=== PATIENT | male | born 1950 | race Caucasian/White ===

== ENCOUNTER 2016-12-22 03:40 | Emergency (ER) | payer MEDICARE ==
[2016-12-22] MEDS ORDERED: Ondansetron TAB* 4 MG PO ONE (03:50)
--- NOTE | 2016-12-22 04:01 | ED ---
Abdominal Pain/Male - HPI Summary HPI Summary: Patient presents for delayed evaluation of nausea after eating lunch. Last seconds at a time, so he called the PCP personal service representative who directed him to the ED if he felt he needed evaluation. Denies systemic symptoms, vomiting, sick contacts , abd pain. No allev factors attempted. Also felt that his blood pressure was high. - History of Current Complaint Chief Complaint: EDGeneral Stated Complaint: ELEVATED BLOOD PRESSURE Time Seen by Provider: 12/22/16 03:50 Hx Obtained From: Patient, EMS Onset/Duration: Gradual Onset Timing: Intermittent, Lasting Seconds Severity Initially: Mild Severity Currently: Mild Pain Intensity: 0 - Allergies/Home Medications Allergies/Adverse Reactions: Allergies Allergy/AdvReac Type Severity Reaction Status Date / Time Morphine Allergy Vomiting Verified 08/30/16 11:45 Penicillins Allergy Rash Verified 08/30/16 11:45 PMH/Surg Hx/FS Hx/Imm Hx Endocrine/Hematology History: Denies: Hx Diabetes, Hx Thyroid Disease Cardiovascular History: Reports: Hx Hypercholesterolemia, Hx Hypertension Denies: Hx Pacemaker/ICD Respiratory History: Denies: Hx Asthma, Hx Chronic Obstructive Pulmonary Disease (COPD) GI History: Denies: Hx Ulcer History: Denies: Hx Renal Disease Sensory History: Reports: Hx Contacts or Glasses Denies: Hx Hearing Aid Opthamlomology History: Reports: Hx Contacts or Glasses Psychiatric History: Reports: Hx Panic Disorder, Hx Inpatient Treatment, Hx Community Mental Health Tx Denies: Hx of Violent Episodes Against Others - Cancer History Cancer Type, Location and Year: PROSTATE - Surgical History Surgery Procedure, Year, and Place: 2001 REMOVED PROSTATE, PIGEON CHEST AT YOUNG AGE - Immunization History Date of Tetanus Vaccine: unk Date of Influenza Vaccine: fall 2015 Infectious Disease History: No Infectious Disease History: Denies: Hx Hepatitis, Hx Human Immunodeficiency Virus (HIV), Traveled Outside the [place] in Last 30 Days - Family History Known Family History: Positive: Diabetes, Other - CVA - Social History Alcohol Use: None Substance Use Type: Reports: None Smoking Status (MU): Former Smoker Have You Smoked in the Last Year: No Review of Systems Positive: Nausea All Other Systems Reviewed And Are Negative: Yes Physical Exam Triage Information Reviewed: Yes Vital Signs On Initial Exam: Initial Vitals Temp Pulse Resp BP Pulse Ox 97.2 F 72 16 132/75 97 12/22/16 03:42 12/22/16 03:42 12/22/16 03:42 12/22/16 03:42 12/22/16 03:42 Vital Signs Reviewed: Yes Appearance: Positive: Well-Appearing, No Pain Distress, Well-Nourished Skin: Positive: Warm, Skin Color Reflects Adequate Perfusion, Dry ENT: Positive: Normal ENT inspection, Hearing grossly normal Respiratory/Lung Sounds: Positive: Clear to Auscultation, Breath Sounds Present Cardiovascular: Positive: Normal, RRR, Pulses are Symmetrical in both Upper and Lower Extremities Abdomen Description: Positive: Nontender, No Organomegaly, Soft Musculoskeletal: Positive: Normal, Strength/ROM Intact Neurological: Positive: Normal, Sensory/Motor Intact, Alert, Oriented to Person Place, Time, CN Intact II-III, Reflexes Intact - Arnie Coma Scale Coma Scale Total: 15 Diagnostics - Vital Signs Vital Signs Temp Pulse Resp BP Pulse Ox 12/22/16 03:42 97.2 F 72 16 132/75 97 - Laboratory Result Diagrams: 12/22/16 04:20 12/22/16 04:20 Lab Statement: Any lab studies that have been ordered have been reviewed, and results considered in the medical decision making process. Abdominal Pain Fem Course/Dx - Diagnoses Differential Diagnosis/HQI/PQRI: Gall Bladder Disease, Peptic Ulcer Disease, Other - Primary concern for biliary colic. Small mobile gall stones on bedside US, but no murphys signs, wall thickening, or pericholecystic fluid. Supportive care, lab evaluation, and PCP and GI FU. Provider Diagnoses: Cholelithiasis Discharge - Discharge Plan Condition: Stable Disposition: HOME Patient Education Materials: Acute Nausea and Vomiting (ED) Referrals: Paramjit Grullon MD [Primary Care Provider] - Edilberto Fuller MD [Medical Doctor] -
[2016-12-22 04:37] LABS: Hematocrit 41 % (42-52); Mean Corpuscular HGB Conc 34 g/dl (31-36); Mean Corpuscular Hemoglobin 32 pg (27-31); Mean Corpuscular Volume 94 fL (80-94); Mean Platelet Volume 10 um3 (7.4-10.4); Red Blood Count 4.31 10^6/ul (4.0-5.4); Red Cell Distribution Width 14 % (10.5-15); White Blood Count 6.4 10^3/ul (3.5-10.8)
[2016-12-22 04:48] LABS: Albumin 3.6 g/dL (3.2-5.2); BUN/Creatinine Ratio 16.7 (8-20); Calcium 8.7 mg/dL (8.6-10.3); EGFR African American 140.5 (>60); EGFR Non-African American 109.2 (>60); Globulin 2.7 g/dL (2-4); Potassium 3.9 mmol/L (3.5-5.0); Total Bilirubin 0.6 mg/dL (0.2-1.0); Total Protein 6.3 g/dL (6.4-8.9)
[2016-12-22 06:00] VITALS: BP 130/81
== END 2016-12-22 05:59 | disposition home or self-care (01) ==
LOC: ED 03:40
DX: K80.20 Calculus of gallbladder without cholecystitis without obstruction (principal); R11.0 Nausea
CPT/HCPCS: 36415; 80053; 83690; 85027; 99282; A9270-GY

== ENCOUNTER 2017-03-13 13:05 | Day surgery (SDC) | payer MEDICARE ==
--- NOTE | 2017-01-31 15:11 | HP ---
ADMISSION HISTORY AND PHYSICAL: DATE OF ADMISSION: 02/20/17 CHIEF COMPLAINT: Symptomatic cholelithiasis. HISTORY OF PRESENT ILLNESS: This is a 66-year-old male to female transgender individual who first reports abdominal pain for which she presented to the ED in mid December. She reports symptoms of mid epigastric abdominal pain associated with nausea, but no vomiting. She denies fever or chills. She reports the pain was moderately severe, but actually resolved spontaneously. Workup in the ED at that time revealed mild elevation of transaminases. The white blood cell count was normal. She was subsequently seen by Dr. Alejandro on and was referred for ultrasound. Ultrasound of the gallbladder was done on 01/21/17 showing multiple gallstones, but no gallbladder wall thickening or pericholecystic fluid. Common bile duct was normal. Patient met back with Dr. Alejandro again on 01/28/17 and it was felt that her symptoms were likely related to symptomatic cholelithiasis. She since had another attack of right upper quadrant pain on 01/29/17 that was similar in most regards other than a slightly different location. That also resolved spontaneously. At no point has she noticed darkening of her urine or change in the color of her stool. There is no known family history of gallbladder disease. Dr. Alejandro has discussed with her the indications for surgery, the risks, benefits and alternatives and I reviewed with her the expected perioperative course. She would like to proceed as scheduled with laparoscopic cholecystectomy. PAST MEDICAL HISTORY: Hyperlipidemia, hypertension, insomnia, anxiety, depression, prostate cancer without evidence of recurrence. Patient is in the process of gender transformation (male to female). 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 No reported surgical or anesthesia problems. CURRENT MEDICATIONS: 1. Simvastatin 10 mg q.p.m. 2. Effexor XR 150 mg 2 tablets daily. 3. Seroquel XR 200 mg q.h.s. 4. Aspirin 81 mg daily (instructed to hold for 1 week preoperatively). 5. Flutamide 125 mg daily. 6. Progesterone micronized 200 mg daily. 7. Mirtazapine 15 mg daily. 8. Estradiol 2 mg 2 tablets q.a.m., 1 tablet q.p.m. 9. Spironolactone 25 mg daily. 10. Clonazepam 2 mg q.h.s. 11. Vitamin D3, 5000 units daily. 12. Acetaminophen p.r.n. 13. Ondansetron 4 mg ODT p.r.n. DRUG ALLERGIES: MORPHINE (vomiting), PENICILLIN (rash and joint pain). FAMILY HISTORY: Negative for anesthesia problems, bleeding or clotting disorders. SOCIAL HISTORY: Patient lives alone in an apartment. She is a former smoker who quit in 1977. She admits to substance use disorder regarding alcohol but has been abstinent for many years. She denies other drug use. REVIEW OF SYSTEMS: General: No recent constitutional symptoms or acute illnesses. Cardiovascular: History of hypertension. No recent chest pain, palpitations or lightheadedness. Respiratory: No history of asthma, chronic cough or shortness of breath. GI: As above per HPI. No lower GI symptoms. Colonoscopy done approximately 4 years ago with removal of benign polyps and repeat exam to be scheduled in 1 year. : Prostate cancer history as noted without evidence of recurrence. Endocrine: No diabetes or thyroid dysfunction. He is going through a gender transformation process. Neuro/Psych : As above. She is followed by Dr. Stephenie Bonilla. No other additions. Musculoskeletal: She does have some chronic lower back pain. PHYSICAL EXAM: GENERAL: Well-nourished obese male in no acute distress. VITAL SIGNS: Height 5 feet 8 inches, weight 195 pounds by history. Other vital signs per nursing. HEENT: Pupils equal and round, reactive. EOMs intact. No conjunctival pallor. Oropharynx: Teeth in good repair. No intraoral lesions. NECK: No lymphadenopathy, thyromegaly or masses. LUNGS: Clear to auscultation. No rales or wheezes. HEART: Regular rate and rhythm. No murmur noted. BREASTS: He does have some gynecomastia, but breast exam not performed. ABDOMEN: Well-healed lower midline incision. Abdomen is soft, nontender without palpable masses or organomegaly. GENITALIA/RECTAL: Not done. BACK: No spinous process or CVA tenderness. EXTREMITIES: No edema. NEUROLOGIC: Grossly intact. SKIN: Warm and ray. No suspicious rashes or lesions noted. IMPRESSION: Symptomatic cholelithiasis. PLAN: Laparoscopic cholecystectomy. RENAE LOPEZ CC: Dr. Elizabeth Romero* [id number]/[facility] #: [id number] MARYD
[~2017-03-13 13:05] MED LIST: Buffered Lidocaine 1% SYRIN* 3 ML/SYR SYRINGE INTRADERM ONE; Bupivacaine 0.25% EPI 200,000* 30 ML SDV ONE; Famotidine IV* 10 MG/ML 2 ML (20 mg) IV ONE; Levalbuterol 0.63MG/3ML NEB INH ONE; Midazolam* 1 MG/ML 2 ML VIAL (2 MG) IV ONE; ceFAZolin 2 GM PREMIX(*) 2 GM/50 ML BAG IVPB ONE
[2017-03-13] MEDS ORDERED: fentaNYL* 50 MCG/ML 2 ML VIAL (100 MCG VIAL) ONE ×3 (14:26→16:33)
[2017-03-13] MEDS ORDERED: Midazolam* 1 MG/ML 2 ML VIAL (2 MG) ONE (14:26)
[2017-03-13] MEDS ORDERED: Bupivacaine 0.25% EPI 200,000* 30 ML SDV ONE (15:21)
[2017-03-13] MEDS ORDERED: Propofol* 10 MG/ML 20 ML BTL IV PUSH ONE (15:57)
[2017-03-13] MEDS ORDERED: Ondansetron INJ* 2 MG/ML VIAL ONE (15:57)
[2017-03-13] MEDS ORDERED: Dexamethasone IV* 4 MG/ML 1 ML (4 MG) ONE (15:57)
[2017-03-13] MEDS ORDERED: Lidocaine 2% PF * 5 ML VIAL ONE (15:57)
[2017-03-13] MEDS ORDERED: Succinylcholine* 20 MG/ML 10 ML VIAL ONE (15:57)
[2017-03-13] MEDS ORDERED: Metoclopramide IV* 5 MG/ML 2 ML VIAL IV PRN (16:15)
[2017-03-13] MEDS ORDERED: fentaNYL* 50 MCG/ML 2 ML VIAL (100 MCG VIAL) IV PRN (16:15)
[2017-03-13] MEDS ORDERED: Scopolamine 1.5 mg* PATCH TRANSDERM PRN (16:15)
[2017-03-13] MEDS ORDERED: PROCHLORPERAZINE INJ 5 MG/ML 2 ML VIAL IV PRN (16:15)
[2017-03-13] MEDS ORDERED: Sevoflurane* 1 BTL ONE (16:30)
--- NOTE | 2017-03-13 16:48 | SURGPN ---
Brief Operative Note - Surgery Procedures: Procedures Pre-OP Diagnoses: cholecystitis Post-op Diagnosis: same Procedure: Laparoscopic cholecystectomy Surgeon: Flavia Asst: Swapnil Umañatheitzel: CHIRAG Chaney EBL: 50cc IVF: 1600ccLR Specimen: gallbladder Drains: none
[2017-03-13] MEDS ORDERED: HYDROmorphone* 1 MG/ML 1 ML SYR ONE (17:44)
[2017-03-13] MEDS: HYDROmorphone* 1 MG/ML 1 ML SYR IV PRN ×3 (17:47→18:16)
[2017-03-13 18:49] VITALS: BP 108/79
--- NOTE | 2017-03-13 23:05 | OP ---
DATE OF OPERATION: 03/13/17 [facility] DATE OF : 50 SURGEON: Jamison Alejandro MD BUSINESS PROCESS ARCHITECT: RENAE Laurent ANESTHESIOLOGIST: Dr. Chaney. ANESTHESIA: General. PRE-OP DIAGNOSIS: Cholecystitis. POST-OP DIAGNOSIS: Cholecystitis. OPERATIVE PROCEDURE: Laparoscopic cholecystectomy. BLOOD LOSS: 50 cc. FLUIDS: Crystalloid, 1600 cc. SPECIMEN: Gallbladder. COUNTS: Lap pad count and instrument count correct at the end of the procedure. DESCRIPTION OF PROCEDURE: The patient was identified in the preoperative area, consent signed. He was marked and brought to the operating room, placed on the operating table in a supine position. Preoperative antibiotics were given. Sequential devices were placed on bilateral lower extremities. General anesthesia was induced. The patient's abdomen was prepped and draped in a standard surgical fashion and time-out was performed. Folds of the umbilicus were elevated anteriorly and a Veress needle was inserted into the abdominal cavity, which was then allowed to insufflate to a pressure of 15 mmHg. The patient tolerated the insufflation well. A supraumbilical incision was made and a 5 mm trocar was inserted through this just at the right side of the midline. Laparoscope was inserted. There was no evidence of injury from the trocar insertion or from the Veress needle, which was then removed. Additional trocars were then placed in the following position: A 12 mm in the subxiphoid area and two 5 mm along the right costal margin. The table was repositioned and the gallbladder was identified, it was invested with significant amount of fat, what appeared to be node of Calot was identified below this and we excised the peritoneum over this area. We looked for the common bile duct and we could not find it given the body habitus. The electrocautery was used to take the peritoneum down off the medial aspect of the gallbladder along with its multiple layers of edematous fatty covering. This was taken right up the medial aspect to the fundus. Similarly, we were able to do this on the lateral side. The cystic duct was identified, it was tortuous and we released peritoneal attachments to allow this to be elongated and see it better. Once it was identified, it was triply clipped and ligated. The cystic artery was clipped and the gallbladder was removed from the liver bed. We did enter the gallbladder at one point. Some cholesterol stones were identified. These were suctioned off later. Gallbladder was removed from the liver bed and placement of endoscopic retrieval bag and removed through the subxiphoid port. We then suctioned out any of the cholesterol stones and then irrigated until the effluent was clear. Cystic duct stump, cystic artery stump appeared intact. They were within a fold of fat and showed no bleeding or bile. The gallbladder fossa showed no bleeding as well. The review of the abdomen did see some greater omental oozing and this was clipped to gain hemostasis. Table was repositioned back to neutral. The abdomen was allowed to collapse. Trocar was removed under direct vision and all 4 skin incisions were re- approximated with 4-0 Monocryl subcuticular sutures followed by Steri-Strips and sterile dressing. The patient tolerated the procedure well and was transferred to the PACU. CC: Dr. Elizabeth Romero; [facility] * [id number]/[facility] #: [id number] MTDD
== END 2017-03-13 18:51 | disposition home or self-care (01) ==
LOC: OR 13:05
PROVIDERS: ATTEND Surgery
DX: K80.10 Calculus of gallbladder with chronic cholecystitis without obstruction (principal); Z87.891 Personal history of nicotine dependence; Z85.46 Personal history of malignant neoplasm of prostate; I10 Essential (primary) hypertension; E78.5 Hyperlipidemia, unspecified; F41.8 Other specified anxiety disorders
CPT/HCPCS: 88304; A9270-GY; J0330; J0690; J1100; J1170; J2250; J2405; J2704; J3010

== ENCOUNTER 2018-05-07 10:44 | Day surgery (SDC) | payer BC, OTHER ==
[~2018-05-07 10:44] MED LIST changes: +Acetaminophen TAB* 325 MG PO PRN; +Buffered Lidocaine 0.9% SYRIN* 5 ML/SYR SYRINGE INTRADERM ONE; -Buffered Lidocaine 1% SYRIN* 3 ML/SYR SYRINGE INTRADERM ONE; -Bupivacaine 0.25% EPI 200,000* 30 ML SDV ONE; -Famotidine IV* 10 MG/ML 2 ML (20 mg) IV ONE; -Levalbuterol 0.63MG/3ML NEB INH ONE; -Midazolam* 1 MG/ML 2 ML VIAL (2 MG) IV ONE; -ceFAZolin 2 GM PREMIX(*) 2 GM/50 ML BAG IVPB ONE
[2018-05-07] MEDS ORDERED: fentaNYL* 50 MCG/ML 2 ML VIAL (100 MCG VIAL) ONE (12:39)
[2018-05-07] MEDS ORDERED: Midazolam* 1 MG/ML 2 ML VIAL (2 MG) ONE (12:39)
[2018-05-07 13:44] VITALS: BP 116/69
[2018-05-07] MEDS ORDERED: Ketorolac 0.5% OPHTH (NF) 0.5 % 5 ML BTL ONE (13:50)
[2018-05-07] MEDS ORDERED: Phenylephrine 2.5% OPTH.SOL* 2 ML BTL ONE (13:50)
[2018-05-07] MEDS ORDERED: Lidocaine 1%* 5 ML VIAL ONE (13:50)
[2018-05-07] MEDS ORDERED: acetaZOLAMIDE TAB* 250 MG ONE (13:50)
[2018-05-07] MEDS ORDERED: Lidocaine 2% EPI 1:200000 MPF*10-20 ML VIAL ONE (13:50)
[2018-05-07] MEDS ORDERED: Povidone Iodine 5% OPTH* 30 ML BTL ONE (13:50)
[2018-05-07] MEDS ORDERED: Neomycin/Polymy/Dex OPTH.SUSP* MAXITROL 0.1% 5 ML ONE (13:50)
[2018-05-07] MEDS ORDERED: Cyclopentolate 1% OPTH.SOL* 2 ML BTL ONE (13:50)
[2018-05-07] MEDS ORDERED: Proparacaine 0.5% OPHTH.SOL* 15 ML BTL ONE (13:50)
--- NOTE | 2018-05-07 15:40 | OP ---
DATE OF OPERATION: 05/07/2018. DATE OF : 1950. SURGEON: Paramjit Linares M.D. PREOPERATIVE DIAGNOSIS: Cataract right eye. POSTOPERATIVE DIAGNOSIS: Cataract right eye. OPERATIVE PROCEDURE: Extracapsular cataract extraction with intraocular lens implant right eye. PROCEDURE: The patient was brought to the operating room after being given 1/2% Alcaine with epineph rine drops in the preoperative area. The eye was prepped and draped in the usual sterile fashion. S terile drape and eyelid speculum were placed. Again, topical 1/2% Alcaine with epinephrine was given . A paracentesis incision was made at the 9 o'clock position with the No.75 blade. Clear cornea inc ision 2.2 x 2.2-mm was created at the 12 o'clock position starting at the anterior limbus using the 2 .2-mm keratome. The anterior chamber was irrigated with 0.4 mL of 1% non-preservative intracameral l idocaine and filled with DisCoVisc. A capsulorrhexis was completed using the cystotome and the Utrat a forceps. Hydrodissection was performed with balanced salt solution. The lens nucleus was removed w ith the Phacoemulsification handpiece without incident. Cortex was removed with the irrigation-aspir ation handpiece. The capsular bag was re-inflated using DisCoVisc and an [id number] implant was inser mahendra with the shooter. The irrigation-aspiration handpiece was used to remove all residual DisCoVisc. The eye was refilled with balanced salt solution and the wound checked and found to be watertight. Topical Maxitrol drops were given. [id number]/[facility] #: [id number]
== END 2018-05-07 13:52 | disposition home or self-care (01) ==
LOC: OREAST 10:44
PROVIDERS: ATTEND Specialist
DX: H25.811 Combined forms of age-related cataract, right eye (principal); H43.813 Vitreous degeneration, bilateral; Z87.891 Personal history of nicotine dependence; Z85.46 Personal history of malignant neoplasm of prostate; I10 Essential (primary) hypertension; E78.00 Pure hypercholesterolemia, unspecified; F41.8 Other specified anxiety disorders; M19.90 Unspecified osteoarthritis, unspecified site; E78.5 Hyperlipidemia, unspecified
CPT/HCPCS: A9270-GY; J2250; J3010; V2632

== ENCOUNTER 2018-05-21 13:34 | Day surgery (SDC) | payer BC, OTHER ==
[~2018-05-21 13:34] MED LIST changes: +Midazolam* 1 MG/ML 2 ML VIAL (2 MG) ONE
[2018-05-21] MEDS ORDERED: Proparacaine 0.5% OPHTH.SOL* 15 ML BTL ONE (15:09)
[2018-05-21] MEDS ORDERED: Neomycin/Polymy/Dex OPTH.SUSP* MAXITROL 0.1% 5 ML ONE (15:09)
[2018-05-21] MEDS ORDERED: Povidone Iodine 5% OPTH* 30 ML BTL ONE (15:09)
[2018-05-21] MEDS ORDERED: acetaZOLAMIDE TAB* 250 MG ONE (15:09)
[2018-05-21] MEDS ORDERED: Phenylephrine 2.5% OPTH.SOL* 2 ML BTL ONE (15:09)
[2018-05-21] MEDS ORDERED: Ketorolac 0.5% OPHTH (NF) 0.5 % 5 ML BTL ONE (15:09)
[2018-05-21] MEDS ORDERED: Lidocaine 1%* 5 ML VIAL ONE (15:09)
[2018-05-21] MEDS ORDERED: Cyclopentolate 1% OPTH.SOL* 2 ML BTL ONE (15:09)
[2018-05-21] MEDS ORDERED: Lidocaine 2% EPI 1:200000 MPF*10-20 ML VIAL ONE (15:09)
[2018-05-21] MEDS ORDERED: Midazolam* 1 MG/ML 2 ML VIAL (2 MG) ONE (16:21)
[2018-05-21 16:47] VITALS: BP 124/71
--- NOTE | 2018-05-22 09:25 | OP ---
DATE OF OPERATION: 05/21/18 [facility] DATE OF : 50 SURGEON: Paramjit Linares MD PREOPERATIVE DIAGNOSIS: Cataract, left eye. POSTOPERATIVE DIAGNOSIS: Cataract, left eye. OPERATIVE PROCEDURE: Extracapsular cataract extraction with intraocular lens implant left eye. DESCRIPTION OF PROCEDURE: The patient was brought to the operating room after being given 1/2% Alcaine with epinephrine drops in the preoperative area. The eye was prepped and draped in the usual sterile fashion. Sterile drape and eyelid speculum were placed. Again, topical 1/2% Alcaine with epinephrine was given. A paracentesis incision was made at the 3 o'clock position with the No.75 blade. Clear cornea incision 2.2 x 2.2-mm was created at the 6 o'clock position starting at the anterior limbus using the 2.2-mm keratome. The anterior chamber was irrigated with 0.4 mL of 1% non-preservative intracameral lidocaine and filled with DisCoVisc. A capsulorrhexis was completed using the cystotome and the Utrata forceps. Hydrodissection was performed with balanced salt solution. The lens nucleus was removed with the Phacoemulsification handpiece without incident. Cortex was removed with the irrigation-aspiration handpiece. The capsular bag was re-inflated using DisCoVisc and an [id number] implant was inserted with the shooter. The irrigation-aspiration handpiece was used to remove all residual DisCoVisc. The eye was refilled with balanced salt solution and the wound checked and found to be watertight. Topical Maxitrol drops were given. [id number]/[facility] #: [id number] [facility]
== END 2018-05-21 16:48 | disposition home or self-care (01) ==
LOC: OREAST 13:34
PROVIDERS: ATTEND Specialist
DX: H25.812 Combined forms of age-related cataract, left eye (principal); H43.813 Vitreous degeneration, bilateral; I10 Essential (primary) hypertension; F64.9 Gender identity disorder, unspecified; R73.01 Impaired fasting glucose; E78.5 Hyperlipidemia, unspecified; Z87.891 Personal history of nicotine dependence; F41.8 Other specified anxiety disorders; M19.90 Unspecified osteoarthritis, unspecified site; Z85.46 Personal history of malignant neoplasm of prostate; R32 Unspecified urinary incontinence
CPT/HCPCS: A9270-GY; J2250; V2632

== ENCOUNTER 2019-06-10 16:20 | Emergency (ER) | payer MEDICARE ==
--- NOTE | 2019-06-10 17:02 | ED ---
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 He states that after having a bowel movement he found bright red blood after wiping his stool. He states that he has some rectal pain and rates its severity a 3/10. He denies abd pain, dizziness, weakness, or lightheadedness. Hx of hemorrhoids. - History of Current Complaint Chief Complaint: EDGIBleed Time Seen by Provider: 06/10/19 16:54 Stated Complaint: BLOOD IN BM, SENT BY DR PER PT Hx Obtained From: Patient Onset/Duration: Started Hours Ago Timing: Intermittent Severity: Mild Current Severity: Mild Pain Intensity: 3 Location of Pain: Rectal Associated Signs and Symptoms: Positive: Rectal Pain, Bright Red Blood w/Stool. Negative: Dizziness, Weakness, Lightheadedness, Abdominal Pain, Chest Pain Aggravating Factor(s): Nothing Alleviating Factor(s): Nothing - Additional Pertinent History Primary Care Physician: WILLIAM - Allergy/Home Medications Allergies/Adverse Reactions: Allergies Allergy/AdvReac Type Severity Reaction Status Date / Time Penicillins Allergy Severe Rash Verified 06/10/19 16:26 morphine Allergy Intermediate Vomiting Verified 06/10/19 16:26 Home Medications: Home Medications ARIPiprazole TAB* [Abilify TAB*] 10 mg PO DAILY 06/10/19 [History Confirmed ] Acetaminop/Codeine 30 MG TAB* [Tylenol/Codeine 30 MG TAB*] 1 tab PO DAILY PRN [History Confirmed 06/10/19] Aspirin EC TAB* [Ecotrin EC Low Dose 81 MG*] 81 mg PO DAILY 06/10/19 [History Confirmed 06/10/19] Diclofenac Sodium EC TAB* [Voltaren EC TAB*] 75 mg PO BID 06/10/19 [History Confirmed 06/10/19] Estradiol [Estrace] 2 mg PO TID 06/10/19 [History Confirmed 06/10/19] Flutamide CAP* [Eulexin CAP*] 125 mg PO DAILY 06/10/19 [History Confirmed ] Metaxalone TAB* [Skelaxin TAB*] 800 mg PO TID 06/10/19 [History Confirmed ] Mirtazapine TAB* [Remeron TAB*] 30 mg PO BEDTIME 06/10/19 [History Confirmed ] Simvastatin TAB(NF) [Zocor(NF)] 10 mg PO DAILY 06/10/19 [History Confirmed 06/10] Venlafaxine ER (NF) [Effexor ER (NF)] 300 mg PO DAILY 06/10/19 [History Confirmed 06/10/19] PMH/Surg Hx/FS Hx/Imm Hx Endocrine/Hematology History: Denies: Hx Diabetes, Hx Thyroid Disease Cardiovascular History: Reports: Hx Hypercholesterolemia, Hx Hypertension - ON MEDICATION FOR, Other Cardiovascular Problems/Disorders - Elevated cholesterol Denies: Hx Pacemaker/ICD Respiratory History: Reports: Other Respiratory Problems/Disorders - Pneumonia, history of Denies: Hx Asthma, Hx Chronic Obstructive Pulmonary Disease (COPD) GI History: Reports: Other GI Disorders - GALLSTONES Denies: Hx Ulcer History: Reports: Other Problems/Disorders - HX OF PROSTATE CANCER- SURGERY FOR Denies: Hx Renal Disease Musculoskeletal History: Reports: Hx Arthritis - LEFT KNEE AND LEFT LOWER BACK Denies: Other Musculoskeletal History Sensory History: Reports: Hx Cataracts - BILATERAL, Hx Contacts or Glasses - glasses, Hx Hearing Aid - left ear hearing aide on Denies: Hx Glaucoma Opthamlomology History: Reports: Hx Cataracts - BILATERAL, Hx Contacts or Glasses - glasses Denies: Hx Glaucoma Neurological History: Denies: Other Neuro Impairments/Disorders Psychiatric History: Reports: Hx Anxiety, Hx Depression, Hx Panic Disorder, Hx Inpatient Treatment, Hx Community Mental Health Tx Denies: Hx of Violent Episodes Against Others - Cancer History Cancer Type, Location and Year: PROSTATE Hx Chemotherapy: No Hx Radiation Therapy: No - Surgical History Surgery Procedure, Year, and Place: 2001 REMOVED PROSTATE, 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 tonsillectomy as a child Hx Anesthesia Reactions: No - Immunization History Date of Tetanus Vaccine: unk Date of Influenza Vaccine: fall 2015 Infectious Disease History: No Infectious Disease History: Denies: Hx Hepatitis, Hx Human Immunodeficiency Virus (HIV), Traveled Outside the [place] in Last 30 Days - Family History Known Family History: Positive: Diabetes, Other - CVA - Social History Alcohol Use: None Alcohol Amount: NONE SINCE 1986 AND 2002- STATES WAS AN ALCOHOLIC Hx Substance Use: No Substance Use Type: Reports: None Hx Tobacco Use: Yes Smoking Status (MU): Former Smoker Amount Used/How Often: 1 ppd 10 years Have You Smoked in the Last Year: No Review of Systems Negative: Chest Pain Positive: Other - positive - blood w/stool, rectal pain. Negative: Abdominal Pain Neurological: Other - negative - dizziness, lightheadedness Negative: Weakness All Other Systems Reviewed And Are Negative: Yes Physical Exam - Summary Physical Exam Summary: Appearance: Well-appearing, Well-nourished, lying in bed comfortably Skin: Warm, dry, no obvious rash Eyes: sclera anicteric, no conjunctival pallor ENT: mucous membranes moist, pharynx appears normal Neck: Supple, nontender Respiratory: Clear to auscultation, no signs of respiratory distress Cardiovascular: Normal S1, S2. No murmurs. Normal distal pulses in tibial and radial bilaterally. Abdomen: Soft, nontender, normal active bowel sounds present, Rectal Exam: only notable for small amount of blood in rectal vault, no hemorrhoids. Musculoskeletal: Normal, Strength/ROM Intact Neurological: A&Ox3, awake and alert, mentation is normal, speech is fluent and appropriate Psychiatric: affect is normal, does not appear anxious or depressed Triage Information Reviewed: Yes Vital Signs On Initial Exam: Initial Vitals Temp Pulse Resp BP Pulse Ox 96.9 F 90 14 135/82 94 06/10/19 16:22 06/10/19 16:22 06/10/19 16:22 06/10/19 16:22 06/10/19 16:22 Vital Signs Reviewed: Yes Diagnostics - Vital Signs Vital Signs Temp Pulse Resp BP Pulse Ox 06/10/19 16:22 96.9 F 90 14 135/82 94 - Laboratory Result Diagrams: 06/10/19 17:51 06/10/19 17:51 Lab Statement: Any lab studies that have been ordered have been reviewed, and results considered in the medical decision making process. - EKG 1713 Cardiac Rate: NL EKG Rhythm: Sinus Rhythm Summary of EKG Findings: NSR at 78 BPM, P waves, QRS complex, and T waves are within normal limits, T waves and intervals are normal, no ischemic changes. This is a normal EKG. Re-Evaluation - Re-Evaluation First Eval Re-Evaluation Time: 18:40 Comment: I spoke with the patient concerning discharge. 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 He states that after having a bowel movement he found bright red blood after wiping his stool. He states that he has some rectal pain and rates its severity a 3/10. He denies dizziness, weakness, or lightheadedness. Hx of hemorrhoids. Physical exam was only notable for small amount of blood in rectal vault, no hemorrhoids. Test results are normal except for RBC @ 4.09, Hgb @ 13.2, MCV @ 96, MCH @ 32, BUN/Creatinine @ 28.0, Calcium @ 7.9, and Total Protein @ 5.6. Stool Occult positive for blood. An EKG reveals: NSR at 78 BPM, P waves, QRS complex, and T waves are within normal limits, T waves and intervals are normal, no ischemic changes. This is a normal EKG. In the ED course the pt was given 1000 mls fluids IV. The pt was diagnosed with rectal bleed, discharged home, and instructed to follow up with PCP within 3 days. The pt is stable and agreeable with this plan. - Diagnoses Provider Diagnoses: Rectal bleed Discharge - Sign-Out/Discharge Documenting (check all that apply): Patient Departure - discharge Patient Received Moderate/Deep Sedation with Procedure: No - Discharge Plan Condition: Good Disposition: HOME Patient Education Materials: Rectal Bleeding (ED) Referrals: Elizabeth Romero MD [Primary Care Provider] - 3 Days Additional Instructions: Your bleeding appears to have stopped and your hemoglobin looks good. I think it is safe for you to be discharged for now, but you will need followup with a mitigation supervisor. Also if your bleeding starts again we would need to see you back here right away. - Billing Disposition and Condition Condition: GOOD Disposition: Home - Attestation Statements Document Initiated by Alize: Yes Documenting Scribe: Ethan Cardozo Provider For Whom Alize is Documenting (Include Credential): Yayo Morris MD Scribe Attestation: IEthan, scribed for Yayo Morris MD on 06/12/19 at 0446. Scribe Documentation Reviewed: Yes Provider Attestation: The documentation as recorded by the Ethan mari accurately reflects the service I personally performed and the decisions made by me, Yayo Morris MD Status of Scribe Document: Viewed
[2019-06-10] MEDS ORDERED: NS 0.9% 1000 ML** 1,000 ML IV ONE (17:09)
[2019-06-10 18:13] LABS: ABS Eosinophils 0.2 10^3/ul (0-0.6); ABS Lymphocytes 1.4 10^3/ul (1.0-4.8); ABS Monocytes 0.6 10^3/ul (0-0.8); ABS Neutrophils 5.6 10^3/ul (1.5-7.7); Hematocrit 39 % (42-52); Hemoglobin 13.2 g/dL (14.0-18.0); Lymphocyte % 17.3 %; Mean Corpuscular HGB Conc 34 g/dL (31-36); Mean Corpuscular Hemoglobin 32 pg (27-31); Mean Corpuscular Volume 96 fL (80-94); Mean Platelet Volume 8.8 fL (7.4-10.4); Nucleated Red Blood Cells % 0.1; Platelet Count 190 10^3/uL (150-450); Red Blood Count 4.09 10^6 /uL (4.18-5.48); Red Cell Distribution Width 14 % (10-15); White Blood Count 7.9 10^3/uL (3.5-10.8)
[2019-06-10 18:22] LABS: Activated Partial Thrombo Time 32.4 seconds (26.0-38.0)
[2019-06-10 18:35] VITALS: BP 130/77
[2019-06-10 18:41] LABS: Albumin 3.4 g/dL (3.2-5.2); Albumin/Globulin Ratio 1.5 (1-3); Calcium 7.9 mg/dL (8.6-10.3); EGFR African American 112.7 (>60); EGFR Non-African American 93.2 (>60); Globulin 2.2 g/dL (2-4); Potassium 4.1 mmol/L (3.5-5.0); Total Bilirubin 0.4 mg/dL (0.2-1.0); Total Protein 5.6 g/dL (6.4-8.9)
--- OUTSIDE RECORDS SUMMARY | 2019-06-11 01:19 | XMS REPORT | Continuity of Care Document ---
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 Abel([facility]) WBC 7.8 x10^3/UL 3.6 -9.6 RBC 4.62 x10^6/UL 3.90-5.70 HGB 14.9 g/dL 12.1-17.2 HCT 44 % 36-50 MCV 96.0 fL 82.2-97.4 MCH 32.3 pg 27.6-33.3 MCHC 33.7 g/dL 33.0-35.5 RDW 14.5 % High 11.6-13.7 PLT 253 x10^3/UL 150-400 MPV 7.7 fL 7.4-10.4 Gran # 6.0 x10^3/UL 1.5-7.2 Lymph# 1.6 x10^3/UL 0.7-4.9 [place]# 0.2 x10^3/UL 0.1-0.9 Gran % 75.2 % 42.2-75.2 Lymph % 21.0 % 20.5-51.1 [place]% 3.8 % 1.7-9.3 Laboratory test 06/12/2017 [facility] Estradiol 1020.0 High 7.6-42.6 15, 16 finding [address] [facility] pg/[place] [address] (607)- - CBC No Diff 01/31/2017 [facility] White Blood 8.9 N 3.5-10.8 17 Count 10^3/uL Red Blood Count 4.33 10^6/uL N 4.0-5.4 Hemoglobin 13.8 g/dL Low 14.0-18.0 Hematocrit 41 % Low 42-52 Mean Corpuscular Volume 95 fL High 80-94 Mean Corpuscular Hemoglobin 32 pg High 27-31 Mean Corpuscular HGB Conc 34 g/dL N 31-36 Red Cell Distribution Width 14 % N 10.5-15 Platelet Count 187 10^3/uL N 150-450 Mean Platelet Volume 10 um3 N 7.4-10.4 Liver Function Panel 01/31/2017 [facility] Total Protein 6.1 g/dL Low 6.4-8.9 Albumin 3.8 g/dL N 3.2-5.2 Globulin 2.3 g/dL N 2-4 Albumin/Globulin Ratio 1.7 N 1-3 Total Bilirubin 0.70 mg/dL N 0.2-1.0 Direct Bilirubin 0.10 mg/dL N 0.03-0.18 Indirect Bilirubin 0.6 mg/dL N 0.3-1.0 Alkaline Phosphatase 68 U/L N 34-104 Alt 21 U/L N 7-52 Ast 19 U/L N 13-39 Laboratory test finding 12/22/2016 [facility] Lipase 19 U/L N 11.0-82.0 Comp Metabolic Panel 12/22/2016 [facility] Sodium 132 mmol/L Low 133-145 Potassium 3.9 mmol/L N 3.5-5.0 Chloride 100 mmol/L Low 101-111 Co2 Carbon Dioxide 26 mmol/L N 22-32 Anion Gap 6 mmol/L N 2-11 Glucose 118 mg/dL High 70-100 Blood Urea Nitrogen 12 mg/dL N 6-24 Creatinine 0.72 mg/dL N 0.67-1.17 BUN/Creatinine Ratio 16.7 N 8-20 Calcium 8.7 mg/dL N 8.6-10.3 Total Protein 6.3 g/dL Low 6.4-8.9 Albumin 3.6 g/dL N 3.2-5.2 Globulin 2.7 g/dL N 2-4 Albumin/Globulin Ratio 1.3 N 1-3 Total Bilirubin 0.60 mg/dL N 0.2-1.0 Alkaline Phosphatase 98 U/L N 34-104 Alt 76 U/L High 7-52 Ast 46 U/L High 13-39 Egfr Non- 109.2 N >60 Egfr 140.5 N >60 18 CBC No Diff 12/22/2016 [facility] White Blood Count 6.4 10^3/uL N 3.5-10.8 Red Blood Count 4.31 10^6/uL N 4.0-5.4 Hemoglobin 14.0 g/dL N 14.0-18.0 Hematocrit 41 % Low 42-52 Mean Corpuscular Volume 94 fL N 80-94 Mean Corpuscular Hemoglobin 32 pg High 27-31 Mean Corpuscular HGB Conc 34 g/dL N 31-36 Red Cell Distribution Width 14 % N 10.5-15 Platelet Count 127 10^3/uL Low 150-450 Mean Platelet Volume 10 um3 N 7.4-10.4 Influenza A&B-fma 12/18/2016 [facility] Influenza A neg (607)- - Influenza B neg Comprehensive Metabolic 09/04/2016 [facility] Page(a) Sodium 139 mEq/L 134-149 Prof Potassium 4.4 mEq/L 3.6-5.5 Chloride 98 mEq/L 94-112 Carbon Dioxide 24 mEq/L 21-32 Glucose 117 mg/dL High 70-105 19 BUN 15 mg/dL 6-26 Creatinine 0.8 mg/dL 0.6-1.4 BUN/Creat Ratio 18.8 CALC 8.0-36.0 Calcium 8.9 mg/dL 8.6-10.2 Total Protein 6.4 g/dL 6.4-8.3 Albumin 4.0 g/dL 3.8-5.5 Globulin 2.4 g/dL 2.0-4.8 A/G Ratio 1.7 CALC 0.6-2.3 Alk. Phosphatase 61 U/L 22-95 Alt (SGPT) 27 U/L 7-35 Ast (Sgot) 24 U/L 5-34 Total Bilirubin 0.5 mg/dL 0.2-1.3 GFR Non- >60 ml/min/1.73m^ >=60 GFR >60 ml/min/1.73m^ >=60 Lipid Profile 09/04/2016 Sebastian Abel(a) Cholesterol 164 mg/dL 120- 200 Triglycerides 102 mg/dL 30-200 HDL Cholesterol 61 mg/dL 30-70 LDL (Calculated) 83 CALC 0-129 VLDL Cholesterol 20 mg/dL 0-50 HDL Risk Factor 2.7 CALC 0.0-4.4 Complete Blood Count 09/04/2016 Sebastian Abel(a) WBC 9.9 x10^3/UL High 3.6-9.6 RBC 4.49 x10^6/UL 3.90-5.70 HGB 14.7 g/dL 12.1-17.2 HCT 43 % 36-50 MCV 96.0 fL 82.2-97.4 MCH 32.8 pg 27.6-33.3 MCHC 34.1 g/dL 33.0-35.5 RDW 15.0 % High 11.6-13.7 PLT 214 x10^3/UL 150-400 MPV 7.2 fL Low 7.4-10.4 Gran # 8.1 x10^3/UL High 1.5-7.2 Lymph# 1.6 x10^3/UL 0.7-4.9 [place]# 0.2 x10^3/UL 0.1-0.9 Gran % 80.9 % High 42.2-75.2 Lymph % 16.4 % Low 20.5-51.1 [place]% 2.7 % 1.7-9.3 Laboratory test 09/04/2016 Sebastian Abel(a) Free T4 0.80 ng/dL 0.75- 1.54 20 finding TSH 2.77 mIU/L 0.50-6.00 Lyme AB/Western 07/13/2016 [facility] Lyme IgG/IgM <0.91 ISR 0.00-0.90 21 Blot Reflex [address] [facility] [place] [address] (607)- - Lyme Disease Ab, Quant, IgM <0.80 index 0.00-0.79 22 Laboratory test 07/13/2016 [facility] PDF [id number] SEE IMAGE finding [address] [place] [address] (607)- - Complete Blood 07/13/2016 [facility](fma) WBC 7.8 3.6-9. Count x10^3/UL 6 RBC 4.14 x10^6/UL 3.90-5.70 HGB 14.1 g/dL 12.1-17.2 HCT 40 % 36-50 MCV 98.0 fL High 82.2-97.4 MCH 34.0 pg High 27.6-33.3 MCHC 34.8 g/dL 33.0-35.5 RDW 13.7 % 11.6-13.7 PLT 204 x10^3/UL 150-400 MPV 8.3 fL 7.4-10.4 Gran # 6.2 x10^3/UL 1.5-7.2 Lymph# 1.4 x10^3/UL 0.7-4.9 [place]# 0.2 x10^3/UL 0.1-0.9 Gran % 78.0 % High 42.2-75.2 Lymph % 18.2 % Low 20.5-51.1 [place]% 3.8 % 1.7-9.3 CBC Auto Diff 03/16/2016 [facility] White Blood Count 10.3 10^3/uL N 3.5-10.8 Red Blood Count 4.63 10^6/uL N 4.0-5.4 Hemoglobin 14.9 g/dL N 14.0-18.0 Hematocrit 44 % N 42-52 Mean Corpuscular Volume 96 fL High 80-94 Mean Corpuscular Hemoglobin 32 pg High 27-31 Mean Corpuscular HGB Conc 34 g/dL N 31-36 Red Cell Distribution Width 14 % N 10.5-15 Platelet Count 211 10^3/uL N 150-450 Mean Platelet Volume 9 um3 N 7.4-10.4 Abs Neutrophils 8.5 10^3/uL High 1.5-7.7 Abs Lymphocytes 1.0 10^3/uL N 1.0-4.8 Abs Monocytes 0.7 10^3/uL N 0-0.8 Abs Eosinophils 0 10^3/uL N 0-0.6 Abs Basophils 0 10^3/uL N 0-0.2 Abs Nucleated RBC 0 10^3/uL N Granulocyte % 82.9 % N 38-83 Lymphocyte % 9.6 % Low 25-47 Monocyte % 7.2 % N 1-9 Eosinophil % 0.2 % N 0-6 Basophil % 0.1 % N 0-2 Nucleated Red Blood Cells % 0 N Urinalysis Profile 03/16/2016 [facility] Urine Color Nohelia N Urine Appearance Clear N Urine Specific [place] 1.028 N 1.010-1.030 Urine pH 5.0 N 5-9 Urine Urobilinogen Negative N Negative Urine Ketones Trace Abnormal Negative Urine Protein Negative N Negative Urine Leukocytes Negative N Negative Urine Blood Negative N Negative Urine Nitrite Negative N Negative Urine Bilirubin Negative N Negative Urine Glucose Negative N Negative Urine Drug 03/16/2016 [facility] Amphetamine Ur Presumptive Posi Abnormal None Detect 23 SCR ED & Screen <SEE NOTE> Pain Clinic Barbiturates Urine Screen None Detected N None Detect Benzodiazepine Urine Screen None Detected N None Detect Urine Cannabinoids Screen None Detected N None Detect Urine Cocaine Screen None Detected N None Detect Urine Opiates Screen None Detected N None Detect Urine Phencyclidine Screen None Detected N None Detect 24 Comp Metabolic Panel 03/16/2016 [facility] Sodium 135 mmol/L N 133-145 Potassium 3.6 mmol/L N 3.5-5.0 Chloride 102 mmol/L N 101-111 Co2 Carbon Dioxide 25 mmol/L N 22-32 Anion Gap 8 mmol/L N 2-11 Glucose 103 mg/dL High 70-100 Blood Urea Nitrogen 25 mg/dL High 6-24 Creatinine 0.82 mg/dL N 0.67-1.17 BUN/Creatinine Ratio 30.5 High 8-20 Calcium 9.2 mg/dL N 8.6-10.3 Total Protein 6.9 g/dL N 6.4-8.9 Albumin 4.3 g/dL N 3.2-5.2 Globulin 2.6 g/dL N 2-4 Albumin/Globulin Ratio 1.7 N 1-3 Total Bilirubin 0.70 mg/dL N 0.2-1.0 Alkaline Phosphatase 57 U/L N 34-104 Alt 36 U/L N 7-52 Ast 21 U/L N 13-39 Egfr Non- 94.3 N >60 Egfr 121.3 N >60 25 Laboratory test finding 03/16/2016 [facility] Acetaminophen < 15 g/mL N 26 Alcohol < 10 mg/dL N <10 Salicylate < 2.50 mg/dL N <30 TSH (Thyroid Stim Horm) 1.58 ?IU/mL N 0.34-5.60 Laboratory test 01/09/2016 [facility] Hemoglobin A1c 5.6 % 4.1-5.7 finding (607)- - (Fma) Laboratory test 12/08/2015 [facility] PSA Diagnostic < 0.008 N 0-4.0 27 finding ng/mL Comp Metabolic 09/29/2015 [facility] Sodium 135 mmol/L N 133-145 Panel Potassium 4.3 mmol/L N 3.5-5.0 Chloride 102 mmol/L N 101-111 Co2 Carbon Dioxide 26 mmol/L N 22-32 Anion Gap 7 mmol/L N 2-11 Glucose 99 mg/dL N 70-100 Blood Urea Nitrogen 20 mg/dL N 6-24 Creatinine 0.79 mg/dL N 0.67-1.17 BUN/Creatinine Ratio 25.3 High 8-20 Calcium 9.1 mg/dL N 8.6-10.3 Total Protein 6.4 g/dL N 6.4-8.9 Albumin 4.0 g/dL N 3.2-5.2 Globulin 2.4 g/dL N 2-4 Albumin/Globulin Ratio 1.7 N 1-3 Total Bilirubin 0.50 mg/dL N 0.2-1.0 Alkaline Phosphatase 68 U/L N 34-104 Alt 25 U/L N 7-52 Ast 16 U/L N 13-39 Egfr Non- 98.4 N >60 Egfr 126.6 N >60 28 Laboratory test finding 09/16/2015 [facility] Testosterone Total 175.66 ng/dL Low 240-950 Estradiol 216 pg/mL High Less Than 50 Progesterone 6.9 ng/mL N Laboratory test finding 08/12/2015 [facility] Progesterone 7.2 ng/mL N Testosterone Total 179.22 ng/dL Low 240-950 Estradiol 91 pg/mL High Less Than 50 Laboratory test 06/13/2015 [facility] Hemoglobin A1c 5.3 % % 4.1- 5.7 finding (607)- - (Fma/CMC,CX) Laboratory test 06/13/2015 Sebastian Page([facility]) TSH 2.10 0.50-6.00 29 finding mIU/L Complete Blood 06/13/2015 Sebastian Page([facility]) WBC 5.9 3.6-9.6 Count x10^3/UL RBC 4.36 x10^6/UL 3.90-5.70 HGB 14.6 g/dL 12.1-17.2 HCT 42 % 36-50 MCV 96.0 fL 82.2-97.4 MCH 33.5 pg High 27.6-33.3 MCHC 34.8 g/dL 33.0-35.5 RDW 14.0 % High 11.6-13.7 PLT 157 x10^3/UL 150-400 MPV 8.0 fL 7.4-10.4 Gran # 4.3 x10^3/UL 1.5-7.2 Lymph# 1.4 x10^3/UL 0.7-4.9 [place]# 0.2 x10^3/UL 0.1-0.9 Gran % 70.6 % 42.2-75.2 Lymph % 24.7 % 20.5-51.1 [place]% 4.7 % 1.7-9.3 Lipid Profile 06/13/2015 Sebastian Abel([facility]) Cholesterol 150 mg/dL 120- 200 Triglycerides 113 mg/dL 30-200 HDL Cholesterol 54 mg/dL 30-70 LDL (Calculated) 73 CALC 0-129 VLDL Cholesterol 23 mg/dL 0-50 HDL Risk Factor 2.8 CALC 0.0-4.4 Comprehensive Metabolic 06/13/2015 Sebastian Abel([facility]) Sodium 135 mEq/L 134-149 Prof Potassium 4.1 mEq/L 3.6-5.5 Chloride 100 mEq/L 94-112 Carbon Dioxide 28 mEq/L 21-32 Glucose 98 mg/dL 70-105 BUN 26 mg/dL 6-26 Creatinine 0.9 mg/dL 0.6-1.4 BUN/Creat Ratio 28.9 CALC 8.0-36.0 Calcium 8.7 mg/dL 8.6-10.2 Total Protein 6.4 g/dL 6.4-8.3 30 Albumin 3.9 g/dL 3.8-5.5 Globulin 2.2 g/dL 2.0-4.8 A/G Ratio 1.6 CALC 0.6-2.3 Alk. Phosphatase 71 U/L 22-95 Alt (SGPT) 26 U/L 7-35 Ast (Sgot) 18 U/L 5-34 Total Bilirubin 0.6 mg/dL 0.2-1.3 1 RESULTS VERIFIED BY REPEAT ANALYSIS 2 RESULTS VERIFIED BY REPEAT ANALYSIS 3 RESULTS VERIFIED BY REPEAT ANALYSIS 4 RESULTS VERIFIED BY REPEAT ANALYSIS 5 1sst 6 [employer] ECLIA methodology 7 consistent w/ previous results 8 RESULTS VERIFIED BY REPEAT ANALYSIS 9 1SST 10 [employer] ECLIA methodology 11 1sst 12 [employer] ECLIA methodology 13 RESULTS VERIFIED BY REPEAT ANALYSIS 14 RESULTS VERIFIED BY REPEAT ANALYSIS 15 1 16 [employer] ECLIA methodology 17 SD 02/20/17 18 Because ethnic data is not always readily available, this report includes an eGFR for both -Americans and non- Americans. The National Kidney Disease Education Program (NKDEP) does not endorse the use of the MDRD equation for patients that are not between the ages of 18 and 70, are , have extremes of body size, muscle mass, or nutritional status, or are non- or non-. According to the National Kidney Foundation, irrespective of diagnosis, the stage of the disease is based on the level of kidney function: Stage Description GFR(mL/min/1.73 m(2)) 1 Kidney damage with normal or decreased GFR 90 2 Kidney damage with mild decrease in GFR 60-89 3 Moderate decrease in GFR 30-59 4 Severe decrease in GFR 15-29 5 Kidney failure <15 (or dialysis) 19 RESULTS VERIFIED BY REPEAT ANALYSIS 20 FASTING 21 Negative <0.91 Equivocal 0.91 - 1.09 Positive >1.09 22 Negative <0.80 Equivocal 0.80 - 1.19 Positive >1.19 IgM levels may peak at 3-6 weeks post infection, then gradually decline. 23 Presumptive Positive Presumptive positive results are unconfirmed. 24 The urine specimen was tested at the listed cutoffs: Drug class test level (ng/mL) Amphetamines 500 Barbiturates 200 Benzodiazepine metabolites 200 Cocaine metabolites 150 Cannabinoids 50 Opiates 300 Pcp 25 Specimen was received without chain of custody. Results should be used for medical purposes only. 25 Because ethnic data is not always readily available, this report includes an eGFR for both -Americans and non- Americans. The National Kidney Disease Education Program (NKDEP) does not endorse the use of the MDRD equation for patients that are not between the ages of 18 and 70, are , have extremes of body size, muscle mass, or nutritional status, or are non- or non-. According to the National Kidney Foundation, irrespective of diagnosis, the stage of the disease is based on the level of kidney function: Stage Description GFR(mL/min/1.73 m(2)) 1 Kidney damage with normal or decreased GFR 90 2 Kidney damage with mild decrease in GFR 60-89 3 Moderate decrease in GFR 30-59 4 Severe decrease in GFR 15-29 5 Kidney failure <15 (or dialysis) 26 Therapeutic concentration: <50 ug/mL Toxic concentration: >120 ug/mL 27 Serum levels of PSA measured using the PRX DXI Hybritech immunoassay should not be interpreted as absolute evidence of the presence or absence of disease. The PSA value should be used in conjunction with other pertinent clinical diagnostic procedures. A PSA value in the range of 0.1 to 0.6 ng/ml is indeterminate if being used as an indicator of recurrent or residual disease. The values obtained with different assay methods or kits cannot be used interchangeably. 28 Because ethnic data is not always readily available, this report includes an eGFR for both -Americans and non- Americans. The National Kidney Disease Education Program (NKDEP) does not endorse the use of the MDRD equation for patients that are not between the ages of 18 and 70, are , have extremes of body size, muscle mass, or nutritional status, or are non- or non-. According to the National Kidney Foundation, irrespective of diagnosis, the stage of the disease is based on the level of kidney function: Stage Description GFR(mL/min/1.73 m(2)) 1 Kidney damage with normal or decreased GFR 90 2 Kidney damage with mild decrease in GFR 60-89 3 Moderate decrease in GFR 30-59 4 Severe decrease in GFR 15-29 5 Kidney failure <15 (or dialysis) 29 FASTING 30 RESULTS VERIFIED BY REPEAT ANALYSIS Procedures Date Code Description Status 12/25/2017 [id number] Mammogram Completed 12/28/2016 [id number] Mammogram Completed 06/15/2016 [id number] Remove Impacted Cerumen Completed 01/09/2016 50160 Finger Or Heel Stick Completed Encounters Type Date Location Provider Dx Diagnosis Office Visit 03/09/2019 Main Office Elizabeth Romero M.D. I10 Essential ( primary) 2:20p hypertension R73.01 Impaired fasting glucose R53.83 Other fatigue R06.83 Snoring M16.0 Bilateral primary osteoarthritis of hip G47.62 Sleep related leg cramps E55.9 Vitamin D deficiency, unspecified Office Visit 02/03/2019 2:40p [facility] Elizabeth Romero G47.62 Sleep related M.D. leg cramps M16.0 Bilateral primary osteoarthritis of hip I10 Essential (primary) hypertension R73.01 Impaired fasting glucose L60.0 Ingrowing nail Office Visit 08/07/2018 3:10p Main Office Paramjit Babb M16.0 Bilateral primary MD Charleen osteoarthritis of hip Z23 Encounter for immunization Office Visit 06/04/2018 Main Office Paramjit Babb M25.551 Pain in right hip 4:00p MD Charleen Office Visit 04/29/2018 [facility] Elizabeth Romero, Z01.818 Encounter for 11:00a Office M.D. other preprocedural examination H25.813 Combined forms of age-related cataract, bilateral I10 Essential (primary) hypertension F64.9 Gender identity disorder, unspecified R73.01 Impaired fasting glucose Z12.11 Encounter for screening for malignant neoplasm of colon Office Visit 01/30/2018 9:00a Main Office Elizabeth Romero I10 Essential ( primary) M.D. hypertension R73.01 Impaired fasting glucose F64.9 Gender identity disorder, unspecified Office Visit 12/16/2017 3:00p Main Office Elizabeth Romero I10 Essential ( primary) M.D. hypertension F64.9 Gender identity disorder, unspecified R73.01 Impaired fasting glucose F33.1 Major depressive disorder, recurrent, moderate Office Visit 11/06/2017 8:30a [facility] Elizabeth Romero M79.671 Pain in right foot M.D. Office Visit 10/21/2017 9:00a Main Office Ely Brown, N39.3 Stress PIGMENT PROCESSOR incontinence (female) (male) Office Visit 10/02/2017 9:15a Main Office Ely Brown, R05 Cough PIGMENT PROCESSOR Office Visit 09/02/2017 9:45a Main Office Ely Brown, M25.551 Pain in right hip PIGMENT PROCESSOR Office Visit 07/29/2017 3:00p Main Office Elizabeth Romero, I10 Essential M.D. 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 disorder, unspecified I10 Essential (primary) hypertension M25.551 Pain in right hip N39.3 Stress incontinence (female) (male) Office Visit 06/11/2017 10:00a Main Office Mame Watt, N39.3 Stress incontinence Afnp-C (female) (male) R11.0 Nausea Office Visit 04/17/2017 1:40p [facility] Elizabeth Romero, R32 Unspecified urinary M.D. incontinence I10 Essential (primary) hypertension F33.1 Major depressive disorder, recurrent, moderate Z85.46 Personal history of malignant neoplasm of prostate F64.9 Gender identity disorder, unspecified Office Visit 01/15/2017 8:20a Main Office Elizabeth Romero, I10 Essential ( primary) M.D. 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 hypertension R60.0 Localized edema Office Visit 10/26/2016 9:50a [facility] Elizabeth Romero, M25.511 Pain in right M.D. shoulder Office Visit 09/11/2016 8:00a Main Office Elizabeth Romero, Z00.00 Encntr for M.D. 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 disorder, recurrent, moderate I10 Essential (primary) hypertension F64.1 Gender identity disorder in adolescence and adulthood Office Visit 07/13/2016 10:30a Main Office Melva Marrufo1 Rash and other PIGMENT PROCESSOR nonspecific skin eruption Office Visit 06/27/2016 3:45p Main Office Melva Marrufo1 Rash and other PIGMENT PROCESSOR nonspecific skin eruption Office Visit 06/15/2016 9:00a Main Office Ely Brown, H91.8x3 Other specified PIGMENT PROCESSOR hearing loss, bilateral H61.21 Impacted cerumen, right ear Office Visit 05/22/2016 3:30p Main Office Tara Hardy, M25.561 Pain in right Afnp-C knee Office Visit 03/30/2016 1:20p [facility] Paramjit Russo F33.1 Major depressive Jose Grullon disorder, recurrent, moderate Office Visit 03/14/2016 3:10p Main Office Paramjit Russo M21.331 Wrist dropMitchel M.D. right wrist Office Visit 03/12/2016 11:15a Main Office Mame M21.331 Wrist drop, Alysa, right wrist Afnp-C Office Visit 03/08/2016 2:40p Main Office Elizabeth Romero, F33.1 Major depressive MErinDErin disorder, recurrent, moderate I10 Essential (primary) hypertension R73.01 Impaired fasting glucose B35.1 Tinea unguium Office Visit 01/09/2016 12:15p Main Office Ely Kevin, PIGMENT PROCESSOR M54.5 Low back pain R73.01 Impaired fasting glucose Office Visit 12/07/2015 2:30p Main Office Ely Bernalrer, M54.5 Low back pain PIGMENT PROCESSOR Office Visit 10/03/2015 3:10p [facility] Office Elizabeth Romero, R55 Syncope and M.D. collapse I10 Essential (primary) hypertension Office Visit 09/06/2015 9:20a Main Office Elizabeth Romero, I10 Essential ( primary) M.D. hypertension E78.2 Mixed hyperlipidemia Z85.46 Personal history of malignant neoplasm of prostate F33.1 Major depressive disorder, recurrent, moderate Office Visit 05/31/2015 9:00a Main Office Elizabeth Romero, 401.1 Hypertension Benign M.D. 272.2 Hyperlipidemia Mixed V10.46 History Personal Malignant Neoplasm Prostate 296.32 Depressive Disorder Major Recurrent Moderate 790.21 Impaired Fasting Glucose 302.85 Gender Identity Disorder Of Adolescent Or Adult Life V06.1 Vanfbegpgq-Rgvtqvj-Meqbniov Combined (DTaP) V06.5 Tetanus Diphtheria (DT) V03.82 Streptococcus Pneumoniae Vaccination Spec Other Plan of Treatment Future Appointment(s):11/12/2019 8:15 am - Elizabeth Romero M.D. at Main [id number] 8:00 am - Elizabeth Romero M.D. at Main Splssx8006/04/2019 - Mague Minor, [id number] Insect bite (nonvenomous) of right forearm, initial encounteComments:Appear to be mosquito bites or similar. Try calamine lotion or a topical muscle rub to help with theitch. They should fade on their own.R10.84 Generalized abdominal painComments:You have mild pain over a not-very- concerning area, so I would continue to wait and monitor your symptoms. Call [facility] if condition changes/worsens in any wayAllComments:1. Patient has been queried about patient's goals/preferences and functional/lifestyle goals at relevant visits. If relevant, describe: Has been discussed, noted above2. Treatment goals as explainedto the patient: see above3. Are there barriers to meeting treatment goals? Yes If Yes, please describe: Barriers include possible insurance limits, disease process, and difficulty with lifestyle changes4. Self-Management goals as described to the patient: Yes, see above As always, we strongly encourage a healthy diet and making physical activity a part of your every day life. If you have questions about how or where to start, please contact the office.
--- OUTSIDE RECORDS SUMMARY | 2019-06-11 01:20 | XMS REPORT | Continuity of Care Document ---
:1950 External Reference #:[id number] Author Name Elizabeth Romero M.D. Address [address] [place] [address] Care Team Providers Name Role Phone Elizabeth Romero M.D. Care Team Information Sales Team Member Unavailable Elizabeth Romero M.D. Primary Care Physician Unavailable Payers Date Identification Numbers Payment Provider Subscriber Effective: Policy Number: [id number] Medicare Blue Ppo Violeta Denise 2017 PayID: [id number] [address] [address] [place] [address] Problems Active Problems Provider Date Gender dysphoria [...] Elizabeth Romero M.D. Onset: 05/25/2019 Inactive Problems Fhty-jv-nghhfr transsexual Elizabeth Romero M.D. Onset: 06/20/2016 Inactive: 04/30/2017 Family History Date Family Member(s) Observation Comments Father due to Stroke () Mother Diabetes Mellitus, II Mother due to Stroke () Siblings 3 sister Social History Type Date Description Comments Sex Unknown Lives With Alone Occupation Disabled [employer] [place] from [place] ankle injury Tobacco Use Start: [...] Medications Active Medications SIG Qnty Indications Ordering Date Provider Acetaminophen-Codeine 1 tab by mouth 30tabs M16.0 Elizabeth Romero, 05/25/2019 #3 bedtime as M.D. 300-30mg Tablets needed Acetaminophen Extra 2 tabs by mouth 90tabs M79.671 Elizabeth Romero, 2016 Strength three times a M.D. 500mg Tablets day Diclofenac Sodium take 1 tablet by 60tabs M25.551 Paramjit Babb 09/02/2017 75mg mouth twice MD Charleen Tablets DR daily as needed for joint pain Metaxalone 1 by mouth every 90tabs M25.551 Paramjit Babb 09/02/2017 800mg Tablets 8h as needed MD Charleen muscle spasm Depend Underwear For use as directed 90units N39.3 Elizabeth Romero, 2016 Men Large/Xlarge M.DErin Maximum Absorbency [facility] Z85.46 R32 Spironolactone Take One-Half 15tabs I10 [...] Terese Carpio, 40mg Tablets once daily as DRY CLEANER HAND needed for leg swelling Vitamin D 1 by mouth every Unknown 5000Units Tablets day Klonopin 1 PO qam Unknown 2mg Tablets Progesterone Micronized take 1 capsule by Unknown 200mg mouth at bedtime Capsules Aspirin Ec 1 by mouth every Unknown 81mg Tablets DR day Effexor XR 2 po qd Unknown 150mg Caps ER 24HR History Medications Estradiol apply one to skin Elizabeth 02/03/2019 - 0.1mg/24HR Patches Biweek weekly Jose Romero 02/03/2019 Physical Therapy evaluate and treat N39.3 Ely 10/21/2017 - urinary BRAXTON BrownP 04/29/2018 incontinence Note Due To Health Issues Please allow N39.3 Ely 10/21/2017 - Kaden's heat in ADRIENNE Brown 04/29/2018 his apartment to be set at 80 degrees Azithromycin take 2 tablets by 6tabs R05 Ely 10/02/2017 - 250mg Tablets mouth today then ADRIENNE Brown 11/05/2017 take 1 tablet daily for next 4 days Depends large/XL size; 300uni Elizabeth 07/03/2017 - change every 6 ts Jose Romero 07/03/2017 hours or sooner as needed Azithromycin take 2 tablets by 6tabs R05 Ely 01/01/2017 - 250mg Tablets mouth today then ADRIENNE Brown 01/15/2017 take 1 tablet daily for next 4 days Ondansetron 1-2 by mouth every 30tabs K80.80 Elizabeth 12/22/2016 - 4mg Tablets Dispers 4-6h as needed Jose Romero 11/05/2017 nausea Furosemide 1 tab by mouth 30tabs R60.0 Elizabeth 11/10/2016 - 40mg Tablets every day x 3 days Jose Romero 12/18/2016 and as needed for leg swelling Compression Stockings wear as often as 2units R60.0 Elizabeth 11/10/2016 - 14mm HG possible Jose Romero 06/10/2017 Doxycycline Hyclate 1 by mouth twice a 28tabs R21 Ely 06/27/2016 - 100mg Tablets day x 14d ADRIENNE Brown 07/13/2016 Note Due To Health Issues Kaden needs to R21 Ely 06/27/2016 - keep his air ADRIENNE Brown 07/13/2016 conditioner in his apartment until the end of July as he can't tolerate temp > 67 deg Physical Therapy treatment and M25.56 Tara 05/22/2016 - evaluation of 1 Hayley, 07/13/2016 right knee pain Afnp-C Note Please fill Paramjit Russo 03/28/2016 - medicine box Ayeshabrittanieliss, 07/13/2016 weekly for patient CecilioErin Richard take as directed 1pk Mame 03/12/2016 - 4mg TBPK with food and 6-8 [place], 03/19/2016 oz h20 Afnp-C Back Brace heavy duty back 1units M54.5 [facility] 01/09/2016 - support dx: m54.5 ADRIENNE Brown 09/11/2016 Diclofenac Sodium take 1 tablet by 30tabs M54.5 [facility] 12/07/2015 - 75mg Tablets DR mouth twice daily ADRIENNE Brown 02/04/2016 as needed for joint pain Metaxalone 1\\2 by mouth every 60tabs M54.5 [facility] 12/07/2015 - 800mg Tablets in the morning and Kevin DRY CLEANER HAND 02/04/2016 1 by mouth every night at [...] D3 1 by mouth every Unknown - [id number] Capsules week x8 wks 12/18/2016 Estradiol weekly [...] 30tabs Paramjit Russo - 50mg Tablets day Mitchel, 07/26/2016 Jose Agueroumetone 1 by mouth twice a 60tabs [facility] - 500mg Tablets day Jose Romero 12/07/2015 Tizanidine HCL 1-2 by mouth every 150tab [facility] - 2mg Tablets 8 hours as needed s Jose Romero 12/07/2015 Immunizations CPT Code Status Date Vaccine Lot # [id number] Given 08/07/2018 High-Dose, Influenza Virus Vacccine-fluzone 65 and [id number] older 52683 Given 07/29/2017 Influenza Vac, Quadrivalent, Slit Virus, Im [id number] 38522 Given 09/11/2016 Pneumococcal Conjugate Vacc-13 [id number] 80696 Given 05/31/2015 Pneumococcal Immunization [id number] 58489 Given 05/31/2015 Tdap Tetanus, W Pertussis [id number] Given 07/23/2014 Influenza vac quadrivalent preservative free 3yrs and up 90168 Given 07/23/2013 Influenza Vac, [place] [address] Given 07/18/2012 Zostivax 98295 Given 07/18/2012 Influenza Vac, [place] [address] Given 04/17/2010 Tdap Tetanus, W Pertussis Vital Signs Date Vital Result Comment 05/25/2019 12:08pm BP Systolic 114 mmHg BP [...] GFR >60 ml/min/1.73m^ >=60 Lipid Profile 05/12/2019 [facility]) Cholesterol 172 mg/dL 120- 200 Triglycerides 124 mg/dL 30-200 HDL Cholesterol 62 mg/dL 30-70 LDL (Calculated) 85 CALC 0-129 VLDL Cholesterol 25 mg/dL 0-50 HDL Risk Factor 2.8 CALC 0.0-4.4 Laboratory test 05/12/2019 [facility]) Free T4 1.07 ng/dL 0.75- 1.54 finding TSH 2.84 mIU/L 0.50-6.00 CBC Electronic a 05/12/2019 [facility]) WBC 9.8 x10^3/UL 4.0- 10.0 RBC 4.40 x10^6/UL 3.93-6.00 HGB 14.2 g/dL 12.0-17.0 HCT 43 % 35-50 MCV 97.0 fL High 80.0-95.0 MCH 32.3 pg High 25.6-32.2 MCHC 33.3 g/dL 32.2-36.0 RDW-CV 13.3 % 11.6-14.4 PLT 232 x10^3/UL 163-400 MPV 11.3 fL 9.4-12.4 Tricia# 6.48 x10^3/UL High 1.56-6.13 Lymph# 2.12 x10^3/UL 1.18-3.74 Ellis# 0.77 x10^3/UL 0.24-0.82 Eos # 0.3 x10^3/UL 0.0-0.5 Baso # 0.03 x10^3/UL 0.01-0.08 Tricia% 66.5 % 34.0-70.0 Lymph % 21.7 % 20.0-52.0 Ellis% 7.9 % 5.0-12.0 Eos% 3.5 % 0.7-7.0 Baso% 0.3 % 0.1-1.2 Laboratory test 05/12/2019 [facility] Hemoglobin A1c 5.5 % 4.1-5.7 finding (607)- - (a) Comprehensive 03/09/2019 [facility]) Sodium 139 mEq/L 134-149 Metabolic Prof Potassium [...] >60 ml/min/1.73m^ >=60 Laboratory test 03/09/2019 [facility]) Free T4 0.96 ng/dL 0.75- 1.54 finding TSH 4.10 mIU/L 0.50-6.00 Vitamin D25 75 30-100 Vitamin B-12 369 pg/mL 230-1050 Laboratory test 03/09/2019 [facility] Hemoglobin A1c 5.3% % 4.1- 5.7 finding (607)- - ([facility]) CBC Electronic ([facility] 03/09/2019 [facility] WBC 8.95 4.0-10.0 New) (607)- - RBC [...] 0.7-7.0 Basophil% 0.1 % 0-1.2 Laboratory 09/17/2018 [facility]) Testosterone 13.3 Low 262.0- 870.0 4 test finding ng/dL Laboratory 09/17/2018 [facility] Estradiol 270.9 High 7.6-42.6 5, 6 test finding [address] pg/[place] [address] (607)- - Laboratory 05/15/2018 [facility] Hemoglobin A1c 5.6 % 4.1-5.7 test finding [...] 5.70 x10^3/UL 1.56-6.13 Lymph# 1.57 x10^3/UL 1.18-3.74 Ellis# 0.62 x10^3/UL 0.24-0.82 Eos # 0.2 x10^3/UL 0.0-0.5 Baso # 0.02 x10^3/UL 0.01-0.08 Tricia% 70.6 % High 34.0-70.0 Lymph % 19.4 % Low 20.0-52.0 Ellis% 7.7 % 5.0-12.0 Eos% 2.0 % 0.7-7.0 Baso% 0.2 % 0.1-1.2 Laboratory test 05/15/2018 Sebastian Abel(a) Free T4 1.21 ng/dL 0.75- 1.54 finding TSH 3.51 mIU/L 0.50-6.00 Lipid Profile 05/15/2018 [facility]) Cholesterol 175 mg/dL 120- 200 Triglycerides 153 mg/dL 30-200 HDL Cholesterol 59 mg/dL 30-70 LDL (Calculated) 85 CALC 0-129 VLDL Cholesterol 31 mg/dL 0-50 HDL Risk Factor 3.0 CALC 0.0-4.4 Comprehensive Metabolic 05/15/2018 [facility]) Sodium 141 mEq/L 134-149 Prof Potassium [...] GFR >60 ml/min/1.73m^ >=60 Comprehensive Metabolic 01/22/2018 [facility]) Sodium 138 mEq/L 134-149 Prof Potassium [...] >60 ml/min/1.73m^ >=60 Lipid Profile 01/22/2018 Sebastian [facility]) Cholesterol 199 mg/dL 120- 200 Triglycerides 166 mg/dL 30-200 HDL Cholesterol 75 mg/dL High 30-70 LDL (Calculated) 91 CALC 0-129 VLDL Cholesterol 33 mg/dL 0-50 HDL Risk Factor 2.7 CALC 0.0-4.4 Laboratory test 01/22/2018 Sebastian Abel([facility]) Free T4 0.95 ng/dL 0.75- 1.54 finding TSH 4.23 mIU/L 0.50-6.00 Testosterone 14.5 ng/dL Low 262.0-870.0 8 CBC Electronic a 01/22/2018 Sebastian Abel([facility]) WBC 10.2 x10^3/UL High 4.0-10.0 RBC 4.64 x10^6/UL 3.93-6.00 HGB 14.7 g/dL 12.0-17.0 HCT 45 % 35-50 MCV 96.3 fL High 80.0-95.0 MCH 31.7 pg 25.6-32.2 MCHC 32.9 g/dL 32.2-36.0 RDW-CV 13.4 % 11.6-14.4 PLT 231 x10^3/UL 163-400 MPV 11.1 fL 9.4-12.4 Tricia# 7.16 x10^3/UL High 1.56-6.13 Lymph# 1.85 x10^3/UL 1.18-3.74 Ellis# 0.77 x10^3/UL 0.24-0.82 Eos # 0.4 x10^3/UL 0.0-0.5 Baso # 0.03 x10^3/UL 0.01-0.08 Tricia% 70.1 % High 34.0-70.0 Lymph % 18.1 % Low 20.0-52.0 Ellis% 7.5 % 5.0-12.0 Eos% 3.8 % 0.7-7.0 Baso% 0.3 % 0.1-1.2 Laboratory test 01/22/2018 [facility] Estradiol 232.5 High 7.6-42.6 9, 10 finding [address] [facility] pg/[place] [address] (607)- - Laboratory test 01/22/2018 [facility] Hemoglobin A1c 5.5 % % 4.1- 5.7 finding (607)- - ([facility]) Laboratory test 07/29/2017 [facility] Estradiol 495.0 High 7.6-42.6 11, 12 finding [address] [facility] pg/[place] [address] (607)- - Laboratory test 07/29/2017 [facility] Hemoglobin A1c 5.4 % % 4.1- 5.7 finding (607)- - ([facility]) Ua - Non Micro 06/24/2017 [facility] Appearance clear (a) (607)- - Color yellow Glucose, Urine ([facility]/CTX) neg Bilirubin neg Ketones neg SP Grav 1.020 Blood neg PH 5.5 Protein neg Urobil 0.2 Nitrite neg Leukocytes ([facility]rex) neg Laboratory test 06/12/2017 [facility]) PSA <0.1 ng/mL Low 0.0- 4.0 13 finding Lipid Profile 06/12/2017 [facility]) Cholesterol 175 mg/dL 120- 200 Triglycerides 166 mg/dL 30-200 HDL Cholesterol 63 mg/dL 30-70 LDL (Calculated) 79 CALC 0-129 VLDL Cholesterol 33 mg/dL 0-50 HDL Risk Factor 2.8 CALC 0.0-4.4 Laboratory test finding 06/12/2017 Sebastian [facility]) TSH 1.99 mIU/L 0.50-6.00 Free T4 0.89 ng/dL 0.75-1.54 Testosterone 10.6 ng/dL Low 262.0-870.0 14 Comprehensive Metabolic 06/12/2017 Sebastian [facility]) Sodium 137 mEq/L 134-149 Prof Potassium 4.3 [...] ml/min/1.73m^ >=60 Complete Blood Count 06/12/2017 Sebastian [facility]) WBC 7.8 x10^3/UL 3.6 -9.6 RBC 4.62 x10^6/UL 3.90-5.70 HGB 14.9 g/dL 12.1-17.2 HCT 44 % 36-50 MCV 96.0 fL 82.2-97.4 MCH 32.3 pg 27.6-33.3 MCHC 33.7 g/dL 33.0-35.5 RDW 14.5 % High 11.6-13.7 PLT 253 x10^3/UL 150-400 MPV 7.7 fL 7.4-10.4 Gran # 6.0 x10^3/UL 1.5-7.2 Lymph# 1.6 x10^3/UL 0.7-4.9 Ellis# 0.2 x10^3/UL 0.1-0.9 Gran % 75.2 % 42.2-75.2 Lymph % 21.0 % 20.5-51.1 Ellis% 3.8 % 1.7-9.3 Laboratory test 06/12/2017 [facility] Estradiol 1020.0 High 7.6-42.6 15, [address] pg/[place] [address] (607)- - CBC No Diff 01/31/2017 [facility] White Blood 8.9 N 3.5-10.8 17 Count [...] um3 N 7.4-10.4 Liver Function Panel 01/31/2017 [facility] Total Protein 6.1 g/dL Low 6.4-8.9 Albumin 3.8 g/dL N 3.2-5.2 Globulin 2.3 g/dL N 2-4 Albumin/Globulin Ratio 1.7 N 1-3 Total Bilirubin 0.70 mg/dL N 0.2-1.0 Direct Bilirubin 0.10 mg/dL N 0.03-0.18 Indirect Bilirubin 0.6 mg/dL N 0.3-1.0 Alkaline Phosphatase 68 U/L N 34-104 Alt 21 U/L N 7-52 Ast 19 U/L N 13-39 Laboratory test finding 12/22/2016 [facility] Lipase 19 U/L N 11.0-82.0 Comp Metabolic Panel 12/22/2016 [facility] Sodium 132 mmol/L Low 133-145 Potassium 3.9 [...] N >60 18 CBC No Diff 12/22/2016 [facility] White Blood Count 6.4 10^3/uL N 3.5-10.8 [...] 10 um3 N 7.4-10.4 Influenza A&B-fma 12/18/2016 [facility] Influenza A neg (607)- - Influenza B neg Comprehensive Metabolic 09/04/2016 [facility]) Sodium 139 mEq/L 134-149 Prof Potassium 4.4 [...] >60 ml/min/1.73m^ >=60 Lipid Profile 09/04/2016 Sebastian [facility]) Cholesterol 164 mg/dL 120- 200 Triglycerides 102 mg/dL 30-200 HDL Cholesterol 61 mg/dL 30-70 LDL (Calculated) 83 CALC 0-129 VLDL Cholesterol 20 mg/dL 0-50 HDL Risk Factor 2.7 CALC 0.0-4.4 Complete Blood Count 09/04/2016 Sebastian [facility]) WBC 9.9 x10^3/UL High 3.6-9.6 RBC 4.49 x10^6/UL 3.90-5.70 HGB 14.7 g/dL 12.1-17.2 HCT 43 % 36-50 MCV 96.0 fL 82.2-97.4 MCH 32.8 pg 27.6-33.3 MCHC 34.1 g/dL 33.0-35.5 RDW 15.0 % High 11.6-13.7 PLT 214 x10^3/UL 150-400 MPV 7.2 fL Low 7.4-10.4 Gran # 8.1 x10^3/UL High 1.5-7.2 Lymph# 1.6 x10^3/UL 0.7-4.9 Ellis# 0.2 x10^3/UL 0.1-0.9 Gran % 80.9 % High 42.2-75.2 Lymph % 16.4 % Low 20.5-51.1 Ellis% 2.7 % 1.7-9.3 Laboratory test 09/04/2016 Sebastian [facility]) Free T4 0.80 ng/dL 0.75- 1.54 20 finding TSH 2.77 mIU/L 0.50-6.00 Lyme AB/Western 07/13/2016 [facility] Lyme IgG/IgM <0.91 ISR 0.00-0.90 21 Blot Reflex [address] [place] [address] (607)- - Lyme Disease Ab, Quant, IgM <0.80 index 0.00-0.79 22 Laboratory test 07/13/2016 [facility] PDF [id number] SEE IMAGE finding [address] [place] [address] (607)- - Complete Blood 07/13/2016 [facility]) WBC 7.8 3.6-9. Count x10^3/UL 6 RBC 4.14 x10^6/UL 3.90-5.70 HGB 14.1 g/dL 12.1-17.2 HCT 40 % 36-50 MCV 98.0 fL High 82.2-97.4 MCH 34.0 pg High 27.6-33.3 MCHC 34.8 g/dL 33.0-35.5 RDW 13.7 % 11.6-13.7 PLT 204 x10^3/UL 150-400 MPV 8.3 fL 7.4-10.4 Gran # 6.2 x10^3/UL 1.5-7.2 Lymph# 1.4 x10^3/UL 0.7-4.9 Ellis# 0.2 x10^3/UL 0.1-0.9 Gran % 78.0 % High 42.2-75.2 Lymph % 18.2 % Low 20.5-51.1 Ellis% 3.8 % 1.7-9.3 CBC Auto Diff 03/16/2016 [facility] White Blood Count 10.3 10^3/uL N 3.5-10.8 [...] Cells % 0 N Urinalysis Profile 03/16/2016 [facility] Urine Color Nohelia N Urine Appearance Clear N Urine Specific Blount 1.028 N 1.010-1.030 Urine pH 5.0 N 5-9 Urine Urobilinogen Negative N Negative Urine Ketones Trace Abnormal Negative Urine Protein Negative N Negative Urine Leukocytes Negative N Negative Urine Blood Negative N Negative Urine Nitrite Negative N Negative Urine Bilirubin Negative N Negative Urine Glucose Negative N Negative Urine Drug 03/16/2016 [facility] Amphetamine Ur Presumptive Posi Abnormal None Detect [...] None Detect 24 Comp Metabolic Panel 03/16/2016 [facility] Sodium 135 mmol/L N 133-145 Potassium 3.6 [...] N >60 25 Laboratory test finding 03/16/2016 [facility] Acetaminophen < 15 g/mL N 26 Alcohol < 10 mg/dL N <10 Salicylate < 2.50 mg/dL N <30 TSH (Thyroid Stim Horm) 1.58 ?IU/mL N 0.34-5.60 Laboratory test 01/09/2016 [facility] Hemoglobin A1c 5.6 % 4.1-5.7 finding (607)- - ([facility]) Laboratory test 12/08/2015 [facility] PSA Diagnostic < 0.008 N 0-4.0 27 finding ng/mL Comp Metabolic 09/29/2015 [facility] Sodium 135 mmol/L N 133-145 Panel Potassium [...] N >60 28 Laboratory test finding 09/16/2015 [facility] Testosterone Total 175.66 ng/dL Low 240-950 Estradiol 216 pg/mL High Less Than 50 Progesterone 6.9 ng/mL N Laboratory test finding 08/12/2015 [facility] Progesterone 7.2 ng/mL N Testosterone Total 179.22 ng/dL Low 240-950 Estradiol 91 pg/mL High Less Than 50 Laboratory test 06/13/2015 [facility] Hemoglobin A1c 5.3 % % 4.1- 5.7 finding (607)- - ([facility],CX) Laboratory test 06/13/2015 [facility](a) TSH 2.10 0.50-6.00 29 finding mIU/L Complete Blood 06/13/2015 [facility]) WBC 5.9 3.6-9.6 Count x10^3/UL RBC 4.36 x10^6/UL 3.90-5.70 HGB 14.6 g/dL 12.1-17.2 HCT 42 % 36-50 MCV 96.0 fL 82.2-97.4 MCH 33.5 pg High 27.6-33.3 MCHC 34.8 g/dL 33.0-35.5 RDW 14.0 % High 11.6-13.7 PLT 157 x10^3/UL 150-400 MPV 8.0 fL 7.4-10.4 Gran # 4.3 x10^3/UL 1.5-7.2 Lymph# 1.4 x10^3/UL 0.7-4.9 Ellis# 0.2 x10^3/UL 0.1-0.9 Gran % 70.6 % 42.2-75.2 Lymph % 24.7 % 20.5-51.1 Ellis% 4.7 % 1.7-9.3 Lipid Profile 06/13/2015 [facility](a) Cholesterol 150 mg/dL 120- 200 Triglycerides 113 mg/dL 30-200 HDL Cholesterol 54 mg/dL 30-70 LDL (Calculated) 73 CALC 0-129 VLDL Cholesterol 23 mg/dL 0-50 HDL Risk Factor 2.8 CALC 0.0-4.4 Comprehensive Metabolic 06/13/2015 [facility]) Sodium 135 mEq/L 134-149 Prof Potassium 4.1 [...] RESULTS VERIFIED BY REPEAT ANALYSIS 15 1 sst 16 Dianelys ECLIA methodology 17 SD 02/20/17 [...] Serum levels of PSA measured using the [employer] DXI Hybritech immunoassay should not be interpreted [...] ANALYSIS Procedures Date Code Description Status 12/25/2017 26888204 Mammogram Completed 12/28/2016 [id number] Mammogram Completed 06/15/2016 72718 Remove Impacted Cerumen Completed 01/09/2016 67166 Finger Or Heel Stick Completed Encounters Type [...] hip 4:00p MD Charleen Office Visit 04/29/2018 [facility] Elizabeth Romero, Z01.818 Encounter for 11:00a Office [...] Office Visit 10/21/2017 9:00a Main Office Ely Brown N39.3 Stress DRY CLEANER HAND incontinence (female) (male) Office Visit 10/02/2017 9:15a Main Office Ely Brown R05 Cough DRY CLEANER HAND Office Visit 09/02/2017 9:45a Main Office Ely Brown M25.551 Pain in right hip DRY CLEANER HAND Office Visit 07/29/2017 3:00p Main Office Elizabeth Romero, I10 Essential M.D. (primary) hypertension F64.9 Gender identity disorder, unspecified R73.01 Impaired fasting glucose M25.551 Pain in right hip F33.1 Major depressive disorder, recurrent, moderate Z23 Encounter for immunization N39.3 Stress incontinence (female) (male) Z85.46 Personal history of malignant neoplasm of prostate F64.0 Transsexualism Office Visit 06/24/2017 3:20p Main Office Elizabeth Nick, F64.9 Gender identity M.D. disorder, unspecified I10 Essential (primary) hypertension M25.551 Pain in right hip N39.3 Stress incontinence (female) (male) Office Visit 06/11/2017 10:00a Main Office Mame Dodgenia, N39.3 Stress incontinence Afnp-C (female) (male) R11.0 [...] 11:00a Main Office Ely Brown, R05 Cough DRY CLEANER HAND Office Visit 12/22/2016 11:15a Main Office Ely Brown, K80.80 Other cholelithiasis DRY CLEANER HAND without obstruction Office Visit 12/18/2016 3:10p Main [...] Office Visit 11/10/2016 10:10a Main Office Elizabeth Romero, I10 Essential ( primary) M.D. hypertension R60.0 Localized edema Office Visit 10/26/2016 9:50a [facility] Office Elizaebth Romero, M25.511 Pain in right M.D. shoulder [...] adulthood Office Visit 07/13/2016 10:30a Main Office Ely Brown R21 Rash and other DRY CLEANER HAND nonspecific skin eruption Office Visit 06/27/2016 3:45p Main Office Melva Marrufo1 Rash and other DRY CLEANER HAND nonspecific skin eruption Office Visit 06/15/2016 9:00a Main Office Ely Brown, H91.8x3 Other specified DRY CLEANER HAND hearing loss, bilateral H61.21 Impacted cerumen, right ear Office Visit 05/22/2016 3:30p Main Office Tara Hardy M25.561 Pain in right Afnp-C knee Office Visit 03/30/2016 1:20p [facility] Office Paramjit Russo F33.1 Major depressive Jose Grullon disorder, recurrent, moderate Office Visit 03/14/2016 3:10p Main Office Paramjit Russo M21.331 Wrist dropMitchel M.D. right wrist Office Visit 03/12/2016 11:15a Main Office Mame M21.331 Wrist dropAlysa, right wrist Afnp-C Office Visit 03/08/2016 2:40p Main Office Elizabeth Romero, F33.1 Major depressive M.D. disorder, recurrent, moderate I10 Essential (primary) hypertension R73.01 Impaired fasting glucose B35.1 Tinea unguium Office Visit 01/09/2016 12:15p Main Office ADRIENNE Marrufo M54.5 Low back pain R73.01 Impaired fasting glucose Office Visit 12/07/2015 2:30p Main Office Ely Brown, M54.5 Low back pain DRY CLEANER HAND Office Visit 10/03/2015 3:10p [facility] Office Elizabeth Romero, R55 Syncope and M.D. collapse I10 Essential (primary) hypertension Office Visit 09/06/2015 9:20a Main Office Elizabeth Nick, I10 Essential ( primary) M.D. hypertension E78.2 [...] Disorder Of Adolescent Or Adult Life V06.1 Fmffwwdecd-Unrkucp-Xqvillvy Combined (DTaP) V06.5 Tetanus Diphtheria (DT) V03.82 Streptococcus Pneumoniae Vaccination Spec Other Plan of Treatment Future Appointment(s):11/12/2019 8:15 am - Elizabeth Romero M.D. at Main [id number] 8:00 am - Elizabeth Romero M.D. at Main [id number]/25/2019 - Elizabeth Romero M.D.Z00.01 Encounter for general adult medical examination with abnormaComments: Encourage an active and healthy lifestyle with proper eating habits including fruits, vegetables, 6-8 glasses of water a day and monitoring portion size. Recommend 30 minutes of daily physical activityincluding walking, aerobic exercise, sports, yoga or dance. Any activity is better than no activity.Recommend routine eye and dental exams. Next physical is due in 1-2 years. Recommend annual influenza epgeufvpejqF82.0 Bilateral primary osteoarthritis of hipNew Medication:Acetaminophen-Codeine #3 300-30 mg - 1 tab by mouth bedtime as neededComments:trial of acetaminophen codeine at bedtime only, max 4000mg acetaminophen a day Reviewed adverse sideeffects of medication. Advised to call the office if experiencing symptoms. Patient verbalized understanding. No alcohol or driving while on these medications. Controlled substances can cause physiologic dependence, withdrawal symptoms, be addictive and/or habit forming. discussed may worsen sleepiness, Reviewed warning signs and symptoms. Reasons to return to office or proceed to emergency room discussed including but not limited to no improvement or worsening of symptoms. Advised to call the office for any questions or concerns. Patient verbalized understanding.I10 Essential (primary) hypertensionNew Labs:[facility]-Lipid Profile ([facility]), Ordered: 05/25/19Comments:The patient will continue to monitor blood pressure and let me know the blood pressure results if there are readings persistently above 140/90. Goal blood pressure is less than 130/80. Recommend low salt/cardiac diet such as the Mediterranean diet and routine exercise at least 30 minutes a day.Follow up:6 months fasting labsR73.01 Impaired fasting glucoseNew Labs:[facility]-Comp Metabolic ([facility]) Male, Ordered: 05/25/19Hemoglobin A1c ( [facility]), Ordered: 05/25/19CBC Electronic ([facility]), Ordered: 05/25/19Comments: Counseled on heart healthy diet and exercise including limiting carbs and portion control and at least 30 minutes of physical activity daily. Consider Mediterranean diet as a guide for healthy eating. A1c> 6.5 is diagnostic of utyxiuryX77.9 Obesity, unspecifiedComments:Counseled on heart healthy diet such as Mediterranean diet. Eat protein and vegetables first then carbohydrates last. Get at least 150 minutes of moderate aerobic activity or 75 minutes of vigorous aerobic activity a week, or a combination of moderate and vigorous activity. General goal of 30 minutes of physical activity a day. discussed "hand method" for portion control Fist=carb serving (potato/rice/pasta/bread/ starch)Palm size and thickness=serving of proteinwhole hand=vegetablesOne knuckle=fats/butter/oil/dressing/cummings consider Mediterranean diet as a guide for healthy eating refer to hgapshvnzR73.9 Gender identity disorder, unspecifiedComments:[facility] ; [facility]->F discussed limiting sleep inducing ggzlsdeqhuE75.11 Encounter for screening for malignant neoplasm of colonComments:counseled on colon cancer screening;Z85.46 Personal history of malignant neoplasm of prostateNew Labs:PSA (ALL Lab Comp), Ordered: 05/25/19Comments:consider going back to urology if urinary symptoms worsen; Reviewed warning signs and symptoms. Advised to call the office for any questions or concerns. Patient verbalized understanding.AllComments:Medication Management Patient Understands medications he's taking? Yes No Are there Barriersto Adherence? Yes No Has the patient been asked about herbal supplements and therapies, and OTC meds? Yes No
== END 2019-06-10 19:04 | disposition home or self-care (01) ==
LOC: ED 16:20
DX: K62.5 Hemorrhage of anus and rectum (principal); R19.5 Other fecal abnormalities; E78.00 Pure hypercholesterolemia, unspecified; I10 Essential (primary) hypertension; F41.9 Anxiety disorder, unspecified; F32.9 Major depressive disorder, single episode, unspecified; Z79.82 Long term (current) use of aspirin; Z85.46 Personal history of malignant neoplasm of prostate; Z88.5 Allergy status to narcotic agent; Z88.0 Allergy status to penicillin; Z87.891 Personal history of nicotine dependence
CPT/HCPCS: 36415; 80053; 82270; 85025; 85610; 85730; 86850; 86900; 86901; 93005; 96360; 96361; 99283

== ENCOUNTER 2019-09-08 10:03 | Emergency (ER) | payer MEDICARE ==
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
--- OUTSIDE RECORDS SUMMARY | 2019-09-08 10:46 | XMS REPORT | Continuity of Care Document ---
:1950 External Reference #:[id number] Author Name Kathryn Duran PA-C Address [address] [place] [address] Care Team Providers Name Role Phone Elizabeth Romero MD Care Team Information Scientific Editor [phone] Problems Active Problems Provider Date Essential hypertension Kathryn Duran PA-C Onset: 07/09/2019 Family history of malignant neoplasm of Kathryn Duran PA-C Onset: gastrointestinal tract History of polyp of colon Kathryn Duran PA-C Onset: 07/09/2019 Constipation Kathryn Duran PA-C Onset: 07/09/2019 Hemorrhage of rectum and anus Kathryn Duran PA-C Onset: 07/09/2019 Social History Type Date Description Comments Sex Unknown Tobacco Use Start: Unknown End: Unknown Patient is a former smoker Smoking Status Reviewed: 07/09/19 Patient is a former smoker Allergies, Adverse Reactions, Alerts Active Allergies Reaction Severity Comments Date Morphine Liposomal nausea/vomiting 05/31/2015 Penicillin hives/rash 05/31/2015 Medications Active Medications SIG Qnty Indications Ordering Date Provider Peg 3350/Electrolytes use as directed 4000ml K62.5 [place] 07/09/2019 240gm MD Bong Solution Rec Colace 1 by mouth once 30caps K59.00 Evita Steward N 06/15/2019 100mg Capsules daily P Acetaminophen-Codeine 1 tab by mouth 30tabs M16.0 Elizabeth Avilez MD 05/25/2019 #3 bedtime as 300-30mg Tablets needed Acetaminophen Extra 2 tabs by mouth 90tabs M79.671 Elizabeth Avilez MD 11/06/2017 Strength three times a 500mg Tablets day Diclofenac Sodium take 1 tablet by 60tabs M25.551 Ely Brown NP 2016 75mg mouth twice Tablets DR daily as needed for joint pain Metaxalone 1 by mouth every 45tabs M25.551 Elizabeth Avilez MD 09/02/2017 800mg Tablets 8h as needed muscle spasm Spironolactone Take One-Half 15tabs I10 Elizabeth Romero MD 07/26/2016 50mg Tablets Tablet By Mouth Every Day Cetirizine HCL 1 by mouth every Unknown 10mg Tablets day Ondansetron 1-2 Tablets Unknown 4mg Tablets Every 4-6 Hours Dispers prn Nausea Aripiprazole take 1 tablet by Unknown 10mg Tablets mouth every night at bedtime Estradiol 1 Tablet tid Unknown 2mg Tablets Klonopin 1 PO qd Unknown 2mg Tablets Simvastatin Take One Tablet 90tabs E78.2 Elizabeth Avilez MD 10mg Tablets By Mouth Once Daily Estradiol 1 po tid Unknown 2mg Tablets Flutamide 1 by mouth every 30caps Elizabeth Romero MD 125mg Capsules day Mirtazapine take 1 tablet by Unknown 30mg Tablets mouth at bedtime Dispers Trazodone HCL 1-2 tablet at Unknown 50mg Tablets bedtime as needed for sleep Furosemide 1 tab by mouth 30tabs Shirin, 40mg Tablets once daily as NINA Gudino needed for leg swelling Progesterone Micronized take 1 capsule Unknown by mouth at 200mg Capsules bedtime Aspirin Ec 1 by mouth every Unknown 81mg Tablets DR day Effexor XR 2 po qd Unknown 150mg Caps ER 24HR Immunizations Description No Information Available Vital Signs Date Vital Result Comment 07/09/2019 12:08pm Height 65.25 inches 5'5.25" Weight 200.00 lb BP Systolic 136 mmHg BP Diastolic 93 mmHg Heart Rate 100 /min BMI (Body Mass Index) 33.0 kg/m2 Results Test Date Facility Test Result H/L Range Note CBC Auto Diff 06/10/2019 N2N/CCD Import White Blood 7.9 10^3/uL 3.5- 10.8 Count Red Blood Count 4.09 10^6/uL Low 4.18-5.48 Hemoglobin 13.2 g/dL Low 14-18 Hematocrit 39 % Low 42-52 Mean Corpuscular Volume 96 fL High 80-94 Mean Corpuscular Hemoglobin 32 pg High 27-31 Mean Corpuscular HGB Conc 34 g/dL 31-36 Red Cell Distribution Width 14 % 10-15 Platelet Count 190 10^3/uL 150-450 Mean Platelet Volume 8.8 fL 7.4-10.4 Abs Neutrophils 5.6 10^3/uL 1.5-7.7 Abs Lymphocytes 1.4 10^3/uL 1-4.8 Abs Monocytes 0.6 10^3/uL 0-0.8 Abs Eosinophils 0.2 10^3/uL 0-0.6 Abs Basophils 0.0 10^3/uL 0-0.2 Abs Nucleated RBC 0.0 10^3/uL Granulocyte % 71.3 % Lymphocyte % 17.3 % Monocyte % 8.1 % Eosinophil % 3.0 % Basophil % 0.3 % Nucleated Red Blood Cells % 0.1 1 Inr/Protime 06/10/2019 N2N/CCD Import Inr 1.00 1 0.82-1.09 1 Lab Results 06/10/2019 N2N/CCD Import Partial Thrombo 32.4 s 26-38 Time PTT Comp Metabolic 06/10/2019 N2N/CCD Import Sodium 138 mmol/L 135-145 Panel Potassium 4.1 mmol/L 3.5-5 Chloride 107 mmol/L 101-111 Co2 Carbon Dioxide 25 mmol/L 22-32 Anion Gap 6 mmol/L 2-11 Glucose 93 mg/dL 70-100 Blood Urea Nitrogen 23 mg/dL 6-24 Creatinine 0.82 mg/dL 0.67-1.17 BUN/Creatinine Ratio 28.0 1 High 8-20 Calcium 7.9 mg/dL Low 8.6-10.3 Total Protein 5.6 g/dL Low 6.4-8.9 Albumin 3.4 g/dL 3.2-5.2 Globulin 2.2 g/dL 2-4 Albumin/Globulin Ratio 1.5 1 1-3 Total Bilirubin 0.40 mg/dL 0.2-1 Alkaline Phosphatase 88 U/L 34-104 Alt 13 U/L 7-52 Ast 13 U/L 13-39 Egfr Non- 93.2 1 Egfr 112.7 1 2 Type & Screen 06/10/2019 N2N/CCD Import Patient Blood Type A Positive Antibody Screen Negative Stool Occult Blood, 06/10/2019 N2N/CCD Import Stool Occult See Result 3 Screen Blood, Screen Below Laboratory test 06/10/2019 [facility] Occult Blood #1 <pending> finding Screen CMP(!) 06/10/2019 [facility] Sodium(!) <pending> Potassium(!) <pending> Chloride Serum/Plasma(!) <pending> Carbon Dioxide Ser/Plasm(!) <pending> BUN - Urea Nitrogen(!) <pending> Calcium Ser/Plasma Mass/Vol(!) <pending> Creatinine Serum Mass/Vol(!) <pending> Glucose Serum(!) <pending> BUN/Creatinine Ratio(!) <pending> Albumin Serum/Plasma(!) <pending> Alkaline Phosphatase(!) <pending> Bilirubin Total Mass/Vol(!) <pending> Ast - Sgot <pending> Alt - SGPT <pending> Protein Total <pending> Laboratory test 06/10/2019 [facility] Inr(!) <pending> finding CBC W/Auto 06/10/2019 [facility] White Blood Count <pending> Differential(!) Ser Auto CNT RBC Red Blood Count <pending> Hemoglobin Blood <pending> Hematocrit <pending> MCV (Corpuscular Volume) <pending> MCH (Corpuscular Hemoglobin) <pending> MCHC (Corpuscular Hemog Conc) <pending> RDW <pending> Platelet Count Blood Auto CNT <pending> MPV <pending> Lymph% <pending> Tompkins% <pending> Neutrophil % <pending> Absolute Lymphocytes <pending> Absolute Monocytes <pending> Absolute Neutrophils <pending> 1 Standard intensity warfarin therapeutic range: 2.0-3.0 High intensity warfarin therapeutic range: 2.5-3.5 2 Because ethnic data is not always readily [...] 15-29 5 Kidney failure <15 (or dialysis) 3 SEE RESULT BELOW Name: KELSEY RAUSCH : [address]: Yayo Morris MD Acct: [id number] Unit: [id number] AGE: 69 Location: ED Re06/10/19 SEX: M Status: REG ER SPEC: [id number] CELESTINE: 06/10/19-[address] [facility] [address]: Yayo Morris MD REQ: [id number] RECD: 06/10/19 STATUS: ASIF THOMAS DR: Elizabeth Romero MD _ SOURCE: STOOL SPDESC: ORDERED: Occult Bl, Scn Procedure Result Reported Site Stool Occult Blood (1) Final 06/10/19- 1738 ML Stool Occult Blood Positive Collection Date (1) 06/10/19 * ML - Main Lab . END OF REPORT DEPARTMENT OF PATHOLOGY, [address] [place] [address] Bassam Beltre M.D. Director [facility] # [id number] Procedures Description No Information Available Medical Devices Description No Information Available Encounters Description No Information Available Assessments Date Code Description Provider 07/09/2019 K62.5 Hemorrhage of anus and rectum Kathryn Duran PA-C 07/09/2019 K59.00 Constipation, unspecified Kathryn Duran PA-C 07/09/2019 Z86.010 Personal history of colonic polyps Kathryn Duran PA-C 07/09/2019 Z80.0 Family history of malignant neoplasm of Kathryn Duran PA-C digestive organs Plan of Treatment Future Appointment(s):09/25/2019 11:30 am - Jose Ortega DO at [facility]07/09/2019 - KASSANDRA SanonCK62.5 Hemorrhage of anus and rectumNew Medication:Peg 3350/Electrolytes 240 gm - use as wzdikqxfV30.00 Constipation, essyjmjkajmN57.010 Personal history of colonic hkfizgV88.0 Family history of malignant neoplasm of digestive organs Functional Status Description No Information Available Mental Status Description No Information Available Referrals Description No Information Available
[2019-09-08] MEDS ORDERED: Ibuprofen TAB* 400 MG PO ONE (11:16)
[2019-09-08 14:20] VITALS: BP 119/74
== END 2019-09-08 14:05 | disposition home or self-care (01) ==
LOC: EDSEX → ED 10:03
DX: S09.90XA Unspecified injury of head, initial encounter (principal); W01.198A Fall on same level from slipping, tripping and stumbling with subsequent striking against other object, initial encounter; Y92.9 Unspecified place or not applicable; E78.00 Pure hypercholesterolemia, unspecified; I10 Essential (primary) hypertension; F41.9 Anxiety disorder, unspecified; F32.9 Major depressive disorder, single episode, unspecified; M06.9 Rheumatoid arthritis, unspecified; Z85.46 Personal history of malignant neoplasm of prostate; Z87.891 Personal history of nicotine dependence; Z79.82 Long term (current) use of aspirin; Z79.899 Other long term (current) drug therapy; Z88.0 Allergy status to penicillin; Z88.5 Allergy status to narcotic agent
CPT/HCPCS: 70450; 99283; A9270-GY

== ENCOUNTER 2019-11-28 10:56 | Inpatient (IN) | payer MEDICARE ==
--- NOTE | 2019-11-28 11:22 | ED ---
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 Patient states she started experiencing SI a couple weeks ago, but was the worst in severity yesterday. She states a Hx of SI with an attempt in 1998. She was admitted in 2016 for [address] Bonilla at [facility], with an upcoming appointment on Saturday this week. Patient states she saw a therapist at the clinic of Saturday. She states she had a plan to overdose on medication. States a Hx of anxiety, depression. She takes progesterone. States chronic left hip pain due to arthritis. - History Of Current Complaint Time Seen by Provider: 11/28/19 10:56 Hx Obtained From: Patient Onset/Duration: Lasting Weeks Character: Depressed - Allergies/Home Medications Allergies/Adverse Reactions: Allergies Allergy/AdvReac Type Severity Reaction Status Date / Time Penicillins Allergy Severe Rash Verified 11/28/19 11:11 morphine Allergy Intermediate Vomiting Verified 11/28/19 11:11 PMH/Surg Hx/FS Hx/Imm Hx Endocrine/Hematology History: Denies: Hx Diabetes, Hx Thyroid Disease Cardiovascular History: Reports: Hx Hypercholesterolemia, Hx Hypertension - ON MEDICATION FOR, Other Cardiovascular Problems/Disorders - Elevated cholesterol Denies: Hx Pacemaker/ICD Respiratory History: Reports: Other Respiratory Problems/Disorders - Pneumonia, history of Denies: Hx Asthma, Hx Chronic Obstructive Pulmonary Disease (COPD) GI History: Reports: Other GI Disorders - GALLSTONES Denies: Hx Ulcer History: Reports: Other Problems/Disorders - HX OF PROSTATE CANCER- SURGERY FOR Denies: Hx Renal Disease Musculoskeletal History: Reports: Hx Arthritis - LEFT KNEE AND LEFT LOWER BACK Denies: Other Musculoskeletal History Sensory History: Reports: Hx Cataracts - BILATERAL, Hx Contacts or Glasses - glasses, Hx Hearing Aid - left ear hearing aide on Denies: Hx Glaucoma Opthamlomology History: Reports: Hx Cataracts - BILATERAL, Hx Contacts or Glasses - glasses Denies: Hx Glaucoma Neurological History: Denies: Other Neuro Impairments/Disorders Psychiatric History: Reports: Hx Anxiety, Hx Depression, Hx Panic Disorder, Hx Inpatient Treatment, Hx Community Mental Health Tx Denies: Hx of Violent Episodes Against Others - Cancer History Cancer Type, Location and Year: PROSTATE Hx Chemotherapy: No Hx Radiation Therapy: No - Surgical History Surgery Procedure, Year, and Place: 2001 REMOVED PROSTATE, 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 tonsillectomy as a child Hx Anesthesia Reactions: No - Immunization History Date of Tetanus Vaccine: unk Date of Influenza Vaccine: fall 2015 Infectious Disease History: No Infectious Disease History: Denies: Hx Hepatitis, Hx Human Immunodeficiency Virus (HIV), Traveled Outside the US in Last 30 Days - Family History Known Family History: Positive: Diabetes, Other - CVA - Social History Alcohol Use: None Alcohol Amount: NONE SINCE 1986 AND 2002- STATES WAS AN ALCOHOLIC Hx Substance Use: No Substance Use Type: Reports: None Hx Tobacco Use: Yes Smoking Status (MU): Former Smoker Amount Used/How Often: 1 ppd 10 years Have You Smoked in the Last Year: No Review of Systems Positive: Other - Chronic hip pain Psychological: Other - SI All Other Systems Reviewed And Are Negative: Yes Physical Exam - Summary Physical Exam Summary: Constitutional: Well-developed, Well-nourished, Alert. (-) Distressed Skin: Warm, Dry. Mild erythema to the left upper inner arm that his reports is pruritic. HENT: Normocephalic; Atraumatic Eyes: Conjunctiva normal Neck: Musculoskeletal ROM normal neck. (-) JVD, (-) Stridor, (-) Nuchal rigidity Cardio: Rhythm regular, rate normal, Heart sounds normal; Intact distal pulses; Radial pulses are 2+ and symmetric. (-) Murmur Pulmonary/Chest wall: Effort normal. (-) Respiratory distress, (-) Wheezes, (-) Rales Abd: Soft, (-) tenderness, (-) Distension, (-) Guarding, (-) Rebound Musculoskeletal: (-) Edema Lymph: (-) Cervical adenopathy Neuro: Alert, Oriented x3 Psych: SI Triage Information Reviewed: Yes Vital Signs On Initial Exam: Initial Vitals Temp Pulse Resp BP Pulse Ox 97 F 100 16 114/79 96 11/28/19 11:04 11/28/19 11:04 11/28/19 11:04 11/28/19 11:04 11/28/19 11:04 Vital Signs Reviewed: Yes Procedures - Sedation Patient Received Moderate/Deep Sedation with Procedure: No Diagnostics - Vital Signs Vital Signs Temp Pulse Resp BP Pulse Ox 11/28/19 11:04 97 F 100 16 114/79 96 - Laboratory Result Diagrams: 11/28/19 11:21 11/28/19 11:21 Lab Statement: Any lab studies that have been ordered have been reviewed, and results considered in the medical decision making process. Course/Dx - Course Course Of Treatment: 69 y/o Male to Female transgender patient p/w SI. - mild itchy rash to upper L arm, given hydrocortisone (possible contact dermatitis, does not appear infected). - team to see - Differential Dx/Clinical Impression Provider Diagnosis: Depressive disorder, not elsewhere classified - Physician Notifications Discussed Care Of Patient With: Arthur Infante Time Discussed With Above Provider: 15:00 Instructed by Provider To: Admit As Inpatient - voluntary Discharge ED - Sign-Out/Discharge Documenting (check all that apply): Patient Departure - Discharge Plan Condition: Stable Disposition: PSYCHIATRIC FACILITY-[facility] Referrals: Elizabeth Romero MD [Primary Care Provider] - - Billing Disposition and Condition Condition: STABLE Disposition: Psychiatric Facility [facility] - Attestation Statements Document Initiated by Scribe: Yes Documenting Scribe: Adrian Stevenson Provider For Whom Alize is Documenting (Include Credential): Jonna Khoury MD Scribe Attestation: Adrian Velasco, scribed for Jonna Khoury MD on 11/28/19 at 1506. Scribe Documentation Reviewed: Yes Provider Attestation: The documentation as recorded by the Adrian mari accurately reflects the service I personally performed and the decisions made by Jonna catalan MD Status of Scribe Document: Ready
[2019-11-28 11:27] LABS: ABS Basophils 0.1 10^3/ul (0-0.2); ABS Eosinophils 0.2 10^3/ul (0-0.6); ABS Monocytes 0.5 10^3/ul (0-0.8); ABS Neutrophils 6.5 10^3/ul (1.5-7.7); Eosinophil % 2.2 %; Hematocrit 44 % (35-47); Hemoglobin 15.4 g/dL (12.0-16.0); Lymphocyte % 11.8 %; Mean Corpuscular HGB Conc 35 g/dL (31-36); Mean Corpuscular Hemoglobin 33 pg (27-31); Mean Corpuscular Volume 93 fL (80-97); Mean Platelet Volume 9.8 fL (7.4-10.4); Platelet Count 188 10^3/uL (150-450); Red Cell Distribution Width 13 % (10-15); White Blood Count 8.1 10^3/uL (3.5-10.8)
[2019-11-28 11:44] LABS: ALT 29 U/L (7-52); AST 23 U/L (13-39); Albumin 3.9 g/dL (3.2-5.2); Albumin/Globulin Ratio 1.5 (1-3); Alkaline Phosphatase 101 U/L (34-104); Anion Gap 8 mmol/L (2-11); Blood Urea Nitrogen 16 mg/dL (6-24); CO2 Carbon Dioxide 26 mmol/L (22-32); Calcium 9.6 mg/dL (8.6-10.3); Chloride 103 mmol/L (101-111); EGFR African American 81.3 (>60); EGFR Non-African American 67.2 (>60); Globulin 2.6 g/dL (2-4); Glucose 107 mg/dL (70-100); Sodium 137 mmol/L (135-145); Total Protein 6.5 g/dL (6.4-8.9)
[2019-11-28] MEDS ORDERED: Hydrocortisone 1% CREAM* 30 GM TUBE TOPICAL ONE (11:53)
[2019-11-28 12:01] LABS: Acetaminophen < 15 mcg/mL; Alcohol < 10 mg/dL (<10); Salicylate < 2.50 mg/dL (<30)
--- OUTSIDE RECORDS SUMMARY | 2019-11-28 12:08 | XMS REPORT ---
:1950 Author Organization [facility] Care Team Providers Name Role Phone Alexus Alcantar Primary Care Physician Unavailable Allergies, Adverse Reactions, Alerts Allergy Code CodeSystem Reaction Severity Criticality Status Start Substance Date Moderate Medications Medication Medication Medication Start Stop Route Dose Status Fill Code CodeSystem Date Date Instructions trazodone 671530 RxNorm oral 50 mg 1 active 1 tablet at 4-04 tablet bedtime for at 30 day(s) bedtime aripiprazole 114906 RxNorm 2018- oral 10 mg 1 active 1 tablet 02-12- tablet once a day once a for 30 day(s) day clonazepam 19741220 RxNorm 2018- oral 2 mg completed for 30 4 05-17 tablet day(s) clonazepam 19741220 RxNorm 2018- oral 2 mg 1 completed 1 tablet at -04 05-12 tablet bedtime for at 30 day(s) bedtime clonazepam 280734 RxNorm 2018- oral 2 mg 1 completed 1 tablet at 5-17 06-16 tablet bedtime for at 30 day(s) bedtime clonazepam 845119 RxNorm 2018- oral 2 mg 1 completed 1 tablet at 18 08-17 tablet bedtime for at 30 day(s) bedtime venlafaxine 455782 RxNorm 2018- oral 150 mg 2 active 2 capsule 02-12 capsule, once a day extended for 30 day(s) release 24hr once a day clonazepam 749309 RxNorm 2018- oral 2 mg completed for 30 6 07-18 tablet day(s) mirtazapine 005193 RxNorm 2018- oral 30 mg 1 active 1 tablet at 12-23- tablet bedtime for at 30 day(s) bedtime Problems Problem Name Code CodeSystem Alternate Alternate Start End Status Narrative Code CodeSystem Date Date Severe 89763167 SNOMED-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 Generalized 35779560 SNOMED-CT 2019- Active anxiety 0-15 disorder Severe 27919612 SNOMED-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 Severe 60831311 SNOMED-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 Relevant diagnostic tests/laboratory data Narrative No Information Procedures Procedure Code CodeSystem Target Date of Status Service Device Device Device Name Site Procedure Delivery Code Name UID Location SNOMED-CT () 2019-02-20 complete Mental [facility], [id number] SNOMED-CT () 2019-03-20 complete Mental d [facility], [id number] SNOMED-CT () 2019-03-05 complete Mental d [address], [id number] SNOMED-CT () 2019-04-17 complete Mental d [address], [id number] SNOMED-CT () 2019-04-03 complete Mental d Health[address], [id number] SNOMED-CT () 2019-09-22 complete Mental d [address], [id number] Psychotherap [id number] SNOMED-CT () 2019-09-29 complete Mental y, 45 04 d Health- minutes with [address], [id number] Psychotherap [id number] SNOMED-CT () 2019-10-06 complete Mental y, 45 04 d Health- minutes with [address], [id number] Psychotherap [id number] SNOMED-CT () 2019-10-13 complete Mental y, 45 04 d Health- minutes with [address], [id number] Psychotherap [id number] SNOMED-CT () 2019-10-20 complete Mental y, 45 04 d Health- minutes with [address], [id number] Psychotherap [id number] SNOMED-CT () 2019-10-27 complete Mental y, 45 04 d Health- minutes with [address], [id number] Psychotherap [id number] SNOMED-CT () 2019-06-30 complete Mental y, 45 04 d Health- minutes with [address], [id number] Psychotherap [id number] SNOMED-CT () 2019-06-12 complete Mental y, 45 04 d Health- minutes with [address], [id number] Psychotherap [id number] SNOMED-CT () 2019-07-28 complete Mental y, 45 04 d Health- minutes with [address], [id number] Psychotherap [id number] SNOMED-CT () 2019-08-12 complete Mental y, 45 04 d Health- minutes with [address], [id number] Psychotherap [id number] SNOMED-CT () 2019-08-18 complete Mental y, 45 04 d Health- minutes with [address], [id number] Psychotherap [id number] SNOMED-CT () 2019-08-25 complete Mental y, 45 04 d Health- minutes with [address], [id number] Psychotherap [id number] SNOMED-CT () 2019-09-01 complete Mental y, 45 04 d Health- minutes with [address], [id number] Psychotherap [id number] SNOMED-CT () 2019-09-08 complete Mental y, 45 04 d Health- minutes with [address], [id number] Psychotherap [id number] SNOMED-CT () 2019-09-15 complete Mental y, 45 04 d Health- minutes with [place] patient [address], [id number] [id number] Psychotherap [id number] SNOMED-CT () 2019-06-01 complete Mental y, 45 04 d Health- minutes with [place] patient [address], [id number] [phone] Psychotherap [id number] SNOMED-CT () 2019-05-05 complete Mental y, 45 04 d Health- minutes with [place] patient [address], [id number] [phone] Psychotherap [id number] SNOMED-CT () 2019-05-15 complete Mental y, 45 04 d Health- minutes with [place] patient [address], [id number] Group [id number] SNOMED-CT () 2019-03-12 complete Mental psychotherap 8 d Health- y (other [place] than of a [address]) [place], [place], [id number] Group [id number] SNOMED-CT () 2019-03-05 complete Mental psychotherap 8 d Health- y (other [place] than of a [address]) [place], [place], [id number] Group [id number] SNOMED-CT () 2019-03-26 complete Mental psychotherap 8 d Health- y (other [place] than of a [address]) [place], [place], [id number] Group [id number] SNOMED-CT () 2019-03-19 complete Mental psychotherap 8 d Health- y (other [place] than of a [address]) [place], [place], [id number] [id number] Group [id number] SNOMED-CT () 2019 complete Mental psychotherap 8 d Health- y (other [place] than of a [address]) [place], [id number] Group [id number] SNOMED-CT () 2019-04-09 complete Mental psychotherap 8 d Health- y (other [place] than of a [address]) [place], [place], [id number] Group [id number] SNOMED-CT () 2019-04-02 complete Mental psychotherap 8 d Health- y (other [place] than of a [address]) [place], [place], [id number] Group [id number] SNOMED-CT () 2019-07-16 complete Mental psychotherap 8 d Health- y (other [place] than of a [address]) [place], [place], [id number] Group [id number] SNOMED-CT () 2019-07-23 complete Mental psychotherap 8 d Health- y (other [place] than of a [address]) [place], [place], [id number] [id number] Group [id number] SNOMED-CT () 2019-07-30 complete Mental psychotherap 8 d Health- y (other [place] than of a [address]) [place], [place], [id number] [phone] Group [id number] SNOMED-CT () 2019-05-28 complete Mental psychotherap 8 d Health- y (other [place] than of a [address]) [place], [place], [id number] Group [id number] SNOMED-CT () 2019-08-13 complete Mental psychotherap 8 d Health- y (other [place] than of a [address]) [place], [place], [id number] [phone] Group [id number] SNOMED-CT () 2019-06-18 complete Mental psychotherap 8 d Health- y (other [place] than of a [address]) [place], [place], [id number] [id number] Preventive [id number] SNOMED-CT () 2019-05-29 complete Mental medicine 1 d Health- counseling [place] and/or risk [address], (s) [facility], to an [place], individual [id number] (separate [id number] procedure); approximatel y 30 minutes Office or [id number] SNOMED-CT () 2019-10-02 complete Mental other 7 d Health- outpatient [place] visit for [address], [facility], of an [place], established [id number] patient, [id number] which requires at least 2 of these 3 david components: An expanded problem focused history; An expanded problem focused examination; Medical decision making of low Office or [id number] SNOMED-CT () 2019-08-05 complete Mental other 7 d Health- outpatient [place] visit for [address], [facility], of an [place], established [id number] patient, [id number] which requires at least 2 of these 3 david components: An expanded problem focused history; An expanded problem focused examination; Medical decision making of low SNOMED-CT () 2019-07-20 complete Mental [place] Health- [place], [id number] SNOMED-CT () 2019-06-18 complete Mental d Health- [place], [id number] [phone] Office or [id number] SNOMED-CT () 2019-05-08 complete Mental other 6 d Health- outpatient [place] visit for [address], of [place], established [id number] patient, [id number] which requires at least 2 of these 3 david components: A problem focused history; A problem focused examination; Straightforw don medical decision making. Counselin Encounters/Encounter Diagnoses Encounter Name Encounter Diagnosis Diagnosis Diagnosis Date of Service Code Code Name CodeSystem Diagnosis Delivery Location [facility] - 93029 [id number] Generalized SNOMED-CT 2019-10-27 Behavioral Individual 30 anxiety Health min disorder Clinic [address] [place] [address], [id number] Vital Signs No Information Social History Element Description Description Start End Code CodeSystem AdditionalInfo Date Date SexAssignedAtBirth Female 1950-0 F AdministrativeGender 04-16 Hospital Discharge Instructions Reason For Referral Medical Equipment FDA Assessments
--- OUTSIDE RECORDS SUMMARY | 2019-11-28 12:08 | XMS REPORT | Continuity of Care Document ---
:1950 External Reference #:[id number] Author Name Elizabeth Romero M.D. Address [address] [facility] [place] [address] Care Team Providers Name Role Phone Other Specialty Care Team Information Gravel Wheeler Unavailable Denise Jorgensen - Family Medicine Care Team Information Gravel Wheeler [phone] [facility] & Care Team Information Gravel Wheeler [phone] lymphedema - Physical Therapist [facility] Physical Care Team Information Gravel Wheeler Therapy - Physical Therapy Ashley Parker - Pulmonary Disease Care Team Information Gravel Wheeler Problems Active Problems Provider Date Gender dysphoria [...] thigh Obesity Elizabeth Romero M.D. Onset: 05/25/2019 Recurrent major depressive episodes Elizabeth Romero M.D. Onset: 11/26/2019 Social History Type Date Description Comments Sex Unknown Tobacco Use Start: Unknown End: Former Cigarette Smoker 1 quit 1982 Unknown Pack Daily ETOH Use Denies alcohol use Recreational Drug Use Denies Drug Use Tobacco Use Start: Unknown End: Patient is a former smoker Unknown Smoking Status Reviewed: 10/02/19 Patient is a former smoker Allergies, Adverse Reactions, Alerts Active Allergies Reaction Severity Comments Date Morphine nausea/vomiting 05/31/2015 Penicillin hives/rash 05/31/2015 Medications Active Medications SIG Qnty Indications Ordering Provider Date Acetaminophen-Codein 1 tab by mouth 30tabs M16.0 Elizabeth Romero, 05/25/2019 e #3 bedtime as needed M.D. 300-30mg Tablets Diclofenac Sodium take 1 tablet by 60tabs M25.551 Sagar Castillo, 2016 mouth twice daily M.D. 75mg Tablets DR as needed for joint pain Metaxalone 1 by mouth every 90tabs M25.551 Paramjit Babb 09/02/2017 800mg 8h as needed MD Charleen Tablets muscle spasm Depend Underwear For use as directed 90units N39.3 Elizabeth Romero 2016 Men Large/Xlarge M.D. Maximum Absorbency Mis Z85.46 R32 Spironolactone take one-half 15tabs I10 Elizabeth Romero M.D. 07/26/2016 50mg Tablets tablet by mouth every day Effexor XR 1 po qd Unknown 150mg Caps ER 24HR Aspirin Ec 1 by mouth every Unknown 81mg Tablets DR day Progesterone Micronized take 1 capsule by Unknown 200mg mouth at bedtime Capsules Klonopin 1 PO qam Unknown 2mg Tablets Vitamin D 1 by mouth every Unknown 5000Units Tablets day Furosemide 1 tab by mouth 30tabs Terese Carpio, 40mg Tablets once daily as FUND RAISER needed for leg swelling Simvastatin Take One Tablet By 90tabs E78.2 Elizabeth Romero M.D. 10mg Tablets Mouth Once Daily Mirtazapine take 1 tablet by Unknown 30mg Tablets mouth at bedtime Dispers Flutamide take one capsule 30caps Paramjit Babb 125mg Capsules by mouth once MD Charelen daily Estradiol 1 po tid Unknown 2mg Tablets History Medications Colace 1 by mouth once 30caps K59.00 Evita Serena 06/15/2019 - 100mg daily NINA Steward 07/16/2019 Capsules Immunizations CPT Code Status Date Vaccine Lot # [id number] Given 09/14/2019 High-Dose, Influenza Virus Vacccine-fluzone 65 and [id number] older 59430 Given 08/07/2018 High-Dose, Influenza Virus Vacccine-fluzone 65 and [id number] older 17555 Given 07/29/2017 Influenza Vac, Quadrivalent, Slit Virus, Im [id number] 22990 Given 09/11/2016 Pneumococcal Conjugate Vacc-13 [id number] 27702 Given 05/31/2015 Pneumococcal Immunization [id number] 65896 Given 05/31/2015 Tdap Tetanus, W Pertussis [id number] 04761 Given 07/23/2014 Influenza vac quadrivalent preservative free 6 months and up 11493 Given 07/23/2013 Influenza Vac, [place], [place] [address] Given 07/18/2012 Zostivax 91258 Given 07/18/2012 Influenza Vac, [place], [place] [address] Given 04/17/2010 Tdap Tetanus, W Pertussis Vital Signs Date Vital Result Comment 11/26/2019 7:57am BP Systolic 110 mmHg BP Diastolic 64 mmHg Heart Rate 66 /min Body Temperature 97.9 F Respiratory Rate 16 /min Height 65.75 inches 5'5.75" Weight 179.00 lb BMI (Body Mass Index) 29.1 kg/m2 09/29/2019 1:58pm BP Systolic 110 mmHg BP Diastolic 72 mmHg Heart Rate 76 /min Body Temperature 96.6 F Respiratory Rate 17 /min Height 65.75 inches 5'5.75" Weight 192.00 lb BMI (Body Mass Index) 31.2 kg/m2 Results Test Acquired Date Facility Test Result H/L Range Note Laboratory test 11/12/2019 [facility] PSA <0.1 ng/mL Low 0.0- 4.0 1 finding Comprehensive 11/12/2019 [facility]) Sodium 139 mEq/L 134-149 Metabolic Prof Potassium 3.8 mEq/L 3.6-5.5 Chloride 98 mEq/L 94-112 Carbon Dioxide 25 mEq/L 21-32 Glucose 140 mg/dL High 70-105 2 BUN 13 mg/dL 6-26 Creatinine 0.9 mg/dL 0.6-1.4 BUN/Creat Ratio 14.4 CALC 8.0-36.0 Calcium 9.5 mg/dL 8.6-10.2 Total Protein 7.0 g/dL 6.4-8.3 Albumin 4.5 g/dL 3.8-5.5 Globulin 2.5 g/dL 2.0-4.8 A/G Ratio 1.8 CALC 0.6-2.3 Alk. Phosphatase 113 U/L High 22-95 3 Alt (SGPT) 22 U/L 7-35 Ast (Sgot) 20 U/L 5-34 Total Bilirubin 0.8 mg/dL 0.2-1.3 GFR Non- >60 ml/min/1.73m^ >=60 GFR >60 ml/min/1.73m^ >=60 Lipid Profile 11/12/2019 [facility]) Cholesterol 187 mg/dL 120- 200 Triglycerides 163 mg/dL 30-200 HDL Cholesterol 60 mg/dL 30-70 LDL (Calculated) 94 CALC 0-129 VLDL Cholesterol 33 mg/dL 0-50 HDL Risk Factor 3.1 CALC 0.0-4.4 CBC Electronic a 11/12/2019 [facility]) WBC 8.6 x10^3/UL 4.0- 10.0 RBC 4.94 x10^6/UL 3.93-6.00 HGB 15.7 g/dL 12.0-17.0 HCT 47 % 35-50 MCV 95.1 fL High 80.0-95.0 4 MCH 31.8 pg 25.6-32.2 MCHC 33.4 g/dL 32.2-36.0 RDW-CV 13.0 % 11.6-14.4 PLT 205 x10^3/UL 163-400 MPV 11.7 fL 9.4-12.4 Tricia# 6.01 x10^3/UL 1.56-6.13 Lymph# 1.65 x10^3/UL 1.18-3.74 Clark# 0.67 x10^3/UL 0.24-0.82 Eos # 0.3 x10^3/UL 0.0-0.5 Baso # 0.03 x10^3/UL 0.01-0.08 Tricia% 69.8 % 34.0-70.0 Lymph % 19.1 % Low 20.0-52.0 5 Clark% 7.8 % 5.0-12.0 Eos% 2.9 % 0.7-7.0 Baso% 0.3 % 0.1-1.2 Laboratory test 11/12/2019 [facility] Hemoglobin A1c 5.5% % 4.1- 5.7 finding (607)- - ([facility]) CBC Auto Diff 06[place]10/2019 [facility] [place] White Blood 7.9 Normal 3.5-10.8 Count 10^3/uL Red Blood Count 4.09 10^6/uL Low 4.18-5.48 Hemoglobin 13.2 g/dL Low 14.0-18.0 Hematocrit 39 % Low 42-52 Mean Corpuscular Volume 96 fL High 80-94 Mean Corpuscular Hemoglobin 32 pg High 27-31 Mean Corpuscular HGB Conc 34 g/dL Normal 31-36 Red Cell Distribution Width 14 % Normal 10-15 Platelet Count 190 10^3/uL Normal 150-450 Mean Platelet Volume 8.8 fL Normal 7.4-10.4 Abs Neutrophils 5.6 10^3/uL Normal 1.5-7.7 Abs Lymphocytes 1.4 10^3/uL Normal 1.0-4.8 Abs Monocytes 0.6 10^3/uL Normal 0-0.8 Abs Eosinophils 0.2 10^3/uL Normal 0-0.6 Abs Basophils 0.0 10^3/uL Normal 0-0.2 Abs Nucleated RBC 0.0 10^3/uL Granulocyte % 71.3 % Lymphocyte % 17.3 % Monocyte % 8.1 % Eosinophil % 3.0 % Basophil % 0.3 % Nucleated Red Blood Cells % 0.1 Inr/Protime 06/10/2019 [facility] [place] Inr 1.00 Normal 0.82-1.09 6 Laboratory test 06/10/2019 [facility] [place] Partial Thrombo 32.4 seconds Normal 26.0- 38.0 finding Time PTT Comp Metabolic Panel 06/10/2019 [facility] [place] Sodium 138 mmol/L Normal 135-145 Potassium 4.1 mmol/L Normal 3.5-5.0 Chloride 107 mmol/L Normal 101-111 Co2 Carbon Dioxide 25 mmol/L Normal 22-32 Anion Gap 6 mmol/L Normal 2-11 Glucose 93 mg/dL Normal 70-100 Blood Urea Nitrogen 23 mg/dL Normal 6-24 Creatinine 0.82 mg/dL Normal 0.67-1.17 BUN/Creatinine Ratio 28.0 High 8-20 Calcium 7.9 mg/dL Low 8.6-10.3 Total Protein 5.6 g/dL Low 6.4-8.9 Albumin 3.4 g/dL Normal 3.2-5.2 Globulin 2.2 g/dL Normal 2-4 Albumin/Globulin Ratio 1.5 Normal 1-3 Total Bilirubin 0.40 mg/dL Normal 0.2-1.0 Alkaline Phosphatase 88 U/L Normal 34-104 Alt 13 U/L Normal 7-52 Ast 13 U/L Normal 13-39 Egfr Non- 93.2 >60 Egfr 112.7 >60 7 Type & Screen 06/10/2019 [facility] [place] Blood Type A Positive Antibody Screen NEGATIVE Stool Occult Blood, 06/10/2019 [facility] [place] Stool Occult Blood, SEE RESULT BELOW 8 Screen Screen 1 consistent w/ previous results 2 consistent w/ previous results 3 consistent w/ previous results 4 RESULTS VERIFIED BY REPEAT ANALYSIS 5 RESULTS VERIFIED BY REPEAT ANALYSIS 6 Standard intensity warfarin therapeutic range: 2.0-3.0 High intensity warfarin therapeutic range: 2.5-3.5 7 Because ethnic data is not always readily [...] 15-29 5 Kidney failure <15 (or dialysis) 8 SEE RESULT BELOW Name: MIRACLEKELSEY : [address]: Yayo Morris MD Acct: [id number] Unit: [id number] AGE: 69 Location: ED Re06/10/19 SEX: M Status: REG ER SPEC: [id number] CELESTINE: 06/10/19-[address]: Yayo Morris MD REQ: [id number] RECD: 06/10/19-1723 STATUS: ASIF THOMAS DR: Elizabeth Romero MD _ SOURCE: STOOL SPDESC: ORDERED: Occult Bl, Scn Procedure Result Reported Site Stool Occult Blood (1) Final 06/10/19- 1738 ML Stool Occult Blood Positive Collection Date (1) 06/10/19 * - Main Lab . END OF REPORT DEPARTMENT OF PATHOLOGY, [address] [place] [address] Bassam Beltre M.D. Director [facility] # [id number] Procedures Date Code Description Status 12/25/2017 [id number] Mammogram Completed 12/28/2016 [id number] Mammogram Completed Medical Devices Description No Information Available Encounters Type Date Location Provider Dx Diagnosis Office Visit 09/29/2019 Main Office Evita Cardona R10.10 Upper abdominal pain , 2:00p NINA Steward unspecified Office Visit 09/15/2019 Main Office Evita Cardona R10.10 Upper abdominal pain , 7:15p NINA Steward unspecified R26.89 Other abnormalities of gait and mobility Office Visit 09/14/2019 9:00a Main Office Mame S09.90xA Unspecified injury Caroline Watt of head, initial encounter S09.90xD Unspecified injury of head, subsequent encounter S00.31xA Abrasion of nose, initial encounter Z23 Encounter for immunization W22.8xxA Striking against or struck by other objects, init encntr Office Visit 06/15/2019 6:15p Main Office Evita Steward NP K92.1 Melena Z86.010 Personal history of colonic polyps K59.00 Constipation, unspecified Office Visit 06/04/2019 9:00a Main Office Mague Stoner S50.861A Insect bite NINA Minor (nonvenomous) of right forearm, init encntr R10.84 Generalized abdominal pain W57.xxxA Bit/stung by nonvenom insect & oth nonvenom arthropods, init Assessments Date Code Description Provider 11/26/2019 F33.9 Major depressive disorder, recurrent, Elizabeth Romero M.D. unspecified 11/26/2019 R10.9 Unspecified abdominal pain Elizabeth Romero M.D. 11/26/2019 F64.9 Gender identity disorder, unspecified Elizabeth Romero M.D. 11/26/2019 R63.4 Abnormal weight loss Elizabeth Romero M.D. 11/26/2019 R45.851 Suicidal ideations Elizabeth Romero M.D. 11/12/2019 R73.01 Impaired fasting glucose Elizabeth Romero M.D. 11/12/2019 Z85.46 Personal history of malignant neoplasm Elizabeth Romero M.D. of prostate 11/12/2019 I10 Essential (primary) hypertension Elizabeth Romero M.D. 09/29/2019 R10.10 Upper abdominal pain, unspecified Evita Steward NP 09/15/2019 R10.10 Upper abdominal pain, unspecified Evita Steward NP 09/15/2019 R26.89 Other abnormalities of gait and mobility Evita Steward NP 09/14/2019 S09.90xA Unspecified injury of head, initial Mamekiesha Watt nina encounter 09/14/2019 S09.90xD Unspecified [facility] of head, [facility] S00.31xA Abrasion of nose, [facility]2019 Z23 Encounter for immunization [facility] 09/14/2019 W22.8xxA Striking against or struck by other [facility] objects, initial encounter 06/15/2019 K92.1 Melena Evita Steward NP 06/15/2019 Z86.010 Personal history of colonic polyps Evita Steward NP 06/15/2019 K59.00 Constipation, unspecified Evita Steward NP 06/04/2019 S50.861A Insect bite (nonvenomous) of right Mague Minor NP forearm, initial encounte 06/04/2019 R10.84 Generalized abdominal pain Mague Minor NP 06/04/2019 W57.xxxA Bitten or stung by nonvenomous insect Mague Minor NP and other nonvenomous arthropods, initial encounter Plan of Treatment Future Appointment(s):12/14/2019 8:00 am - Evita Steward NP at Main [id number]/26/2019 - Elizabeth Romero M.D.F33.9 Major depressive disorder, recurrent , unspecifiedComments:Call office right away if symptoms worsen including worsening mood/anxiety or suicidal ideation. Suicide prevention hot line/Crisis line: or 357-527-9578Fuobpmwuv 24 hours a day, 7 days a week . It is free and confidential. https://suicidepreventionlifeline.org/ Can be contributing toabdominal pain and weight losswill discuss with your therapist and psychiatrist a plan; If you are unsafe or feeling suicidal go to ER ASAPFollow up:2 eggafV87.9 Unspecified abdominal painComments:The patient was instructed to call if symptoms of abdominal pain worsen. colonoscopy in FEBF64.9 Gender identity disorder, ukjdyntklwoZ10.4 Abnormal weight lossR45.851 Suicidal ideationsAllComments:Medication Management Patient Understands medications she's taking? Yes No Are there Barriers to Adherence? Yes No Has the patient been asked about herbal supplements and therapies, and OTC meds? Yes No Functional Status Description No Information Available Mental Status Description No Information Available Referrals Refer to Reason for Referral Status Appt [facility] Physical PHYSICAL THERAPY evaluate and Scheduled Therapy treat gait and mobility--increase in falls. Order faxed. Pt will call to schedule his own appt. [address] [facility] [address] [place] [address] [phone] Kathryn Duran PA-C colonoscopy and melena jw Scheduled 07/09/[address] [place], [place] [id number] [phone]
--- OUTSIDE RECORDS SUMMARY | 2019-11-28 12:08 | XMS REPORT ---
:1950 Author Organization [facility] Care Team Providers Name Role Phone Alexus Alcantar Primary Care Physician Unavailable Allergies, Adverse Reactions, Alerts Allergy Code CodeSystem Reaction Severity Criticality Status Start Substance Date Moderate Medications Medication Medication Medication Start Stop Route Dose Status Fill Code CodeSystem Date Date Instructions venlafaxine 629572 RxNorm 2019- oral 150 mg 2 active 2 capsule 02-12 capsule, once a day extended for 30 day(s) release 24hr once a day trazodone 824850 RxNorm oral 50 mg 1 active 1 tablet at 4-04 tablet bedtime for at 30 day(s) bedtime aripiprazole 806577 RxNorm 2018- oral 10 mg 1 active 1 tablet 02-12 tablet once a day once a for 30 day(s) day clonazepam 19741220 RxNorm 2018- oral 2 mg completed for 30 6 07-18 tablet day(s) clonazepam 19741220 RxNorm 2018- oral 2 mg 1 completed 1 tablet at 4- 05-12 tablet bedtime for at 30 day(s) bedtime mirtazapine 440765 RxNorm 2018- oral 30 mg 1 active 1 tablet at 12-23- tablet bedtime for at 30 day(s) bedtime clonazepam 19741220 RxNorm 2018- oral 2 mg 1 completed 1 tablet at 5-17 06-16 tablet bedtime for at 30 day(s) bedtime clonazepam 19741220 RxNorm 2019- oral 2 mg 1 completed 1 tablet at 18 08-17 tablet bedtime for at 30 day(s) bedtime clonazepam 19741220 RxNorm 2018- oral 2 mg completed for 30 4- 05-17 tablet day(s) Problems Problem Name Code CodeSystem Alternate Alternate Start End Status Narrative Code CodeSystem Date Date 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 SNOMED-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 Generalized [id number] SNOMED-CT 2019- Active anxiety 0-15 disorder Severe [id number] SNOMED-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 Severe 84473208 SNOMED-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 Relevant diagnostic tests/laboratory data Narrative No Information Procedures Procedure Code CodeSystem Target Date of Status Service Device Device Device Name Site Procedure Delivery Code Name UID Location SNOMED-CT () 2019-02-20 complete Mental [facility], [id number] SNOMED-CT () 2019-03-20 complete Mental d [facility], [id number] SNOMED-CT () 2019-03-05 complete Mental d [address], [id number] SNOMED-CT () 2019-04-17 complete Mental d [address], [id number] SNOMED-CT () 2019-04-03 complete Mental d [facility], [id number] SNOMED-CT () 2019-09-22 complete Mental d [address], [id number] [id number] Psychotherap [id number] SNOMED-CT () 2019-09-29 complete Mental y, 45 04 d Health- minutes with [address], [id number] [phone] Psychotherap [id number] SNOMED-CT () 2019-10-06 complete Mental y, 45 04 d Health- minutes with [address], [id number] [id number] Psychotherap [id number] SNOMED-CT () 2019-10-13 complete Mental y, 45 04 d Health- minutes with [address], [id number] [id number] Psychotherap [id number] SNOMED-CT () 2019-06-30 complete Mental y, 45 04 d Health- minutes with [address], [id number] [id number] Psychotherap [id number] SNOMED-CT () 2019-06-12 complete Mental y, 45 04 d Health- minutes with [address], [id number] [id number] Psychotherap [id number] SNOMED-CT () 2019-07-28 complete Mental y, 45 04 d Health- minutes with [address], [id number] [id number] Psychotherap [id number] SNOMED-CT () 2019-08-12 complete Mental y, 45 04 d Health- minutes with [address], [id number] [id number] Psychotherap [id number] SNOMED-CT () 2019-08-18 complete Mental y, 45 04 d Health- minutes with [address], [id number] [id number] Psychotherap [id number] SNOMED-CT () 2019-08-25 complete Mental y, 45 04 d Health- minutes with [address], [id number] [id number] Psychotherap [id number] SNOMED-CT () 2019-09-01 complete Mental y, 45 04 d Health- minutes with [address], [id number] [phone] Psychotherap [id number] SNOMED-CT () 2019-09-08 complete Mental y, 45 04 d Health- minutes with [address], [id number] [phone] Psychotherap [id number] SNOMED-CT () 2019-09-15 complete Mental y, 45 04 d Health- minutes with [address], [id number] [phone] Psychotherap [id number] SNOMED-CT () 2019-06-01 complete Mental y, 45 04 d Health- minutes with [address], [id number] [phone] Psychotherap [id number] SNOMED-CT () 2019-05-05 complete Mental y, 45 04 d Health- minutes with [place] patient [address], [id number] [phone] Psychotherap [id number] SNOMED-CT () 2019-05-15 complete Mental y, 45 04 d Health- minutes with [place] patient [address], [id number] [phone] Group [id number] SNOMED-CT () 2019-03-12 complete Mental psychotherap 8 d Health- y (other [place] than of a [address] group) [place], [place], [id number] [phone] Group [id number] SNOMED-CT () 2019-03-05 complete Mental psychotherap 8 d Health- y (other [place] than of a [address] group) [place], [place], [id number] [id number] Group [id number] SNOMED-CT () 2019-03-26 complete Mental psychotherap 8 d Health- y (other [place] than of a [address] group) [place], [place], [id number] [phone] Group [id number] SNOMED-CT () 2019-03-19 complete Mental psychotherap 8 d Health- y (other [place] than of a [address] group) [place], [place], [id number] [id number] Group [id number] SNOMED-CT () 2019 complete Mental psychotherap 8 d Health- y (other [place] than of a [address] group) [place], [place], [id number] [phone] Group [id number] SNOMED-CT () 2019-04-09 complete Mental psychotherap 8 d Health- y (other [place] than of a [address] group) [place], [place], [id number] [phone] Group [id number] SNOMED-CT () 2019-04-02 complete Mental psychotherap 8 d Health- y (other [place] than of a [address] group) [place], [place], [id number] [phone] Group [id number] SNOMED-CT () 2019-07-16 complete Mental psychotherap 8 d Health- y (other [place] than of a [address] group) [place], [place], [id number] [phone] Group [id number] SNOMED-CT () 2019-07-23 complete Mental psychotherap 8 d Health- y (other [place] than of a [address] group) [place], [id number] [phone] Group [id number] SNOMED-CT () 2019-07-30 complete Mental psychotherap 8 d Health- y (other [place] than of a [address] group) [place], [place], [id number] [id number] Group [id number] SNOMED-CT () 2019-06-18 complete Mental psychotherap 8 d Health- y (other [place] than of a [address] group) [place], [place], [id number] [id number] Group [id number] SNOMED-CT () 2019-05-28 complete Mental psychotherap 8 d Health- y (other [place] than of a [address] group) [place], [place], [id number] [phone] Group [id number] SNOMED-CT () 2019-08-13 complete Mental psychotherap 8 d Health- y (other [place] than of a [address] group) [place], [place], [id number] [phone] Preventive [id number] SNOMED-CT () 2019-05-29 complete Mental medicine 1 d Health- counseling [place] and/or risk [address], (s) provided [place], to an [place], individual [phone] (separate [id number] procedure); approximatel y 30 minutes Office or [id number] SNOMED-CT () 2019-10-02 complete Mental other 7 d Health- outpatient [place] visit for [address], established [id number] patient, [id number] which requires at least 2 of these 3 david components: An expanded problem focused history; An expanded problem focused examination; Medical decision making of [facility] Office [place] [id number] SNOMED-CT () 2019-08-05 complete Mental other 7 d Health- outpatient [place] visit for [address], established [phone] patient, [id number] which requires at least 2 of these 3 david components: An expanded problem focused history; An expanded problem focused examination; Medical decision making of [facility] SNOMED-CT () 2019-07-20 complete Mental d Health- [address], [id number] [phone] SNOMED-CT () 2019-06-18 complete Mental d Health[address], [id number] [phone] Office or [id number] SNOMED-CT () 2019-05-08 complete Mental other 6 d Health- outpatient [place] visit for [address], established [id number] patient, [phone] which requires at least 2 of these 3 david components: A problem focused history; A problem focused examination; Straightforw don medical decision making. Counselin Encounters/Encounter Diagnoses Encounter Name Encounter Diagnosis Diagnosis Diagnosis Date of Service Code Code Name CodeSystem Diagnosis Delivery Location [facility] - [id number] Generalized SNOMED-CT 2019-10-20 Behavioral Individual 30 anxiety Health min disorder Clinic , , , Vital Signs No Information Social History Element Description Description Start End Code CodeSystem AdditionalInfo Date Date SexAssignedAtBirth Female 1950-0 F AdministrativeGender 04-16 Hospital Discharge Instructions Reason For Referral Medical Equipment FDA Assessments
--- OUTSIDE RECORDS SUMMARY | 2019-11-28 12:09 | XMS REPORT ---
:1950 Author Organization [facility] Care Team Providers Name Role Phone Unavailable Unavailable Unavailable Problems Condition Condition Condition Status Onset Resolution Last Treating Comments Name Details Category Date Date Treatment Clinician Date Essential Essential Diagnosis Active Lainey (primary) (primary) - Pablo hypertensio hypertensio [id number] n n Mental Mental Diagnosis Active Lainey disorder, disorder, 03-15 Pablo not not [id number] otherwise otherwise specified specified Major Major Diagnosis Active Lainey depressive depressive 5- Pablo disorder, disorder, [id number] recurrent, recurrent, unspecified unspecified Pure Pure Diagnosis Active Lainey hypercholes hypercholes - Pablo terolemia, terolemia, [id number] unspecified unspecified 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) (current) -05 Pablo use of use of [id number] aspirin aspirin Medication knowledge/s Meds Resolve 2017-12-04 Ayse kill d 5-10 10:08:00 Seager deficit: pt 15:30: [id number] 00 Pain knowledge/s Pain Mgmt Resolve 2017-12-04 Catrina pacheco d 6-05 10:08:00 Laratta deficit: pt 13:28: [id number] 00 Nutrition knowledge/s Nutrition Resolve 2017-11-06 Catrina kill d 6-05 11:45:00 Laratta deficit: pt 13:28: [id number] 00 Elimination urinary Eliminatio Resolve 2018-03-06 Catrina incontinenc n d 05-13 12:40:00 Laratta e 10:30: [id number] 00 Integument skin Integument Resolve 2016-112019-09-01 Amparo Cooper integrity d 0- 11:30:00 Shahram risk 11:30: [id number] 00 Elimination catheter Eliminatio Resolve 2016-112017-12-03 Amparo Cooper present n d 14:44:27 Shahram 11:30: [id number] 00 Medication injectable Meds Resolve 2016-112017-12-04 Amparo Cooper med d 10:08:00 Shahram assistance 11:30: [id number] required 00 Elimination diarrhea Eliminatio Resolve 2016-112018-03-06 Terese n d 12-09 12:40:00 Will 10:00: [id number] 00 Nutrition nutritional Nutrition Resolve 2016-112017-11-06 Terese restriction d 01-07 11:45:00 Will s 11:45: [id number] 00 Medication potential Meds Resolve 2017-12-04 Terese clinically d 12-04 10:08:00 Will significant 10:08: [id number] medication 00 issue Medication knowledge/s Meds Resolve 2018-08-06 Ayse kill d 12-11 14:15:00 [place]ager deficit: pt 15:26: [id number] 00 Safety risk for Safety Resolve 2018-03-06 Terese hospitaliza d 01-08 12:40:00 Will tion 10:00: [id number] 00 Cardio edema Cardiovasc Active Terese brandt 03-06 Will 12:40: [id number] 00 Safety fire risk Safety Resolve 2018-07-07 Ayse present d 03-12 09:47:00 Seager 15:06: [id number] 00 Neuro anxiety Neuro/Emot Active Azul present ion 04-04 Chad 12:15: [id number] 00 Neuro knowledge/s Neuro/Emot Resolve 2019-07-06 Azul kill ion d 04-04 13:32:00 Chad deficit: pt 12:15: [id number] 00 Respiratory lung sounds Respirator Resolve 2019-08-06 Terese deficit y d 06-02 09:38:00 Oliva 12:45: [id number] 00 Endo/Karsten anti-coagul Endo/Karsten Resolve 2018-08-06 Terese ation d 06-02 14:15:00 [place] therapy 12:45: [id number] 00 Medication knowledge/s Meds Resolve 2017-112019-09-01 Ayse kill d 0-10 11:30:00 [place] deficit: pt 15:29: [id number] 00 Safety fall risk Safety Active 2017-11 Terese factor 0-24 [place] present 12:30: [id number] 00 Medication potential Meds Resolve 2017-112019-09-01 Ayse clinically d 1-14 11:30:00 Seager significant 14:24: [id number] medication 00 issue Nutrition knowledge/s Nutrition Active Ayse kill 2-13 Seager deficit: pt 15:18: [id number] 00 Nutrition nutritional Nutrition Active Ayse restriction 2-13 Seager s 15:18: [id number] 00 Safety can be left Safety Active Lainey alone for 8- Pablo only short 13:32: [id number] periods 00 Medication knowledge/s Meds Active 2018-11 Ayse kill 0-30 Seager deficit: pt 08:59: [id number] 00 Allergies, Adverse Reactions, Alerts Allergy Name Allergy Status Severity Reaction(s) Onset Inactive Treating Comments Type Date Date Clinician Penicillins Allergen Active Unknown Rash Azul Group 5-25 Chad [id number] morphine Base Active Unknown Nausea and Azul Ingredient vomiting 5-25 Chad [id number] Medications Ordered Filled Start Stop Current Ordering Indication Dosage Frequency Signature Comments Components Medication Medication Date Date Medication? Clinician (SIG) Name Name Effexor XR Effexor XR 2018- Brethren 2 Unknown 150 mg 150 mg 03-15 Elizabeth REYES capsule capsule,ext capsule,ext s ended ended release release Aspir-Low Aspir-Low No Brethren 1 tab Unknown 81 mg 81 mg 5-05 Elizabeth REYES tablet,mira tablet,mira yed release yed release flutamide flutamide No [facility] 1 Unknown 125 mg 125 mg 5- Elizabeth REYES capsule capsule capsule Vitamin D3 Vitamin D3 No [facility] 1 Unknown 5,000 unit 5,000 unit 5-05 Elizabeth REYES capsule tablet tablet proGESTeron proGESTeron No [facility] 1 Unknown e e - Elizabeth REYES capsule micronized micronized 200 mg 200 mg capsule capsule simvastatin simvastatin 2018- [facility]thren 1 Unknown 10 mg 10 mg 5-05-04 ,Elizabeth Cao capsule tablet tablet SEROquel SEROquel [facility]thren 1 tab Unknown 200 mg 200 mg 03-15 ,Elizabeth Cao tablet tablet KlonoPIN 2 KlonoPIN 2 Brethren 1 tab Unknown mg tablet mg tablet 03-15 ,Elizabeth Cao mirtazapine mirtazapine [facility]thren 1 tab Unknown 15 mg 15 mg 03-15 ,Elizabeth Cao tablet tablet furosemide furosemide Brethren 1 tab Unknown 40 mg 40 mg 03-15 ,Elizabeth Cao tablet tablet estradiol 2 estradiol 2 Brethren 2 tabs Unknown mg tablet mg tablet 03-15 ,Elizabeth Cao estradiol 2 estradiol 2 Brethren 1 tab Unknown mg tablet mg tablet 03-15 ,Elizbaeth Cao traZODone traZODone Chad 1-2 Unknown 50 mg 50 mg 03-20 ,Stephenie tablets tablet tablet mirtazapine mirtazapine No Chad 1 tab Unknown 30 mg 30 mg 04-03 MD,Stephenie tablet tablet traZODone traZODone Chad 1-2 Unknown 50 mg 50 mg 04-17 ,Stephenie tablets tablet tablet spironolact spironolact No Nick 1/2 Unknown one 50 mg one 50 mg 03-15 MD,Elizabeth Cao tablet tablet tablet SEROquel SEROquel Chad half Unknown 200 mg 200 mg 05-29 ,Stephenie tablet tablet tablet ARIPiprazol ARIPiprazol Chad 1 Unknown e 5 mg e 5 mg 05-29 MD,Stephenie tablet tablet tablet estradiol 2 estradiol 2 Nick 1 Unknown mg tablet mg tablet 07-11 ,Elizabeth Cao tablet traZODone traZODone Chad 2 Unknown 50 mg 50 mg 07-31 MD,Stephenie tablets tablet tablet SEROquel SEROquel Chad half Unknown 100 mg 100 mg 07-31 MD,Stephenie tablet tablet tablet ARIPiprazol ARIPiprazol No Bonilla 1 Unknown e 10 mg e 10 mg 07-31 ,Stephenie tablet tablet tablet estradiol 1 estradiol 1 2017- No Joslyn 1 Unknown mg tablet mg tablet 08-08 ,Denise tablet ondansetron ondansetron 2016-11 No Brethren 1 to 2 Unknown 4 mg 4 mg 0 MD,Elizabeth Cao tablets disintegrat disintegrat ing tablet ing tablet diclofenac diclofenac 2016-11 No Brethren 1 Unknown sodium 75 sodium 75 0 MD,Elizabeth Cao tablet mg mg tablet,mira tablet,mira yed release yed release metaxalone metaxalone 2016-11- No Nick 1 Unknown 800 mg 800 mg 02-04 ,Elizabeth Cao tablet tablet tablet acetaminoph acetaminoph 2016-11- No Nikc 2 Unknown en 500 mg en 500 mg 01-07 ,Elizabeth Cao tablets tablet tablet estradiol 2 estradiol 2 2017- No Joslyn 1 Unknown mg tablet mg tablet 11-13 ,Denise tablet SEROquel SEROquel 2018- No Bonilla 100mg Unknown 100 mg 100 mg 12-04 ,Stephenie tablet tablet carboxymeth carboxymeth No Brethren 1 gtt Unknown ylcellulose ylcellulose 02-05 ,Elizabeth Cao sodium 1 % sodium 1 % eye liquid eye liquid gel drops gel drops traZODone traZODone 2018- No Chad 1 Unknown 50 mg 50 mg 03-05 ,Stephenie tablet tablet tablet Cipro 500 Cipro 500 Arleo Unknown Unknown mg tablet mg tablet 05-07 ,Paramjit ketorolac ketorolac 2017- [place]o Unknown Unknown 0.5 % eye 0.5 % eye 05-07 ,Paramjit drops drops ketorolac ketorolac [place] Unknown Unknown 0.5 % eye 0.5 % eye 05-13 ,Paramjit drops drops ketorolac ketorolac 2017- [place] Unknown Unknown 0.5 % eye 0.5 % eye 05-18 ,Paramjit drops drops Pred Forte Pred Forte Ar[place]o Unknown Unknown 1 % eye 1 % eye 05-07 ,Paramjit drops,suspe drops,suspe nsion nsion Pred Forte Pred Forte 2017- No Arleo Unknown Unknown 1 % eye 1 % eye 05-13 ,Paramjit drops,suspe drops,suspe nsion nsion Pred Forte Pred Forte 2017- No Arleo Unknown Unknown 1 % eye 1 % eye 05-18 ,Paramjit drops,suspe drops,suspe nsion nsion estradiol 2 estradiol 2 2017- No Joslyn Unknown Unknown mg tablet mg tablet 06-11 ,Denise estradiol 2 estradiol 2 No Joslyn Unknown Unknown mg tablet mg tablet 06-11 ,Denise SEROquel SEROquel No Bonilla Unknown Unknown 100 mg 100 mg 12-08 Stephenie REYES tablet tablet metaxalone metaxalone No Brethren Unknown Unknown 800 mg 800 mg 02-04 ,Elizabeth Cao tablet tablet cetirizine cetirizine No Brethren Unknown Unknown 10 mg 10 mg 03-27 ,Elizabeth Cao tablet tablet simvastatin simvastatin No Brethren Unknown Unknown 10 mg 10 mg 05-04 ,Elizabeth Cao tablet tablet KlonoPIN 2 KlonoPIN 2 No Bonilla Unknown Unknown mg tablet mg tablet 05-13 Stephenie REYES acetaminoph acetaminoph No Brethren Unknown Unknown en 500 mg en 500 mg 05-27 Elizabeth REYES tablet tablet Tylenol-Cod Tylenol-Cod No Brethren Unknown Unknown eine #3 300 eine #3 300 05-27 Elizabeth REYES mg-30 mg mg-30 mg tablet tablet Colace 100 Colace 100 No Brethren Unknown Unknown mg capsule mg capsule 06-17 Elizabeth REYES Effexor XR Effexor XR Yes Brethren Unknown Unknown 150 mg 150 mg 08-06 Elizabeth REYES capsule,ext capsule,ext ended ended release release Vital Signs Vital Name Observation Time Observation Value Comments SYSTOLIC mm[Hg] 2019-09-30 18:08:57 122 mm[Hg] mm[Hg] Method: Sit SYSTOLIC mm[Hg] 2018-03-06 17:59:24 122 mm[Hg] mm[Hg] Method: Stand DIASTOLIC mm[Hg] 2019-09-30 18:08:57 74 mm[Hg] mm[Hg] Method: Sit DIASTOLIC mm[Hg] 2018-03-06 17:59:24 79 mm[Hg] mm[Hg] Method: Stand PULSE 2019-09-30 18:08:57 90 /min /min RESP RATE 2019-09-30 18:08:57 18 /min /min TEMP 2019-09-30 18:08:57 98.1 [degF] Procedures This patient has no known procedures. Results This patient has no known results.
--- OUTSIDE RECORDS SUMMARY | 2019-11-28 12:09 | XMS REPORT ---
:1950 Author Organization [facility] Care Team Providers Name Role Phone Unavailable Unavailable Unavailable Problems Condition Condition Condition Status Onset Resolution Last Treating Comments Name Details Category Date Date Treatment Clinician Date Essential Essential Diagnosis Active Lainey (primary) (primary) - Pablo hypertensio hypertensio [id number] n n Mental Mental Diagnosis Active Lainey disorder, disorder, 03-15 Pablo not not [id number] otherwise otherwise specified specified Major Major Diagnosis Active Lainey depressive depressive 5- Pablo disorder, disorder, [id number] recurrent, recurrent, unspecified unspecified Pure Pure Diagnosis Active Lainey hypercholes hypercholes - Pablo terolemia, terolemia, [id number] unspecified unspecified [facility] 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 Lainey (current) (current) -05 Pablo use of use of [id number] aspirin aspirin Medication knowledge/s Meds Resolve 2017-12-04 Ayse kill d 5-10 10:08:00 Seager deficit: pt 15:30: [id number] 00 Pain knowledge/s Pain Mgmt Resolve 2017-12-04 Catrina pacheco d 6-05 10:08:00 Laratta deficit: pt 13:28: [id number] 00 Nutrition knowledge/s Nutrition Resolve 2017-11-06 Catrina kill d 6-05 11:45:00 [place] deficit: pt 13:28: [id number] 00 Elimination urinary Eliminatio Resolve 2018-03-06 Catrina incontinenc n d 05-13 12:40:00 [place] e 10:30: [id number] 00 Integument skin Integument Resolve 2016-112019-09-01 Amparo Cooper integrity d 0- 11:30:00 Shahram risk 11:30: [id number] 00 Elimination catheter Eliminatio Resolve 2016-112017-12-03 Amparo Cooper present n d 14:44:27 Shahram 11:30: [id number] 00 Medication injectable Meds Resolve 2016-112017-12-04 Amparo Cooper med d 10:08:00 Shahram assistance 11:30: [id number] required 00 Elimination diarrhea Eliminatio Resolve 2016-112018-03-06 Terese n d 12-09 12:40:00 Will 10:00: [id number] 00 Nutrition nutritional Nutrition Resolve 2016-112017-11-06 Terese restriction d 01-07 11:45:00 Will s 11:45: [id number] 00 Medication potential Meds Resolve 2017-12-04 Terese clinically d 12-04 10:08:00 Will significant 10:08: [id number] medication 00 issue Medication knowledge/s Meds Resolve 2018-08-06 Ayse kill d 12-11 14:15:00 [place] deficit: pt 15:26: [id number] 00 Safety risk for Safety Resolve 2018-03-06 Terese hospitaliza d 01-08 12:40:00 Will tion 10:00: [id number] 00 Cardio edema Cardiovasc Active Terese brandt 03-06 Will 12:40: [id number] 00 Safety fire risk Safety Resolve 2018-07-07 Ayse present d 03-12 09:47:00 Seager 15:06: [id number] 00 Neuro anxiety Neuro/Emot Active Azul present ion 04-04 Chad 12:15: [id number] 00 Neuro knowledge/s Neuro/Emot Resolve 2019-07-06 Azul kill ion d 04-04 13:32:00 Chad deficit: pt 12:15: [id number] 00 Respiratory lung sounds Respirator Resolve 2019-08-06 Terese deficit y d 06-02 09:38:00 Oliva 12:45: [id number] 00 Endo/Karsten anti-coagul Endo/Karsten Resolve 2018-08-06 Terese ation d 06-02 14:15:00 [place] therapy 12:45: [id number] 00 Medication knowledge/s Meds Resolve 2017-112019-09-01 Ayse kill d 0-10 11:30:00 Seager deficit: pt 15:29: [id number] 00 Safety fall risk Safety Active 2017-11 Terese factor 0-24 [place] present 12:30: [id number] 00 Medication potential Meds Resolve 2017-112019-09-01 Ayse clinically d 1-14 11:30:00 Seager significant 14:24: [id number] medication 00 issue Nutrition knowledge/s Nutrition Active Ayse kill 2-13 Seager deficit: pt 15:18: [id number] 00 Nutrition nutritional Nutrition Active Ayse restriction 2-13 Seager s 15:18: [id number] 00 Safety can be left Safety Active Lainey alone for 8- Pablo only short 13:32: [id number] periods 00 Medication knowledge/s Meds Active 2018-11 Ayse kill 0-30 Seager deficit: pt 08:59: [id number] 00 Allergies, Adverse Reactions, Alerts Allergy Name Allergy Status Severity Reaction(s) Onset Inactive Treating Comments Type Date Date Clinician Penicillins Allergen Active Unknown Rash Azul Group 5-25 Chad [id number] morphine Base Active Unknown Nausea and Azul Ingredient vomiting 5-25 Chad [id number] Medications Ordered Filled Start Stop Current Ordering Indication Dosage Frequency Signature Comments Components Medication Medication Date Date Medication? Clinician (SIG) Name Name Effexor XR Effexor XR 2018- Nick 2 Unknown 150 mg 150 mg 03-15 Elizabeth REYES capsule capsule,ext capsule,ext s ended ended release release Aspir-Low Aspir-Low 2018- Nick 1 tab Unknown 81 mg 81 mg 03-15 Elizabeth REYES tablet,mira tablet,mira yed release yed release flutamide flutamide 2018- Nick 1 Unknown 125 mg 125 mg 03-15 Elizabeth REYES capsule capsule capsule Vitamin D3 Vitamin D3 2018- Nick 1 Unknown 5,000 unit 5,000 unit 03-15 Elizabeth REYES capsule tablet tablet proGESTeron proGESTeron 2018- Nick 1 Unknown e e 03-15 Elizabeth REYES capsule micronized micronized 200 mg 200 mg capsule capsule simvastatin simvastatin [place] 1 Unknown 10 mg 10 mg 03-15 ,Elizabeth Cao capsule tablet tablet SEROquel SEROquel [place] 1 tab Unknown 200 mg 200 mg 03-15 MD,Elizabeth Cao tablet tablet KlonoPIN 2 KlonoPIN 2 [place] 1 tab Unknown mg tablet mg tablet 03-15 ,Elizabeth Cao mirtazapine mirtazapine [place] 1 tab Unknown 15 mg 15 mg 03-15 ,Elizabeth Cao tablet tablet furosemide furosemide [place] 1 tab Unknown 40 mg 40 mg 03-15 ,Elizabeth Cao tablet tablet estradiol 2 estradiol 2 [place] 2 tabs Unknown mg tablet mg tablet 03-15 ,Elizabeth Cao estradiol 2 estradiol 2 Nick 1 tab Unknown mg tablet mg tablet 03-15 ,Elizabeth Cao traZODone traZODone [place] 1-2 Unknown 50 mg 50 mg 03-20 MD,Stephenie tablets tablet tablet mirtazapine mirtazapine [place] 1 tab Unknown 30 mg 30 mg 04-03 MD,Stephenie tablet tablet traZODone traZODone Chad 1-2 Unknown 50 mg 50 mg 04-17 MD,Stephenie tablets tablet tablet spironolact spironolact Nick 1/2 Unknown one 50 mg one 50 mg 03-15 ,Elizabeth Cao tablet tablet tablet SEROquel SEROquel [place] half Unknown 200 mg 200 mg 05-29 MD,Stephenie tablet tablet tablet ARIPiprazol ARIPiprazol [place] 1 Unknown e 5 mg e 5 mg 05-29 MD,Stephenie tablet tablet tablet estradiol 2 estradiol 2 Nick 1 Unknown mg tablet mg tablet 07-11 MD,Elizabeth Cao tablet traZODone traZODone [place] 2 Unknown 50 mg 50 mg 07-31 MD,Stephenie tablets tablet tablet SEROquel SEROquel 2017- Chad half Unknown 100 mg 100 mg 07-31 ,Stephenie tablet tablet tablet ARIPiprazol ARIPiprazol 2018- Chad 1 Unknown e 10 mg e 10 mg 07-31 ,Stephenie tablet tablet tablet estradiol 1 estradiol 1 2017- Joslyn 1 Unknown mg tablet mg tablet 08-08 ,Denise tablet ondansetron ondansetron 2016-11- Nick 1 to 2 Unknown 4 mg 4 mg 09-30 ,Elizabeth Cao tablets disintegrat disintegrat ing tablet ing tablet diclofenac diclofenac 2016-11 Nick 1 Unknown sodium 75 sodium 75 09-30 ,Elizabeth Cao tablet mg mg tablet,mira tablet,mira yed release yed release metaxalone metaxalone 2016-11 Nick 1 Unknown 800 mg 800 mg 02-04 ,Elizabeth Cao tablet tablet tablet acetaminoph acetaminoph 2016-11 Nick 2 Unknown en 500 mg en 500 mg 01-07 ,Elizabeth Cao tablets tablet tablet estradiol 2 estradiol 2 2017- Joslyn 1 Unknown mg tablet mg tablet 11-13 ,Denise tablet SEROquel SEROquel 2018- Chad 100mg Unknown 100 mg 100 mg 12-04 ,Stephenie tablet tablet carboxymeth carboxymeth Nick 1 gtt Unknown ylcellulose ylcellulose 02-05 ,Elizabeth Cao sodium 1 % sodium 1 % eye liquid eye liquid gel drops gel drops traZODone traZODone Chad 1 Unknown 50 mg 50 mg 03-05 ,Stephenie tablet tablet tablet Cipro 500 Cipro 500 [place] Unknown Unknown mg tablet mg tablet 05-07 ,Paramjit ketorolac ketorolac [place] Unknown Unknown 0.5 % eye 0.5 % eye 05-07 ,Paramjit drops drops ketorolac ketorolac [place] Unknown Unknown 0.5 % eye 0.5 % eye 05-13 ,Paramjit drops drops ketorolac ketorolac [place] Unknown Unknown 0.5 % eye 0.5 % eye 05-18 ,Paramjit drops drops Pred Forte Pred Forte [place] Unknown Unknown 1 % eye 1 % eye 05-07 ,Paramjit drops,suspe drops,suspe nsion nsion Pred Forte Pred Forte [place] Unknown Unknown 1 % eye 1 % eye 05-13 ,Paramjit drops,suspe drops,suspe nsion nsion Pred Forte Pred Forte 2017- [place] Unknown Unknown 1 % eye 1 % eye 05-18 Paramjit REYES drops,suspe drops,suspe nsion nsion estradiol 2 estradiol 2 2017- Jos[place] Unknown Unknown mg tablet mg tablet 06-11 ,Denise estradiol 2 estradiol 2 [place] Unknown Unknown mg tablet mg tablet 06-11 ,Denise SEROquel SEROquel 2018- No [place] Unknown Unknown 100 mg 100 mg 12-08 Stephenie REYES tablet tablet metaxalone metaxalone 2018- No [place] Unknown Unknown 800 mg 800 mg 02-04 Elizabeth REYES tablet tablet cetirizine cetirizine 2018- No [place] Unknown Unknown 10 mg 10 mg 03-27 Elizabeth REYES tablet tablet simvastatin simvastatin 2018- No [place] Unknown Unknown 10 mg 10 mg 05-04 ,Elizabeth Cao tablet tablet KlonoPIN 2 KlonoPIN 2 2018- No [place] Unknown Unknown mg tablet mg tablet 05-13 Stephenie REYES acetaminoph acetaminoph 2018- No [place] Unknown Unknown en 500 mg en 500 mg 05-27 Elizabeth REYES tablet tablet Tylenol-Cod Tylenol-Cod 2018- [place] Unknown Unknown eine #3 300 eine #3 300 05-27 ,Elizabeth Cao mg-30 mg mg-30 mg tablet tablet Colace 100 Colace 100 2018- No [place] Unknown Unknown mg capsule mg capsule 06-17 ,Elizabeth Cao Effexor XR Effexor XR 2018- Yes [place] Unknown Unknown 150 mg 150 mg 08-06 ,Elizabeth Cao capsule,ext capsule,ext ended ended release release Vital [...]
--- OUTSIDE RECORDS SUMMARY | 2019-11-28 12:09 | XMS REPORT ---
:1950 Author Organization [facility] Care Team Providers Name Role Phone Alexus Alcantar Primary Care Physician Unavailable Allergies, Adverse Reactions, Alerts Allergy Code CodeSystem Reaction Severity Criticality Status Start Substance Date Moderate Medications Medication Medication Medication Start Stop Route Dose Status Fill Code CodeSystem Date Date Instructions mirtazapine 058732 RxNorm 2018- oral 30 mg 1 active 1 tablet at 2- tablet bedtime for at 30 day(s) bedtime clonazepam 19741220 RxNorm 2018- oral 2 mg completed for 30 04-28-18 tablet day(s) clonazepam 19741220 RxNorm 2018- oral 2 mg 1 completed 1 tablet at 02-12 05-12 tablet bedtime for at 30 day(s) bedtime venlafaxine 089250 RxNorm 2018- oral 150 mg 2 active 2 capsule 02-12 capsule, once a day extended for 30 day(s) release 24hr once a day clonazepam 19741220 RxNorm 2018- oral 2 mg 1 completed 1 tablet at 05-28 08-17 tablet bedtime for at 30 day(s) bedtime aripiprazole 191831 RxNorm 2018- oral 10 mg 1 active 1 tablet 02-12 tablet once a day once a for 30 day(s) day trazodone 071208 RxNorm oral 50 mg 1 active 1 tablet at 4-04 tablet bedtime for at 30 day(s) bedtime clonazepam 232144 RxNorm 2019- oral 2 mg completed for 30 4 05-17 tablet day(s) clonazepam 19741220 RxNorm 2019- oral 2 mg 1 completed 1 tablet at 03-27 06-16 tablet bedtime for at 30 day(s) bedtime Problems Problem Name Code CodeSystem Alternate Alternate Start End Status Narrative Code CodeSystem Date Date Severe [id number] SNOMED-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 Generalized [id number] SNOMED-CT 2019-1 Active anxiety 0-15 disorder Severe 21374251 SNOMED-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 Severe 66065110 SNOMED-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 Relevant diagnostic tests/laboratory data Narrative No Information Procedures Procedure Code CodeSystem Target Date of Status Service Device Device Device Name Site Procedure Delivery Code Name UID Location SNOMED-CT () 2019-02-20 complete Mental d Health- [address], [id number] SNOMED-CT () 2019-03-20 complete Mental d Health- [address], [id number] Group [id number] SNOMED-CT () 2019-03-05 complete Mental psychotherap 8 d Health- y (other [place] than of a [address], [id number] SNOMED-CT () 2019-03-05 complete Mental d Health- [address], [id number] Group [id number] SNOMED-CT () 2019-03-12 complete Mental psychotherap 8 d Health- y (other [place] than of a [address], [id number] SNOMED-CT () 2019-04-17 complete Mental d Health- [place], [id number] Psychotherap [id number] SNOMED-CT () 2019-05-05 complete Mental y, 45 04 d Health- minutes with [place] patient [address], [id number] Office [place] [id number] SNOMED-CT () 2019-05-08 complete Mental other 6 d Health- outpatient [place] visit for [address], of an [place], established [id number] patient, [id number] which requires at least 2 of these 3 david components: A problem focused history; A problem focused examination; Straightforw don medical decision making. Counselin Psychotherap [id number] SNOMED-CT () 2019-05-15 complete Mental y, 45 04 d Health- minutes with [place] patient [address], [id number] Preventive [id number] SNOMED-CT () 2019-05-29 complete Mental medicine 1 d Health- counseling [place] and/or risk [address], (s) provided [place], to an [place], individual [id number] (separate [id number] procedure); approximatel y 30 minutes Group [id number] SNOMED-CT () 2019-03-26 complete Mental psychotherap 8 d Health- y (other [place] than of a [address] group) [place], [place], [id number] Group [id number] SNOMED-CT () 2019-03-19 complete Mental psychotherap 8 d Health- y (other [place] than of a [address] group) [place], [place], [id number] Psychotherap [id number] SNOMED-CT () 2019-06-01 complete Mental y, 45 04 d Health- minutes with [place] patient [address], [id number] SNOMED-CT () 2019-06-18 complete Mental d Health- [place] [address], [id number] Group [id number] SNOMED-CT () 2019-06-18 complete Mental psychotherap 8 d Health- y (other [place] than of a [address] group) [place], [place], [id number] [id number] Psychotherap [id number] SNOMED-CT () 2019-06-30 complete Mental y, 45 04 d Health- minutes with [place] patient [address], [id number] [id number] Psychotherap [id number] SNOMED-CT () 2019-06-12 complete Mental y, 45 04 d Health- minutes with [place] patient [address], [id number] SNOMED-CT () 2019-04-03 complete Mental d Health- [place] [address], [id number] Group [id number] SNOMED-CT () 2019 complete Mental psychotherap 8 d Health- y (other [place] than of a [address] group) [place], [place], [id number] Group [id number] SNOMED-CT () 2019-04-09 complete Mental psychotherap 8 d Health- y (other [place] than of a [address] group) [place], [place], [id number] Group [id number] SNOMED-CT () 2019-04-02 complete Mental psychotherap 8 d Health- y (other [place] than of a [address] group) [place], [place], [id number] Group [id number] SNOMED-CT () 2019-07-16 complete Mental psychotherap 8 d Health- y (other [place] than of a [address] group) [place], [place], [id number] Group [id number] SNOMED-CT () 2019-07-23 complete Mental psychotherap 8 d Health- y (other [place] than of a [address] group) [place], [place], [id number] SNOMED-CT () 2019-07-20 complete Mental d Health- [place] [address], [id number] Psychotherap [id number] SNOMED-CT () 2019-07-28 complete Mental y, 45 04 d Health- minutes with [place] patient [address], [id number] [id number] Group [id number] SNOMED-CT () 2019-07-30 complete Mental psychotherap 8 d Health- y (other [place] than of a [address] group) [place], [place], [id number] [id number] Office or [id number] SNOMED-CT () 2019-08-05 complete Mental other 7 d Health- outpatient [place] visit for [address], of an [place], established [id number] patient, [id number] which requires at least 2 of these 3 david components: An expanded problem focused history; An expanded problem focused examination; Medical decision making of [facility] Group [id number] SNOMED-CT () 2019-05-28 complete Mental psychotherap 8 d Health- y (other [place] than of a [address]) [place], [place], [id number] Group [id number] SNOMED-CT () 2019-08-13 complete Mental psychotherap 8 d Health- y (other [place] than of a [address]) [place], [place], [id number] [id number] Psychotherap [id number] SNOMED-CT () 2019-08-12 complete Mental y, 45 04 d Health- minutes with [place] patient [address], [id number] [id number] Psychotherap [id number] SNOMED-CT () 2019-08-18 complete Mental y, 45 04 d Health- minutes with [place] patient [address], [id number] [id number] Psychotherap [id number] SNOMED-CT () 2019-08-25 complete Mental y, 45 04 d Health- minutes with [place] patient [address], [id number] [id number] Psychotherap [id number] SNOMED-CT () 2019-09-01 complete Mental y, 45 04 d Health- minutes with [place] patient [address], [id number] [id number] Psychotherap [id number] SNOMED-CT () 2019-09-08 complete Mental y, 45 04 d Health- minutes with [place] patient [address], [id number] [id number] Psychotherap [id number] SNOMED-CT () 2019-09-15 complete Mental y, 45 04 d Health- minutes with [place] patient [address], [id number] [id number] SNOMED-CT () 2019-09-22 complete Mental d Health- [address], [id number] Encounters/Encounter Diagnoses Encounter Name Encounter Diagnosis Diagnosis Diagnosis Date of Service Code Code Name CodeSystem Diagnosis Delivery Location Psychotherapy - [id number] Generalized SNOMED-CT 2019-10-06 Behavioral Individual 30 anxiety Health min disorder Clinic , , , Vital Signs No Information Social History Element Description Description Start End Code CodeSystem AdditionalInfo Date Date SexAssignedAtBirth Male 1950-0 M AdministrativeGender 6-06 Hospital Discharge Instructions Reason For Referral Medical Equipment FDA Assessments
--- OUTSIDE RECORDS SUMMARY | 2019-11-28 12:09 | XMS REPORT ---
:1950 Author Organization [facility] Care Team Providers Name Role Phone Unavailable Unavailable Unavailable Problems Condition Condition Condition Status Onset Resolution Last Treating Comments Name Details Category Date Date Treatment Clinician Date Essential Essential Diagnosis Active Lainey (primary) (primary) - Pablo hypertensio hypertensio [id number] n n Mental Mental Diagnosis Active Lainey disorder, disorder, 03-15 Pablo not not [id number] otherwise otherwise specified specified Major Major Diagnosis Active Lainey depressive depressive 5- Pablo disorder, disorder, [id number] recurrent, recurrent, unspecified unspecified Pure Pure Diagnosis Active Lainey hypercholes hypercholes - Pablo terolemia, terolemia, [id number] unspecified unspecified 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 Active Lianey (current) (current) -05 Pablo use of use of [id number] aspirin aspirin Medication knowledge/s Meds Resolve 2017-12-04 Ayse kill d 5-10 10:08:00 Seager deficit: pt 15:30: [id number] 00 Pain knowledge/s Pain Mgmt Resolve 2017-12-04 Catrina pacheco d 6-05 10:08:00 Laratta deficit: pt 13:28: [id number] 00 Nutrition knowledge/s Nutrition Resolve 2017-11-06 Catrina kill d 6-05 11:45:00 Laratta deficit: pt 13:28: [id number] 00 Elimination urinary Eliminatio Resolve 2018-03-06 Catrina incontinenc n d - 12:40:00 Laratta e 10:30: [id number] 00 Integument skin Integument Resolve 2016-112019-09-01 Amparo Cooper integrity d 0- 11:30:00 Shahram risk 11:30: [id number] 00 Elimination catheter Eliminatio Resolve 2016-112017-12-03 Amparo Cooper present n d 14:44:27 Shahram 11:30: [id number] 00 Medication injectable Meds Resolve 2016-112017-12-04 Amparo Cooper med d 10:08:00 Shahram assistance 11:30: [id number] required 00 Elimination diarrhea Eliminatio Resolve 2016-112018-03-06 Terese n d 12-09 12:40:00 Will 10:00: [id number] 00 Nutrition nutritional Nutrition Resolve 2016-112017-11-06 Terese restriction d 01-07 11:45:00 Will s 11:45: [id number] 00 Medication potential Meds Resolve 2017-12-04 Terese clinically d 12-04 10:08:00 Will significant 10:08: [id number] medication 00 issue Medication knowledge/s Meds Resolve 2018-08-06 Ayse kill d 12-11 14:15:00 Seager deficit: pt 15:26: [id number] 00 Safety risk for Safety Resolve 2018-03-06 Terese hospitaliza d 01-08 12:40:00 Will tion 10:00: [id number] 00 Cardio edema Cardiovasc Resolve 2019-09-30 Terese brandt d 03-06 13:25:00 Will 12:40: [id number] 00 Safety fire risk Safety Resolve 2018-07-07 Ayse present d 03-12 09:47:00 Seager 15:06: [id number] 00 Neuro anxiety Neuro/Emot Resolve 2019-09-30 Azul present ion d 04-04 13:25:00 Chad 12:15: [id number] 00 Neuro knowledge/s Neuro/Emot Resolve 2019-07-06 Azul kill ion d 04-04 13:32:00 Chad deficit: pt 12:15: [id number] 00 Respiratory lung sounds Respirator Resolve 2019-08-06 Terese deficit y d 06-02 09:38:00 [place] 12:45: [id number] 00 Endo/Karsten anti-coagul Endo/Karsten Resolve 2018-08-06 Terese ation d 7-23 14:15:00 Oliva therapy 12:45: [id number] 00 Medication knowledge/s Meds Resolve 2017-112019-09-01 Ayse kill d 0-10 11:30:00 Seager deficit: pt 15:29: [id number] 00 Safety fall risk Safety Resolve 2017-112019-09-30 Terese factor d 0-24 13:25:00 [place] present 12:30: [id number] 00 Medication potential Meds Resolve 2017-112019-09-01 Ayse clinically d 1-14 11:30:00 Seager significant 14:24: [id number] medication 00 issue Nutrition knowledge/s Nutrition Active Ayse kill 2-13 Seager deficit: pt 15:18: [id number] 00 Nutrition nutritional Nutrition Active Ayse restriction 2-13 Seager s 15:18: [id number] 00 Safety can be left Safety Resolve 2019-09-30 Lainey alone for d 8-26 13:25:00 Pablo only short 13:32: [id number] periods 00 Medication knowledge/s Meds Active 2018-11 Ayse kill 0-30 Seager deficit: pt 08:59: [id number] 00 Allergies, Adverse Reactions, Alerts Allergy Name Allergy Status Severity Reaction(s) Onset Inactive Treating Comments Type Date Date Clinician Penicillins Allergen Active Unknown Rash Azul Group 5-25 Chad [id number] morphine Base Active Unknown Nausea and Azul Ingredient vomiting -25 Chad [id number] Medications Ordered Filled Start Stop Current Ordering Indication Dosage Frequency Signature Comments Components Medication Medication Date Date Medication? Clinician (SIG) Name Name Effexor XR Effexor XR 2018- Satsuma 2 Unknown 150 mg 150 mg 03-15 Elizabeth REYES capsule capsule,ext capsule,ext s ended ended release release Aspir-Low Aspir-Low 2018- Satsuma 1 tab Unknown 81 mg 81 mg 03-15 Elizabeth REYES tablet,mira tablet,mira yed release yed release flutamide flutamide Satsuma 1 Unknown 125 mg 125 mg 03-15 Elizabeth REYES capsule capsule capsule Vitamin D3 Vitamin D3 Satsuma 1 Unknown 5,000 unit 5,000 unit 03-15 MDElizabeth Cao capsule tablet tablet proGESTeron proGESTeron Nick 1 Unknown e e 03-15 ,Elizabeth Cao capsule micronized micronized 200 mg 200 mg capsule capsule simvastatin simvastatin Satsuma 1 Unknown 10 mg 10 mg 03-15 MD,Elizabeth Cao capsule tablet tablet SEROquel SEROquel Satsuma 1 tab Unknown 200 mg 200 mg 03-15 ,Elizabeth Cao tablet tablet KlonoPIN 2 KlonoPIN 2 Satsuma 1 tab Unknown mg tablet mg tablet 03-15 ,Elizabeth Cao mirtazapine mirtazapine Satsuma 1 tab Unknown 15 mg 15 mg 03-15 ,Elizabeth Cao tablet tablet furosemide furosemide Satsuma 1 tab Unknown 40 mg 40 mg 03-15 ,Elizabeth Cao tablet tablet estradiol 2 estradiol 2 Satsuma 2 tabs Unknown mg tablet mg tablet 03-15 ,Elizabeth Cao estradiol 2 estradiol 2 Satsuma 1 tab Unknown mg tablet mg tablet [...] 2 Unknown 50 mg 50 mg 07-31 ,Stephenie tablets tablet tablet SEROquel SEROquel Chad half Unknown 100 mg 100 mg 07-31 ,Stephenie tablet tablet tablet ARIPiprazol ARIPiprazol Chad 1 Unknown e 10 mg e 10 mg 07-31 ,Stephenie tablet tablet tablet estradiol 1 estradiol 1 Joslyn 1 Unknown mg tablet mg tablet 08-08 ,Denise tablet ondansetron ondansetron 2016-11 Nick 1 to 2 Unknown 4 mg [...] tablets tablet tablet estradiol 2 estradiol 2 Joslyn 1 Unknown mg tablet mg tablet 11-13 ,Denise tablet SEROquel SEROquel Chad 100mg Unknown 100 mg 100 mg 12-04 ,Stephenie tablet tablet carboxymeth carboxymeth Nick 1 gtt Unknown ylcellulose ylcellulose 02-05 ,Elizabeth Cao sodium 1 % sodium 1 % eye liquid eye liquid gel drops gel drops traZODone traZODone Chad 1 Unknown 50 mg 50 mg 03-05 ,Stephenie tablet tablet tablet Cipro 500 Cipro 500 Arleo Unknown Unknown mg tablet mg tablet 05-07 Paramjit REYES ketorolac ketorolac [place] Unknown Unknown 0.5 % eye 0.5 % eye 05-07 Paramjit REYES drops drops ketorolac ketorolac 2017- No Arleo Unknown Unknown 0.5 % eye 0.5 % eye 05-13 ,Paramjit drops drops ketorolac ketorolac 2017- No Arleo Unknown Unknown 0.5 % eye 0.5 % eye 05-18 ,Paramjit drops drops Pred Forte Pred Forte 2017- Arleo Unknown [...] Unknown Unknown mg tablet mg tablet 06-11 Denise REYES estradiol 2 estradiol 2 2018- No Joslyn Unknown Unknown mg tablet mg tablet 06-11 ,Denise SEROquel SEROquel 2018- No Chad Unknown Unknown 100 mg 100 mg 12-08 Stephenie REYES tablet tablet metaxalone metaxalone 2018- No Satsuma Unknown Unknown 800 mg 800 mg 02-04 ,Elizabeth Cao tablet tablet cetirizine cetirizine 2018- No Satsuma Unknown Unknown 10 mg 10 mg 03-27 ,Elizabeth Cao tablet tablet simvastatin simvastatin 2018- No Satsuma Unknown Unknown 10 mg 10 mg 05-04 ,Elizabeth Cao tablet tablet KlonoPIN 2 KlonoPIN 2 2018- No Bonilla Unknown Unknown mg tablet mg tablet 05-13 ,Stephenie acetaminoph acetaminoph 2018- No Satsuma Unknown Unknown en 500 mg en 500 mg 05-27 ,Elizabeth Cao tablet tablet Tylenol-Cod Tylenol-Cod 2018- No Satsuma Unknown Unknown eine #3 300 eine #3 300 05-27 Elizabeth mg-30 mg mg-30 mg tablet tablet Colace 100 Colace 100 2018- No Satsuma Unknown Unknown mg capsule mg capsule 06-17 Elizabeth REEYS Effexor XR Effexor XR 2018- Yes Satsuma Unknown Unknown 150 mg 150 mg 08-06 [...]
[2019-11-28 12:15] LABS: TSH (Thyroid Stimulating Horm) 2.32 mcIU/mL (0.34-5.60)
[2019-11-28] MEDS ORDERED: Estradiol TAB(NF) 2 MG TAB PO ONE (15:35)
[2019-11-28] MEDS ORDERED: Estradiol TAB(NF) 1 MG TAB PO ONE (17:00)
[2019-11-28] MEDS ORDERED: Al Hydrox/Mg Hydrox/Simet LIQ* 30 ML UDC PO PRN (19:48)
[2019-11-28] MEDS ORDERED: Acetaminophen TAB* 325 MG PO PRN (19:48)
[2019-11-28] MEDS: Mirtazapine TAB* 15 MG PO SCH (21:45)
[2019-11-28] MEDS: Atorvastatin* 10 MG TAB PO SCH (21:46)
[2019-11-28] MEDS: CMC:Estradiol TAB(NF) 1 MG TAB PO SCH (21:48)
[2019-11-28] MEDS: PROGESTERONE PO SCH (21:48)
[2019-11-29 07:57] LABS: HDL Cholesterol 60.9 mg/dL
[2019-11-29] MEDS: CMC:Estradiol TAB(NF) 1 MG TAB PO SCH ×3 (09:06→20:43)
[2019-11-29] MEDS: Vitamin THERAPEUTIC TAB PO SCH (09:06)
[2019-11-29] MEDS ORDERED: Docusate CAP* 100 MG PO PRN (18:09)
--- NOTE | 2019-11-29 19:41 | HP ---
HISTORY AND PHYSICAL: DATE OF ADMISSION: 11/28/19 IDENTIFYING DATA: Violeta, who used to be known as Kaden in the past, came to the emergency room middle of the night complaining of suicidal ideation and a plan to overdose on all her medications and was eventually hospitalized. CHIEF COMPLAINT: "I did not see any reason to live like this alone by myself. No love in life." HISTORY OF PRESENT ILLNESS: This is possibly the third psychiatric hospitalization for this 69-year-old transgender [id number], who was diagnosed with major depressive disorder with multiple previous suicide gestures and at least 2 prior psychiatric hospitalizations on this unit, was fine until about a week ago. She then had a disappointment from a 58-year-old female who in a way rejected him for an offer of relationship and since then his mental health deteriorated to a point that he felt overwhelmed and suicidal. He reports that for the last 1 week he has been severely depressed with anhedonia, helplessness, hopelessness, loneliness, and ongoing suicidal ideations, which got worse prior to coming to the emergency department. He states that he does not have any social life and was hoping that this relationship will work, however, it did not. He denies any hallucinations, delusions or homicidal ideations. PAST PSYCHIATRIC HISTORY: Remarkable for a previous hospitalization in 1998 and then his last hospitalization here in March of 2016. He has been pretty stable on an outpatient basis seeing Dr. Bonilla at [facility]. He also likes his therapist, Safia, at the clinic. He actually has an appointment with Dr. Bonilla on 12/03/19. In the past, he was diagnosed with gender identity disorder, major depressive disorder, and has been stable on medications and therapy. PAST MEDICAL HISTORY: He has a history of prostate cancer, which is in remission, currently has both back and knee pain, and some issues with his wrist. SUBSTANCE ABUSE HISTORY: Unremarkable. FAMILY HISTORY: Per record, both his parents had issues with alcohol, but there is no family history of attempted or completed suicide. PERSONAL AND SOCIAL HISTORY: Violeta has never been , born in [facility], is currently a resident of [facility]. 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 He is a loner according to his own reporting. Denies being sexually active, also denies any active zoroastrianism affiliation. He has 3 siblings, but he is not in touch with any one of them. He reports that he enjoys watching TV and sleeping all day long. PHYSICAL EXAMINATION Physical exam was offered, but declined by the patient. He said he just had a physical done in the emergency room and he was not feeling well today. His vitals are all within normal limits. Labs were also unremarkable. He does not appear to be in any physical distress at the time of examination. MENTAL STATUS EXAMINATION: Appropriately dressed, fairly groomed, male, who appears to be of his stated age, 69. He is alert and oriented to time , place, and person. Speech is normal in all spheres, but appears to have orofacial tardive dyskinesia as evidenced by lip-smacking and tongue protrusion at times. Also, appears to have some tremors of his upper extremities. Describes his mood as depressed. Observed affect appears to be restricted. Makes good eye contact at this time. Denies any hallucinations or delusions. Intelligence appears to be average as evidenced by his vocabulary, educational background, work history, and fund of knowledge. Memory functions are intact in all spheres. Continues to be suicidal, but has no plan at this time. Denies homicidal ideation. His insight and judgment appear to be fair to good. SUMMARY: This 69-year-old, never , mentally disabled male, who identifies himself to be a female and is on multiple female hormones, came to the emergency room complaining of severe depression and suicidal ideation in the context of disappointment from a female, who declined his friendship and romantic relationship. DIAGNOSTIC IMPRESSION: 1. Adjustment disorder with depressed mood. 2. Major depressive disorder, recurrent, severe without psychotic features. PHYSICAL HEALTH DIAGNOSIS: None other than back pain. TREATMENT RECOMMENDATIONS: Violeta will remain hospitalized on behavioral science unit for safety and protection. His code status will remain full. Supportive milieu, individual, and group therapy will be initiated. I have decided to continue all her outpatient medications and further adjustment will be deferred to his assigned psychiatrist on the unit. [id number]/[facility]PS #: [id number] [facility] HOSPITALFrankie
[2019-11-29] MEDS: Atorvastatin* 10 MG TAB PO SCH (20:42)
[2019-11-29] MEDS: Mirtazapine TAB* 15 MG PO SCH (20:43)
[2019-11-29] MEDS: PROGESTERONE PO SCH (20:44)
[2019-11-30] MEDS ORDERED: Lorazepam PYXIS KEY ONE (02:36)
[2019-11-30] MEDS: Cholecalciferol TAB* 1000 UNITS PO SCH (09:18)
[2019-11-30] MEDS: clonazePAM TAB(*) 1 MG PO SCH (09:19)
[2019-11-30] MEDS: Spironolactone TAB* 25 MG PO SCH (09:19)
[2019-11-30] MEDS: Venlafaxine EXT RELEASE CAP* 75 MG PO SCH (09:20)
[2019-11-30] MEDS: Aspirin EC TAB* 81 MG TAB.EC PO SCH (09:20)
[2019-11-30] MEDS: Vitamin THERAPEUTIC TAB PO SCH (09:20)
[2019-11-30] MEDS: CMC:Estradiol TAB(NF) 1 MG TAB PO SCH ×3 (09:21→20:18)
[2019-11-30] MEDS: FLUTAMIDE 125 MG PO SCH (09:24)
--- NOTE | 2019-11-30 11:50 | PN ---
Subjective - Subjective Date of Service: 11/30/19 Service Type: 33858 Hosp care 25 min moderate complexity Subjective: Kelsey discusses that her anxiety has been increasing especially since Saturday. Kelsey talked to a nurse at [facility] who wanted to call 911 for her, but Kelsey declined until she decided herself to call. The situation didn't go according to what she wanted, but she did end up with the result she wanted: hospitalization here. Much of the stress comes from a friendship with Lidya Garcia, which happens to be Kelsey's only friendship. Kelsey enjoys the romantic company of women and says every night to Lidya "I love you" and by text "xoxox hugs". Sometimes Lidya returns the I love you and the texts, but sometimes it takes her a while to do that and it makes Kelsey worry. Kelsey used to go to [facility], but she threatened suicide and there was some misunderstanding and she either was not welcome back or she did not want to go back. In all, this seems like a social problem. Kelsey would benefit from further human interaction, but she has also demonstrated some inability to interact effectively with others. Objective - General Observations Appearance: Disheveled Appears Stated Age: Yes Stature: Overweight Posture: Slumped Eye Contact: Average Behavior/Activity: Slowed - Interaction Observations Attitude Towards Examiner: Cooperative, Anxious Stated Mood: Dysphoric Affect: Blunted Speech Pattern/Tone: Clear, Appropriate, Normal Volume Thought Process: Coherent, Goal Directed Perception: WNL Thought Content: Preoccupation/Ruminations, Obsessional Thought Process: Lethality: Passive Wish, Suicidal Planning Hallucination Type: None Delusion Type: None - Cognitive Function Orientation: A&O x 4 Level of Consciousness: Awake, Alert, Appropriate Cognition: Impaired Cognition, Impaired Fund of Knowledge Estimated Intelligence: Normal Insight: Difficulty Acknowledging Presence of Psyciatric Problems Judgment Within Normal Limits: No Ability to Make Reasonable Decisions: Moderately Impaired - Medication Compliance Cooperative with Inpatient Medication Regimen: Yes - Group Participation Participates in Group Activities: Partial Assessment - Assessment Merits Inpatient Hospitalization: For Immediate Safety, For Stabilization Inpatient DSM-V Dx: F33.1 Clinical Impression: Kelsey is a 69-year-old male to female transgendered person diagnosed with major depressive disorder who comes to the hospital with suicidal ideation regarding a relationship with a woman who is his only friend. Plan - Plan Treatment Plan: Name: KELSEY RAUSCH Birthdate: 1950 [id number] 11/30/19 Kelsey is encouraged to go to groups and make appropriate alliances with other patients. [facility]. Medications: Current Medications Acetaminophen (Tylenol Tab*) 650 mg PO Q4H PRN PRN Reason: PAIN or TEMP > 101 F Al Hydrox/Mg Hydrox/Simethicone (Maalox Plus*) 30 ml PO Q4H PRN PRN Reason: INDIGESTION Aspirin (Aspirin Ec Tab*) 81 mg PO QAM [facility] Last Admin: 11/30/19 09:20 Dose: 81 mg Atorvastatin Calcium (Lipitor*) 5 mg PO BEDTIME [facility] Last Admin: 11/29/19 20:42 Dose: 5 mg Cholecalciferol (Vitamin D Tab*) [facility] Admin: 11/30/19 09:18 Dose: 5,000 units Clonazepam (Klonopin Tab(*)) [facility] [place] [facility] Admin: 11/30/19 09:19 Dose: 2 mg Docusate Sodium (Colace Cap*) 100 mg PO DAILY PRN PRN Reason: CONSTIPATION Estradiol (Estradiol Tab(Nf)) 2 mg PO TID [facility] Last Admin: 11/30/19 09:21 Dose: 2 mg Flutamide (Eulexin Cap*) [facility] [place] [facility] Admin: 11/30/19 09:24 Dose: Not Given Mirtazapine (Remeron Tab*) 30 mg PO BEDTIME [facility] Last Admin: 11/29/19 20:43 Dose: 30 mg Multivitamins (Theragran Tab*) 1 tab PO DAILY [facility] Last Admin: 11/30/19 09:20 Dose: 1 tab Progesterone (Progesterone Micronized(Nf)) 200 mg PO BEDTIME [facility] Last Admin: 11/29/19 20:44 Dose: 200 mg Spironolactone (Aldactone Tab*) 25 mg PO QAM [facility] Last Admin: 11/30/19 09:19 Dose: 25 mg Venlafaxine HCl (Effexor Xr Cap*) 150 mg PO QAM [facility] Last Admin: 01/20/20 09:20 Dose: 150 mg - Discharge Plan Discharge Plan: Outpatient Follow Up Outpatient Program: Id[facility] Crowell [facility]
[2019-11-30] MEDS: PROGESTERONE PO SCH (20:17)
[2019-11-30] MEDS: Mirtazapine TAB* 15 MG PO SCH (20:17)
[2019-11-30] MEDS: Atorvastatin* 10 MG TAB PO SCH (20:17)
[2019-12-01 07:59] VITALS: BP 110/61
[2019-12-01] MEDS: Venlafaxine EXT RELEASE CAP* 75 MG PO SCH (08:31)
[2019-12-01] MEDS: CMC:Estradiol TAB(NF) 1 MG TAB PO SCH ×2 (08:31→13:59)
[2019-12-01] MEDS: clonazePAM TAB(*) 1 MG PO SCH (08:32)
[2019-12-01] MEDS: Cholecalciferol TAB* 1000 UNITS PO SCH (08:32)
[2019-12-01] MEDS: Spironolactone TAB* 25 MG PO SCH (08:33)
[2019-12-01] MEDS: Vitamin THERAPEUTIC TAB PO SCH (08:33)
[2019-12-01] MEDS: Aspirin EC TAB* 81 MG TAB.EC PO SCH (08:34)
[2019-12-01] MEDS: FLUTAMIDE 125 MG PO SCH (08:35)
--- NOTE | 2019-12-04 16:38 | DS ---
DISCHARGE SUMMARY: DATE OF ADMISSION: 11/28/19 DATE OF DISCHARGE: 12/01/19 PROVIDER: Mehnaz Bolaños NP in Psychiatry. SUPERVISING PHYSICIAN: Dr. Malcom Trevino.* (DICTATED BY MEHNAZ BOLAÑOS NP) DIAGNOSES: 1. Major depressive disorder. 2. Personality disorder, not otherwise specified. CONDITION AT THE TIME OF DISCHARGE: Improved, psychiatrically cleared, stable. Violeta participated in groups and was social with peers. She is agreeable to discharge. She has done well here psychiatrically. No new meds were started. She will be attending [facility]. MENTAL STATUS EXAM: At the time of discharge, Violeta is calm, cooperative, and makes good eye contact. She is alert and oriented x4. Her grooming is adequate. Her speech pace is slow. Thought processes are logical. She is not psychotic or delusional. She denies AH, VH, SI, and HI. Insight and judgment are fair. She is willing to follow up, and she is urged to see a therapist. DISCHARGE INSTRUCTIONS TO THE PATIENT: A. Medications: 1. Aspirin 81 mg daily. 2. Vitamin D 5000 units every morning. 3. Clonazepam 2 mg in the morning. 4. Colace 100 mg daily p.r.n. constipation. 5. Estradiol 2 mg t.i.d. 6. Eulexin 125 mg daily. 7. Skelaxin 800 mg q.8 hours p.r.n. muscle spasms. 8. Mirtazapine 30 mg at bedtime. 9. Progesterone 200 mg at bedtime. 10. Simvastatin 10 mg at bedtime. 11. Spironolactone 25 mg daily. 12. Effexor XR 150 mg daily. B. Diet is regular. C. Activities as tolerated. Violeta is currently a nonsmoker. There are no studies pending at the time of discharge. D. Followup appointments: She has appointments at [facility] on 12/02/19 at 5:30 with Safia. She has a medication followup appointment on 12/03/19 at 12:[address] Bonilla. E. Disposition: Violeta is being sent back home to her apartment in [facility]. F. Substance abuse followup is not indicated. HOSPITAL COURSE: Part A: Identifying data: Violeta, who used to be known as Kaden in the past, came to the emergency room in the middle of the night complaining of suicidal ideation and a plan to overdose on all her medications and was eventually hospitalized. Chief complaint: "I did not see any reason to live like this alone by myself. No love in life." This is the third psychiatric hospitalization for this 69-year-old transgender male to female person who was diagnosed with major depressive disorder with multiple previous suicide gestures and at least 2 prior psychiatric hospitalizations on this unit and was fine until about a week ago. She then had a disappointment from a 58- year-old female who in a way rejected his offer for a relationship and since then his mental health deteriorated to a point that he felt overwhelmed and suicidal. He reports that for the last 1 week he has been severely depressed with anhedonia, helplessness, hopelessness, loneliness, and ongoing suicidal ideations, which got worse prior to coming to the emergency department. He states that he does not have any social life and was hoping that this relationship would work; however, it did not. He denies any hallucinations, delusions, or homicidal ideations. Part B: Psychiatric treatment was rendered. Violeta was admitted to the adult behavioral unit and placed on 15-minute checks for safety. She was safe on all checks. She did well on the unit and went to groups. She interacted with peers appropriately. Violeta determined on her own that a stay of approximately a week would be helpful since that would keep her out of the way of this friend whose name is Lidya who rejected her offer to Lidya. Lidya is having a very difficult time according to Violeta and Violeta does not have any other friends. Due to this, Violeta was hoping to stay at the hospital until Lidya had the opportunity to move her belongings from one building to another and Violeta does not want to be in her way. The relationship between Violeta and Lidya is the focus of this hospitalization for Violeta; however, this makes her hospitalization quite difficult as Lidya is not willing to come into the hospital as she is overwhelmed by having to work at moving household from [address]. Violeta mentions that she did propose to Lidya and Lidya declined to her, and therefore, she determines that her life is not worth living. We did discuss other options that Violeta might have to making new friends including [employer] and the [facility]. Violeta was eager to start these and is eager to interact with others. Violeta has a very tenacious type of relationship style that makes it difficult for people to meet her needs enough that she feels satisfied. Nevertheless, this is not a solution that will be found in the hospital and it was in Violeta's interest to be discharged before she made relationships with unstable patients on the unit. Violeta was therefore discharged on 12/01/19, which was partially unsatisfactory to her, but was also greeted with the kind of desire to move forward that is reassuring. No consults were entered for Violeta. She is improved. Her mood is better. She is not thinking of suicide, and she is future oriented. MEHNAZ BOLAÑOS, NINA [id number]/[facility] #: [id number] MAGY
== END 2019-12-01 16:47 | disposition home or self-care (01) | DRG 885 ==
LOC: ED 10:56 → BSU 16:26
PROVIDERS: ADMIT Psychiatry & Neurology Psychiatry; ATTEND Psychiatry & Neurology Psychiatry
DX: F33.2 Major depressive disorder, recurrent severe without psychotic features (principal); R45.851 Suicidal ideations; F43.21 Adjustment disorder with depressed mood; F64.0 Transsexualism; G89.29 Other chronic pain; M16.9 Osteoarthritis of hip, unspecified; E78.00 Pure hypercholesterolemia, unspecified; I10 Essential (primary) hypertension; M17.12 Unilateral primary osteoarthritis, left knee; M47.9 Spondylosis, unspecified; F41.0 Panic disorder [episodic paroxysmal anxiety]; Z87.891 Personal history of nicotine dependence; Z88.0 Allergy status to penicillin; Z88.5 Allergy status to narcotic agent; Z85.46 Personal history of malignant neoplasm of prostate; Z28.21 Immunization not carried out because of patient refusal
CPT/HCPCS: 36415; 80053; 80061; 80320; 80329; 83036; 84443; 85025; 99232; 99238; 99285; A9270-GY; G0480

== ENCOUNTER 2019-12-10 16:07 | Emergency (ER) | payer MEDICARE ==
[2019-12-10 17:12] LABS: ABS Eosinophils 0.1 10^3/ul (0-0.6); ABS Lymphocytes 0.8 10^3/ul (1.0-4.8); ABS Monocytes 0.5 10^3/ul (0-0.8); ABS Neutrophils 7.1 10^3/ul (1.5-7.7); Eosinophil % 0.9 %; Hematocrit 42 % (35-47); Hemoglobin 14.3 g/dL (12.0-16.0); Lymphocyte % 9.4 %; Mean Corpuscular HGB Conc 34 g/dL (31-36); Mean Corpuscular Hemoglobin 32 pg (27-31); Mean Corpuscular Volume 94 fL (80-97); Mean Platelet Volume 9.4 fL (7.4-10.4); Platelet Count 178 10^3/uL (150-450); Red Blood Count 4.44 10^6 /uL (3.70-4.87); Red Cell Distribution Width 14 % (10-15); White Blood Count 8.5 10^3/uL (3.5-10.8)
[2019-12-10 17:36] LABS: Alcohol < 10 mg/dL (<10); Salicylate < 2.50 mg/dL (<30)
[2019-12-10 17:41] LABS: ALT 25 U/L (7-52); AST 19 U/L (13-39); Albumin 3.8 g/dL (3.2-5.2); Albumin/Globulin Ratio 1.5 (1-3); Alkaline Phosphatase 94 U/L (34-104); Anion Gap 8 mmol/L (2-11); BUN/Creatinine Ratio 19.5 (8-20); Blood Urea Nitrogen 17 mg/dL (6-24); CO2 Carbon Dioxide 24 mmol/L (22-32); Chloride 104 mmol/L (101-111); EGFR African American 78.1 (>60); EGFR Non-African American 64.6 (>60); Globulin 2.5 g/dL (2-4); Glucose 92 mg/dL (70-100); Sodium 136 mmol/L (135-145); Total Protein 6.3 g/dL (6.4-8.9)
--- OUTSIDE RECORDS SUMMARY | 2019-12-10 17:41 | XMS REPORT ---
:1950 Author Organization [facility] Care Team Providers Name Role Phone Alexus Alcantar Primary Care Physician Unavailable Allergies, Adverse Reactions, Alerts Allergy Code CodeSystem Reaction Severity Criticality Status Start Substance Date Moderate Medications Medication Medication Medication Start Stop Route Dose Status Fill Code CodeSystem Date Date Instructions clonazepam 19741220 RxNorm 2018- oral 2 mg completed for 30 6 07-18 tablet day(s) mirtazapine 165600 RxNorm 2018- oral 30 mg 1 active 1 tablet at 2- tablet bedtime for at 30 day(s) bedtime venlafaxine 626769 RxNorm 2018- oral 150 mg 2 active 2 capsule 02-12 capsule, once a day extended for 30 day(s) release 24hr once a day aripiprazole 843144 RxNorm 2018- oral 10 mg 1 active 1 tablet 02-12 tablet once a day once a for 30 day(s) day clonazepam 19741220 RxNorm 2018- oral 2 mg 1 completed 1 tablet at 4-04 05-12 tablet bedtime for at 30 day(s) bedtime trazodone 458614 RxNorm oral 50 mg 1 active 1 tablet at 4-04 tablet bedtime for at 30 day(s) bedtime clonazepam 19741220 RxNorm 2018- oral 2 mg completed for 30 412 05-17 tablet day(s) clonazepam 19741220 RxNorm 2018- oral 2 mg 1 completed 1 tablet at 7-18 08-17 tablet bedtime for at 30 day(s) bedtime clonazepam 19741220 RxNorm 2019- oral 2 mg 1 completed 1 tablet at 5-17 06-16 tablet bedtime for at 30 day(s) bedtime Problems Problem Name Code CodeSystem Alternate Alternate Start End Status Narrative Code CodeSystem Date Date Severe 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-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 Severe 19184274 SNOMED-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 Severe 17484385 SNOMED-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 Generalized [id number] SNOMED-CT 2019- Active anxiety 0-15 disorder Relevant diagnostic tests/laboratory data Narrative No Information Procedures Procedure Code CodeSystem Target Date of Status Service Device Device Device Name Site Procedure Delivery Code Name UID Location Psychotherap [id number] SNOMED-CT () 2019-06-01 complete Mental y, 45 04 d Health- minutes with [facility] patient [address], [id number] [id number] Psychotherap [id number] SNOMED-CT () 2019-05-05 complete Mental y, 45 04 d Health- minutes with [facility] patient [address], [id number] [id number] Psychotherap [id number] SNOMED-CT () 2019-05-15 complete Mental y, 45 04 d Health- minutes with [facility] patient [address], [id number] [id number] Psychotherap [id number] SNOMED-CT () 2019-06-30 complete Mental y, 45 04 d Health- minutes with [place] patient [address], [id number] [phone] Psychotherap [id number] SNOMED-CT () 2019-06-12 complete Mental y, 45 04 d Health- minutes with [place] patient [address], [id number] Psychotherap [id number] SNOMED-CT () 2019-07-28 complete Mental y, 45 04 d Health- minutes with [place] patient [address], [id number] Psychotherap [id number] SNOMED-CT () 2019-11-03 complete Mental y, 45 04 d Health- minutes with [facility] patient [address], [id number] Psychotherap [id number] SNOMED-CT () 2019-11-24 complete Mental y, 45 04 d Health- minutes with [place] [address], [place], [place], [id number] [phone] Psychotherap [id number] SNOMED-CT () 2019-11-16 complete Mental y, 45 04 d Health- minutes with [address], [id number] [id number] Psychotherap [id number] SNOMED-CT () 2019-09-29 complete Mental y, 45 04 d Health- minutes with [address], [id number] [id number] Psychotherap [id number] SNOMED-CT () 2019-10-06 complete Mental y, 45 04 d Health- minutes with [address], [id number] [id number] Psychotherap [id number] SNOMED-CT () 2019-10-13 complete Mental y, 45 04 d Health- minutes with [address], [id number] [id number] Psychotherap [id number] SNOMED-CT () 2019-10-20 complete Mental y, 45 04 d Health- minutes with [address], [id number] [id number] Psychotherap [id number] SNOMED-CT () 2019-10-27 complete Mental y, 45 04 d Health- minutes with [address], [id number] [id number] Psychotherap [id number] SNOMED-CT () 2019-11-10 complete Mental y, 45 04 d Health- minutes with [address], [id number] [id number] Psychotherap [id number] SNOMED-CT () 2019-08-12 complete Mental y, 45 04 d Health- minutes with [address], [id number] [id number] Psychotherap [id number] SNOMED-CT () 2019-08-18 complete Mental y, 45 04 d Health- minutes with [address], [id number] Psychotherap [id number] SNOMED-CT () 2019-08-25 complete Mental y, 45 04 d Health- minutes with [place] patient [address], [id number] [phone] Psychotherap [id number] SNOMED-CT () 2019-09-01 complete Mental y, 45 04 d Health- minutes with [facility] patient [address], [id number] [phone] Psychotherap 032681 SNOMED-CT () 2019-09-08 complete Mental y, 45 04 d Health- minutes with [place] patient [address], [id number] Psychotherap [id number] SNOMED-CT () 2019-09-15 complete Mental y, 45 04 d Health- minutes with [place] patient [address], [id number] Group [id number] SNOMED-CT () 2019-07-30 complete Mental psychotherap 8 d Health- y (other [facility] than of a [address] group) [place], [place], [id number] [phone] Group [id number] SNOMED-CT () 2019-03-12 complete Mental psychotherap 8 d Health- y (other [place] than of a [address] group) [place], [place], [id number] [phone] Group [id number] SNOMED-CT () 2019-03-05 complete Mental psychotherap 8 d Health- y (other [place] than of a [address] group) [place], [place], [id number] [id number] Group [id number] SNOMED-CT () 2019-03-26 complete Mental psychotherap 8 d Health- y (other [place] than of a [address] group) [place], [place], [id number] Group [id number] SNOMED-CT () 2019-03-19 complete Mental psychotherap 8 d Health- y (other [facility] than of a [address] group) [place], [place], [id number] [phone] Group [id number] SNOMED-CT () 2019 complete Mental psychotherap 8 d Health- y (other [facility] than of a [facility] multiple-fam [address] [place] [address] group) [place], [place], [id number] [phone] Group [id number] SNOMED-CT () 2019-06-18 complete Mental psychotherap 8 d Health- y (other [place] than of a [facility] multiple-fam [address] [facility] group) [place], [place], [id number] [id number] Group [id number] SNOMED-CT () 2019-04-09 complete Mental psychotherap 8 d Health- y (other [facility] than of a [facility] multiple-fam [address] [facility] group) [place], [place], [id number] [phone] Group [id number] SNOMED-CT () 2019-04-02 complete Mental psychotherap 8 d Health- y (other [place] than of a [facility] multiple-fam [address] [place] [address] group) [place], [place], [id number] [phone] Group [id number] SNOMED-CT () 2019-07-16 complete Mental psychotherap 8 d Health- y (other [place] than of a [facility] multiple-fam [address] [facility] group) [place], [place], [id number] [id number] Group [id number] SNOMED-CT () 2019-07-23 complete Mental psychotherap 8 d Health- y (other [facility] than of a [facility] multiple-fam [address] [place] [address] group) [place], [id number] [phone] Group [id number] SNOMED-CT () 2019-05-28 complete Mental psychotherap 8 d Health- y (other [place] than of a [facility] multiple-fam [address] [facility] group) [place], [place], [id number] [id number] Group [id number] SNOMED-CT () 2019-08-13 complete Mental psychotherap 8 d Health- y (other [facility] than of a [facility] multiple-fam [address] [facility] group) [place], [place], [id number] [phone] Preventive [id number] SNOMED-CT () 2019-05-29 complete Mental medicine 1 d Health- counseling [facility] and/or risk [place] [address], (s) provided [place], to an [place], individual [id number] (separate [id number] procedure); approximatel y 30 minutes Office or [id number] SNOMED-CT () 2019-08-05 complete Mental other 7 d Health- outpatient [facility] visit for [address] Mick, management [place], of an [place], established [id number] patient, [id number] which requires at least 2 of these 3 david components: An expanded problem focused history; An expanded problem focused examination; Medical decision making of low Office or [id number] SNOMED-CT () 2019-10-02 complete Mental other 7 d Health- outpatient [place] visit for [address], [facility], of an [place], established [id number] patient, [id number] which requires at least 2 of these 3 david components: An expanded problem focused history; An expanded problem focused examination; Medical decision making of low Office or [id number] SNOMED-CT () 2019-05-08 complete Mental other 6 d Health- outpatient [facility] visit for [address], [facility], of an [place], established [id number] patient, [id number] which requires at least 2 of these 3 david components: A problem focused history; A problem focused examination; Straightforw don medical decision making. Adithya SNOMED-CT () 2019-02-20 complete Mental d [address], [id number] [phone] SNOMED-CT () 2019-03-20 complete Mental d Health[address], [id number] SNOMED-CT () 2019-03-05 complete Mental d Health[address], [id number] SNOMED-CT () 2019-04-17 complete Mental d Health[address], [id number] SNOMED-CT () 2019-04-03 complete Mental d [address], [id number] SNOMED-CT () 2019-09-22 complete Mental d [address], [id number] [id number] SNOMED-CT () 2019-07-20 complete Mental d [address], [id number] [id number] SNOMED-CT () 2019-06-18 [facility] Mental d [address], [id number] [phone] Encounters/Encounter Diagnoses Encounter Name Encounter Diagnosis Diagnosis Diagnosis Date of Service Code Code Name CodeSystem Diagnosis Delivery Location Established [id number] [facility] SNOMED-CT 2019-12-03 Behavioral patient 15-29 anxiety Health minutes disorder Clinic , , , Vital Signs No Information Social History Element Description Description Start End Code CodeSystem AdditionalInfo Date Date SexAssignedAtBirth Female 1950-0 F AdministrativeGender 04-16 Hospital Discharge Instructions Reason For Referral Medical Equipment FDA Assessments
[2019-12-10 17:47] LABS: TSH (Thyroid Stimulating Horm) 1.67 mcIU/mL (0.34-5.60)
[2019-12-10 18:52] LABS: Acetaminophen < 15 mcg/mL
--- NOTE | 2019-12-10 19:00 | ED ---
Psychiatric Complaint - HPI Summary HPI Summary: Patient is a 69 y/o F presenting to [facility] with complaints of SI. She reports that she got into a disagreement with a friend today via text message. Patient saw some pills sitting in front of her on her desk and was thinking about taking them. She notes Hx of SI and suicide attempts as well. Last reported attempt was in 2016. Patient had reported her SI to her therapist, who called EMS to bring patient to ED for evaluation. Home medications and allergies are reviewed. - History Of Current Complaint Chief Complaint: EDSuicidal Time Seen by Provider: 12/10/19 16:26 Hx Obtained From: Patient Onset/Duration: Still Present Timing: Hours Character: Depressed Aggravating Factor(s): Recent Stress Has Suicidal: Reports: Thoughts, With A Plan, Has Prior Attempt(s) - Allergies/Home Medications Allergies/Adverse Reactions: Allergies Allergy/AdvReac Type Severity Reaction Status Date / Time Penicillins Allergy Severe Rash Verified 12/10/19 16:21 morphine Allergy Intermediate Vomiting Verified 12/10/19 16:21 PMH/Surg Hx/FS Hx/Imm Hx Endocrine/Hematology History: Denies: Hx Diabetes, Hx Thyroid Disease Cardiovascular History: Reports: Hx Hypercholesterolemia, Hx Hypertension - ON MEDICATION FOR, Other Cardiovascular Problems/Disorders - Elevated cholesterol Denies: Hx Pacemaker/ICD Respiratory History: Reports: Other Respiratory Problems/Disorders - Pneumonia, history of Denies: Hx Asthma, Hx Chronic Obstructive Pulmonary Disease (COPD) GI History: Reports: Other GI Disorders - GALLSTONES Denies: Hx Ulcer History: Reports: Other Problems/Disorders - HX OF PROSTATE CANCER- SURGERY FOR Denies: Hx Renal Disease Musculoskeletal History: Reports: Hx Arthritis - LEFT KNEE AND LEFT LOWER BACK Denies: Other Musculoskeletal History Sensory History: Reports: Hx Cataracts - BILATERAL, Hx Contacts or Glasses - glasses, Hx Hearing Aid - left ear hearing aide on Denies: Hx Glaucoma Opthamlomology History: Reports: Hx Cataracts - BILATERAL, Hx Contacts or Glasses - glasses Denies: Hx Glaucoma Neurological History: Denies: Other Neuro Impairments/Disorders Psychiatric History: Reports: Hx Anxiety, Hx Depression, Hx Panic Disorder, Hx Inpatient Treatment, Hx Community Mental Health Tx Denies: Hx Post Traumatic Stress Disorder, Hx Bipolar Disorder, Hx of Violent Episodes Against Others - Cancer History Cancer Type, Location and Year: PROSTATE Hx Chemotherapy: No Hx Radiation Therapy: No - Surgical History Surgery Procedure, Year, and Place: 2002 REMOVED PROSTATE, 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 tonsillectomy as a child Hx Anesthesia Reactions: No - Immunization History Date of Tetanus Vaccine: unk Date of Influenza Vaccine: fall 2015 Infectious Disease History: No Infectious Disease History: Denies: Hx Hepatitis, Hx Human Immunodeficiency Virus (HIV), Hx of Known/ Suspected MRSA, Traveled Outside the [place] in Last 30 Days - Family History Known Family History: Positive: Diabetes, Other - CVA - Social History Alcohol Use: None Alcohol Amount: NONE SINCE 1986 AND 2002- STATES WAS AN ALCOHOLIC Hx Substance Use: No Substance Use Type: Reports: Prescribed Substance Use Comment - Amount & Last Used: tylenol w/ codeine Hx Tobacco Use: Yes Smoking Status (MU): Former Smoker Amount Used/How Often: 1 ppd 10 years Have You Smoked in the Last Year: No Review of Systems Negative: Fever - on vitals, temp is 97.4 F Psychological: Other - positive - SI All Other Systems Reviewed And Are Negative: Yes Physical Exam - Summary Physical Exam Summary: VITAL SIGNS: Reviewed. GENERAL: Patient is a well-developed and nourished female who is lying comfortable in the stretcher. Patient is not in any acute respiratory distress. HEAD AND FACE: No signs of trauma. No ecchymosis, hematomas or skull depressions. No sinus tenderness. EYES: PERRLA, EOMI x 2, No injected conjunctiva, no nystagmus. EARS: Hearing grossly intact. Ear canals and tympanic membranes are within normal limits. MOUTH: Oropharynx within normal limits. NECK: Supple, trachea is midline, no adenopathy, no JVD, no carotid bruit, no c- spine tenderness, neck with full ROM. CHEST: Symmetric, no tenderness at palpation. LUNGS: Clear to auscultation bilaterally. No wheezing or crackles. CVS: Regular rate and rhythm, S1 and S2 present, no murmurs or gallops appreciated. ABDOMEN: Soft, non-tender. No signs of distention. No rebound, no guarding, and no masses palpated. Bowel sounds are normal. EXTREMITIES: FROM in all major joints, no edema, no cyanosis or clubbing. NEURO: Alert and oriented x 3. No acute neurological deficits. Speech is normal and follows commands. SKIN: Dry and warm. Triage Information Reviewed: Yes Vital Signs On Initial Exam: Initial Vitals Temp Pulse Resp BP Pulse Ox 97.4 F 84 16 131/65 94 12/10/19 16:12 12/10/19 16:12 12/10/19 16:12 12/10/19 16:12 12/10/19 16:12 Vital Signs Reviewed: Yes Procedures - Sedation Patient Received Moderate/Deep Sedation with Procedure: No Diagnostics - Vital Signs Vital Signs Temp Pulse Resp BP Pulse Ox 12/10/19 16:12 97.4 F 84 16 131/65 94 - Laboratory Lab Results: Lab Results 12/10/19 12/10/19 Range/Units 17:05 17:05 WBC 8.5 (3.5-10.8) 10^3/uL RBC 4.44 (3.70-4.87) 10^6 /uL Hgb 14.3 (12.0-16.0) g/dL Hct 42 (35-47) % MCV 94 (80-97) fL MCH 32 H (27-31) pg MCHC 34 (31-36) g/dL RDW 14 (10-15) % Plt Count 178 (150-450) 10^3/uL MPV 9.4 (7.4-10.4) fL Neut % (Auto) 83.4 % Lymph % (Auto) 9.4 % Bledsoe % (Auto) 6.1 % Eos % (Auto) 0.9 % Baso % (Auto) 0.2 % Absolute Neuts (auto) 7.1 (1.5-7.7) 10^3/ul Absolute Lymphs (auto) 0.8 L (1.0-4.8) 10^3/ul Absolute Monos (auto) 0.5 (0-0.8) 10^3/ul Absolute Eos (auto) 0.1 (0-0.6) 10^3/ul Absolute Basos (auto) 0.0 (0-0.2) 10^3/ul Absolute Nucleated RBC 0.0 10^3/ul Nucleated RBC % 0.0 Sodium 136 (135-145) mmol/L Potassium 4.0 (3.5-5.0) mmol/L Chloride 104 (101-111) mmol/L Carbon Dioxide 24 (22-32) mmol/L Anion Gap 8 (2-11) mmol/L BUN 17 (6-24) mg/dL Creatinine 0.87 (0.51-0.95) mg/dL Est GFR ( Amer) 78.1 (>60) Est GFR (Non-Af Amer) 64.6 (>60) BUN/Creatinine Ratio 19.5 (8-20) Glucose 92 (70-100) mg/dL Calcium 9.0 (8.6-10.3) mg/dL Total Bilirubin 0.70 (0.2-1.0) mg/dL AST 19 (13-39) U/L ALT 25 (7-52) U/L Alkaline Phosphatase 94 (34-104) U/L Total Protein 6.3 L (6.4-8.9) g/dL Albumin 3.8 (3.2-5.2) g/dL Globulin 2.5 (2-4) g/dL Albumin/Globulin Ratio 1.5 (1-3) TSH 1.67 (0.34-5.60) mcIU/mL Salicylates < 2.50 (<30) mg/dL Acetaminophen Pending Serum Alcohol < 10 (<10) mg/dL Result Diagrams: 12/10/19 17:05 12/10/19 17:05 Lab Statement: Any lab studies that have been ordered have been reviewed, and results considered in the medical decision making process. Course/Dx - Course Assessment/Plan: Patient is a 69 y/o F presenting to [facility] with complaints of SI. She reports that she got into a disagreement with a friend today via text message. Patient saw some pills sitting in front of her on her desk and was thinking about taking them. She notes Hx of SI and suicide attempts as well. Last reported attempt was in 2015. Patient had reported her SI to her therapist , who called EMS to bring patient to ED for evaluation. Home medications and allergies are reviewed. Blood work w/o a significant abnormality. He is medically cleared. He is awaiting a MHE. Patient is hemodynamically stable and A+O x 3. Patient was evaluated by Dr. Trevino. He recommends for the patient to be discharged home with follow with the primary care physician. Diagnosis is mood disorder NOS. - Differential Dx/Clinical Impression Differential Diagnosis/HQI/PQRI: Positive: Anxiety, Depression Provider Diagnosis: Mood disorder - Physician Notifications Discussed Care Of Patient With: Malcom Trevino Time Discussed With Above Provider: 20:26 Instructed by Provider To: Other - Patient's case was reviewed by Dr. Trevino, patient will be discharged to home. Discharge ED - Sign-Out/Discharge Documenting (check all that apply): Patient Departure - discharge - Discharge Plan Condition: Stable Disposition: HOME Patient Education Materials: Mood Disorders (ED) Referrals: Elizabeth Romero MD [Primary Care Provider] - Additional Instructions: Per completion of a mental health evaluation, you are cleared for release and do not require inpatient psychiatric hospitalization at this time. Please go to nearest emergency room or call 911 if safety concerns arise or condition worsens. Important Phone Numbers: [facility] ph:[phone] Suicide Prevention and Crisis Services ph:[phone] National Suicide Prevention Lifeline ph:[phone] VWYP (8511) [facility] ph:[phone] Alcoholics Anonymous ph:[phone] [facility] ph:[phone] [facility] Police ph:[phone] Follow up with [facility] tomorrow morning and take medications as prescribed. - Billing Disposition and Condition Condition: STABLE Disposition: Home - Attestation Statements Document Initiated by Alzie: Yes Documenting Scribe: JALEN POWELL Provider For Whom Alize is Documenting (Include Credential): HECTOR MCCOY MD Scribe Attestation: IJALEN, scribed for HECTOR MCCOY MD on 12/10/19 at 2149. Scribe Documentation Reviewed: Yes Provider Attestation: The documentation as recorded by the JALEN mari accurately reflects the service I personally performed and the decisions made by me, HECTOR MCCOY MD Status of Scribe Document: Viewed
[2019-12-10 21:07] VITALS: BP 128/74
== END 2019-12-10 20:50 | disposition home or self-care (01) ==
LOC: ED 16:07
DX: F39 Unspecified mood [affective] disorder (principal); Z88.0 Allergy status to penicillin; I10 Essential (primary) hypertension; E78.00 Pure hypercholesterolemia, unspecified; F41.9 Anxiety disorder, unspecified; F32.9 Major depressive disorder, single episode, unspecified; Z87.891 Personal history of nicotine dependence; Z79.899 Other long term (current) drug therapy
CPT/HCPCS: 36415; 80053; 80320; 80329; 84443; 85025; 99285; G0480

== ENCOUNTER 2019-12-14 09:02 | Inpatient (IN) | payer MEDICARE ==
--- NOTE | 2019-12-14 09:33 | ED ---
Psychiatric Complaint - HPI Summary HPI Summary: 69-year-old male to female transgender with a significant past medical history of anxiety and depression presents to emergency department today complaining of suicidal ideation. Patient states she has had thoughts of killing herself the last 2 months and desired help. Patient states she has a plan where she would "take a bunch of prescription medications". Patient states she has had attempted to commit suicide in the past where she jumped off a bridge. Patient denies homicidal ideation. Patient otherwise feels well and denies fever, physical pain, chest pain, abdominal pain, shortness of breath, rashes, pain with urination. Patient denies recent recreational drug use or alcohol use. Surgical history and family history is noncontributory. - History Of Current Complaint Time Seen by Provider: 12/14/19 09:18 Hx Obtained From: Patient Onset/Duration: Gradual Onset Timing: Constant Severity Initially: Moderate Severity Currently: Moderate Character: Depressed, Anxious Alleviating Factor(s): Nothing Associated Signs And Symptoms: Positive: Sleep Disturbance, Appetite Change, Social Withdrawal Related History: Positive For: Prior Psychiatric Issues Has Suicidal: Reports: Thoughts, With A Plan, Has Prior Attempt(s). Denies: Demonstrates Gesture Has Homicidal: Denies: Thoughts, With A Plan, Demonstrates Gesture - Allergies/Home Medications Allergies/Adverse Reactions: Allergies Allergy/AdvReac Type Severity Reaction Status Date / Time Penicillins Allergy Severe Rash Verified 12/10/19 16:21 morphine Allergy Intermediate Vomiting Verified 12/10/19 16:21 Home Medications: Home Medications Diclofenac Sodium 75 mg PO BID PRN 12/14/19 [History Confirmed 12/14/19] Furosemide TAB* [Lasix TAB*] 40 mg PO DAILY PRN 12/14/19 [History Confirmed 01/28] PMH/Surg Hx/FS Hx/Imm Hx Endocrine/Hematology History: Denies: Hx Diabetes, Hx Thyroid Disease Cardiovascular History: Reports: Hx Hypercholesterolemia, Hx Hypertension - ON MEDICATION FOR, Other Cardiovascular Problems/Disorders - Elevated cholesterol Denies: Hx Pacemaker/ICD Respiratory History: Reports: Other Respiratory Problems/Disorders - Pneumonia, history of Denies: Hx Asthma, Hx Chronic Obstructive Pulmonary Disease (COPD) GI History: Reports: Other GI Disorders - GALLSTONES Denies: Hx Ulcer History: Reports: Other Problems/Disorders - HX OF PROSTATE CANCER- SURGERY FOR Denies: Hx Renal Disease Musculoskeletal History: Reports: Hx Arthritis - LEFT KNEE AND LEFT LOWER BACK Denies: Other Musculoskeletal History Sensory History: Reports: Hx Cataracts - BILATERAL, Hx Contacts or Glasses - glasses, Hx Hearing Aid - left ear hearing aide on Denies: Hx Glaucoma Opthamlomology History: Reports: Hx Cataracts - BILATERAL, Hx Contacts or Glasses - glasses Denies: Hx Glaucoma Neurological History: Denies: Other Neuro Impairments/Disorders Psychiatric History: Reports: Hx Anxiety, Hx Depression, Hx Panic Disorder, Hx Inpatient Treatment, Hx Community Mental Health Tx Denies: Hx Eating Disorder, Hx Post Traumatic Stress Disorder, Hx Schizophrenia, Hx Bipolar Disorder, Hx Suicide Attempt - [facility] thougt about jumped of rock, 1998 thought about jumping, Hx of Violent Episodes Against Others - Cancer History Cancer Type, Location and Year: PROSTATE Hx Chemotherapy: No Hx Radiation Therapy: No - Surgical History Surgery Procedure, Year, and Place: 2001 REMOVED PROSTATE, 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 tonsillectomy as a child Hx Anesthesia Reactions: No - Immunization History Date of Tetanus Vaccine: unk Date of Influenza Vaccine: fall 2015 Infectious Disease History: Denies: Hx Hepatitis, Hx Human Immunodeficiency Virus (HIV), Hx of Known/ Suspected MRSA - Family History Known Family History: Positive: Diabetes, Other - CVA - Social History Alcohol Use: None Alcohol Amount: NONE SINCE 1986 AND 2002- STATES WAS AN ALCOHOLIC Hx Substance Use: No Substance Use Type: Reports: Prescribed Substance Use Comment - Amount & Last Used: tylenol w/ codeine Hx Tobacco Use: Yes Smoking Status (MU): Former Smoker Amount Used/How Often: 1 ppd 10 years Have You Smoked in the Last Year: No Review of Systems Constitutional: Negative Eyes: Negative ENT: Negative Cardiovascular: Negative Respiratory: Negative Gastrointestinal: Negative Genitourinary: Negative Musculoskeletal: Negative Skin: Negative Neurological: Negative Positive: Anxious, Depressed All Other Systems Reviewed And Are Negative: Yes Physical Exam Triage Information Reviewed: Yes Vital Signs Reviewed: Yes Appearance: Positive: Well-Appearing, No Pain Distress, Well-Nourished Skin: Positive: Warm, Skin Color Reflects Adequate Perfusion Eyes: Positive: EOMI, ALVARO ENT: Positive: Hearing grossly normal Respiratory/Lung Sounds: Positive: Clear to Auscultation, Breath Sounds Present Cardiovascular: Positive: RRR, S1, S2 Musculoskeletal: Positive: Strength/ROM Intact Neurological: Positive: Sensory/Motor Intact, Alert, Oriented to Person Place, Time, Normal Gait, Facial Symmetry, Speech Normal Psychiatric: Positive: Normal, Affect/Mood Appropriate AVPU Assessment: Alert Procedures - Sedation Patient Received Moderate/Deep Sedation with Procedure: No Diagnostics - Laboratory Result Diagrams: 12/14/19 09:30 12/14/19 09:30 Lab Statement: Any lab studies that have been ordered have been reviewed, and results considered in the medical decision making process. Course/Dx - Course Course Of Treatment: Patient was evaluated in the emergency department today for suicidal ideation. Patient was seen and examined their vital signs are stable and they were afebrile. Upon arrival to emergency department the patient was placed in a safe room, placed under observation and changed into hospital scrubs. Their belongings were collected and placed in a locked box. Laboratory studies were ordered for mental health clearance including urinalysis and toxicology. Labs returned showing no significant abnormalities. Patient was cleared for mental health evaluation and disposition by psychiatric services. PT admitted to [facility] psychiatric unit with a diagnosis of major depressive disorder by psychiatrist Dr. Trevino. - Differential Dx/Clinical Impression Differential Diagnosis/HQI/PQRI: Positive: Acute Psychosis, Anxiety, Depression , Suicidal Ideation, Suicidal Gesture Provider Diagnosis: Major depressive disorder - Physician Notifications Discussed Care Of Patient With: Malcom Trevino - to admit patient to behavioral health unit for evaluation. Instructed by Provider To: Admit As Inpatient Discharge ED - Sign-Out/Discharge Documenting (check all that apply): Patient Departure - Discharge Plan Condition: Stable Disposition: PSYCHIATRIC FACILITY-[facility] - Billing Disposition and Condition Condition: STABLE Disposition: Psychiatric Facility [facility] - Attestation Statements Provider Attestation: I agree w JOJO documentation as above, briefly this is a 69 y/o F p/w SI in setting of MDD. TBA to psychJonna MD
[2019-12-14 09:39] LABS: ABS Basophils 0.1 10^3/ul (0-0.2); ABS Eosinophils 0.2 10^3/ul (0-0.6); ABS Lymphocytes 0.8 10^3/ul (1.0-4.8); ABS Monocytes 0.5 10^3/ul (0-0.8); ABS Neutrophils 6.1 10^3/ul (1.5-7.7); Eosinophil % 2.5 %; Hematocrit 42 % (35-47); Hemoglobin 14.1 g/dL (12.0-16.0); Lymphocyte % 9.9 %; Mean Corpuscular HGB Conc 34 g/dL (31-36); Mean Corpuscular Hemoglobin 32 pg (27-31); Mean Corpuscular Volume 94 fL (80-97); Mean Platelet Volume 9.5 fL (7.4-10.4); Platelet Count 159 10^3/uL (150-450); Red Blood Count 4.48 10^6 /uL (3.70-4.87); Red Cell Distribution Width 14 % (10-15); White Blood Count 7.6 10^3/uL (3.5-10.8)
--- OUTSIDE RECORDS SUMMARY | 2019-12-14 10:04 | XMS REPORT ---
:1950 Author Organization [facility] Care Team Providers Name Role Phone Alexus Alcantar Primary Care Physician Unavailable Allergies, Adverse Reactions, Alerts Allergy Code CodeSystem Reaction Severity Criticality Status Start Substance Date Moderate Medications Medication Medication Medication Start Stop Route Dose Status Fill Code CodeSystem Date Date Instructions venlafaxine 653450 RxNorm 2018- oral 150 mg 2 active 2 capsule 02-12 capsule, once a day extended for 30 day(s) release 24hr once a day clonazepam 19741220 RxNorm 2018- oral 2 mg completed for 30 4 05-17 tablet day(s) clonazepam 19741220 RxNorm 2018- oral 2 mg 1 completed 1 tablet at 18 08-17 tablet bedtime for at 30 day(s) bedtime trazodone 596914 RxNorm oral 50 mg 1 active 1 tablet at 4-04 tablet bedtime for at 30 day(s) bedtime clonazepam 19741220 RxNorm 2018- oral 2 mg 1 completed 1 tablet at 5-17 06-16 tablet bedtime for at 30 day(s) bedtime clonazepam 19741220 RxNorm 2018- oral 2 mg 1 completed 1 tablet at -04 05-12 tablet bedtime for at 30 day(s) bedtime aripiprazole 961620 RxNorm 2019- oral 10 mg 1 active 1 tablet 02-12 tablet once a day once a for 30 day(s) day mirtazapine 888347 RxNorm 2019- oral 30 mg 1 active 1 tablet at 12-23- tablet bedtime for at 30 day(s) bedtime clonazepam 19741220 RxNorm 2019- oral 2 mg completed for 30 6 07-18 tablet day(s) Problems Problem Name Code CodeSystem Alternate Alternate Start End Status Narrative Code CodeSystem Date Date Severe 95507766 SNOMED-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 Severe 53055911 SNOMED-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 Severe 29867567 SNOMED-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 Generalized 57452040 SNOMED-CT 2019- Active anxiety 0-15 disorder Relevant diagnostic tests/laboratory data Narrative No Information Procedures Procedure Code CodeSystem Target Date of Status Service Device Device Device Name Site Procedure Delivery Code Name UID Location SNOMED-CT () 2019-02-20 complete Mental d [facility], [id number] SNOMED-CT () 2019-03-20 complete Mental d Health[address], [id number] SNOMED-CT () 2019-03-05 complete Mental d [address], [id number] SNOMED-CT () 2019-04-17 complete Mental d [address], [id number] SNOMED-CT () 2019-04-03 complete Mental d Health[address], [id number] SNOMED-CT () 2019-09-22 complete Mental d [address], [id number] SNOMED-CT () 2019-12-02 complete Mental d Health[address], [id number] Psychotherap [id number] SNOMED-CT () 2019-06-01 complete Mental y, 45 04 d Health- minutes with [address], [id number] [id number] Psychotherap [id number] SNOMED-CT () 2019-05-05 complete Mental y, 45 04 d Health- minutes with [address], [id number] Psychotherap [id number] SNOMED-CT () 2019-05-15 complete Mental y, 45 04 d Health- minutes with [address], [id number] [id number] Psychotherap [id number] SNOMED-CT () 2019-06-30 complete Mental y, 45 04 d Health- minutes with [address], [id number] [phone] Psychotherap [id number] SNOMED-CT () 2019-06-12 complete Mental y, 45 04 d Health- minutes with [address], [id number] Psychotherap [id number] SNOMED-CT () 2019-07-28 complete Mental y, 45 04 d Health- minutes with [address], [id number] [id number] Psychotherap [id number] SNOMED-CT () 2019-08-12 complete Mental y, 45 04 d Health- minutes with [address], [id number] [id number] Psychotherap [id number] SNOMED-CT () 2019-08-18 complete Mental y, 45 04 d Health- minutes with [address], [id number] Psychotherap [id number] SNOMED-CT () 2019-08-25 complete Mental y, 45 04 d Health- minutes with [address], [id number] Psychotherap [id number] SNOMED-CT () 2019-09-01 complete Mental y, 45 04 d Health- minutes with [address], [id number] [phone] Psychotherap [id number] SNOMED-CT () 2019-09-08 complete Mental y, 45 04 d Health- minutes with [address], [id number] [id number] Psychotherap [id number] SNOMED-CT () 2019-09-15 complete Mental y, 45 04 d Health- minutes with [address], [id number] Psychotherap [id number] SNOMED-CT () 2019-09-29 complete Mental y, 45 04 d Health- minutes with [place] patient [address], [id number] [phone] Psychotherap [id number] SNOMED-CT () 2019-10-06 complete Mental y, 45 04 d Health- minutes with [address], [id number] [phone] Psychotherap [id number] SNOMED-CT () 2019-10-13 complete Mental y, 45 04 d Health- minutes with [place] patient [address], [id number] [id number] Psychotherap [id number] SNOMED-CT () 2019-10-20 complete Mental y, 45 04 d Health- minutes with [address], [id number] [id number] Psychotherap [id number] SNOMED-CT () 2019-10-27 complete Mental y, 45 04 d Health- minutes with [place], [id number] [phone] Psychotherap [id number] SNOMED-CT () 2019-11-10 complete Mental y, 45 04 d Health- minutes with [address], [id number] [phone] Psychotherap [id number] SNOMED-CT () 2019-11-03 complete Mental y, 45 04 d Health- minutes with [address], [id number] [phone] Psychotherap [id number] SNOMED-CT () 2019-11-24 complete Mental y, 45 04 d Health- minutes with [place] patient [address], [id number] [phone] Psychotherap [id number] SNOMED-CT () 2019-11-16 complete Mental y, 45 04 d Health- minutes with [place] patient [address], [id number] [phone] Group [id number] SNOMED-CT () 2019-07-30 complete Mental psychotherap 8 d Health- y (other [place] than of a [address], [place], [place], [id number] [phone] Group [id number] SNOMED-CT () 2019-03-12 complete Mental psychotherap 8 d Health- y (other [place] than of a [address] group) [place], [place], [id number] [phone] Group [id number] SNOMED-CT () 2019-03-05 complete Mental psychotherap 8 d Health- y (other [place] than of a [address] group) [place], [id number] [phone] Group [id number] SNOMED-CT () 2019-03-26 complete Mental psychotherap 8 d Health- y (other [place] than of a [address] group) [place], [place], [id number] [phone] Group [id number] SNOMED-CT () 2019-03-19 complete Mental psychotherap 8 d Health- y (other [place] than of a [address] group) [place], [id number] [phone] Group [id number] SNOMED-CT () 2019 complete Mental psychotherap 8 d Health- y (other [place] than of a [address] group) [place], [id number] [id number] Group [id number] SNOMED-CT () 2019-04-09 complete Mental psychotherap 8 d Health- y (other [place] than of a [address] group) [place], [id number] [id number] Group [id number] SNOMED-CT () 2019-04-02 complete Mental psychotherap 8 d Health- y (other [place] than of a [address] group) [place], [id number] [id number] Group [id number] SNOMED-CT () 2019-07-16 complete Mental psychotherap 8 d Health- y (other [place] than of a [address] group) [place], [id number] [phone] Group [id number] SNOMED-CT () 2019-07-23 complete Mental psychotherap 8 d Health- y (other [place] than of a [address] group) [place], [phone] Group [id number] SNOMED-CT () 2019-06-18 complete Mental psychotherap 8 d Health- y (other [place] than of a [address] group) [place], [place], [id number] [phone] Group [id number] SNOMED-CT () 2019-05-28 complete Mental psychotherap 8 d Health- y (other [place] than of a [address] group) [place], [id number] [id number] Group [id number] SNOMED-CT () 2019-08-13 complete Mental psychotherap 8 d Health- y (other [place] than of a [address] group) [place], [place], [id number] [phone] Preventive [id number] SNOMED-CT () 2019-05-29 complete Mental medicine 1 d Health- counseling [place] and/or risk [address], (s) [facility], to an [place], individual [id number] (separate [id number] procedure); approximatel y 30 minutes Office or [id number] SNOMED-CT () 2019-08-05 complete Mental other 7 d Health- outpatient [place] visit for [address] [facility] [id number] patient, [phone] which requires at least 2 of these 3 david components: An expanded problem focused history; An expanded problem focused examination; Medical decision making of low Office or [id number] SNOMED-CT () 2019-12-03 complete Mental other 7 d Health- outpatient [place] visit for [address] [facility], [facility], [facility] established [id number] patient, [phone] which requires at least 2 of these 3 david components: An expanded problem focused history; An expanded problem focused examination; Medical decision making of low Office or [id number] SNOMED-CT () 2019-10-02 complete Mental other 7 d Health- outpatient [place] visit for [address], [facility], [facility], established [id number] patient, [phone] which requires at least 2 of these 3 david components: An expanded problem focused history; An expanded problem focused examination; Medical decision making of low SNOMED-CT () 2019-07-20 complete Mental d Health[address], [id number] SNOMED-CT () 2019-06-18 complete Mental d Health[address], [id number] [phone] Office or [id number] SNOMED-CT () 2019-05-08 complete Mental other 6 d Health- outpatient [place] visit for [address] [id number] patient, [phone] which requires at least 2 of these 3 david components: A problem focused history; A problem focused examination; Straightforw don medical decision making. Counselin Encounters/Encounter Diagnoses Encounter Encounter Diagnosis Diagnosis Name Diagnosis Date of Service Name Code Code CodeSystem Diagnosis Delivery Location Non-Billable 23736 [id number] Generalized SNOMED-CT 2019-12-11 [facility] , , , Vital Signs No Information Social History Element Description Description Start End Code CodeSystem AdditionalInfo Date Date SexAssignedAtBirth Female 1950-0 F AdministrativeGender 04-16 Hospital Discharge Instructions Reason For Referral Medical Equipment FDA Assessments
[2019-12-14 10:38] LABS: TSH (Thyroid Stimulating Horm) 1.57 mcIU/mL (0.34-5.60)
[2019-12-14 10:47] LABS: Albumin 3.6 g/dL (3.2-5.2); Anion Gap 9 mmol/L (2-11); CO2 Carbon Dioxide 24 mmol/L (22-32); Calcium 8.8 mg/dL (8.6-10.3); Chloride 105 mmol/L (101-111); Potassium 3.8 mmol/L (3.5-5.0); Sodium 138 mmol/L (135-145)
[2019-12-14 10:53] LABS: ALT 20 U/L (7-52); AST 17 U/L (13-39); Albumin/Globulin Ratio 1.5 (1-3); Alkaline Phosphatase 96 U/L (34-104); BUN/Creatinine Ratio 11.8 (8-20); Blood Urea Nitrogen 11 mg/dL (6-24); EGFR African American 72.3 (>60); EGFR Non-African American 59.8 (>60); Globulin 2.4 g/dL (2-4); Glucose 130 mg/dL (70-100)
[2019-12-14 11:31] LABS: Acetaminophen < 15 mcg/mL; Alcohol < 10 mg/dL (<10); Salicylate < 2.50 mg/dL (<30)
[2019-12-14] MEDS ORDERED: Al Hydrox/Mg Hydrox/Simet LIQ* 30 ML UDC PO PRN (14:41)
[2019-12-14] MEDS ORDERED: Diclofenac Sodium EC TAB* 25 MG PO PRN (14:42)
[2019-12-14] MEDS ORDERED: hydrOXYzine HCL TAB* 50 MG PO PRN (14:44)
[2019-12-14] MEDS: PROGESTERONE PO SCH (20:14)
[2019-12-14] MEDS: CMCS: Estradiol TAB(NF) 1 MG TAB PO SCH (20:15)
[2019-12-14] MEDS: Mirtazapine TAB* 15 MG PO SCH (20:16)
[2019-12-15] MEDS: Cholecalciferol TAB* 1000 UNITS PO SCH (08:16)
[2019-12-15] MEDS: Aspirin EC TAB* 81 MG TAB.EC PO SCH (08:16)
[2019-12-15] MEDS: Spironolactone TAB* 25 MG PO SCH (08:16)
[2019-12-15] MEDS: Atorvastatin* 10 MG TAB PO SCH (08:17)
[2019-12-15] MEDS: CMCS: Estradiol TAB(NF) 1 MG TAB PO SCH ×3 (08:18→20:07)
[2019-12-15] MEDS: FLUTAMIDE 125 MG PO SCH (08:19)
[2019-12-15 08:23] LABS: HDL Cholesterol 56.5 mg/dL
[2019-12-15] MEDS ORDERED: Venlafaxine EXT RELEASE CAP* 75 MG PO SCH (09:00)
[2019-12-15] MEDS: Acetaminophen TAB* 325 MG PO PRN (12:58)
--- NOTE | 2019-12-15 13:41 | HP ---
HISTORY AND PHYSICAL: DATE OF ADMISSION: 12/14/19 PROVIDER: Mehnaz Bolaños NP, Psychiatry. SUPERVISING PHYSICIAN: Malcom Trevino MD.* (DICTATED BY MEHNAZ BOLAÑOS NP) JUSTIFICATION FOR ADMISSION: The patient is in need of 24-hour supervision and care secondary to suicidal ideation. CHIEF COMPLAINT: "It went to hell in a hand basket on Saturday." "I could in my apartment and they would not know except for the smell." HISTORY OF PRESENT ILLNESS: The patient is a 69-year-old white male to female transgender person with a history of mood disorder, who arrives brought in by ambulance and is here on a voluntary status following the breakup of a friendship that she had relied on as her lone social support. Violeta has a friend named Lidya who recently "dumped" Violeta as a friend. Lidya did this by text and apparently the problems had been going on for about 5 months. Violeta did not know that there were any problems and wishes that Lidya had told her about them sooner. Lidya called Violeta a stalker because she was constantly texting, calling, and checking the widows to see if Lidya was awake yet, as when the shades were up, she was awake and when the shades were down, she was not. As Lidya lived on the 10th floor, Violeta could look from the ground floor up and see if she was awake and if it was okay to call her. This behavior was told to Lidya who became distressed. It is not clear what exactly the precipitating event was for Lidya to call Violeta a stalker on Saturday. Nevertheless, their friendship is over and Violeta can no longer call or text or states she will not go in her apartment building except to go to the store in the summer. For the past 6 months, Violeta has lost about 40 pounds. In the past 6 weeks , she has lost 25 pounds. She states she stays in bed all day sleeping on and off. She is not eating when she is at home because cooking is a struggle for her. Violeta was in the ED recently on and was sent there by Alexus Alcantar, her therapist. The current hospitalization, she was sent here by her nurse practitioner at her general practitioner's office. Violeta has been seeing Alexus Alcantar, her therapist, at [facility] every week for quite some time. She saw Dr. Bonilla last week who started Seroquel, but Violeta said that it is not helpful. Violeta says that things that are helpful are leaving the lights on while she is sleeping at the hospital, having meals provided for her such as at the hospital, and having people to socialize with such as at the hospital. It is a more pleasant environment for Violeta to be here. Violeta's sleep has been altered: at home she sleeps a little bit during the day and a little bit at night. Her interests are reduced. She feels guilt about her relationship with Lidya. Energy is incredibly low. Her appetite is very little. She has suicidal ideation. PAST PSYCHIATRIC HISTORY: Remarkable for her previous hospitalization in 1998, one in March 2016 and one in November 2019. She has generally been stable in the outpatient setting seeing Dr. Bonilla at [facility] and her therapist Alexus at the clinic. In the past, she has been diagnosed with unspecified gender dysphoria, major depressive disorder, dependent personality disorder, and has been stable on medications and in therapy. PAST MEDICAL HISTORY: Violeta has a history of prostate cancer which is in remission. Her prostate has been removed. She currently has both back and knee pain and some issues with her wrist. SUBSTANCE ABUSE HISTORY: Unremarkable. FAMILY HISTORY: Both parents had problems with alcohol, but there is no family history of attempted or completed suicide. PERSONAL AND SOCIAL HISTORY: Violeta has never been . She was born in [facility] and is currently a resident of [facility]. 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 She is alone much of the time, although she does crave friendships. She denies being sexually active and denies any active religion affiliation. She has 3 siblings, but is not in touch with any of them. She reports she enjoys watching TV and currently is struggling with sleeping and eating. PHYSICAL EXAMINATION GENERAL APPEARANCE: Well appearing, no pain or distress, well nourished. VITAL SIGNS: On 12/15/19 at 0800, temperature is 97.9, pulse 71, respirations 14, O2 sat on room air 98, blood pressure 133/79. SKIN: Warm. Skin color reflects adequate perfusion. HEENT: Eyes: EOMI, PERRL. ENT: Hearing grossly normal. RESPIRATORY: Lung sounds clear to auscultation. Breath sounds present. CARDIOVASCULAR: RRR. S1, S2 present. MUSCULOSKELETAL: Strength; range of motion intact. NEUROLOGIC: Sensory and motor intact. Alert and oriented to person, place, time, and situation. Normal gait. Facial symmetry. Speech normal. Odd tongue movements noted. LABORATORY DATA: Most lab values are within normal limits. Exceptions include MCH high at 32, absolute lymphocytes low at 0.8, glucose high at 130, total protein low at 6.0, triglycerides 122, cholesterol 165, LDL cholesterol 84 , HDL cholesterol 56.5. Also note TSH is 1.57. No urine sample was ordered. MENTAL STATUS EXAM: Violeta is a 5-foot 5-inch, 170-pound male to female transgender person with short steward hair, a sanchez, wearing hospital scrub top and blue jeans. She is calm and cooperative. She sits appropriately while we interview her. Her speech is within normal rate, tone, and volume. She appears to be dysthymic. She has a full range of affect. Thought processes appear to be of normal rate and are sequential. Thought content is free of delusions. She is not homicidal. She is suicidal. She is not experiencing hallucinations. Her insight is fair. Her judgement is poor. She is alert and oriented x4. DIAGNOSES: Major depressive disorder, not otherwise specified; gender dysphoria ; dependent personality disorder. IMPRESSION: Violeta is a 69-year-old male to female transgender person, who comes to the hospital after a friendship with a woman named Lidya ortiz and she called Violeta a stalker, which was upsetting and left Violeta without any social supports. PLAN: The patient is admitted to the adult behavioral health unit and placed on 15- minute checks for her own safety. The patient is encouraged to participate in supportive milieu, individual and group therapies. Estimated length of stay is 5 to 7 days. We will titrate medications efficacy including increasing Effexor from 150 to 225 mg. We will explore motivating Violeta for changes in habits in the community. We will monitor for mood and thought content. Discharge planning will include outpatient providers. MEHNAZ BOLAÑOS, TRUCK BODY BUILDER APPRENTICE [id number]/[facility] #: [id number] [facility]NING HOSPITALFrankie
[2019-12-15] MEDS: Mirtazapine TAB* 15 MG PO SCH (20:06)
[2019-12-15] MEDS: PROGESTERONE PO SCH (20:07)
[2019-12-16] MEDS: CMCS: Estradiol TAB(NF) 1 MG TAB PO SCH ×3 (08:22→20:00)
[2019-12-16] MEDS: Cholecalciferol TAB* 1000 UNITS PO SCH (08:23)
[2019-12-16] MEDS: Aspirin EC TAB* 81 MG TAB.EC PO SCH (08:24)
[2019-12-16] MEDS: Venlafaxine EXT RELEASE CAP* 75 MG PO SCH (08:24)
[2019-12-16] MEDS: Spironolactone TAB* 25 MG PO SCH (08:25)
[2019-12-16] MEDS: Atorvastatin* 10 MG TAB PO SCH (08:26)
[2019-12-16] MEDS: FLUTAMIDE 125 MG PO SCH ×2 (08:26→14:31)
--- NOTE | 2019-12-16 16:06 | PN ---
Subjective - Subjective Date of Service: 12/16/19 Service Type: [id number] Hosp care 15 min low complexity Subjective: Met with the patient in the milieu where she had been seated at a table with several patients who were engaged in conversation. She reports feeling concerned about how she will "get over things with Lidya". Discussed increasing social engagement and community resources for this. She is agreeable to these but often returns the conversation to Lidya. She denies suicidal ideation and reports interest in discharge early on Saturday so that she can make appointments at the [facility] and [facility]. Objective - General Observations Appearance: Neat Appears Stated Age: Yes Stature: WNL Posture: Slumped Eye Contact: Intermittent Behavior/Activity: WNL - Interaction Observations Attitude Towards Examiner: Cooperative Stated Mood: Dysphoric Affect: Flat Speech Pattern/Tone: Normal Volume, Perseverating Thought Process: Circumstantial Thought Content: Preoccupation/Ruminations Hallucination Type: None Delusion Type: None - Cognitive Function Orientation: A&O x 4 Level of Consciousness: Awake, Alert, Appropriate Cognition: WNL Estimated Intelligence: Normal Insight: Mostly Blames Others for Problems Judgment Within Normal Limits: No Ability to Make Reasonable Decisions: Serverely Impaired - Medication Compliance Cooperative with Inpatient Medication Regimen: Yes - Group Participation Participates in Group Activities: Yes Assessment - Assessment Merits Inpatient Hospitalization: For Immediate Safety Inpatient DSM-V Dx: F33.1 Clinical Impression: Violeta is a 69-year-old male to female transgendered person diagnosed with major depressive disorder who comes to the hospital in the wake of a friendship break up with a woman named Lidya which led Violeta to consider suicide. Plan - Plan Treatment Plan: Name: VIOLETA RAUSCH Birthdate: 1950 [id number] Continued Medication Management: Continue Outpt Medication Medications: Current Medications Acetaminophen (Tylenol Tab*) 650 mg PO Q4H PRN PRN Reason: for pain; or Temp >101 F Last Admin: 12/15/19 12:58 Dose: 650 mg Al Hydrox/Mg Hydrox/Simethicone (Maalox Plus*) 30 ml PO Q4H PRN PRN Reason: INDIGESTION Aspirin (Aspirin Ec Tab*) 81 mg PO DAILY [facility] Last Admin: 12/16/19 08:24 Dose: 81 mg Atorvastatin Calcium (Lipitor*) 5 mg PO DAILY [facility] Last Admin: 12/16/19 08:26 Dose: 5 mg Cholecalciferol (Vitamin D Tab*) 5,000 units PO DAILY [facility] Last Admin: 12/16/19 08:23 Dose: 5,000 units Diclofenac Sodium (Voltaren Ec Tab*) 75 mg PO BID PRN PRN Reason: PAIN - MODERATE Last Admin: 12/15/19 16:24 Dose: 75 mg Estradiol (Estradiol Tab(Nf)) 2 mg PO TID [facility] Last Admin: 12/16/19 13:47 Dose: 2 mg Flutamide (Eulexin Cap*) 125 mg PO DAILY [facility] Last Admin: 12/16/19 14:31 Dose: 125 mg Hydroxyzine HCl (Atarax Tab*) 50 mg PO Q6H PRN PRN Reason: anxiety Mirtazapine (Remeron Tab*) 30 mg PO BEDTIME [facility] Last Admin: 12/15/19 20:06 Dose: 30 mg Progesterone (Progesterone Micronized(Nf)) 200 mg PO BEDTIME [facility]; Protocol Last Admin: 12/15/19 20:07 Dose: 200 mg Spironolactone (Aldactone Tab*) 25 mg PO DAILY [facility] Last Admin: 12/16/19 08:25 Dose: 25 mg Venlafaxine HCl (Effexor Xr Cap*) 225 mg PO DAILY [facility] Last Admin: 12/16/19 08:24 Dose: 225 mg - Discharge Plan Discharge Plan: Outpatient Follow Up Outpatient Program: [facility]
[2019-12-16] MEDS: Mirtazapine TAB* 15 MG PO SCH (19:59)
[2019-12-16] MEDS: PROGESTERONE PO SCH (20:00)
[2019-12-17] MEDS: Atorvastatin* 10 MG TAB PO SCH (08:32)
[2019-12-17] MEDS: Aspirin EC TAB* 81 MG TAB.EC PO SCH (08:32)
[2019-12-17] MEDS: CMCS: Estradiol TAB(NF) 1 MG TAB PO SCH ×3 (08:33→20:03)
[2019-12-17] MEDS: Cholecalciferol TAB* 1000 UNITS PO SCH (08:33)
[2019-12-17] MEDS: Venlafaxine EXT RELEASE CAP* 75 MG PO SCH (08:35)
[2019-12-17] MEDS: Spironolactone TAB* 25 MG PO SCH (08:35)
[2019-12-17] MEDS: FLUTAMIDE 125 MG PO SCH (09:32)
--- NOTE | 2019-12-17 11:26 | PN ---
Subjective - Subjective Date of Service: 12/17/19 Subjective: Violeta reports improved since admission. She denies any thoughts of suicide at this time. she reports stable appetite. She reports sleeping well. Violeta has been attending groups and taking meds as prescribed. No medication changes required at this time. Violeta has been encouraged to write a letter to herself stating what she wants and needs as she continues to grieve the loss of her friendship with Lidya. Discussed attending group at the [facility] which Violeta is open to. Violeta remains safe on the unit. Objective - General Observations Appearance: Disheveled Appears Stated Age: Yes Stature: WNL Posture: Slumped Eye Contact: Average Behavior/Activity: WNL - Interaction Observations Attitude Towards Examiner: Cooperative Stated Mood: Euthymic Affect: Blunted Speech Pattern/Tone: Clear, Appropriate, Normal Volume Thought Process: Coherent Perception: WNL Thought Content: WNL Hallucination Type: None Delusion Type: None - Cognitive Function Orientation: A&O x 4 Level of Consciousness: Alert Cognition: WNL Estimated Intelligence: Normal Insight: Mostly Blames Others for Problems Judgment Within Normal Limits: No Ability to Make Reasonable Decisions: Mildly Impaired - Medication Compliance Cooperative with Inpatient Medication Regimen: Yes - Group Participation Participates in Group Activities: Yes Assessment - Assessment Merits Inpatient Hospitalization: For Immediate Safety, For Stabilization, For Discharge Planning Inpatient DSM-V Dx: F33.1 Clinical Impression: Violeta is a 69-year-old male to female transgendered person diagnosed with major depressive disorder who comes to the hospital in the wake of a friendship break up with a woman named Lidya which led Violeta to consider suicide. Plan - Plan Treatment Plan: Name: VIOLETA RAUSCH Birthdate: 1950 [id number] 12.17.2019 Plan to discharge tomorrow with information for bus routes, [facility], and [facility]. Medications: Current Medications Acetaminophen (Tylenol Tab*) 650 mg PO Q4H PRN PRN Reason: for pain; or Temp >101 F Last Admin: 12/15/19 12:58 Dose: 650 mg Al Hydrox/Mg Hydrox/Simethicone (Maalox Plus*) 30 ml PO Q4H PRN PRN Reason: INDIGESTION Aspirin (Aspirin Ec Tab*) 81 mg PO DAILY [facility] Last Admin: 12/17/19 08:32 Dose: 81 mg Atorvastatin Calcium (Lipitor*) 5 mg PO DAILY [facility] Last Admin: 12/17/19 08:32 Dose: 5 mg Cholecalciferol (Vitamin D Tab*) 5,000 units PO DAILY [facility] Last Admin: 12/17/19 08:33 Dose: 5,000 units Diclofenac Sodium (Voltaren Ec Tab*) 75 mg PO BID PRN PRN Reason: PAIN - MODERATE Last Admin: 12/15/19 16:24 Dose: 75 mg Estradiol (Estradiol Tab(Nf)) 2 mg PO TID [facility] Last Admin: 12/17/19 08:33 Dose: 2 mg Flutamide (Eulexin Cap*) 125 mg PO DAILY [facility] Last Admin: 12/17/19 09:32 Dose: 125 mg Hydroxyzine HCl (Atarax Tab*) 50 mg PO Q6H PRN PRN Reason: anxiety Mirtazapine (Remeron Tab*) 30 mg PO BEDTIME [facility] Last Admin: 12/16/19 19:59 Dose: 30 mg Progesterone (Progesterone Micronized(Nf)) 200 mg PO BEDTIME [facility]; Protocol Last Admin: 12/16/19 20:00 Dose: 200 mg Spironolactone (Aldactone Tab*) 25 mg PO DAILY [facility] Last Admin: 12/17/19 08:35 Dose: 25 mg Venlafaxine HCl (Effexor Xr Cap*) 225 mg PO DAILY [facility] Last Admin: 12/17/19 08:35 Dose: 225 mg
[2019-12-17] MEDS: Mirtazapine TAB* 15 MG PO SCH (20:03)
[2019-12-17] MEDS: PROGESTERONE PO SCH (20:04)
[2019-12-17] MEDS: Acetaminophen TAB* 325 MG PO PRN (20:06)
[2019-12-18] MEDS: Cholecalciferol TAB* 1000 UNITS PO SCH (08:23)
[2019-12-18] MEDS: Aspirin EC TAB* 81 MG TAB.EC PO SCH (08:23)
[2019-12-18] MEDS: Spironolactone TAB* 25 MG PO SCH (08:24)
[2019-12-18] MEDS: Venlafaxine EXT RELEASE CAP* 75 MG PO SCH (08:24)
[2019-12-18] MEDS: CMCS: Estradiol TAB(NF) 1 MG TAB PO SCH ×2 (08:25→13:19)
[2019-12-18] MEDS: Atorvastatin* 10 MG TAB PO SCH (08:25)
[2019-12-18] MEDS: FLUTAMIDE 125 MG PO SCH (08:26)
[2019-12-18 09:29] VITALS: BP 137/70
--- NOTE | 2019-12-22 21:55 | DS ---
DISCHARGE SUMMARY: DATE OF ADMISSION: 12/14/19. DATE OF DISCHARGE: 12/18/19. PROVIDER: Mehnaz Bolaños NP, in Psychiatry. SUPERVISING PHYSICIAN: Dr. Malcom Trevino.* (DICTATED BY MEHNAZ BOLAÑOS NP) DIAGNOSES: Major depressive disorder, recurrent, moderate, dependent personality disorder, gender dysphoria. CONDITION AT THE TIME OF DISCHARGE: Violeta is improved, psychiatrically cleared and stable. She participated in groups and was social with select peers. She is agreeable to discharge. She has done well here psychiatrically. She tolerated the addition of 75 mg of Effexor XR. She will be attending [facility]. MENTAL STATUS EXAMINATION: At the time of discharge, Violeta is calm, cooperative, and makes good eye contact. She is alert and oriented x4. Her grooming is adequate. Her speech pace is normal. Her thought processes are logical. She is not psychotic or delusional. She denies AH, VH, SI, and HI. Insight and judgment are fair to good. She is willing to follow up and she is urged to see her therapist. DISCHARGE INSTRUCTIONS TO THE PATIENT: A. Medications: 1. Klonopin 2 mg in the morning. 2. Progesterone 200 mg at bedtime. 3. Spironolactone 25 mg daily 4. Aspirin AC tablets 81 mg daily. 5. Simvastatin 10 mg daily. 6. Mirtazapine 30 mg at bedtime. 7. Venlafaxine ER 225 mg daily. 8. Tylenol with Codeine 30 one tab p.o. at bedtime p.r.n. pain. 9. Estradiol 2 mg t.i.d. 10. Skelaxin 800 mg tabs p.o. q.8 hours p.r.n. pain. 11. Eulexin 125 mg p.o. daily. 12. Vitamin D tablet 5000 units daily. 13. Furosemide 40 mg p.o. daily. 14. Diclofenac 75 mg b.i.d. p.r.n. pain. 15. Hydroxyzine 50 mg q.6 hours p.r.n. anxiety. 16. Venlafaxine 225 mg daily. B. Diet is regular. C. Activities as tolerated. Violeta is a nonsmoker. There are no studies pending at the time of discharge. D. Followup care: She is referred to [facility] where she has an appointment with Alexus Alcantar on 12/22/19 at 10:45 in the morning. She has an appointment with Dr. Bonilla on 12/31/19 at 2 p.m., she has an appointment with Evita Steward on 12/21/19 at 3:30 p.m. She is going to be receiving a phone call from home health outreach coordinator Braden Owens either on 12/18/19 or 12/21/19. E. Disposition: Violeta is going back to her apartment in [facility] [address]. F. Substance abuse followup is not indicated. HOSPITAL COURSE: Part A: Chief complaint: "It went to hel in a hand basket on Saturday... I could in my apartment and they would not know except for the smell." The patient is a 69-year-old white male to female transgender person with a history of mood disorder, who arrives brought in by ambulance and is here on a voluntary status following the breakup of a friendship that she had relied on as her lone social support. Violeta has a friend named Lidya who recently "dumped" Violeta as a friend. Lidya did this by text and apparently the problems had been going on for about 5 months. Violeta did not know that there were any problems and wishes that Lidya had told her about them sooner. Lidya called Violeta a stalker because she was constantly texting, calling, and checking the widows to see if Lidya was awake yet, as when the shades were up, she was awake and when the shades were down, she was not. As Lidya lives on the 10th floor, Violeta could look from the ground floor up and see if she was awake and if it was okay to call her. This behavior was told to Lidya who became distressed. It is not clear exactly what the precipitating event was for Lidya to call Violeta a stalker on Saturday. Nevertheless, their friendship is over and Violeta can no longer or text and she states she will not go into Lidya's apartment building expect to go into the store in the summer. For the past 6 months, Violeta has lost 40 pounds. In the past 6 weeks, she has lost 25 pounds. She states she stays in bed all day sleeping on and off. She is not eating when she is at home because cooking is a struggle for her. Violeta was in the ED recently on and was sent there by Alexus Alcantar, her therapist. At the current hospitalization, she was sent here by her nurse practitioner at her general practitioner's office. Violeta has been seeing Alexus Alcantar, her therapist, at [facility] every week for quite some time. She saw Dr. Bonilla who started Seroquel, but Violeta said that is not helpful. Violeta says that things that are helpful are leaving the lights on while she is sleeping at the hospital, having meals provided for her such as at the hospital, and having people to socialize with such as at the hospital. It is a more pleasant environment for Violeta to be here. Dominicks sleep has been altered at home. She sleeps a little bit during the day and a little bit at night. Her interests are reduced. She feels guilt about her relationship with Lidya. Energy is incredibly low. Her appetite is very little. She has suicidal ideation. Part B: Psychiatric treatment was rendered. Violeta was admitted to the adult behavioral unit and placed on 15-minute checks for safety. She did advance to 30 minutes checks and staff pass privileges. She did well on the unit and went to groups. She interacted with peers well. She tolerated the addition of 75 mg of venlafaxine ER to bring her venlafaxine ER total to 225 mg per day. We discontinued Seroquel as she already has tardive dyskinesia and believed that Seroquel could make it worse. Violeta by 12/17/19 improved since admission. Denied thoughts of suicide, reports a stable appetite, reports sleeping well. Violeta has been attending groups and taking medications as prescribed. No medications were required changing on 12/17/19. Violeta has been encouraged to write a letter to herself stating what she wants and needs as she continues to grieve the loss of her friendship with Lidya. We discuss attending groups at the [facility] which Vioelta is open to. Violeta remains safe on the unit. We planned to discharge Violeta on 12/18/19 and in fact did. We gave her information on bus routes, how to get to the [facility] and how to get to [facility] which we also provided information about. We did not meet with family because Violeta is estranged from her 3 siblings. There were no consults called. She is improved. She is no longer suicidal. She has a smile on her face by the end of the trip. She was motivated to go to [facility] and to [facility]. She was curious about how to most effectively make those decisions work and was motivated to use the [employer] and the bus system to accomplish what she needed to. MEHNAZ BOLAÑOS, NINA [id number]/[facility] #: [id number] [facility]
== END 2019-12-18 15:50 | disposition home or self-care (01) | DRG 885 ==
LOC: ED 09:02 → BSU 14:41
PROVIDERS: ADMIT Psychiatry & Neurology Psychiatry; ATTEND Psychiatry & Neurology Psychiatry
DX: F33.1 Major depressive disorder, recurrent, moderate (principal); R45.851 Suicidal ideations; F64.9 Gender identity disorder, unspecified; F60.7 Dependent personality disorder; E78.00 Pure hypercholesterolemia, unspecified; I10 Essential (primary) hypertension; M17.12 Unilateral primary osteoarthritis, left knee; M47.9 Spondylosis, unspecified; F41.0 Panic disorder [episodic paroxysmal anxiety]; H26.9 Unspecified cataract; Z28.21 Immunization not carried out because of patient refusal; Z87.891 Personal history of nicotine dependence; Z88.0 Allergy status to penicillin; Z88.5 Allergy status to narcotic agent
CPT/HCPCS: 36415; 80053; 80061; 80320; 80329; 83036; 84443; 85025; 99222; 99231; 99238; 99284; A9270-GY; G0480

== ENCOUNTER 2020-01-10 14:11 | Emergency (ER) | payer MEDICARE ==
--- NOTE | 2020-01-10 14:22 | ED ---
Psychiatric Complaint - HPI Summary HPI Summary: 69 y/o female [facility] after an attempt at suicide yesterday, . 2 days ago the pt was texted by a girl for whom she had feelings. This girl accused the pt of following her, which the pt claims she was not. When the pt responded that she was not following this girl, the girl responded with a long text telling the pt to leave her alone. Yesterday, pt planned to take 8 50mg hydroxyzine pills to kill herself, but stopped after 6 pills. Pt currently has not thoughts of hurting herself or others. She is also not seeing or hearing any hallucinations. She was cooperative in the ED and is in no apparent pain. Pt notes a previous attempt to kill herself in 1998. She is being treated at [facility] for depression and gender dysphoria. At 1500 pt was cleared for MHE by Dr. Osman. Medications reviewed. Allergies noted. Home Medications Medication Instructions Recorded Confirmed Type clonazePAM TAB(*) [Klonopin TAB(*)] 2 mg PO QAM 02/18/13 12/14/19 History Progesterone CAP (NF) [Prometrium 200 mg PO BEDTIME #0 03/17/16 12/14/19 History (NF)] Spironolactone TAB* [Aldactone TAB 25 mg PO DAILY 01/31/17 12/14/19 History 25 MG*] Acetaminop/Codeine 30 MG TAB* 1 tab PO BEDTIME PRN 06/10/19 12/14/19 History [Tylenol/Codeine 30 MG TAB*] Aspirin EC TAB* [Ecotrin EC Low 81 mg PO DAILY 06/10/19 12/14/19 History Dose 81 MG*] Estradiol [Estrace] 2 mg PO TID 06/10/19 12/14/19 History Flutamide CAP* [Eulexin CAP*] 125 mg PO DAILY 06/10/19 12/14/19 History Metaxalone TAB* [Skelaxin TAB*] 800 mg PO Q8HR PRN 06/10/19 12/14/19 History Mirtazapine TAB* [Remeron TAB*] 30 mg PO BEDTIME 06/10/19 12/14/19 History Simvastatin TAB(NF) [Zocor 10 MG 10 mg PO DAILY 06/10/19 12/14/19 History (NF)] Cholecalciferol TAB* [Vitamin D 5,000 units PO DAILY 09/08/19 12/14/19 History TAB*] Diclofenac Sodium 75 mg PO BID PRN 12/14/19 12/14/19 History Furosemide TAB* [Lasix TAB*] 40 mg PO DAILY PRN 12/14/19 12/14/19 History Venlafaxine ER (NF) [Effexor ER 150 mg PO DAILY #30 cap.er 12/18/19 Rx (NF)] Venlafaxine EXT RELEASE CAP* 225 mg PO DAILY #30 cap.sr 12/18/19 Rx [Effexor Xr CAP*] hydrOXYzine HCL TAB* [Atarax TAB 50 mg PO Q6H PRN tab 12/18/19 Rx 50 MG *] - History Of Current Complaint Time Seen by Provider: 01/10/20 14:12 Hx Obtained From: Patient Onset/Duration: Resolved - suicidal thoughts Severity Currently: None Character: Depressed Aggravating Factor(s): Recent Stress Alleviating Factor(s): Nothing Associated Signs And Symptoms: Negative: Hallucinating Has Suicidal: Denies: Thoughts Has Homicidal: Denies: Thoughts Ingestion History: Type/Name Of Drug - hydroxyzine, Amount Ingested - 300mg - Allergies/Home Medications Allergies/Adverse Reactions: Allergies Allergy/AdvReac Type Severity Reaction Status Date / Time Penicillins Allergy Severe Rash Verified 12/10/19 16:21 morphine Allergy Intermediate Vomiting Verified 12/10/19 16:21 Home Medications: Home Medications clonazePAM TAB(*) [Klonopin TAB(*)] 2 mg PO QAM 02/18/13 [History Confirmed 01/28] Progesterone CAP (NF) [Prometrium (NF)] 200 mg PO BEDTIME #0 03/17/16 [History Confirmed 12/14/19] Spironolactone TAB* [Aldactone TAB 25 MG*] 25 mg PO DAILY 01/31/17 [History Confirmed 12/14/19] Acetaminop/Codeine 30 MG TAB* [Tylenol/Codeine 30 MG TAB*] 1 tab PO BEDTIME PRN 06/10/19 [History Confirmed 12/14/19] Aspirin EC TAB* [Ecotrin EC Low Dose 81 MG*] 81 mg PO DAILY 06/10/19 [History Confirmed 12/14/19] Estradiol [Estrace] 2 mg PO TID 06/10/19 [History Confirmed 12/14/19] Flutamide CAP* [Eulexin CAP*] 125 mg PO DAILY 06/10/19 [History Confirmed ] Metaxalone TAB* [Skelaxin TAB*] 800 mg PO Q8HR PRN 06/10/19 [History Confirmed 12/14/19] Mirtazapine TAB* [Remeron TAB*] 30 mg PO BEDTIME 06/10/19 [History Confirmed 01/28] Simvastatin TAB(NF) [Zocor 10 MG (NF)] 10 mg PO DAILY 06/10/19 [History Confirmed 12/14/19] Cholecalciferol TAB* [Vitamin D TAB*] 5,000 units PO DAILY 09/08/19 [History Confirmed 12/14/19] Diclofenac Sodium 75 mg PO BID PRN 12/14/19 [History Confirmed 12/14/19] Furosemide TAB* [Lasix TAB*] 40 mg PO DAILY PRN 12/14/19 [History Confirmed 01/28] Venlafaxine ER (NF) [Effexor ER (NF)] 150 mg PO DAILY #30 cap.er 12/18/19 [Rx] Venlafaxine EXT RELEASE CAP* [Effexor Xr CAP*] 225 mg PO DAILY #30 cap.sr [Rx] hydrOXYzine HCL TAB* [Atarax TAB 50 MG *] 50 mg PO Q6H PRN tab 12/18/19 [Rx] PMH/Surg Hx/FS Hx/Imm Hx Endocrine/Hematology History: Denies: Hx Diabetes, Hx Thyroid Disease Cardiovascular History: Reports: Hx Hypercholesterolemia, Hx Hypertension - ON MEDICATION FOR, Other Cardiovascular Problems/Disorders - Elevated cholesterol Denies: Hx Pacemaker/ICD Respiratory History: Reports: Other Respiratory Problems/Disorders - Pneumonia, history of Denies: Hx Asthma, Hx Chronic Obstructive Pulmonary Disease (COPD) GI History: Reports: Other GI Disorders - GALLSTONES Denies: Hx Ulcer History: Reports: Other Problems/Disorders - HX OF PROSTATE CANCER- SURGERY FOR Denies: Hx Renal Disease Musculoskeletal History: Reports: Hx Arthritis - LEFT KNEE AND LEFT LOWER BACK Denies: Other Musculoskeletal History Sensory History: Reports: Hx Cataracts - BILATERAL, Hx Contacts or Glasses - glasses, Hx Hearing Aid - left ear hearing aide on Denies: Hx Glaucoma Opthamlomology History: Reports: Hx Cataracts - BILATERAL, Hx Contacts or Glasses - glasses Denies: Hx Glaucoma Neurological History: Denies: Other Neuro Impairments/Disorders Psychiatric History: Reports: Hx Anxiety, Hx Depression, Hx Panic Disorder, Hx Inpatient Treatment, Hx Community Mental Health Tx Denies: Hx Eating Disorder, Hx Post Traumatic Stress Disorder, Hx Schizophrenia, Hx Bipolar Disorder, Hx Suicide Attempt - [facility] about jumped of rock, 1998 thought about jumping, Hx of Violent Episodes Against Others, Hx Substance Abuse - Cancer History Cancer Type, Location and Year: PROSTATE Hx Chemotherapy: No Hx Radiation Therapy: No - Surgical History Surgery Procedure, Year, and Place: 2001 REMOVED PROSTATE, 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 tonsillectomy as a child Hx Anesthesia Reactions: No - Immunization History Date of Tetanus Vaccine: unk Date of Influenza Vaccine: fall 2015 Infectious Disease History: Denies: Hx Hepatitis, Hx Human Immunodeficiency Virus (HIV), Hx of Known/ Suspected MRSA - Family History Known Family History: Positive: Diabetes, Other - CVA - Social History Alcohol Use: None Alcohol Amount: NONE SINCE 1986 AND 2002- STATES WAS AN ALCOHOLIC Hx Substance Use: No Substance Use Type: Reports: Prescribed Substance Use Comment - Amount & Last Used: tylenol w/ codeine Hx Tobacco Use: Yes Smoking Status (MU): Former Smoker Amount Used/How Often: 1 ppd 10 years Have You Smoked in the Last Year: No Review of Systems Negative: Myalgia Positive: Depressed All Other Systems Reviewed And Are Negative: Yes Physical Exam - Summary Physical Exam Summary: Constitutional: Well-developed, Well-nourished, Alert. (-) Distressed Skin: Warm, Dry HENT: Normocephalic; Atraumatic Eyes: Conjunctiva normal Neck: Musculoskeletal ROM normal neck. (-) JVD, (-) Stridor, (-) Tracheal deviation Cardio: Rhythm regular, rate normal, Heart sounds normal; Intact distal pulses; Radial pulses are 2+ and symmetric. (-) Murmur Pulmonary/Chest wall: Effort normal. (-) Respiratory distress, (-) Wheezes, (-) Rales Abd: Soft, (-) tenderness, (-) Distension, (-) Guarding, (-) Rebound Musculoskeletal: (-) Edema, Good pulses bilaterally in radius, No calf tenderness, No venous cords, No pain with dorsiflexion of foot. Lymph: (-) Cervical adenopathy Neuro: Alert, Oriented x3 Psych: Mood and affect Normal Triage Information Reviewed: Yes Vital Signs Reviewed: Yes Procedures - Sedation Patient Received Moderate/Deep Sedation with Procedure: No Diagnostics - Laboratory Result Diagrams: 01/10/20 14:31 01/10/20 14:31 Lab Statement: Any lab studies that have been ordered have been reviewed, and results considered in the medical decision making process. Course/Dx - Course Course Of Treatment: Patient is seen here with suicidal gesture that occurred yesterday. Patient currently denies any suicidal ideation. Patient was medically cleared by myself. Patient was evaluated by the mental health team and they deemed her appropriate for outpatient treatment. - Differential Dx/Clinical Impression Provider Diagnosis: Major depression - Physician Notifications Discussed Care Of Patient With: Timoteo Singh Time Discussed With Above Provider: 16:29 Instructed by Provider To: Other - After MHE of pt, Dr. Gongora diagnosed the pt with major depression and discharged the pt. Discharge ED - Sign-Out/Discharge Documenting (check all that apply): Patient Departure - dc - Discharge Plan Condition: Stable Disposition: HOME Referrals: [facility] [Outside] - As Soon As Possible (Keepp your Saturday and appointment ) Elizabeth Romero MD [Primary Care Provider] - - Billing Disposition and Condition Condition: STABLE Disposition: Home - Attestation Statements Document Initiated by Scribe: Yes Documenting Scribe: Tank Sales Provider For Whom Alize is Documenting (Include Credential): Hussain Osman MD Scribe Attestation: Tank Velasco, scribed for Hussain Osman MD on 01/10/20 at 1750. Scribe Documentation Reviewed: Yes Provider Attestation: The documentation as recorded by the Tank mari accurately reflects the service I personally performed and the decisions made by me, Hussain Osman MD Status of Scribe Document: Viewed
[2020-01-10 14:43] LABS: ABS Monocytes 0.4 10^3/ul (0-0.8); ABS Neutrophils 7.6 10^3/ul (1.5-7.7); Eosinophil % 0.4 %; Hematocrit 41 % (35-47); Lymphocyte % 10.8 %; Mean Corpuscular HGB Conc 34 g/dL (31-36); Mean Corpuscular Hemoglobin 32 pg (27-31); Mean Corpuscular Volume 94 fL (80-97); Mean Platelet Volume 8.7 fL (7.4-10.4); Platelet Count 208 10^3/uL (150-450); Red Blood Count 4.35 10^6 /uL (3.70-4.87); Red Cell Distribution Width 14 % (10-15)
[2020-01-10 15:00] LABS: ALT 21 U/L (7-52); AST 20 U/L (13-39); Albumin 4.3 g/dL (3.2-5.2); Albumin/Globulin Ratio 1.9 (1-3); Alkaline Phosphatase 76 U/L (34-104); Anion Gap 13 mmol/L (2-11); BUN/Creatinine Ratio 21.3 (8-20); Blood Urea Nitrogen 20 mg/dL (6-24); CO2 Carbon Dioxide 21 mmol/L (22-32); Calcium 9.7 mg/dL (8.6-10.3); Chloride 101 mmol/L (101-111); EGFR African American 71.4 (>60); Globulin 2.3 g/dL (2-4); Glucose 94 mg/dL (70-100); Potassium 4.1 mmol/L (3.5-5.0); Sodium 135 mmol/L (135-145); Total Protein 6.6 g/dL (6.4-8.9)
--- OUTSIDE RECORDS SUMMARY | 2020-01-10 15:28 | XMS REPORT | Continuity of Care Document ---
:1950 External Reference #:[id number] Author Name Evita Steward, NINA Address [address] [place] [address] Care Team Providers Name Role Phone Other Specialty Care Team Information Dual Hose Cementer Unavailable Denise Jorgensen - Family Medicine Care Team Information Dual Hose Cementer [phone] [facility] & Care Team Information Dual Hose Cementer [phone] lymphedema - Physical Therapist [facility] Physical Care Team Information Dual Hose Cementer Therapy - Physical Therapy Ashley Parker - Pulmonary Disease Care Team Information Dual Hose Cementer Problems Active Problems Provider Date Gender dysphoria [...] a former smoker Unknown Smoking Status Reviewed: 02/03/20 Patient is a former smoker Allergies, Adverse [...] 90units N39.3 Elizabeth Romero, 2016 Men Large/Xlarge M.D. Maximum Absorbency Mis Z85.46 R32 Spironolactone take one-half 15tabs I10 Elizabeth Romero M.D. 07/26/2016 50mg Tablets tablet by mouth every day Aspirin Ec 1 by mouth every Unknown 81mg Tablets DR day Progesterone Micronized take 1 capsule by Unknown 200mg mouth at bedtime Capsules Klonopin 1 PO qam Unknown 2mg Tablets Vitamin D 1 by mouth every Unknown 5000Units Tablets day Furosemide 1 tab by mouth 30tabs Teresereji Carpio, 40mg Tablets once daily as [employer] needed for leg swelling Simvastatin Take One Tablet By 90tabs E78.2 Elizabeth oRmero M.D. 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 Immunizations CPT Code Status Date Vaccine Lot # [id number] Given 09/14/2019 High-Dose, Influenza Virus Vacccine-fluzone 65 and [id number] older 50142 Given 08/07/2018 High-Dose, Influenza Virus Vacccine-fluzone 65 and [id number] older 33050 Given 07/29/2017 Influenza Vac, Quadrivalent, Slit Virus, Im [id number] 49858 Given 09/11/2016 Pneumococcal Conjugate Vacc-13 [id number] 77505 Given 05/31/2015 Pneumococcal Immunization [id number] 76563 Given 05/31/2015 Tdap Tetanus, W Pertussis [id number] 38029 Given 07/23/2014 Influenza vac quadrivalent preservative free 6 months and up 27888 Given 07/23/2013 Influenza Vac, [place] [address] Given 07/18/2012 Zostivax 02152 Given 07/18/2012 Influenza Vac, [place] [address] Given 04/17/2010 Tdap Tetanus, W Pertussis Vital Signs Date Vital Result Comment 12/21/2019 3:20pm BP Systolic 116 mmHg BP Diastolic 64 mmHg Heart Rate 92 /min Body Temperature 97.2 F Respiratory Rate 16 /min Height 65.75 inches 5'5.75" Weight 177.00 lb BMI (Body Mass Index) 28.8 kg/m2 12/14/2019 8:03am BP Systolic 110 mmHg BP Diastolic 80 mmHg Heart Rate 84 /min Body Temperature 98.4 F Respiratory Rate 18 /min Height 65.75 inches 5'5.75" Weight 174.00 lb BMI (Body Mass Index) 28.3 kg/m2 Results Test Acquired Date Facility Test Result H/L Range Note CBC Auto Diff 12/14/2019 [facility] White Blood 7.6 10^3/uL Normal 3.5-10.8 Count Red Blood Count 4.48 10^6/uL Normal 3.70-4.87 Hemoglobin 14.1 g/dL Normal 12.0-16.0 Hematocrit 42 % Normal 35-47 Mean Corpuscular Volume 94 fL Normal 80-97 Mean Corpuscular Hemoglobin 32 pg High 27-31 Mean Corpuscular HGB Conc 34 g/dL Normal 31-36 Red Cell Distribution Width 14 % Normal 10-15 Platelet Count 159 10^3/uL Normal 150-450 Mean Platelet Volume 9.5 fL Normal 7.4-10.4 Abs Neutrophils 6.1 10^3/uL Normal 1.5-7.7 Abs Lymphocytes 0.8 10^3/uL Low 1.0-4.8 Abs Monocytes 0.5 10^3/uL Normal 0-0.8 Abs Eosinophils 0.2 10^3/uL Normal 0-0.6 Abs Basophils 0.1 10^3/uL Normal 0-0.2 Abs Nucleated RBC 0.0 10^3/uL Granulocyte % 80.6 % Lymphocyte % 9.9 % Monocyte % 6.3 % Eosinophil % 2.5 % Basophil % 0.7 % Nucleated Red Blood Cells % 0.0 Laboratory test 12/14/2019 [facility] TSH (Thyroid Stim 1.57 mcIU/mL Normal 0.34 -5.60 finding Horm) Comp Metabolic Panel 12/14/2019 [facility] Sodium 138 mmol/L Normal 135-145 Potassium 3.8 mmol/L Normal 3.5-5.0 Chloride 105 mmol/L Normal 101-111 Co2 Carbon Dioxide 24 mmol/L Normal 22-32 Anion Gap 9 mmol/L Normal 2-11 Calcium 8.8 mg/dL Normal 8.6-10.3 Albumin 3.6 g/dL Normal 3.2-5.2 Total Bilirubin 0.80 mg/dL Normal 0.2-1.0 Glucose 130 mg/dL High 70-100 Blood Urea Nitrogen 11 mg/dL Normal 6-24 Creatinine 0.93 mg/dL Normal 0.51-0.95 BUN/Creatinine Ratio 11.8 Normal 8-20 Total Protein 6.0 g/dL Low 6.4-8.9 Globulin 2.4 g/dL Normal 2-4 Albumin/Globulin Ratio 1.5 Normal 1-3 Alkaline Phosphatase 96 U/L Normal 34-104 Alt 20 U/L Normal 7-52 Ast 17 U/L Normal 13-39 Egfr Non- 59.8 >60 Egfr 72.3 >60 1 Laboratory test finding 12/14/2019 [facility] Acetaminophen < 15 g/mL 2 Alcohol < 10 mg/dL Normal <10 Salicylate < 2.50 mg/dL <30 CBC Auto Diff 12/10/2019 [facility] White Blood Count 8.5 10^3/uL Normal 3.5- 10.8 Red Blood Count 4.44 10^6/uL Normal 3.70-4.87 Hemoglobin 14.3 g/dL Normal 12.0-16.0 Hematocrit 42 % Normal 35-47 Mean Corpuscular Volume 94 fL Normal 80-97 Mean Corpuscular Hemoglobin 32 pg High 27-31 Mean Corpuscular HGB Conc 34 g/dL Normal 31-36 Red Cell Distribution Width 14 % Normal 10-15 Platelet Count 178 10^3/uL Normal 150-450 Mean Platelet Volume 9.4 fL Normal 7.4-10.4 Abs Neutrophils 7.1 10^3/uL Normal 1.5-7.7 Abs Lymphocytes 0.8 10^3/uL Low 1.0-4.8 Abs Monocytes 0.5 10^3/uL Normal 0-0.8 Abs Eosinophils 0.1 10^3/uL Normal 0-0.6 Abs Basophils 0.0 10^3/uL Normal 0-0.2 Abs Nucleated RBC 0.0 10^3/uL Granulocyte % 83.4 % Lymphocyte % 9.4 % Monocyte % 6.1 % Eosinophil % 0.9 % Basophil % 0.2 % Nucleated Red Blood Cells % 0.0 Laboratory test finding 12/10/2019 [facility] Alcohol < 10 mg/dL Normal <10 Salicylate < 2.50 mg/dL <30 Comp Metabolic Panel 12/10/2019 [facility] Sodium 136 mmol/L Normal 135-145 Potassium 4.0 mmol/L Normal 3.5-5.0 Chloride 104 mmol/L Normal 101-111 Co2 Carbon Dioxide 24 mmol/L Normal 22-32 Anion Gap 8 mmol/L Normal 2-11 Glucose 92 mg/dL Normal 70-100 Blood Urea Nitrogen 17 mg/dL Normal 6-24 Creatinine 0.87 mg/dL Normal 0.51-0.95 BUN/Creatinine Ratio 19.5 Normal 8-20 Calcium 9.0 mg/dL Normal 8.6-10.3 Total Protein 6.3 g/dL Low 6.4-8.9 Albumin 3.8 g/dL Normal 3.2-5.2 Globulin 2.5 g/dL Normal 2-4 Albumin/Globulin Ratio 1.5 Normal 1-3 Total Bilirubin 0.70 mg/dL Normal 0.2-1.0 Alkaline Phosphatase 94 U/L Normal 34-104 Alt 25 U/L Normal 7-52 Ast 19 U/L Normal 13-39 Egfr Non- 64.6 >60 Egfr 78.1 >60 3 Laboratory test 12/10/2019 [facility] TSH (Thyroid Stim 1.67 mcIU/mL Normal 0.34 -5.60 finding Horm) Acetaminophen < 15 g/mL 4 Laboratory test finding 11/28/2019 [facility] Acetaminophen < 15 g/mL 5 Alcohol < 10 mg/dL Normal <10 Salicylate < 2.50 mg/dL <30 TSH (Thyroid Stim Horm) 2.32 mcIU/mL Normal 0.34-5.60 Comp Metabolic Panel 11/28/2019 [facility] Sodium 137 mmol/L Normal 135-145 Potassium 4.0 mmol/L Normal 3.5-5.0 Chloride 103 mmol/L Normal 101-111 Co2 Carbon Dioxide 26 mmol/L Normal 22-32 Anion Gap 8 mmol/L Normal 2-11 Glucose 107 mg/dL High 70-100 Blood Urea Nitrogen 16 mg/dL Normal 6-24 Creatinine 0.84 mg/dL Normal 0.51-0.95 BUN/Creatinine Ratio 19.0 Normal 8-20 Calcium 9.6 mg/dL Normal 8.6-10.3 Total Protein 6.5 g/dL Normal 6.4-8.9 Albumin 3.9 g/dL Normal 3.2-5.2 Globulin 2.6 g/dL Normal 2-4 Albumin/Globulin Ratio 1.5 Normal 1-3 Total Bilirubin 0.70 mg/dL Normal 0.2-1.0 Alkaline Phosphatase 101 U/L Normal 34-104 Alt 29 U/L Normal 7-52 Ast 23 U/L Normal 13-39 Egfr Non- 67.2 >60 Egfr 81.3 >60 6 CBC Auto Diff 11/28/2019 [facility] White Blood Count 8.1 10^3/uL Normal 3.5- 10.8 Red Blood Count 4.70 10^6/uL Normal 3.70-4.87 Hemoglobin 15.4 g/dL Normal 12.0-16.0 Hematocrit 44 % Normal 35-47 Mean Corpuscular Volume 93 fL Normal 80-97 Mean Corpuscular Hemoglobin 33 pg High 27-31 Mean Corpuscular HGB Conc 35 g/dL Normal 31-36 Red Cell Distribution Width 13 % Normal 10-15 Platelet Count 188 10^3/uL Normal 150-450 Mean Platelet Volume 9.8 fL Normal 7.4-10.4 Abs Neutrophils 6.5 10^3/uL Normal 1.5-7.7 Abs Lymphocytes 1.0 10^3/uL Normal 1.0-4.8 Abs Monocytes 0.5 10^3/uL Normal 0-0.8 Abs Eosinophils 0.2 10^3/uL Normal 0-0.6 Abs Basophils 0.1 10^3/uL Normal 0-0.2 Abs Nucleated RBC 0.0 10^3/uL Granulocyte % 79.7 % Lymphocyte % 11.8 % Monocyte % 5.7 % Eosinophil % 2.2 % Basophil % 0.6 % Nucleated Red Blood Cells % 0.0 Laboratory test finding 11/12/2019 [facility]) PSA <0.1 ng/mL Low 0.0-4.0 7 Comprehensive Metabolic 11/12/2019 Sebastian Page([facility]) Sodium 139 mEq/L 134-149 Prof Potassium 3.8 mEq/L 3.6-5.5 Chloride 98 mEq/L 94-112 Carbon Dioxide 25 mEq/L 21-32 Glucose 140 mg/dL High 70-105 8 BUN 13 mg/dL 6-26 Creatinine 0.9 mg/dL 0.6-1.4 BUN/Creat Ratio 14.4 CALC 8.0-36.0 Calcium 9.5 mg/dL 8.6-10.2 Total Protein 7.0 g/dL 6.4-8.3 Albumin 4.5 g/dL 3.8-5.5 Globulin 2.5 g/dL 2.0-4.8 A/G Ratio 1.8 CALC 0.6-2.3 Alk. Phosphatase 113 U/L High 22-95 9 Alt (SGPT) 22 U/L 7-35 Ast (Sgot) 20 U/L 5-34 Total Bilirubin 0.8 mg/dL 0.2-1.3 GFR Non- >60 ml/min/1.73m^ >=60 GFR >60 ml/min/1.73m^ >=60 Lipid Profile 11/12/2019 Sebastian Page([facility]) Cholesterol 187 mg/dL 120- 200 Triglycerides 163 mg/dL 30-200 HDL Cholesterol 60 mg/dL 30-70 LDL (Calculated) 94 CALC 0-129 VLDL Cholesterol 33 mg/dL 0-50 HDL Risk Factor 3.1 CALC 0.0-4.4 CBC Electronic Fma 11/12/2019 Sebastian Page([facility]) WBC 8.6 x10^3/UL 4.0- 10.0 RBC 4.94 x10^6/UL 3.93-6.00 HGB 15.7 g/dL 12.0-17.0 HCT 47 % 35-50 MCV 95.1 fL High 80.0-95.0 10 MCH 31.8 pg 25.6-32.2 MCHC 33.4 g/dL 32.2-36.0 RDW-CV 13.0 % 11.6-14.4 PLT 205 x10^3/UL 163-400 MPV 11.7 fL 9.4-12.4 Tricia# 6.01 x10^3/UL 1.56-6.13 Lymph# 1.65 x10^3/UL 1.18-3.74 Faulk# 0.67 x10^3/UL 0.24-0.82 Eos # 0.3 x10^3/UL 0.0-0.5 Baso # 0.03 x10^3/UL 0.01-0.08 Tricia% 69.8 % 34.0-70.0 Lymph % 19.1 % Low 20.0-52.0 11 Faulk% 7.8 % 5.0-12.0 Eos% 2.9 % 0.7-7.0 Baso% 0.3 % 0.1-1.2 Laboratory test 11/12/2019 [facility] Hemoglobin A1c 5.5% % 4.1- 5.7 finding (607)- - (Fma) 1 Because ethnic data is not always readily [...] 15-29 5 Kidney failure <15 (or dialysis) 2 Therapeutic concentration: <50 ug/mL Toxic concentration: >120 ug/mL 3 Because ethnic data is not always readily [...] 15-29 5 Kidney failure <15 (or dialysis) 4 Therapeutic concentration: <50 ug/mL Toxic concentration: >120 ug/mL 5 Therapeutic concentration: <50 ug/mL Toxic concentration: >120 ug/mL 6 Because ethnic data is not always readily [...] 15-29 5 Kidney failure <15 (or dialysis) 7 consistent w/ previous results 8 consistent w/ previous results 9 consistent w/ previous results 10 RESULTS VERIFIED BY REPEAT ANALYSIS 11 RESULTS VERIFIED BY REPEAT ANALYSIS Procedures Date Code Description Status 12/25/2017 [id number] Mammogram Completed 12/28/2016 [id number] Mammogram Completed Medical Devices Description No Information Available Encounters Type Date Location Provider Dx Diagnosis Office Visit 12/14/2019 Main Office Evita Cardona F33.9 Major depressive 8:00a NINA Steward disorder, recurrent, unspecified R45.851 Suicidal ideations Z91.5 Personal history of self-harm F64.9 Gender identity disorder, unspecified Office Visit 11/26/2019 8:00a Main Office Elizabeth Romero, F33.9 Major depressive M.D. 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 R26.89 Other abnormalities of gait and mobility Office Visit 09/14/2019 9:00a Main Office Mame S09.90xA Unspecified injury Alysa, Afnp-C of head, initial encounter S09.90xD Unspecified injury of head, subsequent encounter S00.31xA Abrasion of nose, initial encounter Z23 Encounter for immunization W22.8xxA Striking against or struck by other objects, init encntr Assessments Date Code Description Provider 12/21/2019 F33.9 Major depressive disorder, recurrent, Evita Steward NP unspecified 12/21/2019 R45.851 Suicidal ideations Evita Steward NP 12/21/2019 Z91.5 Personal history of self-harm Evita Steward NP 12/21/2019 Z63.9 Problem related to primary support Evita Steward NP group, unspecified 12/21/2019 F41.9 Anxiety disorder, unspecified Evita Steward NP 12/14/2019 F33.9 Major depressive disorder, recurrent, Evita Stweard NP unspecified 12/14/2019 R45.851 Suicidal ideations Evita Steward NP 12/14/2019 Z91.5 Personal history of self-harm Evita Steward NP 12/14/2019 F64.9 Gender identity disorder, unspecified Evita Steward NP 11/26/2019 F33.9 Major depressive disorder, recurrent, Elizabeth [...] 09/29/2019 R10.10 Upper abdominal pain, unspecified Evita Steward, NINA 09/15/2019 R10.10 Upper abdominal pain, unspecified Evita Steward, NINA 09/15/2019 R26.89 Other abnormalities of gait and mobility Evita Steward, NINA 09/14/2019 S09.90xA Unspecified injury of head, initial Caroline Timmons encounter 09/14/2019 S09.90xD Unspecified injury of head, subsequent Caroline Timmons encounter 09/14/2019 S00.31xA Abrasion of nose, initial encounter Caroline Timmons 09/14/2019 Z23 Encounter for immunization Caroline Timmons 09/14/2019 W22.8xxA Striking against or struck by other Caroline Timmons objects, initial encounter Plan of Treatment 12/21/2019 - Evita Steward, NINAF33.9 Major depressive disorder, recurrent, unspecifiedComments:Marked improvementset up with [facility] sjxyrvzqJ21.851 Suicidal ideationsComments:National Suicide Prevention LifelineCall A54.5 Personal history of self-harmComments:improving, good resources set upZ63.9 Problem related to primary support group, unspecifiedComments:Working with office of the [employer] for a mqnxvC50.9 Anxiety disorder, unspecifiedComments:[facility] Rx'd Hydroxyzine PRN anxiety but never sent to [facility], needs Rx Taking medicine and going to talk therapy can get you started on the road to feeling better. It can also help you take care of your body and relationships. To help improve your condition:Get enough sleep.Eat healthy foods.Keep a regular daily schedule.Get out of the house every day.Exercise every day. Even a little bit of exercise, such as a 15-minute walk, can help.Stay away from alcohol and street drugs.Talk with family or friends when you feel nervous or frightened.Find out about different types of group activities you can join.AllComments:Medication Management Patient Understands medications he 's taking? Yes No Are there Barriers to Adherence? Yes No Has the patient been asked about herbal supplements and therapies, andOTC meds? Yes No Care Plan1. Patient has been queried about patient's goals/ preferences and functional/lifestyle goals at relevant visits. If relevant, describe: na2. Treatment goals as explained to the patient: above3. Are there barriers to meeting treatment goals? Yes No If Yes, please describe: comorbid condition, disease process, polypharmacy, financial, social support 4. Self-Management goals as described to the patient: Yes NoAs always, we strongly encourage a healthy diet and making physical activity a part of your every day life. If you have questions about how or where to start, please contact the office. Functional Status Description No Information Available Mental Status Description No Information Available Referrals Refer to Reason for Referral Status Appt Date [facility] Physical PHYSICAL THERAPY evaluate and Scheduled / Therapy treat gait and mobility--increase in falls. Order faxed. Pt will call to schedule his own appt. [address] [place] [address] [phone]
--- OUTSIDE RECORDS SUMMARY | 2020-01-10 15:29 | XMS REPORT ---
:1950 Author Organization [facility] Care Team Providers Name Role Phone Alexus Alcantar Primary Care Physician Unavailable Allergies, Adverse Reactions, Alerts Allergy Code CodeSystem Reaction Severity Criticality Status Start Substance Date Moderate Medications Medication Medication Medication Start Stop Route Dose Status Fill Code CodeSystem Date Date Instructions clonazepam 19741220 RxNorm 2018- oral 2 mg completed for 30 04-28 07-18 tablet day(s) clonazepam 19741220 RxNorm 2018- oral 2 mg 1 completed 1 tablet at 05-28 08-17 tablet bedtime for at 30 day(s) bedtime clonazepam 19741220 RxNorm 2018- oral 2 mg 1 completed 1 tablet at 03-27 06-16 tablet bedtime for at 30 day(s) bedtime aripiprazole 883954 RxNorm 2018- oral 10 mg 1 active 1 tablet 02-12 tablet once a day once a for 30 day(s) day venlafaxine 325609 RxNorm 2018- oral 150 mg 2 active 2 capsule 02-12 capsule, once a day extended for 30 day(s) release 24hr once a day clonazepam 19741220 RxNorm 2018- oral 2 mg completed for 30 02-20 05-17 tablet day(s) mirtazapine 741119 RxNorm 2018- oral 30 mg 1 active 1 tablet at 12-23-26 tablet bedtime for at 30 day(s) bedtime clonazepam 19741220 RxNorm 2018- oral 2 mg 1 completed 1 tablet at - 05-12 tablet bedtime for at 30 day(s) bedtime trazodone 612384 RxNorm oral 50 mg 1 active 1 tablet at 4-04 tablet bedtime for at 30 day(s) bedtime Problems Problem Name Code CodeSystem Alternate Alternate Start End Status Narrative Code CodeSystem Date Date Severe 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 SNOMED-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 Severe 16516632 SNOMED-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 Generalized 68340376 SNOMED-CT 2019-1 Active anxiety 0-15 disorder Severe 78484242 SNOMED-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 Relevant diagnostic tests/laboratory data Narrative No Information Procedures Procedure Code CodeSystem Target Date of Status Service Device Device Device Name Site Procedure Delivery Code Name UID Location SNOMED-CT () 2019-02-20 complete Mental d Health- [address], [id number] SNOMED-CT () 2019-03-20 complete Mental d Health- [address], [id number] Group [id number] SNOMED-CT () 2019-03-05 complete Mental psychotherap 8 d Health- y (other [place] than of a [address], [id number] [id number] SNOMED-CT () 2019-03-05 complete Mental d Health- [address], [id number] Group [id number] SNOMED-CT () 2019-03-12 complete Mental psychotherap 8 d Health- y (other [place] than of a [address], [id number] SNOMED-CT () 2019-04-17 complete Mental d Health- [facility], [id number] [id number] Psychotherap [id number] SNOMED-CT () 2019-05-05 complete Mental y, 45 04 d Health- minutes with [place] patient [address], [id number] [phone] Office or [id number] SNOMED-CT () 2019-05-08 complete Mental other 6 d Health- outpatient [place] visit for [address], of an [place], established [id number] patient, [id number] which requires at least 2 of these 3 david components: A problem focused history; A problem focused examination; Straightforw don medical decision making. Counselin Psychotherap [id number] SNOMED-CT () 2019-05-15 complete Mental y, 45 04 d Health- minutes with [place] patient [address], [id number] [phone] Preventive [id number] SNOMED-CT () 2019-05-29 complete Mental medicine 1 d Health- counseling [place] and/or risk [address], (s) provided [place], to an [place], individual [id number] (separate [id number] procedure); approximatel y 30 minutes Group [id number] SNOMED-CT () 2019-03-26 complete Mental psychotherap 8 d Health- y (other [place] than of a [address] group) [place], [place], [id number] Group [id number] SNOMED-CT () 2019-03-19 complete Mental psychotherap 8 d Health- y (other [place] than of a [address] group) [place], [place], [id number] [id number] Psychotherap [id number] SNOMED-CT () 2019-06-01 complete Mental y, 45 04 d Health- minutes with [place] patient [address], [id number] SNOMED-CT () 2019-06-18 complete Mental d Health- [place] [address], [id number] Group [id number] SNOMED-CT () 2019-06-18 complete Mental psychotherap 8 d Health- y (other [place] than of a [address] group) [place], [place], [id number] [id number] Psychotherap [id number] SNOMED-CT () 2019-06-30 complete Mental y, 45 04 d Health- minutes with [place] patient [address], [id number] [id number] Psychotherap [id number] SNOMED-CT () 2019-06-12 complete Mental y, 45 04 d Health- minutes with [place] patient [address], [id number] [id number] SNOMED-CT () 2019-04-03 complete Mental d Health- [place] [address], [id number] Group [id number] SNOMED-CT () 2019 complete Mental psychotherap 8 d Health- y (other [place] than of a [address] group) [place], [place], [id number] Group [id number] SNOMED-CT () 2019-04-09 complete Mental psychotherap 8 d Health- y (other [place] than of a [address] group) [place], [place], [id number] Group [id number] SNOMED-CT () 2019-04-02 complete Mental psychotherap 8 d Health- y (other [place] than of a [address] group) [place], [place], [id number] Group [id number] SNOMED-CT () 2019-07-16 complete Mental psychotherap 8 d Health- y (other [place] than of a [address] group) [place], [place], [id number] Group [id number] SNOMED-CT () 2019-07-23 complete Mental psychotherap 8 d Health- y (other [place] than of a [address] group) [place], [place], [id number] SNOMED-CT () 2019-07-20 complete Mental d Health- [place] [address], [id number] [id number] Psychotherap [id number] SNOMED-CT () 2019-07-28 complete Mental y, 45 04 d Health- minutes with Idania patient [address], [id number] [phone] Group [id number] SNOMED-CT () 2019-07-30 complete Mental psychotherap 8 d Health- y (other [place] than of a [address] group) [place], [place], [id number] [phone] Office or [id number] SNOMED-CT () 2019-08-05 complete Mental other 7 d Health- outpatient [place] visit for [address], of an [place], established [id number] patient, [id number] which requires at least 2 of these 3 david components: An expanded problem focused history; An expanded problem focused examination; Medical decision making of [facility] Group [id number] SNOMED-CT () 2019-05-28 complete Mental psychotherap 8 d Health- y (other [place] than of a [address]) [place], [place], [id number] Group [id number] SNOMED-CT () 2019-08-13 complete Mental psychotherap 8 d Health- y (other [place] than of a [address]) [place], [place], [id number] Psychotherap [id number] SNOMED-CT () 2019-08-12 complete Mental y, 45 04 d Health- minutes with [place] patient [address], [id number] [phone] Psychotherap [id number] SNOMED-CT () 2019-08-18 complete Mental y, 45 04 d Health- minutes with [place] patient [address], [id number] [id number] Psychotherap [id number] SNOMED-CT () 2019-08-25 complete Mental y, 45 04 d Health- minutes with [place] patient [address], [id number] [phone] Psychotherap [id number] SNOMED-CT () 2019-09-01 complete Mental y, 45 04 d Health- minutes with [place] patient [address], [id number] [phone] Psychotherap 289154 SNOMED-CT () 2019-09-08 complete Mental y, 45 04 d Health- minutes with [place] patient [address], [id number] Psychotherap [id number] SNOMED-CT () 2019-09-15 complete Mental y, 45 04 d Health- minutes with [place] patient [address], [id number] [phone] SNOMED-CT () 2019-09-22 complete Mental d Health- [address], [id number] [phone] Office or [id number] SNOMED-CT () 2019-10-02 complete Mental other 7 d Health- outpatient [place]ali visit for [address], [facility], of an [place], established [id number] patient, [id number] which requires at least 2 of these 3 david components: An expanded problem focused history; An expanded problem focused examination; Medical decision making of low Psychotherap [id number] SNOMED-CT () 2019-09-29 complete Mental y, 45 04 d Health- minutes with [place] patient [address], [id number] [phone] Psychotherap [id number] SNOMED-CT () 2019-10-06 complete Mental y, 45 04 d Health- minutes with [place] patient [address], [id number] [phone] Psychotherap 301303 SNOMED-CT () 2019-10-13 complete Mental y, 45 04 d Health- minutes with [place] patient [address], [id number] [phone] Psychotherap 791774 SNOMED-CT () 2019-10-20 complete Mental y, 45 04 d Health- minutes with [place] patient [address], [id number] [phone] Psychotherap 769702 SNOMED-CT () 2019-10-27 complete Mental y, 45 04 d Health- minutes with [place] patient [address], [id number] [phone] Psychotherap 507926 SNOMED-CT () 2019-11-10 complete Mental y, 45 04 d Health- minutes with [place] patient [address], [id number] [phone] Psychotherap [id number] SNOMED-CT () 2019-11-03 complete Mental y, 45 04 d Health- minutes with [place] patient [address], [id number] Psychotherap 660760 SNOMED-CT () 2019-11-24 complete Mental y, 45 04 d Health- minutes with [place] patient [address], [phone] [phone] Psychotherap [id number] SNOMED-CT () 2019-11-16 complete Mental y, 45 04 d Health- minutes with [place] patient [address], [id number] [phone] Office or [id number] SNOMED-CT () 2019-12-03 complete Mental other 7 d Health- outpatient [place] visit for [address], [facility], of an [place], established [id number] patient, [phone] which requires at least 2 of these 3 david components: An expanded problem focused history; An expanded problem focused examination; Medical decision making of low SNOMED-CT () 2019-12-02 complete Mental d Health- [place], [id number] [phone] Psychotherap [id number] SNOMED-CT () 2019-12-08 complete Mental y, 45 04 d Health- minutes with Idania patient [address], [id number] [phone] Encounters/Encounter Diagnoses Encounter Encounter Diagnosis Diagnosis Name Diagnosis Date of Service Name Code Code CodeSystem Diagnosis Delivery Location Non-Billable 03433 [id number] Generalized SNOMED-CT 2019-12-11 [facility] , , , Vital Signs No Information Social History Element Description Description Start End Code CodeSystem AdditionalInfo Date Date SexAssignedAtBirth Female 1950-0 F AdministrativeGender 6-06 Hospital Discharge Instructions Reason For Referral Medical Equipment FDA Assessments
--- OUTSIDE RECORDS SUMMARY | 2020-01-10 15:29 | XMS REPORT | Continuity of Care Document ---
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 10mg Tablets Mouth Once Daily Mirtazapine take 1 tablet by Unknown 30mg Tablets mouth at bedtime Dispers Flutamide take one capsule 30caps Paramjit Babb 125mg Capsules by mouth once MD Charleen daily Estradiol 1 po tid Unknown 2mg Tablets History Medications Colace 1 by mouth once 30caps K59.00 Evita Dulce 06/15/2019 - 100mg daily NINA Steward 07/16/2019 Capsules Immunizations CPT Code Status Date Vaccine Lot # [id number] Given 09/14/2019 High-Dose, Influenza Virus Vacccine-fluzone 65 and [id number] older 53076 Given 08/07/2018 High-Dose, Influenza Virus Vacccine-fluzone 65 and [id number] older 77281 Given 07/29/2017 Influenza Vac, Quadrivalent, Slit Virus, Im [id number] 66109 Given 09/11/2016 Pneumococcal Conjugate Vacc-13 [id number] 37928 Given 05/31/2015 Pneumococcal Immunization [id number] 46026 Given 05/31/2015 Tdap Tetanus, W Pertussis [id number] 41616 Given 07/23/2014 Influenza vac quadrivalent preservative free 6 months and up 80717 Given 07/23/2013 Influenza Vac, [place] [address] Given 07/18/2012 Zostivax 22114 Given 07/18/2012 Influenza Vac, [place]riv[place], [place] [address] Given 04/17/2010 Tdap Tetanus, W Pertussis Vital Signs Date Vital Result Comment 12/14/2019 8:03am BP Systolic 110 mmHg BP Diastolic 80 mmHg Heart Rate 84 /min Body Temperature 98.4 F Respiratory Rate 18 /min Height 65.75 inches 5'5.75" Weight 174.00 lb BMI (Body Mass Index) 28.3 kg/m2 11/26/2019 7:57am BP Systolic 110 mmHg BP Diastolic 64 mmHg Heart Rate 66 /min Body Temperature 97.9 F Respiratory Rate 16 /min Height 65.75 inches 5'5.75" Weight 179.00 lb BMI (Body Mass Index) 29.1 kg/m2 Results Test Acquired Date Facility Test [...] % Nucleated Red Blood Cells % 0.0 CBC Auto Diff 12/10/2019 [facility] White Blood Count 8.5 10^3/uL Normal 3.5- [...] Cells % 0.0 Laboratory test finding 12/10/2019 [facility] Alcohol < 10 mg/dL Normal <10 Salicylate < 2.50 mg/dL <30 Comp Metabolic Panel 12/10/2019 [facility] Sodium 136 mmol/L Normal 135-145 Potassium 4.0 [...] Egfr Non- 64.6 >60 Egfr 78.1 >60 1 Laboratory test 12/10/2019 [facility] TSH (Thyroid Stim 1.67 mcIU/mL Normal 0.34 -5.60 finding Horm) Acetaminophen < 15 g/mL 2 CBC Auto Diff 11/28/2019 [facility] White Blood Count 8.1 10^3/uL Normal 3.5- [...] % Nucleated Red Blood Cells % 0.0 Comp Metabolic Panel 11/28/2019 [facility] Sodium 137 mmol/L Normal 135-145 Potassium 4.0 [...] Egfr Non- 67.2 >60 Egfr 81.3 >60 3 Laboratory test finding 11/28/2019 [facility] Acetaminophen < 15 g/mL 4 Alcohol < 10 mg/dL Normal <10 Salicylate < 2.50 mg/dL <30 TSH (Thyroid Stim Horm) 2.32 mcIU/mL Normal 0.34-5.60 Laboratory test finding 11/12/2019 [facility]) PSA <0.1 ng/mL Low 0.0-4.0 5 Comprehensive Metabolic 11/12/2019 [facility]) Sodium 139 mEq/L 134-149 Prof Potassium 3.8 mEq/L 3.6-5.5 Chloride 98 mEq/L 94-112 Carbon Dioxide 25 mEq/L 21-32 Glucose 140 mg/dL High 70-105 6 BUN 13 mg/dL 6-26 Creatinine 0.9 mg/dL 0.6-1.4 BUN/Creat Ratio 14.4 CALC 8.0-36.0 Calcium 9.5 mg/dL 8.6-10.2 Total Protein 7.0 g/dL 6.4-8.3 Albumin 4.5 g/dL 3.8-5.5 Globulin 2.5 g/dL 2.0-4.8 A/G Ratio 1.8 CALC 0.6-2.3 Alk. Phosphatase 113 U/L High 22-95 7 Alt (SGPT) 22 U/L 7-35 Ast (Sgot) 20 U/L 5-34 Total Bilirubin 0.8 mg/dL 0.2-1.3 GFR Non- >60 ml/min/1.73m^ >=60 GFR >60 ml/min/1.73m^ >=60 Lipid Profile 11/12/2019 Sebastian Abel([facility]) Cholesterol 187 mg/dL 120- 200 Triglycerides 163 mg/dL 30-200 HDL Cholesterol 60 mg/dL 30-70 LDL (Calculated) 94 CALC 0-129 VLDL Cholesterol 33 mg/dL 0-50 HDL Risk Factor 3.1 CALC 0.0-4.4 CBC Electronic a 11/12/2019 Sebastian Abel([facility]) WBC 8.6 x10^3/UL 4.0- 10.0 RBC 4.94 x10^6/UL 3.93-6.00 HGB 15.7 g/dL 12.0-17.0 HCT 47 % 35-50 MCV 95.1 fL High 80.0-95.0 8 MCH 31.8 pg 25.6-32.2 MCHC 33.4 g/dL 32.2-36.0 RDW-CV 13.0 % 11.6-14.4 PLT 205 x10^3/UL 163-400 MPV 11.7 fL 9.4-12.4 Tricia# 6.01 x10^3/UL 1.56-6.13 Lymph# 1.65 x10^3/UL 1.18-3.74 Fallon# 0.67 x10^3/UL 0.24-0.82 Eos # 0.3 x10^3/UL 0.0-0.5 Baso # 0.03 x10^3/UL 0.01-0.08 Tricia% 69.8 % 34.0-70.0 Lymph % 19.1 % Low 20.0-52.0 9 Fallon% 7.8 % 5.0-12.0 Eos% 2.9 % 0.7-7.0 Baso% 0.3 % 0.1-1.2 Laboratory test 11/12/2019 [facility] Hemoglobin A1c 5.5% % 4.1- 5.7 finding [...] <50 ug/mL Toxic concentration: >120 ug/mL 5 consistent w/ previous results 6 consistent w/ previous results 7 consistent w/ previous results 8 RESULTS VERIFIED BY REPEAT ANALYSIS 9 RESULTS VERIFIED BY REPEAT ANALYSIS Procedures Date Code Description Status 12/25/2017 [id number] Mammogram Completed 12/28/2016 [id number] Mammogram Completed Medical Devices Description No Information Available Encounters Type Date Location Provider Dx Diagnosis Office Visit 11/26/2019 Main Office Elizabeth Romero M.D. F33.9 Major depressive 8:00a 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, CANDY MAKER pain, unspecified Office Visit 09/15/2019 7:15p Main Office Evita Cardona R10.10 Upper abdominal Steward, CANDY MAKER pain, unspecified R26.89 Other abnormalities of gait and mobility Office Visit 09/14/2019 9:00a Main Office Mame S09.90xA Unspecified injury [place], Afnp-C of head, initial encounter S09.90xD Unspecified injury of head, subsequent encounter S00.31xA Abrasion of nose, initial encounter Z23 Encounter for immunization W22.8xxA Striking against or struck by other objects, init encntr Office Visit 06/15/2019 6:15p Main Office Evita Steward NP K92.1 Melena Z86.010 Personal history of colonic polyps K59.00 Constipation, unspecified Assessments Date Code Description Provider 12/14/2019 F33.9 Major depressive disorder, recurrent, Evita Steward NP unspecified 12/14/2019 R45.851 Suicidal ideations Evita Steward NP 12/14/2019 Z91.5 Personal history of self-harm Evita Steward NP 12/14/2019 F64.9 Gender identity disorder, unspecified Evita Steward NP 11/26/2019 F33.9 Major depressive disorder, recurrent, Elizabeth Romero M.D. unspecified 11/26/2019 R10.9 Unspecified abdominal pain Elizabeth Romero M.D. 11/26/2019 F64.9 Gender identity disorder, unspecified Elizabeth Romeor M.D. 11/26/2019 R63.4 Abnormal weight loss Elizabeth [...] 09/14/2019 S09.90xA Unspecified injury of head, initial Mame Watt Junenp-C encounter 09/14/2019 S09.90xD Unspecified injury of head, subsequent Mame Watt Junenina-C encounter 09/14/2019 S00.31xA Abrasion of nose, initial encounter Mame HayleeMax garcia-Morenita 09/14/2019 Z23 Encounter for immunization Mame HilMax garcia-C 09/14/2019 W22.8xxA Striking against or struck by other Mame Watt Max objects, initial encounter 06/15/2019 K92.1 Melena Evita Steward NP 06/15/2019 Z86.010 Personal history of colonic polyps Evita Steward NP 06/15/2019 K59.00 Constipation, unspecified Evita Steward NP Plan of Treatment 12/14/2019 - Evita Steward NPF33.9 Major depressive disorder, recurrent, unspecifiedComments:Pt sent to [facility] for vtdezrtiedT08.851 Suicidal ideationsComments:National Suicide Prevention LifelineCall Sent patient to [facility] via [place] [email or web address] Personal history of self- harmF64.9 Gender identity disorder, unspecifiedAllComments:Medication Management Patient Understands medications he 's taking? Yes No Are there Barriers to Adherence? Yes No Has the patient been asked about herbal supplements and therapies, andOTC meds? Yes No Care Plan1. Patient has been queried about patient's goals/preferences and functional/ lifestyle goals at relevant visits. If relevant, describe: na2. Treatment goals as explained to the patient: above3. Are there barriers to meeting treatment goals? Yes No If Yes, please describe: polypharmacy, access to meds that could cause OD, suicidal ideations, new medication changes, poor access to mental health care in area due to high need 4. Self-Management goalsas described to the patient: Yes NoAs always, we strongly encourage a healthy diet and making physical activity a part of your every day life. If you have questions about how or where to start, please contact the office. Functional Status Description No Information Available Mental Status Description No Information Available Referrals Refer to Reason for Referral Status Appt Date [facility] Physical PHYSICAL THERAPY evaluate and Scheduled Therapy treat gait and mobility--increase in falls. Order faxed. Pt will call to schedule his own appt. [address] [facility] [address] [place] [address] [phone] Kathryn Duran PA-C colonoscopy and carri jw Scheduled 07/09/[address] [place], [place] [id number] [phone]
[2020-01-10 15:32] LABS: Acetaminophen < 15 mcg/mL; Alcohol < 10 mg/dL (<10); Salicylate < 2.50 mg/dL (<30)
[2020-01-10 16:00] LABS: Urine Appearance Cloudy; Urine Bilirubin Negative (Negative); Urine Blood Negative (Negative); Urine Color Amber; Urine Glucose Negative (Negative); Urine Ketones 1+ (Negative); Urine Nitrite Negative (Negative); Urine Protein Negative (Negative); Urine Specific Gravity 1.023 (1.010-1.030); Urine Urobilinogen Negative (Negative)
[2020-01-10 16:11] VITALS: BP 128/71
[2020-01-10 16:15] LABS: Urine Benzodiazepine Screen Presumptive Positive (None Detect); Urine Opiates Screen None Detected (None Detect)
== END 2020-01-10 17:00 | disposition home or self-care (01) ==
LOC: ED 14:11
DX: F32.9 Major depressive disorder, single episode, unspecified (principal); F64.0 Transsexualism; E78.00 Pure hypercholesterolemia, unspecified; I10 Essential (primary) hypertension; Z79.82 Long term (current) use of aspirin; Z79.890 Hormone replacement therapy; Z79.1 Long term (current) use of non-steroidal anti-inflammatories (NSAID); Z79.899 Other long term (current) drug therapy; Z88.5 Allergy status to narcotic agent; Z88.0 Allergy status to penicillin; Z87.891 Personal history of nicotine dependence
CPT/HCPCS: 36415; 80053; 80307; 80320; 80329; 81003; 85025; 99285; G0480

== ENCOUNTER 2020-02-03 15:21 | Emergency (ER) | payer MEDICARE ==
--- NOTE | 2020-02-03 15:36 | ED ---
Shortness of Breath - HPI Summary HPI Summary: 69 y/o F arriving via ambulance to [facility] c/o shortness of breath with exertion starting today. Patient was seen by primary care provider, had an elevated D- dimer, was referred to the ED to r/o PE. No hx DVT or PE. No chest pain. Symptoms aggravated by exertion. Symptoms alleviated by nothing. Medications reviewed. Patient is a male to female transgender. On hormone replacement therapy. Taking estrogen. Allergies noted. - History of Current Complaint Time Seen by Provider: 02/03/20 15:22 Hx Obtained From: Patient Onset/Duration: Lasting Hours, Still Present Timing: Constant Current Severity: None Aggravating Factors: Other - exertion Alleviating Factors: Nothing Associated Signs & Symptoms: Negative - chest pain - Allergy/Home Medications Allergies/Adverse Reactions: Allergies Allergy/AdvReac Type Severity Reaction Status Date / Time Penicillins Allergy Severe Rash Verified 02/03/20 15:29 morphine Allergy Intermediate Vomiting Verified 02/03/20 15:29 Home Medications: Home Medications clonazePAM TAB(*) [Klonopin TAB(*)] 2 mg PO QAM 02/18/13 [History Confirmed ] Progesterone CAP (NF) [Prometrium (NF)] 200 mg PO BEDTIME #0 03/17/16 [History Confirmed 02/03/20] Spironolactone TAB* [Aldactone TAB 25 MG*] 25 mg PO DAILY 01/31/17 [History Confirmed 02/03/20] Acetaminop/Codeine 30 MG TAB* [Tylenol/Codeine 30 MG TAB*] 1 tab PO BEDTIME PRN 06/10/19 [History Confirmed 02/03/20] Aspirin EC TAB* [Ecotrin EC Low Dose 81 MG*] 81 mg PO DAILY 06/10/19 [History Confirmed 02/03/20] Estradiol [Estrace] 2 mg PO TID 06/10/19 [History Confirmed 02/03/20] Flutamide CAP* [Eulexin CAP*] 125 mg PO DAILY 06/10/19 [History Confirmed ] Metaxalone TAB* [Skelaxin TAB*] 800 mg PO Q8HR PRN 06/10/19 [History Confirmed 02/03/20] Mirtazapine TAB* [Remeron TAB*] 30 mg PO BEDTIME 06/10/19 [History Confirmed ] Simvastatin TAB(NF) [Zocor 10 MG (NF)] 10 mg PO DAILY 06/10/19 [History Confirmed 02/03/20] Cholecalciferol TAB* [Vitamin D TAB*] 5,000 units PO DAILY 09/08/19 [History Confirmed 02/03/20] Diclofenac Sodium 75 mg PO BID PRN 12/14/19 [History Confirmed 02/03/20] Furosemide TAB* [Lasix TAB*] 40 mg PO DAILY PRN 12/14/19 [History Confirmed ] Venlafaxine ER (NF) [Effexor ER (NF)] 150 mg PO DAILY #30 cap.er 12/18/19 [Rx Confirmed 02/03/20] Venlafaxine EXT RELEASE CAP* [Effexor Xr CAP*] 225 mg PO DAILY #30 cap.sr [Rx Confirmed 02/03/20] hydrOXYzine HCL TAB* [Atarax TAB 50 MG *] 50 mg PO Q6H PRN tab 12/18/19 [Rx Confirmed 02/03/20] Rivaroxaban TAB(*) [Xarelto 15 mg(*)] 15 mg PO BID 21 Days #42 tab 02/03/20 [Rx] PMH/Surg Hx/FS Hx/Imm Hx Endocrine/Hematology History: Denies: Hx Diabetes, Hx Thyroid Disease Cardiovascular History: Reports: Hx Hypercholesterolemia, Hx Hypertension - ON MEDICATION FOR, Other Cardiovascular Problems/Disorders - Elevated cholesterol Respiratory History: Reports: Other Respiratory Problems/Disorders - Pneumonia, history of Denies: Hx Asthma, Hx Chronic Obstructive Pulmonary Disease (COPD) GI History: Reports: Other GI Disorders - GALLSTONES History: Reports: Other Problems/Disorders - HX OF PROSTATE CANCER- SURGERY FOR Musculoskeletal History: Reports: Hx Arthritis - LEFT KNEE AND LEFT LOWER BACK Denies: Other Musculoskeletal History Sensory History: Reports: Hx Cataracts - BILATERAL, Hx Contacts or Glasses - glasses, Hx Hearing Aid - left ear hearing aide on Opthamlomology History: Reports: Hx Cataracts - BILATERAL, Hx Contacts or Glasses - glasses Neurological History: Denies: Other Neuro Impairments/Disorders Psychiatric History: Reports: Hx Anxiety, Hx Depression, Hx Panic Disorder, Hx Inpatient Treatment, Hx Community Mental Health Tx Denies: Hx Eating Disorder, Hx Post Traumatic Stress Disorder, Hx Schizophrenia, Hx Bipolar Disorder, Hx Suicide Attempt - [facility] thougt about jumped of rock, 1998 thought about jumping, Hx of Violent Episodes Against Others, Hx Substance Abuse - Cancer History Cancer Type, Location and Year: PROSTATE Hx Chemotherapy: No Hx Radiation Therapy: No - Surgical History Surgery Procedure, Year, and Place: 2002 REMOVED PROSTATE, 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 tonsillectomy as a child Hx Anesthesia Reactions: No - Immunization History Date of Tetanus Vaccine: unk Date of Influenza Vaccine: fall 2015 Infectious Disease History: No Infectious Disease History: Denies: Hx Hepatitis, Hx Human Immunodeficiency Virus (HIV), Hx of Known/ Suspected MRSA, Traveled Outside the [place] in Last 30 Days - Family History Known Family History: Positive: Diabetes, Other - CVA - Social History Alcohol Use: None Alcohol Amount: NONE SINCE 1986 AND 2002- STATES WAS AN ALCOHOLIC Hx Substance Use: Yes Substance Use Type: Reports: Prescribed Substance Use Comment - Amount & Last Used: tylenol w/ codeine Hx Tobacco Use: Yes Smoking Status (MU): Former Smoker Amount Used/How Often: 1 ppd 10 years Have You Smoked in the Last Year: No Review of Systems Negative: Chest Pain Positive: Shortness Of Breath All Other Systems Reviewed And Are Negative: Yes Physical Exam - Summary Physical Exam Summary: Constitutional: Well-developed, Well-nourished, Alert. (-) Distressed Skin: Warm, Dry HENT: Normocephalic; Atraumatic Eyes: Conjunctiva normal Neck: Musculoskeletal ROM normal neck. (-) JVD, (-) Stridor, (-) Nuchal rigidity Cardio: Rhythm regular, rate normal, Heart sounds normal; Intact distal pulses; Radial pulses are 2+ and symmetric. (-) Murmur Pulmonary/Chest wall: Effort normal. (-) Respiratory distress, (-) Wheezes, (-) Rales Abd: Soft, (-) tenderness, (-) Distension, (-) Guarding, (-) Rebound Musculoskeletal: (-) Edema Lymph: (-) Cervical adenopathy Neuro: Alert, Oriented x3 Psych: Mood and affect Normal Triage Information Reviewed: Yes Vital Signs On Initial Exam: Initial Vitals Temp Pulse Resp BP Pulse Ox 98.6 F 76 20 110/69 97 02/03/20 15:25 02/03/20 15:25 02/03/20 15:25 02/03/20 15:25 02/03/20 15:25 Vital Signs Reviewed: Yes Procedures - Sedation Patient Received Moderate/Deep Sedation with Procedure: No Diagnostics - Vital Signs Vital Signs Temp Pulse Resp BP Pulse Ox 02/03/20 15:25 98.6 F 76 20 110/69 97 - Laboratory Result Diagrams: 02/03/20 15:45 02/03/20 16:51 Lab Statement: Any lab studies that have been ordered have been reviewed, and results considered in the medical decision making process. - CT CHEST/THORAX CTA CT Interpretation Completed By: Radiologist - IMPRESSION: 1. There is bibasilar and bilateral dependent atelectatic change or scarring. No evidence for pneumonitis. 2. There is a central filling defect in the right middle lobe pulmonary artery extending into segmental branches and also central filling defects in subsegmental branches of the right lower lobe pulmonary artery consistent with a small quantity of right-sided acute pulmonary embolism with no central saddle embolus. ED physician has reviewed this imaging report. Re-Evaluation - Re-Evaluation First Eval Re-Evaluation Time: 18:30 - [facility] radiology called to report CTA findings Second Eval Re-Evaluation Time: 18:35 Change: Improved - patient agrees to d/c Course/Dx - Course Course Of Treatment: 69 y/o F p/w SOB and elevated d dimer. - concern for PE given SOB and exogenous estrogen use, check CTA. - CTA shows R sided PE, no heart strain, 100% on RA. Ambulating well. No CP. Given xarelto 15 here, script for 15 mg BID 21 days. Advised to stop estrogen. PESI score II, low risk. - Diagnoses Provider Diagnoses: Pulmonary embolism Discharge ED - Sign-Out/Discharge Documenting (check all that apply): Patient Departure - Discharge Plan Condition: Stable Disposition: HOME Prescriptions: Rivaroxaban TAB(*) [Xarelto 15 mg(*)] 15 mg PO BID 21 Days #42 tab Patient Education Materials: Pulmonary Embolism (ED), Safe Use of Anticoagulants (ED) Referrals: Elizabeth Romero MD [Primary Care Provider] - Additional Instructions: You were seen in the emergency department for breath. Your CT scan showed a blood clot in your lungs. Please take Zaroxolyn 15 mg twice a day. Please follow up with your doctor in next few days. Please stop taking estrogen as this is risk factor for blood clots. Please follow up with your primary care doctor in next 2-3 days and return to emergency department for chest pain, passing out, shortness of breath, worsening or concerning symptoms. It was a pleasure taking care of you today. - Billing Disposition and Condition Condition: STABLE Disposition: Home - Attestation Statements Document Initiated by Alize: Yes Documenting Scribe: Ambar Barnett Provider For Whom Alize is Documenting (Include Credential): Jonna Khoury MD Scribe Attestation: IAmbar, scribed for Jonna Khoury MD on 02/03/20 at 1915. Scribe Documentation Reviewed: Yes Provider Attestation: The documentation as recorded by the Ambar mari accurately reflects the service I personally performed and the decisions made by , Jonna Khoury MD Status of Scribe Document: Viewed
--- OUTSIDE RECORDS SUMMARY | 2020-02-03 15:41 | XMS REPORT ---
:1950 Author Organization [facility] Care Team Providers Name Role Phone Post, Pattie Primary Care Physician Unavailable Allergies, Adverse Reactions, Alerts Allergy Code CodeSystem Reaction Severity Criticality Status Start Substance Date Moderate Medications Medication Medication Medication Start Stop Route Dose Status Fill Code CodeSystem Date Date Instructions clonazepam 19741220 RxNorm 2018- oral 2 mg completed for 30 02-20-17 tablet day(s) clonazepam 19741220 RxNorm 2018- oral 2 mg 1 completed 1 tablet at 03-27-16 tablet bedtime for at 30 day(s) bedtime mirtazapine 925787 RxNorm 2018- oral 30 mg 1 active 1 tablet at 12-23- tablet bedtime for at 30 day(s) bedtime clonazepam 19741220 RxNorm 2018- oral 2 mg 1 completed 1 tablet at 05-28-17 tablet bedtime for at 30 day(s) bedtime aripiprazole 266230 RxNorm 2018- oral 10 mg 1 active 1 tablet 02-12- tablet once a day once a for 30 day(s) day trazodone 640068 RxNorm oral 50 mg 1 active 1 tablet at 4-04 tablet bedtime for at 30 day(s) bedtime clonazepam 19741220 RxNorm 2018- oral 2 mg 1 completed 1 tablet at 02-12-12 tablet bedtime for at 30 day(s) bedtime clonazepam 19741220 RxNorm 2018- oral 2 mg completed for 30 04-28-18 tablet day(s) venlafaxine 215855 RxNorm 2018- oral 150 mg 2 active 2 capsule 02-12 capsule, once a day extended for 30 day(s) release 24hr once a day Problems Problem Name Code CodeSystem Alternate Alternate Start End Status Narrative Code CodeSystem Date Date 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 SNOMED-CT 2019- Active anxiety 0-15 disorder 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-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 Severe 37363471 SNOMED-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 Severe 33677039 SNOMED-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 Relevant diagnostic tests/laboratory data Narrative No Information Procedures Procedure Code CodeSystem Target Date of Status Service Device Device Device Name Site Procedure Delivery Code Name UID Location Psychotherap [id number] SNOMED-CT () 2019-11-10 complete Mental y, 45 04 d Health- minutes with [facility] patient [address], [id number] Preventive 007089 SNOMED-CT () 2019-05-29 complete Mental medicine 1 d Health- counseling [facility] and/or risk [address], (s) provided [place], to an NH, individual [id number] (separate [id number] procedure); approximatel y 30 minutes Group [id number] SNOMED-CT () 2019-04-30 complete Mental psychotherap 8 d Health- y (other [facility] than of a [address]) [place], [place], [id number] [phone] Psychotherap [id number] SNOMED-CT () 2019-08-25 complete Mental y, 45 04 d Health- minutes with [facility] patient [address], [id number] [phone] Group [id number] SNOMED-CT () 2019-08-13 complete Mental psychotherap 8 d Health- y (other [facility] than of a [facility]) [place], [place], [id number] [phone] Psychotherap [id number] SNOMED-CT () 2019-11-16 complete Mental y, 45 04 d Health- minutes with [facility] patient [address], [id number] [id number] Psychotherap [id number] SNOMED-CT () 2019-11-03 complete Mental y, 45 04 d Health- minutes with [facility] patient [address], [id number] [phone] Psychotherap [id number] SNOMED-CT () 2019-12-10 complete Mental y, 45 04 d Health- minutes with [facility] patient [address], [id number] [phone] Psychotherap [id number] SNOMED-CT () 2019-12-22 complete Mental y, 45 04 d Health- minutes with [facility] patient [address], [id number] [phone] Psychotherap [id number] SNOMED-CT () 2020-01-05 complete Mental y, 45 04 d Health- minutes with [facility], [id number] [phone] Group [id number] SNOMED-CT () 2019-03-05 complete Mental psychotherap 8 d Health- y (other [facility] than of a [address]) [place], [place], [id number] [phone] SNOMED-CT () 2019-04-17 complete Mental d Health- [address], [id number] [phone] Group [id number] SNOMED-CT () 2019-05-28 complete Mental psychotherap 8 d Health- y (other [facility] than of a [address]) [place], [place], [id number] [phone] Psychotherap [id number] SNOMED-CT () 2019-08-12 complete Mental y, 45 04 d Health- minutes with [facility], [id number] [phone] SNOMED-CT () 2019-04-03 complete Mental d Health- [address], [id number] [phone] Psychotherap [id number] SNOMED-CT () 2019-11-24 complete Mental y, 45 04 d Health- minutes with [facility], [id number] [id number] Psychotherap [id number] SNOMED-CT () 2019-09-08 complete Mental y, 45 04 d Health- minutes with [facility], [id number] [phone] Psychotherap [id number] SNOMED-CT () 2019-12-08 complete Mental y, 45 04 d Health- minutes with [facility] patient [address], [id number] [phone] SNOMED-CT () 2019-02-20 complete Mental d Health- [address], [id number] [id number] SNOMED-CT () 2019-06-18 complete Mental d Health- [address], [id number] [phone] Psychotherap [id number] SNOMED-CT () 2019-09-01 complete Mental y, 45 04 d Health- minutes with [facility] patient [address], [id number] [phone] Office or [id number] SNOMED-CT () 2019-10-02 complete Mental other 7 d Health- outpatient [facility] visit for [address], of an NH, established [id number] patient, [phone] which requires at least 2 of these 3 david components: An expanded problem focused history; An expanded problem focused examination; Medical decision making of low Psychotherap [id number] SNOMED-CT () 2019-10-06 complete Mental y, 45 04 d Health- minutes with [facility] patient [address], [id number] [phone] Psychotherap [id number] SNOMED-CT () 2019-05-05 complete Mental y, 45 04 d Health- minutes with [facility] patient [address], [id number] [id number] Psychotherap [id number] SNOMED-CT () 2019-09-29 complete Mental y, 45 04 d Health- minutes with [address], [id number] [phone] SNOMED-CT () 2019-09-22 complete Mental d Health- [address], [id number] [id number] SNOMED-CT () 2019-12-02 complete Mental d Health- [address], [id number] [id number] SNOMED-CT () 2019-03-20 complete Mental d Health- [facility] [address], [id number] [phone] Psychotherap [id number] SNOMED-CT () 2019-05-15 complete Mental y, 45 04 d Health- minutes with [facility] patient [address], [id number] [phone] Group [id number] SNOMED-CT () 2019-04-09 complete Mental psychotherap 8 d Health- y (other [facility] than of a [address]) [place], [place], [id number] [phone] Group [id number] SNOMED-CT () 2019-07-23 complete Mental psychotherap 8 d Health- y (other [facility] than of a [address]) [place], [place], [id number] [phone] Psychotherap 648518 SNOMED-CT () 2019-10-27 complete Mental y, 45 04 d Health- minutes with [facility] patient [address], [id number] [phone] Psychotherap 270302 SNOMED-CT () 2019-07-28 complete Mental y, 45 04 d Health- minutes with [facility] patient [address], [id number] [id number] Psychotherap [id number] SNOMED-CT () 2019-08-18 complete Mental y, 45 04 d Health- minutes with [facility] patient [address], [id number] [phone] Office or [id number] SNOMED-CT () 2019-05-08 complete Mental other 6 d Health- outpatient [facility] visit for [address], of an NH, established [id number] patient, [phone] which requires at least 2 of these 3 david components: A problem focused history; A problem focused examination; Straightforw don medical decision making. Counselin Group [id number] SNOMED-CT () 2019-07-30 complete Mental psychotherap 8 d Health- y (other [facility] than of a [address]) [place], [place], [id number] [phone] Office or [id number] SNOMED-CT () 2019-12-31 complete Mental other 7 d Health- outpatient [facility] visit for [address], of an NH, established [id number] patient, [phone] which requires at least 2 of these 3 david components: An expanded problem focused history; An expanded problem focused examination; Medical decision making of low SNOMED-CT () 2019-03-05 complete Mental d Health- [facility] [address], [id number] [phone] Group [id number] SNOMED-CT () 2019-03-19 complete Mental psychotherap 8 d Health- y (other [facility] than of a [address]) [place], [place], [id number] [phone] Psychotherap [id number] SNOMED-CT () 2019-10-13 complete Mental y, 45 04 d Health- minutes with [facility] patient [address], [id number] [phone] Group [id number] SNOMED-CT () 2019-04-23 complete Mental psychotherap 8 d Health- y (other [facility] than of a [address]) [place], [place], [id number] [phone] Psychotherap [id number] SNOMED-CT () 2019-09-15 complete Mental y, 45 04 d Health- minutes with [facility] patient [address], [id number] [phone] Psychotherap [id number] SNOMED-CT () 2020-01-13 complete Mental y, 45 04 d Health- minutes with [facility] patient [address], [id number] [phone] Psychotherap [id number] SNOMED-CT () 2019-06-12 complete Mental y, 45 04 d Health- minutes with [facility] patient [address], [id number] [id number] Psychotherap [id number] SNOMED-CT () 2019-06-01 complete Mental y, 45 04 d Health- minutes with [facility] patient [address], [id number] [phone] Psychotherap [id number] SNOMED-CT () 2019-12-31 complete Mental y, 45 04 d Health- minutes with [facility] patient [address], [id number] [phone] Group [id number] SNOMED-CT () 2019-03-26 complete Mental psychotherap 8 d Health- y (other [facility] than of a [address] group) [place], [place], [id number] [phone] Group [id number] SNOMED-CT () 2019-06-18 complete Mental psychotherap 8 d Health- y (other [facility] than of a [address]) [place], [place], [id number] [phone] Group [id number] SNOMED-CT () 2019-07-16 complete Mental psychotherap 8 d Health- y (other [facility] than of a [address]) [place], [place], [id number] [phone] Psychotherap [id number] SNOMED-CT () 2019-06-30 complete Mental y, 45 04 d Health- minutes with [facility] patient [address], [id number] [phone] Office or [id number] SNOMED-CT () 2019-12-03 complete Mental other 7 d Health- outpatient [facility] visit for [address], of an NH, established [id number] patient, [phone] which requires at least 2 of these 3 david components: An expanded problem focused history; An expanded problem focused examination; Medical decision making of low Group [id number] SNOMED-CT () 2019-03-12 complete Mental psychotherap 8 d Health- y (other [facility] than of a [address] group) [place], [place], [id number] [phone] Group [id number] SNOMED-CT () 2019 complete Mental psychotherap 8 d Health- y (other [facility] than of a [address]) [place], [place], [id number] [phone] Group [id number] SNOMED-CT () 2019-04-02 complete Mental psychotherap 8 d Health- y (other [facility] than of a [address], [phone] Office or [id number] SNOMED-CT () 2019-08-05 complete Mental other 7 d Health- outpatient [facility] visit for [address], of an [facility] established [id number] patient, [phone] which requires at least 2 of these 3 david components: An expanded problem focused history; An expanded problem focused examination; Medical decision making of low Psychotherap [id number] SNOMED-CT () 2019-10-20 complete Mental y, 45 04 d Health- minutes with [facility] patient [address], [id number] [phone] SNOMED-CT () 2019-07-20 complete Mental d Health- [facility] [address], [id number] [phone] Encounters/Encounter Diagnoses Encounter Encounter Diagnosis Diagnosis Name Diagnosis Date of Service Name Code Code CodeSystem Diagnosis Delivery Location Non-Billable [id number] Generalized SNOMED-CT 2020-01-20 [facility] , , , Vital Signs No Information Social History Element Description Description Start End Code CodeSystem AdditionalInfo Date Date SexAssignedAtBirth Female 1950-1 F AdministrativeGender 6-06 Hospital Discharge Instructions Reason For Referral Medical Equipment FDA Assessments
--- OUTSIDE RECORDS SUMMARY | 2020-02-03 15:41 | XMS REPORT | Continuity of Care Document ---
:1950 External Reference #:[id number] Author Name Evita Steward, NINA Address [address] [facility] [place] [address] Care Team Providers Name Role Phone Other Specialty Care Team Information Calculus Tutor Unavailable Denise Jorgensen - Family Medicine Care Team Information Calculus Tutor [phone] [facility] & Care Team Information Calculus Tutor [phone] lymphedema - Physical Therapist [facility] Physical Care Team Information Calculus Tutor Therapy - Physical Therapy Ashley Parker - Pulmonary Disease Care Team Information Calculus Tutor Problems Active Problems Provider Date Gender dysphoria [...] a former smoker Unknown Smoking Status Reviewed: 03/25/20 Patient is a former smoker Allergies, Adverse Reactions, Alerts Active Allergies Reaction Severity Comments Date Morphine nausea/vomiting 05/31/2015 Penicillin hives/rash 05/31/2015 Medications Active Medications SIG Qnty Indications Ordering Date Provider Triamcinolone apply to affected 30gm L23.9 Elizabeth Romero, 01/27/2020 Acetonide area twice a day M.D. 0.1% Cream as needed Walker With Wheels/ use as directed. 1units R26.89 Elizabeth Romero, 2019 Brakes And Seat 4 wheel walker M.D. with brakes and seat seen 12/21/2019 M16.0 Diclofenac Sodium take 1 tablet by 60tabs M25.551 Sagar Castillo, 2016 75mg mouth twice daily M.D. Tablets DR as needed for joint pain Metaxalone 1 by mouth every 90tabs M25.551 Paramjit Babb 09/02/2017 800mg 8h as needed MD Charleen Tablets muscle spasm Depend Underwear For use as directed 90units N39.3 Elizabeth Romero M.D. Men Large/Xlarge Maximum Absorbency [facility] Z85.46 R32 Spironolactone take one-half 15tabs I10 Elizabeth Romero M.D. 07/26/2016 50mg Tablets tablet by mouth every day Seroquel take one tablet by Unknown 200mg Tablets mouth every night at bedtime Venlafaxine HCL ER 1 by mouth every Unknown 150mg Caps day ER 24HR Hydroxyzine HCL 1 by mouth every 6 120tabs F41.9 Evita Ann 50mg Tablets hours as needed NINA Steward for anxiety Estradiol 1 po tid Unknown 2mg Tablets Flutamide take one capsule 30caps Paramjit Babb 125mg Capsules by mouth once MD Charleen daily Mirtazapine take 1 tablet by Unknown 30mg Tablets mouth at bedtime Dispers Simvastatin Take One Tablet By 90tabs E78.2 Elizabeth Romero M.D. 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 Vitamin D 1 by mouth every Unknown 5000Units Tablets day Klonopin 1 PO qam Unknown 2mg Tablets Progesterone Micronized take 1 capsule by Unknown 200mg mouth at bedtime Capsules Aspirin Ec 1 by mouth every Unknown 81mg Tablets DR day Immunizations CPT Code Status Date Vaccine Lot # [id number] Given 09/14/2019 High-Dose, Influenza Virus Vacccine-fluzone 65 and [id number] older 60022 Given 08/07/2018 High-Dose, Influenza Virus Vacccine-fluzone 65 and [id number] older 61538 Given 07/29/2017 Influenza Vac, Quadrivalent, Slit Virus, Im [id number] 68089 Given 09/11/2016 Pneumococcal Conjugate Vacc-13 [id number] 29849 Given 05/31/2015 Pneumococcal Immunization [id number] 72717 Given 05/31/2015 Tdap Tetanus, W Pertussis [id number] 63741 Given 07/23/2014 Influenza vac quadrivalent preservative free 6 months and up 93349 Given 07/23/2013 Influenza Vac, [place] [address] Given 07/18/2012 Zostivax 00800 Given 07/18/2012 Influenza Vac, [place] [address] Given 04/17/2010 Tdap Tetanus, W Pertussis Vital Signs Date Vital Result Comment 02/03/2020 3:15pm BP Systolic 104 mmHg BP Diastolic 68 mmHg BP Systolic Recheck 96 mmHg BP Diastolic Recheck 72 mmHg Heart Rate 94 /min Body Temperature 98.0 F Respiratory Rate 16 /min O2 % BldC Oximetry 98 % 01/27/2020 8:36am BP Systolic 120 mmHg BP Diastolic 68 mmHg Heart Rate 66 /min Body Temperature 97.2 F Weight 168.00 lb Results Test Acquired Date Facility Test Result H/L Range Note CBC Electronic ([facility] New) 02/03/2020 [facility] WBC 8.11 4.0-10.0 (607)- - RBC 4.19 3.93-6.0 Hemoglobin ([facility]/CMC/CTX) 13.2 g/dL 12.0-17.0 Hematocrit ([facility]ma/CMC/CTX) 39.0 % 35.0-50.0 Mean Corpuscular Vol 93.1 fL 80-95 Mean Corpuscular Hemoglobin 31.5 pg 25.6-32.2 Mean Corpuscular Hemo Concen 33.8 g/dL 32.2-36.0 Platelets 201 10^3/ul 163-400 RDW-CV 13.0 11.6-14.4 Mean Platelet Volume 10.5 fL 8.0-12.4 Absolute Neutrophils BLD 6.39 High 1.56-6.13 Absolute Lymphocytes 1.06 Low 1.18-3.74 Absolute Monocytes BLD Auto 0.50 0.24-0.82 Absolute Eos Blood 0.13 0.04-0.54 Absolute Basophils 0.02 0.01-0.08 Neutrophil % 78.8 % High 34.0-70.0 Lymph% 13.1 % Low 20.0-52.0 Monocytes % 6.2 % 5.0-12.0 Eos % 1.6 % 0.7-7.0 Basophil% 0.2 % 0-1.2 Laboratory test 02/03/2020 [facility] Troponin-I/TnI <0.05 NG/ML 0- 0.64 finding (607)- - D Dimer Quant ([facility]ma) 3900 ng/mL High 0.0-400 CBC Auto Diff 01/10/2020 [facility] White Blood Count 9.0 10^3/uL Normal 3.5- 10.8 Red Blood Count 4.35 10^6/uL Normal 3.70-4.87 Hemoglobin 14.0 g/dL Normal 12.0-16.0 Hematocrit 41 % Normal 35-47 Mean Corpuscular Volume 94 fL Normal 80-97 Mean Corpuscular Hemoglobin 32 pg High 27-31 Mean Corpuscular HGB Conc 34 g/dL Normal 31-36 Red Cell Distribution Width 14 % Normal 10-15 Platelet Count 208 10^3/uL Normal 150-450 Mean Platelet Volume 8.7 fL Normal 7.4-10.4 Abs Neutrophils 7.6 10^3/uL Normal 1.5-7.7 Abs Lymphocytes 1.0 10^3/uL Normal 1.0-4.8 Abs Monocytes 0.4 10^3/uL Normal 0-0.8 Abs Eosinophils 0.0 10^3/uL Normal 0-0.6 Abs Basophils 0.0 10^3/uL Normal 0-0.2 Abs Nucleated RBC 0.0 10^3/uL Granulocyte % 84.1 % Lymphocyte % 10.8 % Monocyte % 4.5 % Eosinophil % 0.4 % Basophil % 0.2 % Nucleated Red Blood Cells % 0.0 Comp Metabolic Panel 01/10/2020 [facility] Sodium 135 mmol/L Normal 135-145 Potassium 4.1 mmol/L Normal 3.5-5.0 Chloride 101 mmol/L Normal 101-111 Co2 Carbon Dioxide 21 mmol/L Low 22-32 Anion Gap 13 mmol/L High 2-11 Glucose 94 mg/dL Normal 70-100 Blood Urea Nitrogen 20 mg/dL Normal 6-24 Creatinine 0.94 mg/dL Normal 0.51-0.95 BUN/Creatinine Ratio 21.3 High 8-20 Calcium 9.7 mg/dL Normal 8.6-10.3 Total Protein 6.6 g/dL Normal 6.4-8.9 Albumin 4.3 g/dL Normal 3.2-5.2 Globulin 2.3 g/dL Normal 2-4 Albumin/Globulin Ratio 1.9 Normal 1-3 Total Bilirubin 0.60 mg/dL Normal 0.2-1.0 Alkaline Phosphatase 76 U/L Normal 34-104 Alt 21 U/L Normal 7-52 Ast 20 U/L Normal 13-39 Egfr Non- 59.0 >60 Egfr 71.4 >60 1 Laboratory test finding 01/10/2020 [facility] Acetaminophen < 15 g/mL 2 Alcohol < 10 mg/dL Normal <10 Salicylate < 2.50 mg/dL <30 Urine Drug SCR ED 01/10/2020 [facility] Urine Amphetamine None Detected None Detect & Pain Clinic Screen Urine Barbiturates Screen None Detected None Detect Urine Benzodiazepine Screen Presumptive Posi <SEE NOTE> Abnormal None Detect 3 Urine Cannabinoids Screen None Detected None Detect Urine Opiates Screen None Detected None Detect Urine Phencyclidine Screen None Detected None Detect 4 Urine Cocaine Screen None Detected None Detect Urinalysis Profile 01/10/2020 [facility] Urine Color Nohelia Urine Appearance Cloudy Urine Specific [place] 1.023 Normal 1.010-1.030 Urine pH 5.0 Normal 5-9 Urine Urobilinogen Negative Negative Urine Ketones 1+ Abnormal Negative Urine Protein Negative Negative Urine Leukocytes Negative Negative Urine Blood Negative Negative Urine Nitrite Negative Negative Urine Bilirubin Negative Negative Urine Glucose Negative Negative CBC Auto Diff 12/14/2019 [facility] White Blood Count 7.6 10^3/uL Normal 3.5- 10.8 Red Blood Count 4.48 10^6/uL Normal 3.70-4.87 [...] Blood Cells % 0.0 Laboratory test 12/14/2019 [facility] TSH (Thyroid Stim 1.57 mcIU/mL Normal 0.34 -5.60 finding Horm) Comp Metabolic Panel 12/14/2019 [facility] Sodium 138 mmol/L Normal 135-145 Potassium 3.8 [...] Egfr Non- 59.8 >60 Egfr 72.3 >60 5 Laboratory test finding 12/14/2019 [facility] Acetaminophen < 15 g/mL 6 Alcohol < 10 mg/dL Normal <10 Salicylate < 2.50 mg/dL <30 Laboratory test 12/10/2019 [facility] TSH (Thyroid Stim 1.67 mcIU/mL Normal 0.34 -5.60 finding Horm) Acetaminophen < 15 g/mL 7 Comp Metabolic Panel 12/10/2019 [facility] Sodium 136 mmol/L Normal 135-145 Potassium 4.0 [...] Egfr Non- 64.6 >60 Egfr 78.1 >60 8 Laboratory test finding 12/10/2019 [facility] Alcohol < 10 mg/dL Normal <10 Salicylate < 2.50 mg/dL <30 CBC Auto Diff 12/10/2019 [facility] White Blood Count 8.5 10^3/uL Normal 3.5- [...] Blood Cells % 0.0 CBC Auto Diff 11/28/2019 [facility] White Blood Count 8.1 10^3/uL Normal 3.5- [...] Cells % 0.0 Comp Metabolic Panel 11/28/2019 [facility] Sodium 137 mmol/L Normal 135-145 Potassium 4.0 [...] Egfr Non- 67.2 >60 Egfr 81.3 >60 9 Laboratory test finding 11/28/2019 [facility] Acetaminophen < 15 g/mL 10 Alcohol < 10 mg/dL Normal <10 Salicylate < 2.50 mg/dL <30 TSH (Thyroid Stim Horm) 2.32 mcIU/mL Normal 0.34-5.60 Laboratory test 11/12/2019 [facility]) PSA <0.1 ng/mL Low 0.0- 4.0 11 finding Comprehensive 11/12/2019 [facility]) Sodium 139 mEq/L 134-149 Metabolic Prof Potassium 3.8 mEq/L 3.6-5.5 Chloride 98 mEq/L 94-112 Carbon Dioxide 25 mEq/L 21-32 Glucose 140 mg/dL High 70-105 12 BUN 13 mg/dL 6-26 Creatinine 0.9 mg/dL 0.6-1.4 BUN/Creat Ratio 14.4 CALC 8.0-36.0 Calcium 9.5 mg/dL 8.6-10.2 Total Protein 7.0 g/dL 6.4-8.3 Albumin 4.5 g/dL 3.8-5.5 Globulin 2.5 g/dL 2.0-4.8 A/G Ratio 1.8 CALC 0.6-2.3 Alk. Phosphatase 113 U/L High 22-95 13 Alt (SGPT) 22 U/L 7-35 Ast (Sgot) 20 U/L 5-34 Total Bilirubin 0.8 mg/dL 0.2-1.3 GFR Non- >60 ml/min/1.73m^ >=60 GFR >60 ml/min/1.73m^ >=60 Lipid Profile 11/12/2019 Sebastian Abel([facility]) Cholesterol 187 mg/dL 120- 200 Triglycerides 163 mg/dL 30-200 HDL Cholesterol 60 mg/dL 30-70 LDL (Calculated) 94 CALC 0-129 VLDL Cholesterol 33 mg/dL 0-50 HDL Risk Factor 3.1 CALC 0.0-4.4 CBC Electronic [facility] 11/12/2019 Sebastian Abel([facility]) WBC 8.6 x10^3/UL 4.0- 10.0 RBC 4.94 x10^6/UL 3.93-6.00 HGB 15.7 g/dL 12.0-17.0 HCT 47 % 35-50 MCV 95.1 fL High 80.0-95.0 14 MCH 31.8 pg 25.6-32.2 MCHC 33.4 g/dL 32.2-36.0 RDW-CV 13.0 % 11.6-14.4 PLT 205 x10^3/UL 163-400 MPV 11.7 fL 9.4-12.4 Tricia# 6.01 x10^3/UL 1.56-6.13 Lymph# 1.65 x10^3/UL 1.18-3.74 Love# 0.67 x10^3/UL 0.24-0.82 Eos # 0.3 x10^3/UL 0.0-0.5 Baso # 0.03 x10^3/UL 0.01-0.08 Tricia% 69.8 % 34.0-70.0 Lymph % 19.1 % Low 20.0-52.0 15 Love% 7.8 % 5.0-12.0 Eos% 2.9 % 0.7-7.0 Baso% 0.3 % 0.1-1.2 Laboratory test 11/12/2019 [facility] Hemoglobin A1c 5.5% % 4.1- 5.7 finding (607)- - ([facility]) 1 Because ethnic data is not always [...] <50 ug/mL Toxic concentration: >120 ug/mL 3 Presumptive Positive Presumptive positive results are unconfirmed. 4 The urine specimen was tested at the listed cutoffs: Drug class test level (ng/mL) Amphetamines 500 Barbiturates 200 Benzodiazepine metabolites 200 Cocaine metabolites 150 Cannabinoids 50 Opiates 300 Pcp 25 Specimen was received without chain of custody. Results should be used for medical purposes only. 5 Because ethnic data is not always readily [...] 15-29 5 Kidney failure <15 (or dialysis) 6 Therapeutic concentration: <50 ug/mL Toxic concentration: >120 ug/mL 7 Therapeutic concentration: <50 ug/mL Toxic concentration: >120 ug/mL 8 Because ethnic data is not always readily [...] 15-29 5 Kidney failure <15 (or dialysis) 9 Because ethnic data is not always readily [...] 15-29 5 Kidney failure <15 (or dialysis) 10 Therapeutic concentration: <50 ug/mL Toxic concentration: >120 ug/mL 11 consistent w/ previous results 12 consistent w/ previous results 13 consistent w/ previous results 14 RESULTS VERIFIED BY REPEAT ANALYSIS 15 RESULTS VERIFIED BY REPEAT ANALYSIS Procedures Date Code Description Status 02/03/2020 15311 Electrocardiogram Complete Completed 01/25/2020 13804308 Mammogram Completed 12/25/2017 [id number] Mammogram Completed 12/28/2016 [id number] Mammogram Completed Medical Devices Description No Information Available Encounters Type Date Location Provider Dx Diagnosis Office Visit 02/03/2020 Main Office Evita Cardona R06.00 Dyspnea, 1:00p NINA Steward unspecified Office Visit 01/27/2020 [facility] Elizabeth Nick, L23.9 Allergic contact 9:20a M.D. 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, PHYSICAL THERAPY MANAGER pain, unspecified Office Visit 09/15/2019 7:15p Main Office Evita Cardona R10.10 Upper abdominal Steward, PHYSICAL THERAPY MANAGER pain, unspecified R26.89 Other abnormalities of gait and mobility Office Visit 09/14/2019 9:00a Main Office Mame S09.90xA Unspecified injury [place], Afnp-C of head, initial encounter S09.90xD Unspecified injury of head, subsequent encounter S00.31xA Abrasion of nose, initial encounter Z23 Encounter for immunization W22.8xxA Striking against or struck by other objects, init encntr Assessments Date Code Description Provider 02/03/2020 R06.00 Dyspnea, unspecified Evita Steward NP 01/27/2020 L23.9 Allergic contact dermatitis, unspecified Elizabeth Romero M.D. cause 01/18/2020 Z12.31 Encounter for screening mammogram for Evita Steward NP malignant neoplasm of breast 01/18/2020 F33.9 Major depressive disorder, recurrent, Evita Steward NP unspecified 01/18/2020 Z63.9 Problem related to primary support Evita Steward NP group, unspecified 01/18/2020 R63.4 Abnormal weight loss Evita Steward, NINA 12/21/2019 F33.9 Major depressive disorder, recurrent, Evita Steward NP unspecified 12/21/2019 R45.851 Suicidal ideations Evita Steward NP 12/21/2019 Z91.5 Personal history of self-harm Evita Steward NP 12/21/2019 Z63.9 Problem related to primary support Evita Steward NP group, unspecified 12/21/2019 F41.9 Anxiety disorder, unspecified Evita Steward, NINA 12/14/2019 F33.9 Major depressive disorder, recurrent, Evita Steward PHYSICAL THERAPY MANAGER unspecified 12/14/2019 R45.851 Suicidal ideations Evita Steward [...] NP 09/15/2019 R10.10 Upper abdominal pain, unspecified Evtia Steward NP 09/15/2019 R26.89 Other abnormalities of gait and mobility Evita Steward NP 09/14/2019 S09.90xA Unspecified injury of head, initial Mame Watt, Afnp-C encounter 09/14/2019 S09.90xD Unspecified injury of head, subsequent Caroline Timmons encounter 09/14/2019 S00.31xA Abrasion of nose, initial encounter Caroline Timmons 09/14/2019 Z23 Encounter for immunization Caroline Timmons 09/14/2019 W22.8xxA Striking against or struck by other Caroline Timmons objects, initial encounter Plan of Treatment 02/03/2020 - Evita Steward, NPR06.00 Dyspnea, unspecifiedComments: consulted with Dr. Castillo, who also evaluated patient EKG completed and interpreted in office, SR with left axis deviation interpreted by MD Jonathan no changes compared to 05/2019 EKG from [facility] labs drawn in office and patient waited results in procedure room DDimer run twice resulted in [address] called for patient transfer report to Gianluca at [facility] [id number]: Medication Management Patient Understands medications he 's taking? [...] goals? Yes No If Yes, please describe: financial, transportation, comorbid conditions, polypharmacy 4. Self-Management goals as described to the patient: Yes NoAs always, we strongly encourage a healthy diet andmaking physical activity a part of your every day life. If you have questions about how or where to start, please contact the office. Functional Status Description No Information Available Mental Status Description No Information Available Referrals Refer to Reason for Referral Status Appt Date [facility] Physical PHYSICAL THERAPY evaluate and Scheduled / Therapy treat gait and mobility--increase in falls. Order faxed. Pt will call to schedule his own appt. [address] [place] [address] [phone]
--- OUTSIDE RECORDS SUMMARY | 2020-02-03 15:41 | XMS REPORT | Continuity of Care Document ---
:1950 External Reference #:[id number] Author Name Evita Steward, NINA Address [address] [facility] [place] [address] Care Team Providers Name Role Phone Other Specialty Care Team Information Pricing Supervisor Unavailable Denise Jorgensen - Family Medicine Care Team Information Pricing Supervisor [phone] [facility] & Care Team Information Pricing Supervisor [phone] lymphedema - Physical Therapist [facility] Physical Care Team Information Pricing Supervisor Therapy - Physical Therapy Ashley Parker - Pulmonary Disease Care Team Information Pricing Supervisor Problems Active Problems Provider Date Gender dysphoria [...] a former smoker Unknown Smoking Status Reviewed: 03/09/20 Patient is a former smoker Allergies, Adverse Reactions, Alerts Active Allergies Reaction Severity Comments Date Morphine nausea/vomiting 05/31/2015 Penicillin hives/rash 05/31/2015 Medications Active Medications SIG Qnty Indications Ordering Provider Date Walker With Wheels/ use as directed. 1units R26.89 Elizabeth Romero M.D. Brakes And Seat 4 wheel walker with brakes and seat seen 12/21/2019 M16.0 Diclofenac Sodium take 1 tablet by 60tabs M25.551 Sagar Castillo, 2016 75mg mouth twice daily M.DErin Tablets DR as needed for joint pain Metaxalone 1 by mouth every 90tabs M25.551 Paramjit Babb 09/02/2017 800mg 8h as needed MD Charleen Tablets muscle spasm Depend Underwear For use as directed 90units N39.3 Elizabeth Romero M.D. Men Large/Xlarge Maximum Absorbency [facility] Z85.46 R32 Spironolactone take one-half 15tabs I10 Elizabeth Romero M.D. 07/26/2016 50mg Tablets tablet by mouth every day Seroquel take one tablet by Unknown 200mg Tablets mouth every night at bedtime Venlafaxine HCL ER 1 by mouth every Unknown 150mg Caps day ER 24HR Hydroxyzine HCL 1 by mouth every 6 120tabs F41.9 Evita Dulce 50mg Tablets hours as needed NINA Steward [...] Terese Carpio, 40mg Tablets once daily as [employer] needed for leg swelling Vitamin D 1 by mouth every Unknown 5000Units Tablets day Klonopin 1 PO qam Unknown 2mg Tablets Progesterone Micronized take 1 capsule by Unknown 200mg mouth at bedtime Capsules Aspirin Ec 1 by mouth every Unknown 81mg Tablets Immunizations CPT Code Status Date Vaccine Lot # [id number] Given 09/14/2019 High-Dose, Influenza Virus Vacccine-fluzone 65 and [id number] older 17121 Given 08/07/2018 High-Dose, Influenza Virus Vacccine-fluzone 65 and [id number] older 29179 Given 07/29/2017 Influenza Vac, Quadrivalent, Slit Virus, Im [id number] 72607 Given 09/11/2016 Pneumococcal Conjugate Vacc-13 [id number] 17795 Given 05/31/2015 Pneumococcal Immunization [id number] 86437 Given 05/31/2015 Tdap Tetanus, W Pertussis [id number] 99911 Given 07/23/2014 Influenza vac quadrivalent preservative free 6 months and up 83446 Given 07/23/2013 Influenza Vac, [place] [address] Given 07/18/2012 Zostivax 64169 Given 07/18/2012 Influenza Vac, [place] [address] Given 04/17/2010 Tdap Tetanus, W Pertussis Vital Signs Date Vital Result Comment 01/18/2020 10:18am BP Systolic 120 mmHg BP Diastolic 82 mmHg Heart Rate 64 /min Body Temperature 98.4 F Respiratory Rate 18 /min Weight 168.00 lb 12/21/2019 3:20pm BP Systolic 116 mmHg BP Diastolic 64 mmHg Heart Rate 92 /min Body Temperature 97.2 F Respiratory Rate 16 /min Height 65.75 inches 5'5.75" Weight 177.00 lb BMI (Body Mass Index) 28.8 kg/m2 Results Test Acquired Date Facility Test Result H/L Range Note CBC Auto Diff 01/10/2020 [facility] White Blood 9.0 10^3/uL Normal 3.5-10.8 Count Red Blood Count 4.35 10^6/uL Normal 3.70-4.87 [...] Cells % 0.0 Comp Metabolic Panel 01/10/2020 [facility] Sodium 135 mmol/L Normal 135-145 Potassium 4.1 [...] 71.4 >60 1 Laboratory test finding 01/10/2020 [facility] Acetaminophen < 15 g/mL 2 Alcohol < 10 mg/dL Normal <10 Salicylate < 2.50 mg/dL <30 Urine Drug SCR ED 01/10/2020 [facility] Urine Amphetamine None Detected None Detect & Pain Clinic Screen Urine Barbiturates Screen None Detected None Detect Urine Benzodiazepine Screen Presumptive Posi <SEE NOTE> Abnormal None Detect 3 Urine Cannabinoids Screen None Detected None Detect Urine Opiates Screen None Detected None Detect Urine Phencyclidine Screen None Detected None Detect 4 Urine Cocaine Screen None Detected None Detect Urinalysis Profile 01/10/2020 [facility] Urine Color Nohelia Urine Appearance Cloudy Urine Specific [place] 1.023 Normal 1.010-1.030 Urine pH 5.0 Normal 5-9 Urine Urobilinogen Negative Negative Urine Ketones 1+ Abnormal Negative Urine Protein Negative Negative Urine Leukocytes Negative Negative Urine Blood Negative Negative Urine Nitrite Negative Negative Urine Bilirubin Negative Negative Urine Glucose Negative Negative CBC Auto Diff 12/14/2019 [facility] White Blood Count 7.6 10^3/uL Normal 3.5- [...] Blood Cells % 0.0 Laboratory test 12/14/2019 [facility] TSH (Thyroid Stim 1.57 mcIU/mL Normal 0.34 -5.60 finding Horm) Comp Metabolic Panel 12/14/2019 [facility] Sodium 138 mmol/L Normal 135-145 Potassium 3.8 [...] 72.3 >60 5 Laboratory test finding 12/14/2019 [facility] Acetaminophen < 15 g/mL 6 Alcohol < 10 mg/dL Normal <10 Salicylate < 2.50 mg/dL <30 Laboratory test 12/10/2019 [facility] TSH (Thyroid Stim 1.67 mcIU/mL Normal 0.34 -5.60 finding Horm) Acetaminophen < 15 g/mL 7 Comp Metabolic Panel 12/10/2019 [facility] Sodium 136 mmol/L Normal 135-145 Potassium 4.0 [...] 78.1 >60 8 Laboratory test finding 12/10/2019 [facility] Alcohol < 10 mg/dL Normal <10 Salicylate < 2.50 mg/dL <30 CBC Auto Diff 12/10/2019 [facility] White Blood Count 8.5 10^3/uL Normal 3.5- [...] Cells % 0.0 CBC Auto Diff 11/28/2019 [facility] White Blood Count 8.1 10^3/uL Normal 3.5- [...] >60 ml/min/1.73m^ >=60 Lipid Profile 11/12/2019 Sebastian Page([facility]) Cholesterol 187 mg/dL 120- 200 Triglycerides 163 mg/dL 30-200 HDL Cholesterol 60 mg/dL 30-70 LDL (Calculated) 94 CALC 0-129 VLDL Cholesterol 33 mg/dL 0-50 HDL Risk Factor 3.1 CALC 0.0-4.4 CBC Electronic Fma 11/12/2019 Sebastian Abel(a) WBC 8.6 x10^3/UL 4.0- 10.0 RBC 4.94 x10^6/UL 3.93-6.00 HGB 15.7 g/dL 12.0-17.0 HCT 47 % 35-50 MCV 95.1 fL High 80.0-95.0 14 MCH 31.8 pg 25.6-32.2 MCHC 33.4 g/dL 32.2-36.0 RDW-CV 13.0 % 11.6-14.4 PLT 205 x10^3/UL 163-400 MPV 11.7 fL 9.4-12.4 Tricia# 6.01 x10^3/UL 1.56-6.13 Lymph# 1.65 x10^3/UL 1.18-3.74 Carroll# 0.67 x10^3/UL 0.24-0.82 Eos # 0.3 x10^3/UL 0.0-0.5 Baso # 0.03 x10^3/UL 0.01-0.08 Tricia% 69.8 % 34.0-70.0 Lymph % 19.1 % Low 20.0-52.0 15 Carroll% 7.8 % 5.0-12.0 Eos% 2.9 % 0.7-7.0 Baso% 0.3 % 0.1-1.2 Laboratory test 11/12/2019 [facility] Hemoglobin A1c 5.5% % 4.1- 5.7 finding [...] ANALYSIS Procedures Date Code Description Status 12/25/2017 21421134 Mammogram Completed 12/28/2016 63058066 Mammogram Completed Medical Devices Description No Information Available Encounters Type Date Location Provider Dx Diagnosis Office Visit 12/21/2019 Main Office Evita Cardona F33.9 Major depressive 3:30p Bin, DIAL MARKER disorder, recurrent, unspecified R45.851 Suicidal ideations Z91.5 Personal history of self-harm Z63.9 Problem related to primary support group, unspecified F41.9 Anxiety disorder, unspecified Office Visit 12/14/2019 8:00a Main Office Evita Cardona F33.9 Major depressive Bin, DIAL MARKER disorder, recurrent, unspecified R45.851 Suicidal ideations Z91.5 Personal history of self-harm F64.9 Gender identity disorder, unspecified Office Visit 11/26/2019 8:00a Main Office Elizabeth Romero, F33.9 Major depressive M.D. 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, DIAL MARKER pain, unspecified Office Visit 09/15/2019 7:15p Main Office Evita Cardona R10.10 Upper abdominal Steward, DIAL MARKER pain, unspecified R26.89 Other abnormalities of gait and mobility Office Visit 09/14/2019 9:00a Main Office Mame S09.90xA Unspecified injury Echoorf, Afnp-C of head, initial encounter S09.90xD Unspecified injury of head, subsequent encounter S00.31xA Abrasion of nose, initial encounter Z23 Encounter for immunization W22.8xxA Striking against or struck by other objects, init encntr Assessments Date Code Description Provider 01/18/2020 Z12.31 Encounter for screening mammogram for Evita Steward NP malignant neoplasm of breast 01/18/2020 F33.9 Major depressive disorder, recurrent, Evita Steward NP unspecified 01/18/2020 Z63.9 Problem related to primary support Evita Steward NP group, unspecified 01/18/2020 R63.4 Abnormal weight loss Evita Steward NP 12/21/2019 F33.9 Major depressive disorder, recurrent, Evita Steward NP unspecified 12/21/2019 R45.851 Suicidal ideations Evita Steward NP 12/21/2019 Z91.5 Personal history of self-harm Evita Steward, NINA 12/21/2019 Z63.9 Problem related to primary support Evita Steward NP group, unspecified 12/21/2019 F41.9 Anxiety disorder, unspecified Evita Steward, NINA 12/14/2019 F33.9 Major depressive disorder, recurrent, Evita Steward NP unspecified 12/14/2019 R45.851 Suicidal ideations Evita Steward NP 12/14/2019 Z91.5 Personal history of self-harm Evita Steward, NINA 12/14/2019 F64.9 Gender identity disorder, unspecified Evita Steward, NINA 11/26/2019 F33.9 Major depressive disorder, recurrent, Elizabeth [...] Timmons objects, initial encounter Plan of Treatment 01/18/2020 - Evita Steward, NPZ12.31 Encounter for screening mammogram for malignant neoplasm of breastComments:A mammogram has been ordered.F33.9 Major depressive disorder, recurrent, unspecifiedComments:continue with TCMHZ63.9 Problem related to primary support group, unspecifiedComments:Working with [facility] for a izkbaR55.4 Abnormal weight lossComments:likely due to depression - continue 3 meals a day patient instructed to call back if condition failsto improve or worsens.AllComments:Medication Management Patient Understands medications he 's taking? [...] Yes No If Yes, please describe: comorbid conditions, polypharmacy 4. Self- Management goals as described to the patient: Yes NoAs always, we strongly encourage a healthy diet and making physical activity apart of your every day life. If you have questions about how or where to start, please contact the office.Follow up: [facility] Functional Status Description No Information Available Mental Status Description No Information Available Referrals Refer to Reason for Referral Status Appt Date [facility] Physical PHYSICAL THERAPY evaluate and Scheduled Therapy treat gait and mobility--increase in falls. Order faxed. Pt will call to schedule his own appt. [address] [facility] [address] [place] [address] [phone]
--- OUTSIDE RECORDS SUMMARY | 2020-02-03 15:41 | XMS REPORT ---
:1950 Author Organization [facility] Care Team Providers Name Role Phone Alexus Alcantar Primary Care Physician Unavailable Allergies, Adverse Reactions, Alerts Allergy Code CodeSystem Reaction Severity Criticality Status Start Substance Date Moderate Medications Medication Medication Medication Start Stop Route Dose Status Fill Code CodeSystem Date Date Instructions mirtazapine 604673 RxNorm 2018- oral 30 mg 1 active 1 tablet at 2-10 19-26 tablet bedtime for at 30 day(s) bedtime aripiprazole 743307 RxNorm 2018- oral 10 mg 1 active 1 tablet 02-12 tablet once a day once a for 30 day(s) day clonazepam 19741220 RxNorm 2018- oral 2 mg 1 completed 1 tablet at 517 06-16 tablet bedtime for at 30 day(s) bedtime venlafaxine 973155 RxNorm 2018- oral 150 mg 2 active 2 capsule 02-12 capsule, once a day extended for 30 day(s) release 24hr once a day clonazepam 19741220 RxNorm 2018- oral 2 mg 1 completed 1 tablet at 4-04 05-12 tablet bedtime for at 30 day(s) bedtime trazodone 840303 RxNorm oral 50 mg 1 active 1 tablet at 4-04 tablet bedtime for at 30 day(s) bedtime clonazepam 699590 RxNorm 2018- oral 2 mg completed for 30 4-12 05-17 tablet day(s) clonazepam 765670 RxNorm 2019- oral 2 mg completed for 30 6-18 07-18 tablet day(s) clonazepam 128100 RxNorm 2019- oral 2 mg 1 completed 1 tablet at 718 08-17 tablet bedtime for at 30 day(s) bedtime Problems Problem Name Code CodeSystem Alternate Alternate Start End Status Narrative Code CodeSystem Date Date Severe 04548917 SNOMED-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 Severe 08093116 SNOMED-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 Severe 57244281 SNOMED-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 Generalized 24420578 SNOMED-CT 2019- Active anxiety 0-15 disorder Relevant diagnostic tests/laboratory data Narrative No Information Procedures Procedure Code CodeSystem Target Date of Status Service Device Device Device Name Site Procedure Delivery Code Name UID Location Group [id number] SNOMED-CT () 2019 complete Mental psychotherap 8 d Health- y (other Evangeline than of a [address]) [place], [place], [id number] Group [id number] SNOMED-CT () 2019-04-02 complete Mental psychotherap 8 d Health- y (other Evangeline than of a [address]) [place], [place], [id number] [id number] Psychotherap 216231 SNOMED-CT () 2019-10-20 complete Mental y, 45 04 d Health- minutes with Evangeline patient [address], [id number] SNOMED-CT () 2019-07-20 complete Mental d Health- Idania [address], [id number] [phone] Psychotherap [id number] SNOMED-CT () 2019-06-30 complete Mental y, 45 04 d Health- minutes with Evangeline patient [address], [id number] [id number] Office or [id number] SNOMED-CT () 2019-12-03 complete Mental other 7 d Health- outpatient Idania visit for [address], of an [facility] established [id number] patient, [id number] which requires at least 2 of these 3 david components: An expanded problem focused history; An expanded problem focused examination; Medical decision making of [facility] Office or 128384 SNOMED-CT () 2019-08-05 complete Mental other 7 d Health- outpatient Evangeline visit for [address], of an [place], established [id number] patient, [id number] which requires at least 2 of these 3 david components: An expanded problem focused history; An expanded problem focused examination; Medical decision making of [facility] Group [id number] SNOMED-CT () 2019-03-12 complete Mental psychotherap 8 d Health- y (other Idania than of a [address]) [place], [place], [id number] Group [id number] SNOMED-CT () 2019-05-28 complete Mental psychotherap 8 d Health- y (other Idania than of a [address]) [place], [place], [id number] SNOMED-CT () 2019-04-17 complete Mental d Health- Idania [address], [id number] [id number] Group [id number] SNOMED-CT () 2019-08-13 complete Mental psychotherap 8 d Health- y (other Evangeline than of a [address] group) [place], [place], [id number] [phone] Psychotherap 764717 SNOMED-CT () 2019-11-16 complete Mental y, 45 04 d Health- minutes with Idania patient [address], [id number] [id number] Psychotherap 396349 SNOMED-CT () 2019-11-03 complete Mental y, 45 04 d Health- minutes with Idania patient [address], [id number] Group [id number] SNOMED-CT () 2019-03-05 complete Mental psychotherap 8 d Health- y (other Idania than of a [address] group) [place], [place], [id number] [phone] Psychotherap 789139 SNOMED-CT () 2019-12-10 complete Mental y, 45 04 d Health- minutes with Evangeline patient [address], [id number] Group [id number] SNOMED-CT () 2019-03-19 complete Mental psychotherap 8 d Health- y (other Evangeline than of a [address]) [place], [place], [id number] [id number] Psychotherap 713289 SNOMED-CT () 2019-09-15 complete Mental y, 45 04 d Health- minutes with Idania patient [address], [id number] [phone] Psychotherap [id number] SNOMED-CT () 2019-10-27 complete Mental y, 45 04 d Health- minutes with Idania patient [address], [id number] [id number] Office or [id number] SNOMED-CT () 2019-05-08 complete Mental other 6 d Health- outpatient Evangeline visit for [address], of an [place], established [id number] patient, [id number] which requires at least 2 of these 3 david components: A problem focused history; A problem focused examination; Straightforw don medical decision making. Counselin Psychotherap [id number] SNOMED-CT () 2019-07-28 complete Mental y, 45 04 d Health- minutes with Idania patient [address], [id number] [phone] Psychotherap 978216 SNOMED-CT () 2019-08-18 complete Mental y, 45 04 d Health- minutes with Idania patient [address], [id number] [phone] Group [id number] SNOMED-CT () 2019-07-30 complete Mental psychotherap 8 d Health- y (other Idania than of a [address]) [place], [place], [id number] [phone] Psychotherap 724677 SNOMED-CT () 2019-10-13 complete Mental y, 45 04 d Health- minutes with Evangeline patient [address], [id number] [id number] SNOMED-CT () 2019-03-05 complete Mental d Health- Idania[address], [id number] [phone] Preventive [id number] SNOMED-CT () 2019-05-29 complete Mental medicine 1 d Health- counseling Evangeline and/or risk [address], (s) provided [place], to an [place], individual [id number] (separate [id number] procedure); approximatel y 30 minutes Psychotherap 935512 SNOMED-CT () 2019-08-25 complete Mental y, 45 04 d Health- minutes with Idania patient [address], [id number] [phone] Psychotherap 305790 SNOMED-CT () 2019-11-10 complete Mental y, 45 04 d Health- minutes with Idania patient [address], [id number] Group [id number] SNOMED-CT () 2019-03-26 complete Mental psychotherap 8 d Health- y (other Idania than of a [address] group) [place], [place], [id number] Group [id number] SNOMED-CT () 2019-06-18 complete Mental psychotherap 8 d Health- y (other Idania than of a [facility] group) [place], [place], [id number] Group [id number] SNOMED-CT () 2019-07-16 complete Mental psychotherap 8 d Health- y (other Idania than of a [address] group) [place], [place], [id number] [phone] Psychotherap 683444 SNOMED-CT () 2019-06-12 complete Mental y, 45 04 d Health- minutes with Evangeline patient [address], [id number] [phone] Psychotherap 106108 SNOMED-CT () 2019-06-01 complete Mental y, 45 04 d Health- minutes with Idania patient [address], [id number] SNOMED-CT () 2019-06-18 complete Mental d Health- Idania [address], [id number] [id number] Psychotherap 049497 SNOMED-CT () 2019-09-01 complete Mental y, 45 04 d Health- minutes with Idania patient [address], [id number] [phone] Office or 227393 SNOMED-CT () 2019-10-02 complete Mental other 7 d Health- outpatient Evangeline visit for [address], [facility], of an [place], established [id number] patient, [id number] which requires at least 2 of these 3 david components: An expanded problem focused history; An expanded problem focused examination; Medical decision making of low Psychotherap [id number] SNOMED-CT () 2019-10-06 complete Mental y, 45 04 d Health- minutes with [address], [id number] [id number] Psychotherap [id number] SNOMED-CT () 2019-08-12 complete Mental y, 45 04 d Health- minutes with Evangeline patient [address], [id number] [id number] SNOMED-CT () 2019-04-03 complete Mental d Health- [address], [id number] [id number] Psychotherap [id number] SNOMED-CT () 2019-11-24 complete Mental y, 45 04 d Health- minutes with Idania[address], [id number] [id number] Psychotherap [id number] SNOMED-CT () 2019-09-08 complete Mental y, 45 04 d Health- minutes with [address], [id number] [id number] Psychotherap 057309 SNOMED-CT () 2019-12-08 complete Mental y, 45 04 d Health- minutes with Evangeline patient [address], [id number] [id number] SNOMED-CT () 2019-02-20 complete Mental d Health- [address], [id number] [phone] Psychotherap 306169 SNOMED-CT () 2019-05-05 complete Mental y, 45 04 d Health- minutes with [address], [id number] [phone] Psychotherap 028159 SNOMED-CT () 2019-09-29 complete Mental y, 45 04 d Health- minutes with Evangeline patient [address], [id number] [id number] Group [id number] SNOMED-CT () 2019-04-09 complete Mental psychotherap 8 d Health- y (other Idania than of a [address]) [place], [place], [id number] [phone] Group [id number] SNOMED-CT () 2019-07-23 complete Mental psychotherap 8 d Health- y (other Evangeline than of a [address]) [place], [place], [id number] [phone] SNOMED-CT () 2019-09-22 complete Mental d Health- [address], [id number] SNOMED-CT () 2019-12-02 complete Mental d Health- [address], [id number] [id number] SNOMED-CT () 2019-03-20 complete Mental d Health- [address], [id number] [id number] Psychotherap 522341 SNOMED-CT () 2019-05-15 complete Mental y, 45 04 d Health- minutes with Evangeline patient [address], [id number] [phone] Encounters/Encounter Diagnoses Encounter Encounter Diagnosis Diagnosis Name Diagnosis Date of Service Name Code Code CodeSystem Diagnosis Delivery Location Non-Billable [id number] Generalized SNOMED-CT 2019-12-11 Behavioral [facility] disorder Clinic , , , Vital Signs No Information Social History Element Description Description Start End Code CodeSystem AdditionalInfo Date Date SexAssignedAtBirth Female 1950-0 F AdministrativeGender 04-16 Hospital Discharge Instructions Reason For Referral Medical Equipment FDA Assessments
--- OUTSIDE RECORDS SUMMARY | 2020-02-03 15:41 | XMS REPORT ---
:1950 Author Organization [facility] Care Team Providers Name Role [...] 2 mg 1 completed 1 tablet at 4-02 13-12 tablet bedtime for at 30 day(s) bedtime venlafaxine 618398 RxNorm 2018- oral 150 mg 2 active 2 capsule 02-12 capsule, once a day extended for 30 day(s) release 24hr once a day clonazepam [id number] RxNorm 2018- oral 2 mg 1 completed 1 tablet at 05-28 08-17 tablet bedtime for at 30 day(s) bedtime aripiprazole 464696 RxNorm 2018- oral 10 mg 1 active 1 tablet 02-12- tablet once a day once a for 30 day(s) day clonazepam [id number] RxNorm 2018- oral 2 mg 1 completed 1 tablet at 03-27 06-16 tablet bedtime for at 30 day(s) bedtime trazodone 375417 RxNorm oral 50 mg 1 active 1 tablet at 4-04 tablet bedtime for at 30 day(s) bedtime clonazepam [id number] RxNorm 2019- oral 2 mg completed for 30 4 05-17 tablet day(s) mirtazapine 096929 RxNorm 2019- oral 30 mg 1 active 1 tablet at 12-23- tablet bedtime for at 30 day(s) bedtime Problems Problem Name Code CodeSystem Alternate Alternate Start End Status Narrative Code CodeSystem Date Date 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-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 Generalized [id number] SNOMED-CT 2019-1 Active anxiety 0-15 disorder Severe 74833532 SNOMED-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 Severe 40598348 SNOMED-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 Relevant diagnostic tests/laboratory data Narrative No Information Procedures Procedure Code CodeSystem Target Date of Status Service Device Device Device Name Site Procedure Delivery Code Name UID Location Group [id number] SNOMED-CT () 2019-03-12 complete Mental psychotherap 8 d Health- y (other [facility] than of a [facility] [address] [facility] group) [place], [place], [id number] Group [id number] SNOMED-CT () 2019-03-26 complete Mental psychotherap 8 d Health- y (other [facility] than of a [address] group) [place], [place], [id number] Group [id number] SNOMED-CT () 2019-06-18 complete Mental psychotherap 8 d Health- y (other [facility] than of a [facility] [address] [facility] group) [place], [place], [id number] Group [id number] SNOMED-CT () 2019-07-16 complete Mental psychotherap 8 d Health- y (other [facility] than of a [facility] [address] [facility] group) [place], [place], [id number] Group [id number] SNOMED-CT () 2019-05-28 complete Mental psychotherap 8 d Health- y (other [facility] than of a [facility] [address] [facility] group) [place], [place], [id number] [id number] Group [id number] SNOMED-CT () 2019-08-13 complete Mental psychotherap 8 d Health- y (other [facility] than of a [facility] [address] [facility] group) [place], [place], [id number] Group [id number] SNOMED-CT () 2019-03-05 complete Mental psychotherap 8 d Health- y (other [facility] than of a [address] group) [place], [place], [id number] Group [id number] SNOMED-CT () 2019-03-19 complete Mental psychotherap 8 d Health- y (other [facility] than of a [address] group) [place], [place], [id number] [id number] Group [id number] SNOMED-CT () 2019-07-30 complete Mental psychotherap 8 d Health- y (other [facility] than of a [address] group) [place], [place], [id number] Group [id number] SNOMED-CT () 2019-04-09 complete Mental psychotherap 8 d Health- y (other [facility] than of a [address] group) [place], [place], [id number] [id number] Group [id number] SNOMED-CT () 2019-07-23 complete Mental psychotherap 8 d Health- y (other [facility] than of a [address] group) [place], [place], [id number] Group [id number] SNOMED-CT () 2019 complete Mental psychotherap 8 d Health- y (other [facility] than of a [address] group) [place], [place], [id number] Group [id number] SNOMED-CT () 2019-04-02 complete Mental psychotherap 8 d Health- y (other [facility] than of a [address] group) [place], [place], [id number] SNOMED-CT () 2019-07-20 complete Mental d Health- [facility] [address], [id number] SNOMED-CT () 2019-06-18 complete Mental d Health- [facility] [address], [id number] [phone] Office or [id number] SNOMED-CT () 2019-08-05 complete Mental other 7 d Health- outpatient [facility] visit for [address] [facility] [id number] patient, [phone] which requires at least 2 of these 3 david components: An expanded problem focused history; An expanded problem focused examination; Medical decision making of low Office or [id number] SNOMED-CT () 2019-12-03 complete Mental other 7 d Health- outpatient [facility] visit for [address] [facility] [id number] patient, [phone] which requires at least 2 of these 3 david components: An expanded problem focused history; An expanded problem focused examination; Medical decision making of low Office or [id number] SNOMED-CT () 2019-10-02 complete Mental other 7 d Health- outpatient [facility] visit for [address] [facility] [id number] patient, [id number] which requires at least 2 of these 3 david components: An expanded problem focused history; An expanded problem focused examination; Medical decision making of low Office or [id number] SNOMED-CT () 2019-12-31 complete Mental other 7 d Health- outpatient [facility] visit for [address] [facility] [id number] patient, [phone] which requires at least 2 of these 3 david components: An expanded problem focused history; An expanded problem focused examination; Medical decision making of low Psychotherap [id number] SNOMED-CT () 2019-10-20 complete Mental y, 45 04 d Health- minutes with [facility] patient [address], [id number] [phone] Psychotherap [id number] SNOMED-CT () 2019-06-30 complete Mental y, 45 04 d Health- minutes with [facility] patient [address], [id number] Psychotherap [id number] SNOMED-CT () 2019-06-01 complete Mental y, 45 04 d Health- minutes with [facility] patient [address], [id number] Psychotherap [id number] SNOMED-CT () 2019-06-12 complete Mental y, 45 04 d Health- minutes with [facility] patient [place] [address], [place], [place], [id number] [phone] Psychotherap [id number] SNOMED-CT () 2019-12-31 complete Mental y, 45 04 d Health- minutes with [address], [id number] [phone] Psychotherap 201672 SNOMED-CT () 2019-08-25 complete Mental y, 45 04 d Health- minutes with [address], [id number] [id number] Psychotherap 056090 SNOMED-CT () 2019-11-10 complete Mental y, 45 04 d Health- minutes with [address], [id number] Psychotherap 126705 SNOMED-CT () 2019-05-05 complete Mental y, 45 04 d Health- minutes with [address], [id number] [id number] Psychotherap [id number] SNOMED-CT () 2019-09-29 complete Mental y, 45 04 d Health- minutes with [address], [id number] [id number] Psychotherap [id number] SNOMED-CT () 2019-11-16 complete Mental y, 45 04 d Health- minutes with [address], [id number] [id number] Psychotherap 679418 SNOMED-CT () 2019-11-03 complete Mental y, 45 04 d Health- minutes with [address], [id number] Psychotherap 967415 SNOMED-CT () 2019-12-10 complete Mental y, 45 04 d Health- minutes with [address], [id number] [phone] Psychotherap [id number] SNOMED-CT () 2019-12-22 complete Mental y, 45 04 d Health- minutes with [address], [id number] [phone] Psychotherap 330265 SNOMED-CT () 2019-09-01 complete Mental y, 45 04 d Health- minutes with [address], [id number] Psychotherap [id number] SNOMED-CT () 2019-10-06 complete Mental y, 45 04 d Health- minutes with [address], [id number] [id number] Psychotherap 008898 SNOMED-CT () 2019-08-12 complete Mental y, 45 04 d Health- minutes with [address], [phone] Psychotherap 812536 SNOMED-CT () 2019-11-24 complete Mental y, 45 04 d Health- minutes with [address], [id number] Psychotherap 688174 SNOMED-CT () 2019-09-08 complete Mental y, 45 04 d Health- minutes with [address], [id number] [id number] Psychotherap 367926 SNOMED-CT () 2019-12-08 complete Mental y, 45 04 d Health- minutes with [address], [id number] [id number] Psychotherap 763687 SNOMED-CT () 2019-10-13 complete Mental y, 45 04 d Health- minutes with [address], [id number] [id number] Psychotherap 883434 SNOMED-CT () 2019-09-15 complete Mental y, 45 04 d Health- minutes with [address], [id number] [phone] Psychotherap 593382 SNOMED-CT () 2019-07-28 complete Mental y, 45 04 d Health- minutes with [address], [id number] [id number] Psychotherap 496381 SNOMED-CT () 2019-08-18 complete Mental y, 45 04 d Health- minutes with [address], [id number] [id number] Psychotherap 302575 SNOMED-CT () 2019-10-27 complete Mental y, 45 04 d Health- minutes with [facility] patient [address], [id number] [id number] Psychotherap 164194 SNOMED-CT () 2019-05-15 complete Mental y, 45 04 d Health- minutes with [facility] patient [address], [id number] SNOMED-CT () 2019-04-17 complete Mental d Health- [address], [phone] SNOMED-CT () 2019-04-03 complete Mental d Health- [address], [phone] SNOMED-CT () 2019-02-20 complete Mental d Health- [address], [id number] SNOMED-CT () 2019-03-05 complete Mental d Health- [address], [id number] SNOMED-CT () 2019-03-20 complete Mental d Health- [address], [id number] SNOMED-CT () 2019-09-22 complete Mental d Health- [address], [id number] [phone] SNOMED-CT () 2019-12-02 complete Mental d Health- [address], [id number] [id number] Preventive 675892 SNOMED-CT () 2019-05-29 complete Mental medicine 1 d Health- counseling [facility] and/or risk [address], (s) provided [place], to an [place], individual [phone] (separate [id number] procedure); approximatel y 30 minutes Office or 178784 SNOMED-CT () 2019-05-08 complete Mental other 6 d Health- outpatient [facility] visit for [address], management [place], of an [place], established [id number] patient, [phone] which requires at least 2 of these 3 david components: A problem focused history; A problem focused examination; Straightforw don medical decision making. Counselin Encounters/Encounter Diagnoses Encounter Name Encounter Diagnosis Diagnosis Diagnosis Date of Service Code Code Name CodeSystem Diagnosis Delivery Location [facility] [id number] [facility] SNOMED-CT 2020-01-05 Behavioral Individual 30 anxiety Health min disorder Clinic , , , Vital Signs No Information Social History Element Description Description Start End Code CodeSystem AdditionalInfo Date Date SexAssignedAtBirth Female 1950-0 F AdministrativeGender - Hospital Discharge Instructions Reason For Referral Medical Equipment FDA Assessments
--- OUTSIDE RECORDS SUMMARY | 2020-02-03 15:41 | XMS REPORT | Continuity of Care Document ---
:1950 External Reference #:[id number] Author Name Elizabeth Romero M.D. Address [address] [facility] [place] [address] Care Team Providers Name Role Phone Other Specialty Care Team Information [employer] Unavailable Denise Jorgensen - Family Medicine Care Team Information [employer] [facility] Care Team Information [employer] [phone] lymphedema - Physical Therapist [facility] Physical Care Team Information [employer] Therapy - Physical Therapy Ashley Parker - Pulmonary Disease Care Team Information [employer] Problems Active Problems Provider Date Gender dysphoria [...] a former smoker Unknown Smoking Status Reviewed: 01/18/20 Patient is a former smoker Allergies, Adverse [...] Elizabeth Romero M.D. Men Large/Xlarge Maximum Absorbency [facility] Z85.46 R32 Spironolactone take one-half 15tabs I10 [...] Terese Carpio, 40mg Tablets once daily as COLOR DIPPER needed for leg swelling Vitamin D 1 by mouth every Unknown 5000Units Tablets day Klonopin 1 PO qam Unknown 2mg Tablets Progesterone Micronized take 1 capsule by Unknown 200mg mouth at bedtime Capsules Aspirin Ec 1 by mouth every Unknown 81mg Tablets Immunizations CPT Code Status Date Vaccine Lot # [id number] Given 09/14/2019 High-Dose, Influenza Virus Vacccine-fluzone 65 and [id number] older 87610 Given 08/07/2018 High-Dose, Influenza Virus Vacccine-fluzone 65 and [id number] older 17556 Given 07/29/2017 Influenza Vac, Quadrivalent, Slit Virus, Im [id number] 25490 Given 09/11/2016 Pneumococcal Conjugate Vacc-13 [id number] 28926 Given 05/31/2015 Pneumococcal Immunization [id number] 82136 Given 05/31/2015 Tdap Tetanus, W Pertussis [id number] 88188 Given 07/23/2014 Influenza vac quadrivalent preservative free 6 months and up 71581 Given 07/23/2013 Influenza Vac, [place] [address] Given 07/18/2012 Zostivax 03959 Given 07/18/2012 Influenza Vac, [place] [address] Given 04/17/2010 Tdap Tetanus, W Pertussis Vital Signs Date Vital Result Comment 01/27/2020 8:36am BP Systolic 120 mmHg BP Diastolic 68 mmHg Heart Rate 66 /min Body Temperature 97.2 F Weight 168.00 lb 01/18/2020 10:18am BP Systolic 120 mmHg BP Diastolic 82 mmHg Heart Rate 64 /min Body Temperature 98.4 F Respiratory Rate 18 /min Weight 168.00 lb Results Test Acquired Date [...] mg/dL <30 Urine Drug SCR ED 01/10/2020 [facility] Urine Amphetamine None Detected None Detect & Pain Clinic Screen Urine Barbiturates Screen None Detected None Detect Urine Benzodiazepine Screen Presumptive Posi <SEE NOTE> Abnormal None Detect 3 Urine Cannabinoids Screen None Detected None Detect Urine Opiates Screen None Detected None Detect Urine Phencyclidine Screen None Detected None Detect 4 Urine Cocaine Screen None Detected None Detect Urinalysis Profile 01/10/2020 [facility] Urine Color Nohelia Urine Appearance Cloudy Urine Specific [place] 1.023 Normal 1.010-1.030 Urine pH 5.0 Normal 5-9 Urine Urobilinogen Negative Negative Urine Ketones 1+ Abnormal Negative Urine Protein Negative Negative Urine Leukocytes Negative Negative Urine Blood Negative Negative Urine Nitrite Negative Negative Urine Bilirubin Negative Negative Urine Glucose Negative Negative CBC Auto Diff 12/14/2019 [facility] White Blood Count 7.6 10^3/uL [...] Blood Cells % 0.0 Laboratory test 12/14/2019 [facility] TSH (Thyroid Stim 1.57 mcIU/mL Normal 0.34 -5.60 finding Horm) Comp Metabolic Panel 12/14/2019 [facility] Sodium 138 mmol/L Normal 135-145 [...] 72.3 >60 5 Laboratory test finding 12/14/2019 [facility] Acetaminophen < 15 g/mL 6 Alcohol < 10 mg/dL Normal <10 Salicylate < 2.50 mg/dL <30 Laboratory test 12/10/2019 [facility] TSH (Thyroid Stim 1.67 mcIU/mL Normal 0.34 -5.60 finding Horm) Acetaminophen < 15 g/mL 7 Comp Metabolic Panel 12/10/2019 [facility] Sodium 136 mmol/L Normal 135-145 [...] 78.1 >60 8 Laboratory test finding 12/10/2019 [facility] Alcohol < 10 mg/dL Normal <10 Salicylate < 2.50 mg/dL <30 CBC Auto Diff 12/10/2019 [facility] White Blood Count 8.5 10^3/uL [...] Cells % 0.0 CBC Auto Diff 11/28/2019 [facility] White Blood Count 8.1 10^3/uL [...] >60 ml/min/1.73m^ >=60 Lipid Profile 11/12/2019 Sebastian Abel([facility]) Cholesterol 187 mg/dL 120- 200 Triglycerides 163 mg/dL 30-200 HDL Cholesterol 60 mg/dL 30-70 LDL (Calculated) 94 CALC 0-129 VLDL Cholesterol 33 mg/dL 0-50 HDL Risk Factor 3.1 CALC 0.0-4.4 CBC Electronic Fma 11/12/2019 Sebastian Abel([facility]) WBC 8.6 x10^3/UL 4.0- 10.0 RBC 4.94 x10^6/UL 3.93-6.00 HGB 15.7 g/dL 12.0-17.0 HCT 47 % 35-50 MCV 95.1 fL High 80.0-95.0 14 MCH 31.8 pg 25.6-32.2 MCHC 33.4 g/dL 32.2-36.0 RDW-CV 13.0 % 11.6-14.4 PLT 205 x10^3/UL 163-400 MPV 11.7 fL 9.4-12.4 Tricia# 6.01 x10^3/UL 1.56-6.13 Lymph# 1.65 x10^3/UL 1.18-3.74 Eaton# 0.67 x10^3/UL 0.24-0.82 Eos # 0.3 x10^3/UL 0.0-0.5 Baso # 0.03 x10^3/UL 0.01-0.08 Tricia% 69.8 % 34.0-70.0 Lymph % 19.1 % Low 20.0-52.0 15 Eaton% 7.8 % 5.0-12.0 Eos% 2.9 % 0.7-7.0 Baso% 0.3 % 0.1-1.2 Laboratory test 11/12/2019 [facility] Hemoglobin A1c 5.5% % 4.1- 5.7 [...] REPEAT ANALYSIS Procedures Date Code Description Status 01/25/2020 [id number] Mammogram Completed 12/25/2017 [id number] Mammogram Completed 12/28/2016 [id number] Mammogram Completed Medical Devices Description No Information Available Encounters Type Date Location Provider Dx Diagnosis Office Visit 01/18/2020 Main Office Evita Steward, Z12.31 Encntr screen 10:00a HELMET [employer]ER mammogram for malignant neoplasm of breast F33.9 Major depressive disorder, recurrent, unspecified Z63.9 Problem related to primary support group, unspecified R63.4 Abnormal weight loss Office Visit 12/21/2019 3:30p Main Office Evita Cardona F33.9 Major depressive Steward, [employer]ER disorder, recurrent, unspecified R45.851 Suicidal ideations Z91.5 Personal history of self-harm Z63.9 Problem related to primary support group, unspecified F41.9 Anxiety disorder, unspecified Office Visit 12/14/2019 8:00a Main Office Evita Cardona F33.9 Major depressive Steward, HEL[employer]ER disorder, recurrent, unspecified R45.851 Suicidal ideations Z91.5 Personal history of self-harm F64.9 Gender identity disorder, unspecified Office Visit 11/26/2019 8:00a Main Office Elizabeth Romero, F33.9 Major depressive M.D. 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, HELMET C[employer]ER pain, unspecified Office Visit 09/15/2019 7:15p Main Office Evita Cardona R10.10 Upper abdominal Steward, [employer] pain, unspecified R26.89 Other abnormalities of gait and mobility Office Visit 09/14/2019 9:00a Main Office Mame S09.90xA Unspecified injury [place], Afnp-C of head, initial encounter S09.90xD Unspecified injury of head, subsequent encounter S00.31xA Abrasion of nose, initial encounter Z23 Encounter for immunization W22.8xxA Striking against or struck by other objects, init encntr Assessments Date Code Description Provider 01/27/2020 L23.9 Allergic contact dermatitis, unspecified Elizabeth Romero M.D. 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 12/21/2019 F33.9 Major depressive disorder, recurrent, Evita Steward, HELMET C[employer]ER unspecified 12/21/2019 R45.851 Suicidal ideations Evita Steward, NINA 12/21/2019 Z91.5 Personal history of self-harm Evita Steward, HELMET [employer]ER 12/21/2019 Z63.9 Problem related to primary support Evita Steward NP group, unspecified 12/21/2019 F41.9 Anxiety disorder, unspecified Evita Steward, HELMET C[employer]ER 12/14/2019 F33.9 Major depressive disorder, recurrent, Evita Steward, HELMET COVERER unspecified 12/14/2019 R45.851 Suicidal ideations Evita Steward, NINA 12/14/2019 Z91.5 Personal history of self-harm Evita [...] Timmons objects, initial encounter Plan of Treatment 01/27/2020 - Elizabeth Romero M.D.L23.9 Allergic contact dermatitis, unspecified causeNew Medication:Triamcinolone Acetonide 0.1 % - apply to affected area twice a day as neededComments:mild soaps and moisturize and steroid cream as neededAllComments:Medication Management Patient Understands medications she's taking? Yes No Are there Barriers to Adherence? Yes No Has the patient been asked about herbal supplements and therapies, and OTC meds? Yes No Functional Status Description No Information Available Mental Status Description No Information Available Referrals Refer to Reason for Referral Status Appt Date [facility] Physical PHYSICAL THERAPY evaluate and Scheduled Therapy treat gait and mobility--increase in falls. Order faxed. Pt will call to schedule his own appt. [address] [place] [address] [phone]
--- OUTSIDE RECORDS SUMMARY | 2020-02-03 15:41 | XMS REPORT ---
:1950 Author Organization [facility] Care Team Providers Name Role Phone [...] completed for 30 04-28-18 tablet day(s) venlafaxine [id number] RxNorm 2018- oral 150 mg 2 active 2 capsule 02-12 capsule, once a day extended for 30 day(s) release 24hr once a day aripiprazole 468437 RxNorm 2018- oral 10 mg 1 active 1 tablet 02-12- tablet once a day once a for 30 day(s) day clonazepam [id number] RxNorm 2018- oral 2 mg 1 completed 1 tablet at 02-12 05-12 tablet bedtime for at 30 day(s) bedtime mirtazapine 939404 RxNorm 2018- oral 30 mg 1 active 1 tablet at 12-23- tablet bedtime for at 30 day(s) bedtime clonazepam 19741220 RxNorm 2018- oral 2 mg 1 completed 1 tablet at 03-27 06-16 tablet bedtime for at 30 day(s) bedtime trazodone 595327 RxNorm oral 50 mg 1 active 1 tablet at 4-04 tablet bedtime for at 30 day(s) bedtime Problems Problem Name Code CodeSystem Alternate Alternate Start End Status Narrative Code CodeSystem Date Date 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 Severe [id number] SNOMED-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 Generalized [id number] SNOMED-CT 2019- Active anxiety 0-15 disorder Severe 11741181 SNOMED-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 Relevant diagnostic tests/laboratory data Narrative No Information Procedures Procedure Code CodeSystem Target Date of Status Service Device Device Device Name Site Procedure Delivery Code Name UID Location Office or [id number] SNOMED-CT () 2019-12-03 complete Mental other 7 d Health- outpatient [facility] visit for [address], established [id number] patient, [id number] which requires at least 2 of these 3 david components: An expanded problem focused history; An expanded problem focused examination; Medical decision making of low Office or 893303 SNOMED-CT () 2019-08-05 complete Mental other 7 d Health- outpatient [facility] visit for [address], established [id number] patient, [id number] which requires at least 2 of these 3 david components: An expanded problem focused history; An expanded problem focused examination; Medical decision making of low Office or 618341 SNOMED-CT () 2019-10-02 complete Mental other 7 d Health- outpatient [facility] visit for [address], established [id number] patient, [id number] which requires at least 2 of these 3 david components: An expanded problem focused history; An expanded problem focused examination; Medical decision making of low Office or [id number] SNOMED-CT () 2019-12-31 complete Mental other 7 d Health- outpatient [facility] visit for [address], established [id number] patient, [id number] which requires at least 2 of these 3 david components: An expanded problem focused history; An expanded problem focused examination; Medical decision making of [facility] Group [id number] SNOMED-CT () 2019-04-30 complete Mental psychotherap 8 d Health- y (other [facility] than of a [place] multiple-[address], [place], [place], [id number] [id number] Group [id number] SNOMED-CT () 2019-08-13 complete Mental psychotherap 8 d Health- y (other [facility] than of a [address] group) [place], [place], [id number] Group [id number] SNOMED-CT () 2019-03-05 complete Mental psychotherap 8 d Health- y (other [facility] than of a [address] group) [place], [place], [id number] Group [id number] SNOMED-CT () 2019-05-28 complete Mental psychotherap 8 d Health- y (other [facility] than of a [address] group) [place], [place], [id number] Group [id number] SNOMED-CT () 2019-03-12 complete Mental psychotherap 8 d Health- y (other [facility] than of a [address] group) [place], [place], [id number] Group [id number] SNOMED-CT () 2019 complete Mental psychotherap 8 d Health- y (other [facility] than of a [address] group) [place], [place], [id number] Group [id number] SNOMED-CT () 2019-04-02 complete Mental psychotherap 8 d Health- y (other [facility] than of a [address] group) [place], [place], [id number] Group [id number] SNOMED-CT () 2019-07-23 complete Mental psychotherap 8 d Health- y (other [facility] than of a [address] group) [place], [place], [id number] Group [id number] SNOMED-CT () 2019-04-09 complete Mental psychotherap 8 d Health- y (other [facility] than of a [address] group) [place], [place], [id number] Group [id number] SNOMED-CT () 2019-07-16 complete Mental psychotherap 8 d Health- y (other [facility] than of a [address] group) [place], [place], [id number] Group [id number] SNOMED-CT () 2019-03-26 complete Mental psychotherap 8 d Health- y (other [facility] than of a [address] group) [place], [place], [id number] Group [id number] SNOMED-CT () 2019-06-18 complete Mental psychotherap 8 d Health- y (other [facility] than of a [address] group) [place], [id number] Group [id number] SNOMED-CT () 2019-07-30 complete Mental psychotherap 8 d Health- y (other [facility] than of a [address] group) [place], [place], [id number] [id number] Group [id number] SNOMED-CT () 2019-03-19 complete Mental psychotherap 8 d Health- y (other [facility] than of a [address] group) [place], [id number] Group [id number] SNOMED-CT () 2019-04-23 complete Mental psychotherap 8 d Health- y (other [facility] than of a [address] group) [place], [place], [id number] SNOMED-CT () 2019-06-18 complete Mental d Health- [facility] [address], [id number] SNOMED-CT () 2019-07-20 complete Mental d Health- [facility] [address], [id number] Office [place] [id number] SNOMED-CT () 2019-05-08 complete Mental other 6 d Health- outpatient [facility] visit for [address], of an [place], established [id number] patient, [id number] which requires at least 2 of these 3 david components: A problem focused history; A problem focused examination; Straightforw don medical decision making. Counselin SNOMED-CT () 2019-04-17 complete Mental d [facility]- [address], [id number] SNOMED-CT () 2019-04-03 complete Mental d [address], [id number] SNOMED-CT () 2019-02-20 complete Mental d Health- [address], [id number] SNOMED-CT () 2019-09-22 complete Mental d [address], [id number] SNOMED-CT () 2019-12-02 complete Mental d [address], [id number] SNOMED-CT () 2019-03-20 complete Mental d Health- [address], [id number] SNOMED-CT () 2019-03-05 complete Mental d [address], [id number] [id number] Preventive [id number] SNOMED-CT () 2019-05-29 complete Mental medicine 1 d Health- counseling [facility] and/or [address], (s) provided [place], to an [place], individual [id number] (separate [id number] procedure); approximatel y 30 minutes Psychotherap [id number] SNOMED-CT () 2019-11-10 complete Mental y, 45 04 d Health- minutes with [address], [id number] Psychotherap [id number] SNOMED-CT () 2019-08-25 complete Mental y, 45 04 d Health- minutes with [address], [id number] Psychotherap [id number] SNOMED-CT () 2019-05-05 complete Mental y, 45 04 d Health- minutes with [address], [id number] [id number] Psychotherap [id number] SNOMED-CT () 2019-09-29 complete Mental y, 45 04 d Health- minutes with [address], [id number] Psychotherap [id number] SNOMED-CT () 2019-11-16 complete Mental y, 45 04 d Health- minutes with [address], [id number] Psychotherap [id number] SNOMED-CT () 2019-11-03 complete Mental y, 45 04 d Health- minutes with [address], [id number] Psychotherap [id number] SNOMED-CT () 2019-12-10 complete Mental y, 45 04 d Health- minutes with [address], [id number] Psychotherap [id number] SNOMED-CT () 2019-12-22 complete Mental y, 45 04 d Health- minutes with [address], [id number] Psychotherap [id number] SNOMED-CT () 2020-01-05 complete Mental y, 45 04 d Health- minutes with [address], [id number] Psychotherap [id number] SNOMED-CT () 2019-06-30 complete Mental y, 45 04 d Health- minutes with [address], [id number] Psychotherap [id number] SNOMED-CT () 2019-10-20 complete Mental y, 45 04 d Health- minutes with [address], [id number] Psychotherap [id number] SNOMED-CT () 2019-09-01 complete Mental y, 45 04 d Health- minutes with [address], [id number] Psychotherap [id number] SNOMED-CT () 2019-10-06 complete Mental y, 45 04 d Health- minutes with [address], [id number] Psychotherap [id number] SNOMED-CT () 2019-08-12 complete Mental y, 45 04 d Health- minutes with [address], [id number] Psychotherap [id number] SNOMED-CT () 2019-11-24 complete Mental y, 45 04 d Health- minutes with [address], [id number] Psychotherap [id number] SNOMED-CT () 2019-09-08 complete Mental y, 45 04 d Health- minutes with [address], [id number] Psychotherap [id number] SNOMED-CT () 2019-12-08 complete Mental y, 45 04 d Health- minutes with [address], [id number] Psychotherap [id number] SNOMED-CT () 2019-05-15 complete Mental y, 45 04 d Health- minutes with [address], [id number] [id number] Psychotherap [id number] SNOMED-CT () 2019-06-12 complete Mental y, 45 04 d Health- minutes with [address], [id number] [id number] Psychotherap [id number] SNOMED-CT () 2019-12-31 complete Mental y, 45 04 d Health- minutes with [address], [id number] Psychotherap [id number] SNOMED-CT () 2019-06-01 complete Mental y, 45 04 d Health- minutes with [address], [id number] Psychotherap [id number] SNOMED-CT () 2019-10-27 complete Mental y, 45 04 d Health- minutes with [address], [id number] [phone] Psychotherap [id number] SNOMED-CT () 2019-07-28 complete Mental y, 45 04 d Health- minutes with [facility] patient [address], [id number] [id number] Psychotherap [id number] SNOMED-CT () 2019-08-18 complete Mental y, 45 04 d Health- minutes with [address], [id number] Psychotherap [id number] SNOMED-CT () 2019-10-13 complete Mental y, 45 04 d Health- minutes with [facility] patient [address], [id number] [phone] Psychotherap [id number] SNOMED-CT () 2019-09-15 complete Mental y, 45 04 d Health- minutes with [address], [id number] Encounters/Encounter Diagnoses Encounter Name Encounter Diagnosis Diagnosis Diagnosis Date of Service Code Code Name CodeSystem Diagnosis Delivery Location [facility] [id number] Generalized SNOMED-CT 2020-01-05 Behavioral Individual 30 anxiety Health min disorder Clinic [address] [place] [address], [id number] Vital Signs No Information Social History Element Description Description Start End Code CodeSystem AdditionalInfo Date Date SexAssignedAtBirth Female 1950-1 F AdministrativeGender 04-16 Hospital Discharge Instructions Reason For Referral Medical Equipment FDA Assessments
[2020-02-03 16:03] LABS: ABS Eosinophils 0.1 10^3/ul (0-0.6); ABS Lymphocytes 1.1 10^3/ul (1.0-4.8); ABS Monocytes 0.6 10^3/ul (0-0.8); ABS Neutrophils 6.3 10^3/ul (1.5-7.7); Eosinophil % 1.6 %; Hematocrit 40 % (35-47); Hemoglobin 13.7 g/dL (12.0-16.0); Lymphocyte % 13.1 %; Mean Corpuscular HGB Conc 34 g/dL (31-36); Mean Corpuscular Hemoglobin 32 pg (27-31); Mean Corpuscular Volume 94 fL (80-97); Mean Platelet Volume 9.1 fL (7.4-10.4); Platelet Count 191 10^3/uL (150-450); Red Blood Count 4.26 10^6 /uL (3.70-4.87); Red Cell Distribution Width 14 % (10-15); White Blood Count 8.2 10^3/uL (3.5-10.8)
[2020-02-03 16:24] LABS: ALT 23 U/L (7-52); Albumin 3.9 g/dL (3.2-5.2); Albumin/Globulin Ratio 1.5 (1-3); Alkaline Phosphatase 79 U/L (34-104); BUN/Creatinine Ratio 27.5 (8-20); Blood Urea Nitrogen 22 mg/dL (6-24); CO2 Carbon Dioxide 24 mmol/L (22-32); Calcium 9.5 mg/dL (8.6-10.3); Chloride 104 mmol/L (101-111); EGFR African American 86.1 (>60); EGFR Non-African American 71.1 (>60); Globulin 2.6 g/dL (2-4); Glucose 90 mg/dL (70-100); Sodium 136 mmol/L (135-145); Total Protein 6.5 g/dL (6.4-8.9)
[2020-02-03 16:25] LABS: Anion Gap 8 mmol/L (2-11)
[2020-02-03] MEDS ORDERED: Iohexol 350* (CONTRAST) 500 ML MDV IV ONE (17:28)
[2020-02-03 17:37] LABS: Potassium Redraw 4.2 mmol/L (3.5-5.0)
[2020-02-03] MEDS ORDERED: Rivaroxaban TAB(*) 15 MG PO ONE (18:31)
[2020-02-03 19:32] VITALS: BP 131/78
== END 2020-02-03 19:28 | disposition home or self-care (01) ==
LOC: ED 15:21
DX: I26.99 Other pulmonary embolism without acute cor pulmonale (principal); R06.02 Shortness of breath; E78.00 Pure hypercholesterolemia, unspecified; I10 Essential (primary) hypertension; Z79.899 Other long term (current) drug therapy; Z79.82 Long term (current) use of aspirin; Z85.89 Personal history of malignant neoplasm of other organs and systems; Z87.891 Personal history of nicotine dependence
CPT/HCPCS: 36415; 71275; 80053; 85025; 99282; Q9967

== ENCOUNTER 2020-06-24 15:14 | Observation (INO) ==
[2020-06-24 21:19] LABS: ABS Eosinophils 0.2 10^3/ul (0-0.6); ABS Lymphocytes 1.4 10^3/ul (1.0-4.8); ABS Monocytes 0.6 10^3/ul (0-0.8); ABS Neutrophils 6.5 10^3/ul (1.5-7.7); Eosinophil % 2.3 %; Hematocrit 43 % (35-47); Hemoglobin 14.8 g/dL (12.0-16.0); Lymphocyte % 15.7 %; Mean Corpuscular HGB Conc 35 g/dL (31-36); Mean Corpuscular Hemoglobin 33 pg (27-31); Mean Corpuscular Volume 95 fL (80-97); Mean Platelet Volume 8.6 fL (7.4-10.4); Platelet Count 229 10^3/uL (150-450); Red Blood Count 4.48 10^6 /uL (3.70-4.87); Red Cell Distribution Width 14 % (10-15); White Blood Count 8.6 10^3/uL (3.5-10.8)
[2020-06-24 21:34] LABS: Albumin 4.4 g/dL (3.2-5.2); Albumin/Globulin Ratio 1.6 (1-3); BUN/Creatinine Ratio 22.6 (8-20); Calcium 9.9 mg/dL (8.6-10.3); EGFR African American 81.1 (>60); Globulin 2.8 g/dL (2-4); Potassium 4.1 mmol/L (3.5-5.0); Total Bilirubin 0.4 mg/dL (0.2-1.0); Total Protein 7.2 g/dL (6.4-8.9)
[2020-06-24 21:35] LABS: INR 1.03 (0.82-1.09)
[2020-06-24] MEDS ORDERED: Iohexol 350 (CONTRAST) 500 ML MDV IV ONE (21:52)
[2020-06-25 00:02] LABS: Urine Appearance Clear; Urine Bilirubin Negative (Negative); Urine Blood 3+ (Negative); Urine Color Yellow; Urine Glucose Negative (Negative); Urine Ketones Negative (Negative); Urine Nitrite Negative (Negative); Urine Protein Negative (Negative); Urine Urobilinogen Negative (Negative)
[2020-06-25 00:07] LABS: Urine Bacteria Absent (Absent); Urine Red Blood Cell 3+(>10/hpf) (Absent); Urine Squamous Epithelial Cell Present (Absent); Urine White Blood Cell 3+(>20/hpf) (Absent)
[2020-06-25] MEDS ORDERED: FLUTAMIDE 125 MG PO SCH (09:00)
[2020-06-25] MEDS ORDERED: Cholecalciferol (VIT D3) 1,000 unit TAB PO SCH (09:00)
[2020-06-25] MEDS ORDERED: Venlafaxine XR 75 mg PO SCH (09:00)
[2020-06-25 15:50] VITALS: BP 95/61
== END 2020-06-25 19:00 | disposition home or self-care (01) ==
LOC: MEDTELE 15:14 → ED 15:14 → MEDTELE 06-25 00:44
PROVIDERS: ADMIT Student in an Organized Health Care Education/Training Program; ATTEND Internal Medicine

== ENCOUNTER 2022-05-06 12:03 | Observation (INO) ==
[2022-05-06 12:50] LABS: ABS Eosinophils 0.1 10^3/ul (0-0.6); ABS Lymphocytes 1.1 10^3/ul (1.0-4.8); ABS Monocytes 0.6 10^3/ul (0-0.8); ABS Neutrophils 5.7 10^3/ul (1.5-7.7); Eosinophil % 1.4 %; Hematocrit 42 % (35-47); Hemoglobin 13.7 g/dL (12.0-16.0); Lymphocyte % 14.8 %; Mean Corpuscular HGB Conc 33 g/dL (31-36); Mean Corpuscular Hemoglobin 30 pg (27-31); Mean Corpuscular Volume 91 fL (80-97); Platelet Count 192 10^3/uL (150-450); Red Blood Count 4.62 10^6 /uL (3.70-4.87); Red Cell Distribution Width 16 % (10-15); White Blood Count 7.6 10^3/uL (3.5-10.8)
[2022-05-06] MEDS ORDERED: NS 0.9% 1000 ml BAG 1,000 ML IV ONE (13:27)
[2022-05-06 13:37] LABS: Albumin 4.1 g/dL (3.2-5.2); Albumin/Globulin Ratio 1.9 (1-3); Globulin 2.2 g/dL (2-4); Magnesium 1.9 mg/dL (1.9-2.7); Potassium 3.5 mmol/L (3.5-5.0); Total Bilirubin 0.7 mg/dL (0.2-1.0); Total Protein 6.3 g/dL (6.4-8.9); eGFR CKD-EPI 58.5 (>60)
[2022-05-06 14:46] LABS: High Sensitivity Troponin 1 Hr 4 pg/mL (<15)
[2022-05-06] MEDS ORDERED: Lidocaine 2% JELLY 6 ML Topical TOPICAL ONE (18:02)
[2022-05-06 18:40] LABS: Urine Appearance Cloudy; Urine Bilirubin Negative (Negative); Urine Blood 3+ (Negative); Urine Color Yellow; Urine Glucose Negative (Negative); Urine Ketones Negative (Negative); Urine Nitrite Negative (Negative); Urine Protein 1+(30 mg/dL) (Negative); Urine Specific Gravity 1.013 (1.002-1.030); Urine Urobilinogen Negative (Negative)
[2022-05-06 18:44] LABS: Urine Bacteria Absent (Absent); Urine Red Blood Cell 3+(>10/hpf) (Absent); Urine White Blood Cell 3+(>20/hpf) (Absent)
[2022-05-06 20:37] LABS: TSH Ultra Thyroid Stim Horm 1.94 mcIU/mL (0.34-5.60)
[2022-05-07 06:05] LABS: ABS Eosinophils 0.2 10^3/ul (0-0.6); ABS Lymphocytes 1.3 10^3/ul (1.0-4.8); ABS Monocytes 0.6 10^3/ul (0-0.8); ABS Neutrophils 5.3 10^3/ul (1.5-7.7); Eosinophil % 3.1 %; Hematocrit 39 % (35-47); Hemoglobin 12.9 g/dL (12.0-16.0); Mean Corpuscular HGB Conc 33 g/dL (31-36); Mean Corpuscular Hemoglobin 29 pg (27-31); Mean Corpuscular Volume 90 fL (80-97); Mean Platelet Volume 8.8 fL (7.4-10.4); Platelet Count 150 10^3/uL (150-450); Red Blood Count 4.38 10^6 /uL (3.70-4.87); Red Cell Distribution Width 16 % (10-15); White Blood Count 7.5 10^3/uL (3.5-10.8)
[2022-05-07 06:35] LABS: Calcium 8.4 mg/dL (8.6-10.3); Potassium 3.2 mmol/L (3.5-5.0); eGFR CKD-EPI 68.8 (>60)
[2022-05-07 08:34] LABS: Magnesium 1.9 mg/dL (1.9-2.7)
[2022-05-07] MEDS ORDERED: Venlafaxine XR 75 mg PO SCH (09:00)
[2022-05-07] MEDS: Venlafaxine XR 75 mg PO SCH (09:58)
[2022-05-07] MEDS: Cholecalciferol (VIT D3) 1,000 unit TAB PO SCH (09:58)
[2022-05-07] MEDS ORDERED: Potassium Chlor 20 meq TAB.ER PO ONE (10:23)
[2022-05-08 07:01] LABS: Potassium 3.8 mmol/L (3.5-5.0); eGFR CKD-EPI 67.9 (>60)
[2022-05-08] MEDS: Cholecalciferol (VIT D3) 1,000 unit TAB PO SCH (08:52)
[2022-05-08] MEDS: Venlafaxine XR 75 mg PO SCH (08:53)
[2022-05-08 11:24] VITALS: BP 124/60
== END 2022-05-08 13:35 | disposition home or self-care (01) ==
LOC: EDHOLD 12:03 → ED 12:03 → EDHOLD 05-07 08:28 → MED 05-07 08:50
PROVIDERS: ADMIT Internal Medicine; ATTEND Internal Medicine

== ENCOUNTER 2022-09-20 16:50 | Inpatient (IN) ==
[2022-09-20] MEDS ORDERED: NS 0.9% 1000 ml BAG 1,000 ML IV ONE (19:20)
[2022-09-20 20:33] LABS: ABS Eosinophils 0.1 10^3/ul (0-0.6); ABS Lymphocytes 0.9 10^3/ul (1.0-4.8); ABS Monocytes 0.7 10^3/ul (0-0.8); ABS Neutrophils 10.6 10^3/ul (1.5-7.7); Eosinophil % 0.4 %; Hematocrit 38 % (35-47); Hemoglobin 12.1 g/dL (12.0-16.0); Lymphocyte % 7.4 %; Mean Corpuscular HGB Conc 32 g/dL (31-36); Mean Corpuscular Hemoglobin 29 pg (27-31); Mean Corpuscular Volume 89 fL (80-97); Mean Platelet Volume 9.1 fL (7.4-10.4); Platelet Count 168 10^3/uL (150-450); Red Cell Distribution Width 17 % (10-15); White Blood Count 12.3 10^3/uL (3.5-10.8)
[2022-09-20 20:49] LABS: ALT 11 U/L (7-52); AST 26 U/L (13-39); Albumin 3.7 g/dL (3.2-5.2); Albumin/Globulin Ratio 1.9 (1-3); Alkaline Phosphatase 91 U/L (35-149); Anion Gap 10 mmol/L (2-11); Blood Urea Nitrogen 24 mg/dL (6-24); CO2 Carbon Dioxide 26 mmol/L (22-32); Calcium 8.5 mg/dL (8.6-10.3); Chloride 102 mmol/L (101-111); Creatine Kinase 774 U/L (10-223); Glucose 82 mg/dL (70-100); Potassium 3.5 mmol/L (3.5-5.0); Sodium 138 mmol/L (135-145); Total Protein 5.7 g/dL (6.4-8.9); eGFR CKD-EPI 83.2 (>60)
[2022-09-21 01:18] LABS: Vitamin B12 > 1450 pg/mL (180-914)
[2022-09-21 01:22] LABS: Vitamin D Total 25(OH) 61.8 ng/mL (20-50)
[2022-09-21 01:34] LABS: Urine Appearance Clear; Urine Bilirubin Negative (Negative); Urine Blood Negative (Negative); Urine Color Amber; Urine Glucose Negative (Negative); Urine Ketones Trace (Negative); Urine Nitrite Negative (Negative); Urine Protein 1+(30 mg/dL) (Negative); Urine Specific Gravity 1.024 (1.002-1.030); Urine Urobilinogen Negative (Negative)
[2022-09-21 01:36] LABS: Urine Bacteria Absent (Absent); Urine Red Blood Cell Trace(0-2/hpf) (Absent); Urine White Blood Cell Trace(0-5/hpf) (Absent)
[2022-09-21 06:41] LABS: Hematocrit 38 % (35-47); Hemoglobin 12.3 g/dL (12.0-16.0); Mean Corpuscular HGB Conc 32 g/dL (31-36); Mean Corpuscular Hemoglobin 29 pg (27-31); Mean Corpuscular Volume 89 fL (80-97); Red Blood Count 4.26 10^6 /uL (3.70-4.87); Red Cell Distribution Width 18 % (10-15); White Blood Count 9.5 10^3/uL (3.5-10.8)
[2022-09-21 06:44] LABS: ABS Eosinophils 0.1 10^3/ul (0-0.6); ABS Lymphocytes 0.8 10^3/ul (1.0-4.8); ABS Monocytes 0.7 10^3/ul (0-0.8); ABS Neutrophils 7.7 10^3/ul (1.5-7.7); Eosinophil % 1.2 %; Lymphocyte % 8.7 %; Mean Platelet Volume 9.3 fL (7.4-10.4); Nucleated Red Blood Cells % 0.1; Platelet Count 184 10^3/uL (150-450)
[2022-09-21 07:24] LABS: Albumin 3.8 g/dL (3.2-5.2); Albumin/Globulin Ratio 1.7 (1-3); Calcium 8.8 mg/dL (8.6-10.3); Globulin 2.2 g/dL (2-4); Potassium 3.7 mmol/L (3.5-5.0); Total Bilirubin 1.4 mg/dL (0.2-1.0)
[2022-09-21] MEDS: Cholecalciferol (VIT D3) 1,000 unit TAB PO SCH (09:13)
[2022-09-21] MEDS: Venlafaxine XR 75 mg PO SCH (09:14)
[2022-09-21] MEDS: Enoxaparin 40 MG/0.4 ML SYR SUBCUT SCH (09:17)
[2022-09-22 08:11] LABS: ABS Eosinophils 0.3 10^3/ul (0-0.6); ABS Lymphocytes 1.2 10^3/ul (1.0-4.8); ABS Monocytes 0.6 10^3/ul (0-0.8); ABS Neutrophils 5.3 10^3/ul (1.5-7.7); Eosinophil % 3.5 %; Hematocrit 33 % (35-47); Hemoglobin 10.9 g/dL (12.0-16.0); Lymphocyte % 16.7 %; Mean Corpuscular HGB Conc 33 g/dL (31-36); Mean Corpuscular Hemoglobin 29 pg (27-31); Mean Corpuscular Volume 89 fL (80-97); Mean Platelet Volume 8.7 fL (7.4-10.4); Platelet Count 160 10^3/uL (150-450); Red Blood Count 3.74 10^6 /uL (3.70-4.87); Red Cell Distribution Width 18 % (10-15); White Blood Count 7.5 10^3/uL (3.5-10.8)
[2022-09-22 08:50] LABS: Albumin 3.3 g/dL (3.2-5.2); Albumin/Globulin Ratio 1.7 (1-3); Calcium 8.4 mg/dL (8.6-10.3); Globulin 1.9 g/dL (2-4); Potassium 3.5 mmol/L (3.5-5.0); Total Bilirubin 1.2 mg/dL (0.2-1.0); Total Protein 5.2 g/dL (6.4-8.9); eGFR CKD-EPI 78.2 (>60)
[2022-09-22] MEDS: Enoxaparin 40 MG/0.4 ML SYR SUBCUT SCH (09:11)
[2022-09-22] MEDS: Cholecalciferol (VIT D3) 1,000 unit TAB PO SCH (09:12)
[2022-09-22] MEDS: Venlafaxine XR 75 mg PO SCH (09:12)
[2022-09-23 06:27] LABS: Hematocrit 34 % (35-47); Hemoglobin 11.1 g/dL (12.0-16.0); Mean Corpuscular HGB Conc 33 g/dL (31-36); Mean Corpuscular Hemoglobin 29 pg (27-31); Mean Corpuscular Volume 89 fL (80-97); Mean Platelet Volume 8.6 fL (7.4-10.4); Platelet Count 162 10^3/uL (150-450); Red Blood Count 3.82 10^6 /uL (3.70-4.87); Red Cell Distribution Width 18 % (10-15); White Blood Count 6.1 10^3/uL (3.5-10.8)
[2022-09-23 07:02] LABS: Albumin 3.3 g/dL (3.2-5.2); Calcium 8.5 mg/dL (8.6-10.3); Potassium 3.5 mmol/L (3.5-5.0); Total Bilirubin 1.2 mg/dL (0.2-1.0)
[2022-09-23 07:08] LABS: Albumin/Globulin Ratio 1.8 (1-3); Globulin 1.8 g/dL (2-4); Total Protein 5.1 g/dL (6.4-8.9); eGFR CKD-EPI 77.1 (>60)
[2022-09-23] MEDS: Enoxaparin 40 MG/0.4 ML SYR SUBCUT SCH (09:35)
[2022-09-23] MEDS: Cholecalciferol (VIT D3) 1,000 unit TAB PO SCH (09:36)
[2022-09-23] MEDS: Venlafaxine XR 75 mg PO SCH (09:36)
[2022-09-23] MEDS ORDERED: Senna TAB 8.6 mg TAB PO PRN (09:55)
[2022-09-23] MEDS ORDERED: Magnesium Hydroxide LIQ 30 ML UDC PO PRN (09:55)
[2022-09-23] MEDS: Polyethylene Glycol 3350 17 GM PACKET PO SCH (11:32)
[2022-09-23] MEDS ORDERED: Calcium Carb (TUMS) 500 mg CHEW TAB PO PRN (17:47)
[2022-09-24 08:12] LABS: ABS Eosinophils 0.3 10^3/ul (0-0.6); ABS Lymphocytes 1.3 10^3/ul (1.0-4.8); ABS Monocytes 0.7 10^3/ul (0-0.8); ABS Neutrophils 4.3 10^3/ul (1.5-7.7); Eosinophil % 4.8 %; Hematocrit 36 % (35-47); Hemoglobin 11.9 g/dL (12.0-16.0); Mean Corpuscular HGB Conc 33 g/dL (31-36); Mean Corpuscular Hemoglobin 29 pg (27-31); Mean Corpuscular Volume 89 fL (80-97); Mean Platelet Volume 8.5 fL (7.4-10.4); Platelet Count 169 10^3/uL (150-450); Red Cell Distribution Width 18 % (10-15); White Blood Count 6.6 10^3/uL (3.5-10.8)
[2022-09-24 08:47] LABS: Albumin 3.5 g/dL (3.2-5.2); Albumin/Globulin Ratio 1.7 (1-3); Calcium 8.8 mg/dL (8.6-10.3); Globulin 2.1 g/dL (2-4); Potassium 3.7 mmol/L (3.5-5.0); Total Bilirubin 1.4 mg/dL (0.2-1.0); Total Protein 5.6 g/dL (6.4-8.9)
[2022-09-24] MEDS: Polyethylene Glycol 3350 17 GM PACKET PO SCH (09:47)
[2022-09-24] MEDS: Enoxaparin 40 MG/0.4 ML SYR SUBCUT SCH (09:47)
[2022-09-24] MEDS: Venlafaxine XR 75 mg PO SCH (09:48)
[2022-09-24] MEDS: Cholecalciferol (VIT D3) 1,000 unit TAB PO SCH (09:48)
[2022-09-24 10:15] LABS: Direct Bilirubin 0.3 mg/dL (0.03-0.18); Indirect Bilirubin 1.1 mg/dL (0.3-1.0)
[2022-09-24] MEDS ORDERED: Polyethylene Glycol 3350 17 GM PACKET PO PRN (10:51)
[2022-09-25 02:50] LABS: Urine Appearance Slightly Cloudy; Urine Bilirubin Negative (Negative); Urine Blood Negative (Negative); Urine Color Yellow; Urine Glucose Negative (Negative); Urine Ketones Trace (Negative); Urine Nitrite Negative (Negative); Urine Protein Negative (Negative); Urine Urobilinogen 1.0 (Negative) (Negative); Urine pH 6.5 (5.0-9.0)
[2022-09-25 09:55] LABS: ABS Eosinophils 0.3 10^3/ul (0-0.6); ABS Lymphocytes 1.3 10^3/ul (1.0-4.8); ABS Monocytes 0.5 10^3/ul (0-0.8); ABS Neutrophils 4.9 10^3/ul (1.5-7.7); Eosinophil % 4.2 %; Hematocrit 41 % (35-47); Hemoglobin 13.3 g/dL (12.0-16.0); Lymphocyte % 18.5 %; Mean Corpuscular HGB Conc 32 g/dL (31-36); Mean Corpuscular Hemoglobin 29 pg (27-31); Mean Corpuscular Volume 90 fL (80-97); Mean Platelet Volume 8.9 fL (7.4-10.4); Platelet Count 222 10^3/uL (150-450); Red Blood Count 4.53 10^6 /uL (3.70-4.87); Red Cell Distribution Width 18 % (10-15)
[2022-09-25] MEDS: Enoxaparin 40 MG/0.4 ML SYR SUBCUT SCH (10:00)
[2022-09-25] MEDS: Cholecalciferol (VIT D3) 1,000 unit TAB PO SCH (10:02)
[2022-09-25] MEDS: Venlafaxine XR 75 mg PO SCH (10:02)
[2022-09-25 10:18] LABS: Albumin 3.9 g/dL (3.2-5.2); Albumin/Globulin Ratio 1.7 (1-3); Calcium 9.3 mg/dL (8.6-10.3); Globulin 2.3 g/dL (2-4); Total Bilirubin 1.5 mg/dL (0.2-1.0); Total Protein 6.2 g/dL (6.4-8.9); eGFR CKD-EPI 74.9 (>60)
[2022-09-25 15:39] LABS: Corrected Retic Count 2.7 % (0.5-1.5); Hematocrit for Retic CNT 42 % (35-47); Immature Retic Fraction 0.59; RBC Retic Count 4.63 10^6/uL (3.70-4.87)
[2022-09-25] MEDS ORDERED: NS 0.9% 1000 ml BAG 1,000 ML IV SCH (15:45)
[2022-09-26 06:20] LABS: ABS Eosinophils 0.4 10^3/ul (0-0.6); ABS Monocytes 0.6 10^3/ul (0-0.8); ABS Neutrophils 4.1 10^3/ul (1.5-7.7); Hematocrit 38 % (35-47); Hemoglobin 12.3 g/dL (12.0-16.0); Lymphocyte % 28.1 %; Mean Corpuscular HGB Conc 32 g/dL (31-36); Mean Corpuscular Hemoglobin 29 pg (27-31); Mean Corpuscular Volume 89 fL (80-97); Mean Platelet Volume 8.8 fL (7.4-10.4); Platelet Count 199 10^3/uL (150-450); Red Blood Count 4.27 10^6 /uL (3.70-4.87); Red Cell Distribution Width 18 % (10-15); White Blood Count 7.1 10^3/uL (3.5-10.8)
[2022-09-26 06:46] LABS: Albumin 3.6 g/dL (3.2-5.2); Albumin/Globulin Ratio 1.7 (1-3); Globulin 2.1 g/dL (2-4); Potassium 3.8 mmol/L (3.5-5.0); Total Bilirubin 1.2 mg/dL (0.2-1.0); Total Protein 5.7 g/dL (6.4-8.9); eGFR CKD-EPI 78.2 (>60)
[2022-09-26] MEDS: Venlafaxine XR 75 mg PO SCH (09:02)
[2022-09-26] MEDS: Cholecalciferol (VIT D3) 1,000 unit TAB PO SCH (09:02)
[2022-09-26] MEDS: Enoxaparin 40 MG/0.4 ML SYR SUBCUT SCH (09:03)
[2022-09-26 11:24] VITALS: BP 131/85
== END 2022-09-26 14:40 | DRG 948 ==
LOC: ED 16:50 → EDHOLD 16:50 → SUATTDRO 09-21 00:16 → MED 09-21 12:20 → SUATTDRO 09-24 16:00
PROVIDERS: ADMIT Internal Medicine; ATTEND Internal Medicine

== ENCOUNTER 2023-06-10 09:14 | Inpatient (IN) ==
[~2023-06-10 09:14] MED LIST changes: -Acetaminophen TAB* 325 MG PO PRN; -Buffered Lidocaine 0.9% SYRIN* 5 ML/SYR SYRINGE INTRADERM ONE; +Buffered Lidocaine 1% SYRIN 1 ml INTRADERM ONE; +Chlorhexidine MOUTHWASH 0.12% 15 ML UDC ONE; +Lactated Ringers 1000 ml BAG 1,000 ML IV SCH; -Midazolam* 1 MG/ML 2 ML VIAL (2 MG) ONE
[2023-06-10] MEDS ORDERED: Dexamethasone IV 4 MG/ML VIAL 1 ml VIAL ONE (09:21)
[2023-06-10] MEDS ORDERED: Rocuronium 50 mg VIAL 10 mg/ml 5 ml VIAL (50 mg) ONE ×2 (09:21→11:57)
[2023-06-10] MEDS ORDERED: fentaNYL 100 mcg/2 ml 50 MCG/ML VIAL ONE ×2 (09:21→15:55)
[2023-06-10] MEDS ORDERED: Propofol 10 MG/ML 20 ML BTL ONE (09:21)
[2023-06-10] MEDS ORDERED: Ondansetron 4 mg VIAL 2 MG/ML 2 ml VIAL ONE ×2 (09:21→15:44)
[2023-06-10] MEDS ORDERED: Midazolam 2 mg/2 ml VIAL 1 mg/ml 2 ml VIAL (2 mg) ONE (09:21)
[2023-06-10] MEDS ORDERED: Lidocaine 2% PF 5 ML VIAL ONE (09:21)
[2023-06-10] MEDS ORDERED: Clindamycin 900 MG/50 **NS BAG 900 MG/50 ML BAG ONE (09:38)
[2023-06-10 10:01] LABS: Rapid COVID-19 Molecular Undetected (Undetected)
[2023-06-10] MEDS ORDERED: Lidocaine 1% w EPI 1:100,000 MDV 20 ML VIAL ONE (10:41)
[2023-06-10] MEDS ORDERED: Thrombin 5,000 UNITS 1 APPLIC KIT - topical use - TOPICAL ONE (10:41)
[2023-06-10] MEDS ORDERED: Gelfoam Sponge SIZE 100 SPONGE ONE (10:42)
[2023-06-10] MEDS ORDERED: ceFAZolin VIAL VIAL ONE (10:42)
[2023-06-10] MEDS ORDERED: HYDROmorphone 1 MG/1 ML SYRINGE IV PRN (12:36)
[2023-06-10] MEDS ORDERED: Ondansetron 4 mg VIAL 2 MG/ML 2 ml VIAL IV PRN (12:36)
[2023-06-10] MEDS ORDERED: Naloxone 0.4 mg VIAL 0.4 mg/ml 1 ml VIAL IV PRN (12:36)
[2023-06-10] MEDS ORDERED: Acetaminophen IV 1 GM/100ML 1,000 MG/100 ML BAG IV PRN (12:36)
[2023-06-10] MEDS ORDERED: fentaNYL 100 mcg/2 ml 50 MCG/ML VIAL IV PRN (12:36)
[2023-06-10] MEDS ORDERED: HYDROmorphone 0.5 MG/0.5 ML SYRINGE ONE (13:58)
[2023-06-10] MEDS ORDERED: Senna TAB 8.6 mg TAB PO PRN (15:13)
[2023-06-10] MEDS ORDERED: Calcium Carb (TUMS) 500 mg CHEW TAB PO PRN (15:13)
[2023-06-10] MEDS ORDERED: Lactated Ringers 1000 ml BAG 1,000 ML IV SCH (16:00)
[2023-06-10] MEDS: HYDROcodone/ACETAMIN 5/325 mg TAB PO PRN (18:13)
[2023-06-10] MEDS: Ondansetron 4 mg VIAL 2 MG/ML 2 ml VIAL IV PRN (20:58)
[2023-06-10] MEDS: VALBENAZINE 80 MG PO SCH (21:05)
[2023-06-11] MEDS: HYDROcodone/ACETAMIN 5/325 mg TAB PO PRN ×3 (00:51→21:07)
[2023-06-11] MEDS: Ondansetron 4 mg VIAL 2 MG/ML 2 ml VIAL IV PRN ×2 (05:02→21:08)
[2023-06-11] MEDS: Venlafaxine XR 75 mg PO SCH (08:43)
[2023-06-11] MEDS ORDERED: Albuterol 2.5mg/3 ml (0.083%) NEB.SOLN INH PRN (17:45)
[2023-06-11] MEDS: VALBENAZINE 80 MG PO SCH (21:00)
[2023-06-12] MEDS: Venlafaxine XR 75 mg PO SCH (08:26)
[2023-06-12] MEDS: HYDROcodone/ACETAMIN 5/325 mg TAB PO PRN (08:26)
[2023-06-12 10:12] VITALS: BP 125/76
== END 2023-06-12 11:00 | disposition home or self-care (01) | DRG 460 ==
LOC: AA 09:14 → SSU 16:34
PROVIDERS: ADMIT Neurological Surgery; ATTEND Neurological Surgery
PROC: O.NEPLF (2023-06-10 11:15)